=== PATIENT | female | born 1980 | race Caucasian/White ===

== ENCOUNTER 2021-10-16 18:21 | Outpatient (REF) | payer MEDICAID, SELFPAY ==
[2021-10-16 21:06] LABS: HCT 47.2 % (36.0-46.0); HGB 15.7 g/dL (11.2-15.7); MCH 29.7 pg (27.0-33.0); MCHC 33.3 % (32.0-36.0); MCV 89.2 fL (80-95); MPV 10.3 fL (8.0-11.0); Platelet Count 295 10^3/uL (130-400); RBC 5.29 10^6/uL (3.93-5.22); RDW 11.9 % (11.7-14.6); RDW-SD 38.9 fL; WBC 9.34 10^3/uL (4.4-10.8)
[2021-10-16 21:26] LABS: ALT 60 U/L (14-59); AST 29 U/L (15-37); Anion Gap 10.3 mmol/L (3-11); BUN 18 mg/dL (7-18); CO2 29.7 mmol/L (21.0-32.0); CREATININE 1.1 mg/dL (0.55-1.02); Calcium 9.8 mg/dL (8.5-10.1); Chloride 104 mmol/L (98-107); FREE T4 1.17 ng/dL (0.76-1.46); Glucose 89 mg/dL (74-106); Potassium 3.9 mmol/L (3.5-5.1); Sodium 144 mmol/L (136-145); TSH 3.34 uIU/mL (0.36-3.74)
[2021-10-17 17:52] LABS: T3,Free 3.5 pg/mL (2.8-5.3)
== END 2021-10-16 18:22 | disposition home or self-care (01) ==
LOC: NCHCN 18:21
PROVIDERS: Visit Provider Nurse Practitioner Family
DX: E05.00 Thyrotoxicosis with diffuse goiter without thyrotoxic crisis or storm (principal); K76.0 Fatty (change of) liver, not elsewhere classified; E66.01 Morbid (severe) obesity due to excess calories; Z79.899 Other long term (current) drug therapy
CPT/HCPCS: 80048; 85027; 84439; 84443; 84450; 84460; 84481

== ENCOUNTER 2022-01-28 18:11 | Outpatient (REF) | payer MEDICAID, SELFPAY ==
[2022-01-28 22:32] LABS: Hemoglobin A1C 5.2 % (<5.7)
[2022-01-30 09:35] LABS: DHEA Sulfate 119 ug/dL (75-410)
[2022-02-01 17:34] LABS: Testosterone, Total 24 ng/dL (8-60)
== END 2022-01-28 18:12 | disposition home or self-care (01) ==
LOC: NCHCN 18:11
PROVIDERS: Visit Provider Nurse Practitioner Family
DX: L65.9 Nonscarring hair loss, unspecified (principal); E66.01 Morbid (severe) obesity due to excess calories
CPT/HCPCS: 82627; 84403; 82565; 83036

== ENCOUNTER 2022-04-09 18:35 | Emergency (ER) | payer MEDICAID, SELFPAY ==
[2022-04-09 18:46] VITALS: BP 125/82; PULSE 78; RESP 18; TEMP 36.9; O2SAT 95
[2022-04-09 18:58] VITALS: RESP 18
[2022-04-09] MEDS: LORazepam 1 MG TAB PO (19:40)
[2022-04-09 19:50] LABS: Abs Immature Grans 0.02 10^3/uL (0.0-0.06); Absolute Basophil Count 0.03 10^3/uL (0.0-0.2); Absolute Eosinophil Count 0.12 10^3/uL (0.0-0.7); Absolute Lymphocyte Count 3.08 10^3/uL (1.2-3.4); Absolute Monocyte Count 0.63 10^3/uL (0.1-0.8); Absolute Neutrophil Count 5.29 10^3/uL (1.2-6.7); Basophils % 0.3; Eosinophils % 1.3; HCT 45.2 % (36.0-46.0); HGB 15.3 g/dL (11.2-15.7); Immature Grans % 0.2; Lymphocytes % 33.6; MCH 30.8 pg (27.0-33.0); MCHC 33.8 % (32.0-36.0); MCV 91 fL (80-95); MPV 9.4 fL (8.0-11.0); Monocytes % 6.9; Neutrophils % 57.7; Platelet Count 289 10^3/uL (130-400); RBC 4.97 10^6/uL (3.93-5.22); RDW-SD 40.2 fL; WBC 9.17 10^3/uL (4.4-10.8)
[2022-04-09 20:06] LABS: ALT 58 U/L (14-59); AST 52 U/L (15-37); Albumin 4.3 g/dL (3.4-5.0); Alkaline Phosphatase 74 U/L (46-116); Anion Gap 8.4 mmol/L (3-11); BUN 18 mg/dL (7-18); Bilirubin, Total 0.5 mg/dL (0.2-1.0); CO2 28.6 mmol/L (21.0-32.0); CREATININE 1.1 mg/dL (0.55-1.02); Calcium 9.7 mg/dL (8.5-10.1); Chloride 104 mmol/L (98-107); Glucose 103 mg/dL (74-106); Potassium 4.5 mmol/L (3.5-5.1); Sodium 141 mmol/L (136-145); Total Protein 8.6 g/dL (6.4-8.2)
[2022-04-09 20:26] LABS: FREE T4 0.98 ng/dL (0.76-1.46)
--- NOTE | 2022-04-09 21:38 | W.ED.GENAD ---
Discharge Plan Disposition Patient Disposition: HOME Condition: Stable Discharge Details Clinical Impression: Mood disorder Primary Care Provider: Ashley Vaelnte ED Provider: Rita Villalta Home Meds and New Rx's Prescriptions: New lorazepam [Ativan] 1 mg tablet 1 mg PO DAILY PRNQty: 8 0RF Continued lamotrigine [Lamictal] 150 mg Tablet 150 mg PO DAILY atenolol 25 mg Tablet 10 mg PO DAILY losartan 25 mg Tablet 25 mg PO DAILY methimazole 5 mg Tablet 7.5 mg PO DAILY aripiprazole [Abilify] 10 mg Tablet 10 mg PO DAILY Discharge Instructions Additional Instructions: I am supplying you with several tablets of Ativan, you may take this as needed for anxiety This medication is addictive and you should use it sparingly You may take 1 mg every 8 hours as needed for anxiety Please follow-up with the mental health provider that has been listed Please return earlier should you have new or worsening complaints Your thyroid level is slightly elevated, please have this rechecked by your primary care physician return earlier should you have new or worsening complaints Referrals: Ashley Valente [Primary Care Provider] - Discharge Data Discharge Date/Time-TO BE ENTERED AT DEPARTURE: 04/09/22 22:13 Medical Decision Making Patient is pleasant, alert, oriented, feels significantly improved after milligram of Ativan Mental [facility] has screened this patient and feels as though she is stable for discharge home She will be established with a psychologist which she feels comfortable with this disposition She is discharged home in stable condition with stable vitals, I gave her several tablets of Ativan to to needed at home Return precautions discussed and patient expressed understanding Patient is aware that it is addictive substance and she should not operate her vehicle for 8 hours after taking this medication Medical Records Medical records reviewed: Yes I reviewed the patient's medical records. HPI General Date/Time Provider Initiated Documentation: 04/09/22 18:36. HPI Narrative: This 41-year-old female with history of hypothyroidism presents with report of worsening anxiety. She states she relocated here approximately a year ago and has yet to require a psychologist locally. She does take several medications for her depression and anxiety but feels as though there is been worsening in the past several months. She does have a primary care physician he has been managing her other psychiatric medications. She denies any suicidal or homicidal ideation. She denies any auditory visual hallucinations. She smokes marijuana occasionally. She denies any alcohol or illicit drug use. She denies any chance of . She denies any new medications. Related Data Home Medications Medication Instructions Recorded Confirmed aripiprazole 10 mg tablet (Abilify) 10 mg PO DAILY 04/09/22 04/09/22 atenolol 25 mg tablet 10 mg PO DAILY 04/09/22 04/09/22 lamotrigine 150 mg tablet 150 mg PO DAILY 04/09/22 04/09/22 (Lamictal) lorazepam 1 mg tablet (Ativan) 1 mg PO DAILY PRN #8 tabs 04/09/22 losartan 25 mg tablet 25 mg PO DAILY 04/09/22 04/09/22 methimazole 5 mg tablet 7.5 mg PO DAILY 04/09/22 04/09/22 Previous Rx's Medication Instructions Recorded lorazepam 1 mg tablet (Ativan) 1 mg PO DAILY PRN #8 tabs 04/09/22 Allergies Allergy/AdvReac Type Severity Reaction Status Date / Time Penicillins Allergy Skin Rash Unverified 04/09/22 18:56 Sulfa (Sulfonamide Allergy Skin Rash Unverified 04/09/22 18:56 Antibiotics) General Stated Complaint: Anxiety DAVID: 3 Review of Systems All systems reviewed & are unremarkable except as noted in HPI and below PFSH All Active Problems (Updated 04/09/22 @ 21:41 by FRANCI Altman) Mood disorder (Acute) Social History Smoking/Tobacco Use Status: Former Tobacco Use Smoking risk assessment performed?: Yes Alcohol Intake: never Drug use: Occasionally Substance use type: marijuana Do you feel safe at home: Yes Do you feel safe in your relationship?: Yes Exam Const General: cooperative and anxious Orientation: alert and oriented x3 Eyes Pupils: PERRL Resp Effort & Inspection: normal respiratory effort Cardio Rate: regular rate Skin General skin exam: no rashes or lesions noted Neuro General: patient alert and patient oriented x3 Cranial Nerves: CN's II-XI intact bilaterally Cognition: normal cognition Speech: speech normal Psych Appearance: grossly normal Mental Status: mental status grossly normal Mood: anxious mood Attitude: cooperative Course Vital Signs Vital signs: Vital Signs Temperature 36.9 C 04/09/22 18:46 Pulse 78 04/09/22 18:46 Respiratory Rate 18 04/09/22 18:46 Blood Pressure 125/82 04/09/22 18:46 Pulse Oximetry 95 04/09/22 18:46 Temperature 36.9 C 04/09/22 18:46 Temperature Source Oral 04/09/22 18:46 Pulse 78 04/09/22 18:46 Respiratory Rate 18 04/09/22 18:58 Respiratory Effort Non-Labored 04/09/22 18:58 Respiratory Depth Normal 04/09/22 18:58 Respiratory Pattern Normal 04/09/22 18:58 Blood Pressure 125/82 04/09/22 18:46 Blood Pressure Position Sitting 04/09/22 18:46 Pulse Oximetry 95 04/09/22 18:46 Oxygen Delivery Method Room Air 04/09/22 18:46 Oxygen Flow Rate 0 04/09/22 18:46 Lab/Test Results Lab/Test Results: Laboratory Tests Range/Units 04/09/22 04/09/22 19:35 19:35 WBC (4.4-10.8) 10^3/uL 9.17 RBC (3.93-5.22) 10^6/uL 4.97 Hgb (11.2-15.7) g/dL 15.3 Hct (36.0-46.0) % 45.2 MCV (80-95) fL 91 MCH (27.0-33.0) pg 30.8 MCHC (32.0-36.0) % 33.8 RDW (11.7-14.6) % 12.0 Plt Count (130-400) 10^3/uL 289 MPV (8.0-11.0) fL 9.4 Immature Gran % 0.2 Neutrophils % 57.7 Lymphocytes % 33.6 Monocytes % 6.9 Eosinophils % 1.3 Basophils % 0.3 Nucleated RBC % (0.0-0.3) % 0.0 Absolute Neutrophils (1.2-6.7) 10^3/uL 5.29 Absolute Lymphocytes (1.2-3.4) 10^3/uL 3.08 Absolute Monocytes (0.1-0.8) 10^3/uL 0.63 Absolute Eosinophils (0.0-0.7) 10^3/uL 0.12 Absolute Basophils (0.0-0.2) 10^3/uL 0.03 Sodium (136-145) mmol/L 141 Potassium (3.5-5.1) mmol/L 4.5 Chloride (98-107) mmol/L 104 Carbon Dioxide (21.0-32.0) mmol/L 28.6 Anion Gap (3-11) mmol/L 8.4 BUN (7-18) mg/dL 18 Creatinine (0.55-1.02) mg/dL 1.1 H Estimated GFR/1.73 m2 (mL/min/1.73m2) 55.30 Glucose (74-106) mg/dL 103 Calcium (8.5-10.1) mg/dL 9.7 Total Bilirubin (0.2-1.0) mg/dL 0.5 AST (15-37) U/L 52 H ALT (14-59) U/L 58 Alkaline Phosphatase (46-116) U/L 74 Total Protein (6.4-8.2) g/dL 8.6 H Albumin (3.4-5.0) g/dL 4.3 TSH (0.36-3.74) uIU/mL 5.40 H Free T4 (0.76-1.46) ng/dL 0.98
[2022-04-09 22:05] VITALS: BP 160/86; PULSE 80; RESP 16; O2SAT 98
== END 2022-04-09 22:13 | disposition home or self-care (01) ==
PROVIDERS: Emergency Provider Physician Assistant; PCP Nurse Practitioner Family
DX: F39 Unspecified mood [affective] disorder (principal); F41.9 Anxiety disorder, unspecified
CPT/HCPCS: 80053; 99283; 84439; 84443; 85025

== ENCOUNTER 2022-05-20 16:42 | Outpatient (REF) | payer MEDICAID, SELFPAY ==
[2022-05-20 21:02] LABS: FREE T4 1.04 ng/dL (0.76-1.46); TSH 5.72 uIU/mL (0.36-3.74)
[2022-05-21 18:41] LABS: T3,Free 3.6 pg/mL (2.8-5.3)
== END 2022-05-20 16:43 | disposition home or self-care (01) ==
LOC: NCHCN 16:42
PROVIDERS: PCP Nurse Practitioner Family; Visit Provider Nurse Practitioner Family
DX: E05.00 Thyrotoxicosis with diffuse goiter without thyrotoxic crisis or storm (principal)
CPT/HCPCS: 84439; 84443; 84481

== ENCOUNTER → 2022-06-30 02:15 | Outpatient (CLI) | payer MEDICAID, SELFPAY ==
--- NOTE | 2022-06-30 10:45 | DI.RAD_ITS ---
Exam(s) XR LUMBAR SPINE COMPLETE EXAM: XR LUMBAR SPINE COMPLETE CLINICAL HISTORY: BACK PAIN, M54.9. TECHNIQUE: 2D digital imaging was performed of the lumbar spine. Five images were obtained. AP, la teral, right oblique, left oblique and L5-S1 spot views were obtained. COMPARISON: No exams were available for comparison FINDINGS: Examination limited by patient body habitus. BONES: No fracture or destructive lesion. Small endplate osteophytes are seen at L4-L5 and L5-S1. No facet hypertrophy identified. DISKS: There is disc space narrowing at L4-L5. ALIGNMENT: Lumbar spinal alignment is within normal limits. No spondylolysis or spondylolisthesis. SOFT TISSUE: Normal. IMPRESSION: Mild degenerative changes in the lumbar spine. DATA REPOSITORY: RADIATION DOSE DELIVERED:
== END ==
PROVIDERS: PCP Nurse Practitioner Family; Visit Provider Nurse Practitioner Family
DX: M51.36 Other intervertebral disc degeneration, lumbar region (principal)
CPT/HCPCS: 72110

== ENCOUNTER 2022-08-18 19:13 | Outpatient (REF) | payer MEDICAID, SELFPAY ==
[2022-08-18 18:45] LABS: Abs Immature Grans 0.02 10^3/uL (0.0-0.06); Absolute Basophil Count 0.04 10^3/uL (0.0-0.2); Absolute Eosinophil Count 0.17 10^3/uL (0.0-0.7); Absolute Lymphocyte Count 2.97 10^3/uL (1.2-3.4); Absolute Monocyte Count 0.53 10^3/uL (0.1-0.8); Absolute Neutrophil Count 4.15 10^3/uL (1.2-6.7); Basophils % 0.5; Eosinophils % 2.2; HCT 41.7 % (36.0-46.0); HGB 14.1 g/dL (11.2-15.7); Immature Grans % 0.3; Lymphocytes % 37.7; MCH 30.7 pg (27.0-33.0); MCHC 33.8 % (32.0-36.0); MCV 91 fL (80-95); Monocytes % 6.7; Neutrophils % 52.6; Platelet Count 288 10^3/uL (130-400); RBC 4.59 10^6/uL (3.93-5.22); RDW 11.9 % (11.7-14.6); RDW-SD 39.6 fL; WBC 7.88 10^3/uL (4.4-10.8)
[2022-08-18 19:22] LABS: ALT 47 U/L (14-59); AST 23 U/L (15-37); Albumin 3.8 g/dL (3.4-5.0); Alkaline Phosphatase 86 U/L (46-116); Anion Gap 9.5 mmol/L (3-11); BUN 15 mg/dL (7-18); Bilirubin, Total 0.2 mg/dL (0.2-1.0); CO2 28.5 mmol/L (21.0-32.0); Calcium 9.7 mg/dL (8.5-10.1); Chloride 105 mmol/L (98-107); Estimated GFR 73.49 (mL/min/1.73m2); Glucose 84 mg/dL (74-106); Potassium 4.3 mmol/L (3.5-5.1); Sodium 143 mmol/L (136-145); TSH (W/Ref FT4) 4.98 uIU/mL (0.36-3.74); Total Protein 7.4 g/dL (6.4-8.2)
[2022-08-19 17:55] LABS: T3, Total 117 ng/dL (97-169)
== END 2022-08-18 19:14 | disposition home or self-care (01) ==
LOC: NCHCN 19:13
PROVIDERS: PCP Nurse Practitioner Family; Visit Provider Internal Medicine
DX: I10 Essential (primary) hypertension (principal); R53.81 Other malaise; E05.00 Thyrotoxicosis with diffuse goiter without thyrotoxic crisis or storm; R53.83 Other fatigue; L65.9 Nonscarring hair loss, unspecified
CPT/HCPCS: 80053; 84439; 84443; 84480; 85025

== ENCOUNTER 2022-12-16 12:22 | Outpatient (REF) | payer MEDICAID, SELFPAY ==
[2022-12-16 21:29] LABS: FREE T4 1.23 ng/dL (0.76-1.46); TSH 3.37 uIU/mL (0.36-3.74)
[2022-12-17 18:29] LABS: T3, Total 133 ng/dL (97-169)
[2022-12-17 19:18] LABS: Thyroglobulin Antibody 120 U/mL (<=60); Thyroperoxidase Antibody >1300 U/mL (<=60)
[2022-12-19 10:21] LABS: Thyrotropin Receptor Ab <1.10 IU/L
[2022-12-22 16:49] LABS: Thyroid Stimulating Immunoglob <1.0 TSI index (<=1.3)
== END 2022-12-16 12:23 | disposition home or self-care (01) ==
LOC: NCHCN 12:22
PROVIDERS: PCP Nurse Practitioner Family; Visit Provider Internal Medicine Endocrinology, Diabetes & Metabolism
DX: E05.00 Thyrotoxicosis with diffuse goiter without thyrotoxic crisis or storm (principal)
CPT/HCPCS: 86376; 84235; 84439; 84443; 84445; 84480; 84481

== ENCOUNTER 2023-01-04 16:24 | Emergency (ER) | payer MEDICAID, SELFPAY ==
[2023-01-04 16:28] VITALS: BP 150/103; PULSE 65; RESP 24; TEMP 36.6; O2SAT 98
--- NOTE | 2023-01-04 16:30 | RT.EKG_ITS ---
APPROVED REPORT Exam: Resting ECG Reason for Exam: ?overdose Patient Location: E HR:67 bpm ECG Measurements Heart Rate 67 AXIS RI 191 P 26 QRSd 90 QRS 27 QT 391 T 35 QTc 414 Conclusion Sinus rhythm...normal P axis, V-rate 60- 99
--- NOTE | 2023-01-04 16:40 | W.ED.GENAD ---
Discharge Plan Disposition Patient Disposition: Home Condition: Stable Discharge Details Clinical Impression: Depression Primary Care Provider: Ashley Valente ED Provider: Heri Lora Home Meds and New Rx's Prescriptions: Continued lamotrigine [Lamictal] 150 mg Tablet 150 mg PO DAILY atenolol 25 mg Tablet 10 mg PO DAILY losartan 25 mg Tablet 25 mg PO DAILY methimazole 5 mg Tablet 7.5 mg PO DAILY lorazepam [Ativan] 1 mg tablet 1 mg PO DAILY PRNQty: 8 0RF Vraylar 3 mg Capsule 3 mg PO DAILY evwmktqun-xwtwqcotdo-RZ Capsule 1 cap PO 1XD Discharge Instructions Instructions: Depression (ED) Additional Instructions: follow up with [facility] human services and your primary care provider if you feel more ill, or have worsening thoughts of self harm return to the emergency department Medical Decision Making 42 yo female who states she has a history of bipolar has been feeling depressed the past few weeks and having thoughts of self harm including overdosing on her beta blockers. She denies actually attempting to harm herself, no alcohol or drug use. She arrives stable, does seem depressed and cries during the history intermittently but is cooperative. She is caox4, clear speech, normal gait, no focal motor or sensation deficits. No findings on exam or history to suggest underlying medical process such as infectious or endocrine abnormality to cause her symptoms. Given she's expressed thoughts of overdosing will screen for possible ingestants and obtain etoh, urine drug screen, acetaminophen and salicylate levels and an ekg pt medically cleared to speak with mental health mental health [facility] worker evaluated and patient does not want to be hospitalized at this time as she states the hospitals scare her. She has consented to safetly plan with the [facility] clinician and will be seeking outpatient care bed. She is stable for d/c, return precautions given Differential Diagnosis Differential Diagnosis: depression, si Lab Data Lab results reviewed: Yes I reviewed the patient's lab results. ECG Data Attestation: I personally reviewed and interpreted this ECG (s) as follows: Prior ECG tracings: not available for review Interpretation: sinus rhythm, rate of 67, pr 191, qtc 414, no acute ischemic findings HPI General Mode of arrival: ambulatory. Date/Time Provider Initiated Documentation: 01/04/23 16:27. Limitations to Documentation: no limitations. Information obtained by: patient. History of Present Illness 42 year old F presents to the emergency department with the chief complaint of suicidal, described as moderate, and it has been constant. No relieving factors improve symptom(s), No exacerbating factors reported . Patient notes denies chest pain and fever/chills. Patient did receive the following treatments prior to arrival, none Related Data Home Medications Medication Instructions Recorded Confirmed atenolol 25 mg tablet 10 mg PO DAILY 04/09/22 01/04/23 lamotrigine 150 mg tablet 150 mg PO DAILY 04/09/22 01/04/23 (Lamictal) lorazepam 1 mg tablet (Ativan) 1 mg PO DAILY PRN #8 tabs 04/09/22 01/04/23 losartan 25 mg tablet 25 mg PO DAILY 04/09/22 01/04/23 methimazole 5 mg tablet 7.5 mg PO DAILY 04/09/22 01/04/23 cariprazine 3 mg capsule (Vraylar) 3 mg PO DAILY 01/04/23 01/04/23 jibajarli-zniwmnoami-TB capsule 1 cap PO 1XD 01/04/23 01/04/23 Previous Rx's Medication Instructions Recorded lorazepam 1 mg tablet (Ativan) 1 mg PO DAILY PRN #8 tabs 04/09/22 Allergies Allergy/AdvReac Type Severity Reaction Status Date / Time Penicillins Allergy Skin Rash Unverified 01/04/23 16:35 Sulfa (Sulfonamide Allergy Skin Rash Unverified 01/04/23 16:35 Antibiotics) General Stated Complaint: PsychEval DAVID: 2 Review of Systems All systems reviewed & are unremarkable except as noted in HPI and below Constitutional Constitutional: Denies chills, Denies fever(s) and Denies weakness Cardiovascular Cardiovascular: Denies chest pain and Denies dyspnea Respiratory Respiratory: Denies cough and Denies dyspnea Gastrointestinal Gastrointestinal: Denies abdominal pain, Denies nausea and Denies vomiting Integumentary/Breasts Skin/Breast: Denies rash Neurologic Neurologic: Denies weakness PFSH All Active Problems (Updated 01/04/23 @ 18:39 by Heri Lora MD) Depression (Chronic) Social History Smoking/Tobacco Use Status: Former Tobacco Use Smoking risk assessment performed?: Yes Alcohol Intake: never Drug use: Daily Substance use type: marijuana Do you feel safe at home: Yes Do you feel safe in your relationship?: Yes Exam Const General: no acute distress Orientation: alert HENMT Head: normal to inspection Ears: external ears normal General nose exam: external nose normal Mouth: moist mucous membranes Eyes General: appearance normal, both eyes and all related structures Neck Neck: normal visual inspection Resp Effort & Inspection: normal respiratory effort and able to speak in complete sentences Cardio Rate: regular rate Skin General skin exam: no rashes or lesions noted Neuro General: patient alert and patient oriented x3 Extrem General: normal to inspection Psych Appearance: well kempt Speech and Movement: speech and movement normal Attitude: cooperative Course Vital Signs Vital signs: Vital Signs Temperature 36.6 C 01/04/23 16:28 Pulse 65 01/04/23 16:28 Respiratory Rate 24 01/04/23 16:28 Blood Pressure 150/103 H 01/04/23 16:28 Pulse Oximetry 98 01/04/23 16:28 Temperature 36.6 C 01/04/23 16:28 Temperature Source Oral 01/04/23 16:28 Pulse 65 01/04/23 16:28 Respiratory Rate 24 01/04/23 16:28 Blood Pressure 150/103 H 01/04/23 16:28 Blood Pressure Position Supine 01/04/23 16:28 Pulse Oximetry 98 01/04/23 16:28 Oxygen Delivery Method Room Air 01/04/23 16:28 Oxygen Flow Rate 0 01/04/23 16:28
[2023-01-04 17:08] LABS: Abs Immature Grans 0.02 10^3/uL (0.0-0.06); Absolute Basophil Count 0.03 10^3/uL (0.0-0.2); Absolute Lymphocyte Count 2.59 10^3/uL (1.2-3.4); Absolute Monocyte Count 0.54 10^3/uL (0.1-0.8); Basophils % 0.4; Eosinophils % 2.6; HCT 45.5 % (36.0-46.0); HGB 15.6 g/dL (11.2-15.7); Immature Grans % 0.3; Lymphocytes % 33.3; MCH 30.5 pg (27.0-33.0); MCHC 34.3 % (32.0-36.0); MCV 89 fL (80-95); MPV 9.1 fL (8.0-11.0); Monocytes % 6.9; Neutrophils % 56.5; Platelet Count 315 10^3/uL (130-400); RBC 5.11 10^6/uL (3.93-5.22); RDW 12.2 % (11.7-14.6); RDW-SD 40.1 fL; WBC 7.78 10^3/uL (4.4-10.8)
[2023-01-04 17:35] LABS: Salicylate < 2.8 mg/dL (<2.8)
[2023-01-04 17:37] LABS: ALT 54 U/L (14-59); AST 30 U/L (15-37); Acetaminophen < 2 ug/mL (10-30); Albumin 4.5 g/dL (3.4-5.0); Alkaline Phosphatase 78 U/L (46-116); Anion Gap 8.3 mmol/L (3-11); BUN 16 mg/dL (7-18); Bilirubin, Total 0.6 mg/dL (0.2-1.0); CO2 26.7 mmol/L (21.0-32.0); CREATININE 1.2 mg/dL (0.55-1.02); Calcium 10.1 mg/dL (8.5-10.1); Chloride 105 mmol/L (98-107); Estimated GFR 58.69 (mL/min/1.73m2); Glucose 93 mg/dL (74-106); Potassium 3.8 mmol/L (3.5-5.1); Sodium 140 mmol/L (136-145); TSH (W/Ref FT4) 4.98 uIU/mL (0.36-3.74); Total Protein 8.7 g/dL (6.4-8.2)
[2023-01-04 17:45] LABS: ETHANOL BLOOD < 3.0 mg/dL (<10)
[2023-01-04 18:03] LABS: Bilirubin Negative (Negative); Blood Moderate (Negative); Clarity Clear (Clear); Glucose Negative (Negative); Ketones Negative (Negative); Leukocyte Esterase Negative (Negative); Nitrite Negative (Negative); Specific Gravity 1.015 (1.005-1.025); Urobilinogen 0.2 EU/dL (Up TO 0.2)
[2023-01-04 18:03] LABS: FREE T4 1.14 ng/dL (0.76-1.46)
[2023-01-04 18:14] LABS: *AMPHETAMINES SCREEN URINE Negative (Negative); *BARBITURATES SCREEN URINE Negative (Negative); *BENZODIAZEPINES SCREEN URINE Negative (Negative); Bacteria Negative HPF (Negative); Cannabinoids THC Positive (Negative); Casts Negative LPF (Negative); Cocaine Screen,Urine Negative (Negative); Crystals Negative HPF (Negative); Epithelial Cells Few HPF (Negative); METHADONE URINE SCREEN Negative (Negative); Mucus Negative (Negative); OPIATES URINE SCREEN Negative (Negative); Other Cells Negative (Negative); WBC 0-2 HPF (0-5)
[2023-01-04 18:15] LABS: C & S Indicated? No
[2023-01-04 18:17] LABS: Tricyclic Antidepressants Negative (Negative)
--- NOTE | 2023-01-04 18:50 | PDOC.MHCN_ITS ---
Date of service: 01/04/23 Time of Service: 18:35 PHQ-9 Over the last 2 weeks, how often have you been bothered by any of the following problems? 1. Little interest or pleasure in doing things: nearly every day 2. Feeling down, depressed, or hopeless: nearly every day 3. Trouble falling or staying asleep, or sleeping too much: more than half the days 4. Feeling tired or having little energy: more than half the days 5. Poor appetite or overeating: nearly every day 6. Feeling bad about yourself - or that you are a failure or have let yourself and your family down: nearly every day 7. Trouble concentrating on things, such as reading the newspaper or watching television: nearly every day 8. Moving or speaking so slowly that other people could have noticed? - Or the opposite - being so fidgety or restless that you have been moving around a lot more than usual: nearly every day 9. Thoughts that you would be better off or of hurting yourself in some way: nearly every day Total score: 25 If you checked off any problems, how difficult have these problems made it for you to do your work, take care of things at home, or get along with other people?: very difficult PHQ-9 Results: Positive Source: Developed by Drs. Perfecto Denson, Venecia Murrieta, Osman Hanson and colleagues, with an educational carmelina from [employer]. Suicide Severity Rate CSSRS Have you wished you were or wished you could go to sleep and not wake up?: Yes Have you actually had any thoughts of killing yourself?: Yes CSSRS2 Have you been thinking about how you might do this?: Yes Have you had these thoughts and had some intention of acting on them?: No Have you started to work out or worked out the details of how to kill yourself? Do you intend to carry out this plan?: No CSSRS3 Have you ever done anything, started to do anything or prepared to do anything to end your life?: No CSSRS4 Was this within the past three months?: No Screening Score Total Score: 4 Screening: Positive Mental Health Emergency Note Release [facility] release signed:: Yes Reason for Visit Temi presented to the emergency room due to increased depression and feeling of hopelessness. Temi reports increased intrusive thoughts that began scaring her. In the last 2 weeks has the pt presented for ES prior to today?: Unknown Client Information Client is: Adult Outpatient Well Housed: Yes Non Suicidal Self Injury Current: No History: No Safety Risk/Harm to Self or Others Current Ideation to Harm Self or Others: Yes to self. (Temi reports thinking about taking too much of her medication and disclosed researching how much she needed to take to end her life.) Intent: no, has no intent. Plan: yes,has a plan. History of suicide attempt: No history of suicide attempt reported Risk: Does risk to harm exist?: No Risk: Low Risk Duty to warn indicated: No Asssessment/Mental Status Appearance: Disheveled Attitude: Cooperative Behavior: Unremarkable Speech: Normal Affect: Cogruent with mood Mood: Sad and Anxious Thought process: Unremarkable Hallucinations: No evidence Delusions: No evidence Attention: Unremarkable Perception: Not impaired Orientation: Fully orientated Memory: Intact Insight: Fair Judgement: Fair Neurovegetative Symptoms Sleep: Decrease (Temi reports sleeping about three hours a night.) Appetitie: Disordered (Temi reports either eating too much/ binge eating or not eating enough.) Interests: Decrease Energy: Decrease Libido: Not applicable Substance Use: Do you use nicotine?: No Have you used substances in the last 7 days?: yes, Marijuana, daily Additional Issues: Assaultive/Threatening Behavior: No Medical Concerns: No Client engaged in active self harm w/weapon: No Threatening to run away: No Child reported abuse/neglect: No Voluntarily presenting for services: Yes Domestic violence is a concern: No Extreme Psychosis or extreme behavior is present: No Impression Temi presents to the emergency room with increased depression and feeling of hopelessness. Temi reports her intrusive thoughts have began to scare her as she is thinking about ending her life. Temi disclosed she would end her life by overdosing on her medications and she researched two nights ago how many betablockers she needed to take to end her life, Temi reports she could not see herself actually taking these medications. Temi discloses fleeting s uicidal ideation since the age of [age] but never acting on her thoughts. Temi rates herself a 1/10 on a self reported scale of 0 being she could go home and be 100% safe and 10 being she would attempt to end her life by taking these medications. Temi reports she does not want to go to inpatient treatment and she would like to try outpatient services first. Temi and this specifications writer discussed the carebed/hospital diversion and Temi said that also sounds like a good idea. This specifications writer will make a carebed referral in addition to a therapy referral for Temi. While Temi waits for the carebed and to begin therapy she will complete daily check in calls with emergency between 10am-12pm. Resources Reosurces reviewed and given:: [id number] and [facility] Plan/Disposition Recommended Disposition: Crisis bed, facility contacted. Status of Crisis Bed acceptance: Pending review, [facility] Services [facility] Services: Therapy, Therapy and Community resources. Plan: Temi will be discharged home on a safety plan and completing daily check in calls until she can get into the carebed. This specifications writer will also be submitting a therpay referral for Temi. Person reported agreement to plan: Yes Reports/communication Outcome discussed with: ED/Personnel
[2023-01-04 18:54] VITALS: PULSE 92; RESP 18; O2SAT 99
== END 2023-01-04 18:55 | disposition home or self-care (01) ==
PROVIDERS: Emergency Provider Emergency Medicine; PCP Nurse Practitioner Family
DX: F32.A Depression, unspecified (principal); F31.9 Bipolar disorder, unspecified
CPT/HCPCS: 36415; 80053; 80307; 81025; 93005; 99285; 80320; 80329; 81003; 81015; 84439; 84443; 85025; 93010; 99284

== ENCOUNTER 2023-03-02 16:10 | Outpatient (REF) | payer MEDICAID, SELFPAY ==
[2023-03-02 17:35] LABS: FREE T4 1.26 ng/dL (0.76-1.46); TSH 1.21 uIU/mL (0.36-3.74)
[2023-03-03 20:20] LABS: T3,Free 4.8 pg/mL (2.8-5.3)
== END 2023-03-02 16:11 | disposition home or self-care (01) ==
LOC: NCHCN 16:10
PROVIDERS: PCP Nurse Practitioner Family; Visit Provider Nurse Practitioner Family
DX: E05.90 Thyrotoxicosis, unspecified without thyrotoxic crisis or storm (principal); L65.9 Nonscarring hair loss, unspecified; R53.81 Other malaise; G47.00 Insomnia, unspecified; R53.83 Other fatigue
CPT/HCPCS: 84439; 84443; 84481

== ENCOUNTER 2023-04-19 13:58 | Outpatient (REF) | payer MEDICAID, SELFPAY ==
[2023-04-19 17:02] LABS: Bacteria Few HPF (Negative); C & S Indicated? C&S Done As Ordered; Casts Negative LPF (Negative); Crystals Negative HPF (Negative); Epithelial Cells Few HPF (Negative); Mucus Negative (Negative); RBC 0-2 HPF (0-2); WBC 0-2 HPF (0-5)
== END 2023-04-19 13:59 | disposition home or self-care (01) ==
LOC: LBN 13:58
PROVIDERS: PCP Nurse Practitioner Family; Visit Provider Nurse Practitioner Family
DX: N39.0 Urinary tract infection, site not specified (principal)
CPT/HCPCS: 81015; 87086

== ENCOUNTER 2023-04-21 17:29 | Outpatient (REF) | payer MEDICAID, SELFPAY | END 2023-04-21 17:30 | disposition home or self-care (01) | LOC: LBN 17:29 | PROVIDERS: PCP Nurse Practitioner Family; Visit Provider Physician Assistant Medical | DX: R10.2 Pelvic and perineal pain (principal); N89.8 Other specified noninflammatory disorders of vagina | CPT/HCPCS: 87480; 87510; 87660 ==

== ENCOUNTER 2023-04-23 00:29 | Outpatient (CLI) | payer MEDICAID, SELFPAY ==
--- NOTE | 2023-04-23 | DI.US_ITS ---
Exam(s) US PELVIS TRANSVAGINAL EXAM: US PELVIS TRANSVAGINAL CLINICAL HISTORY: VAGINAL PAIN,R10.2,S/P COMP HYST,? ABNL TECHNIQUE: Ultrasound of the pelvis was performed both transabdominal and transvaginal. COMPARISON: No exams were available for comparison FINDINGS: UTERUS: Status post complete hysterectomy in 2019, apparently for endometriosis. No mass nor fluid collections in the visualized pelvis adnexal regions. No pelvic ascites evident IMPRESSION: 1. Surgically absent uterus and ovaries. 2. No abnormal adnexal findings 3. No free fluid. No abnormal fluid collection. DATA REPOSITORY:
== END 2023-04-23 00:49 ==
LOC: DI 00:29
PROVIDERS: PCP Nurse Practitioner Family; Visit Provider Physician Assistant Medical
DX: Z90.710 Acquired absence of both cervix and uterus (principal); R10.2 Pelvic and perineal pain
CPT/HCPCS: 76830; 76856

== ENCOUNTER 2023-06-18 00:57 | Outpatient (CLI) | payer MEDICAID, SELFPAY ==
--- NOTE | 2023-06-18 10:47 | DI.DEXA_ITS ---
Exam(s) XR DEXA BONE DENSITY W/WO FANNY EXAM: XR DEXA BONE DENSITY W/WO FANNY CLINICAL HISTORY: POSTSURGICAL MENOPAUSE,E89.41,SYMPTOMATIC OVARIAN FAILURE TECHNIQUE: N(i)² Horizon C densitometer analysis of left hip, lumbar spine and left forearm. Lat eral survey image of the thoracic and lumbar spine. COMPARISON: CR XR LUMBAR SPINE COMPLETE from 06/30/2022 FINDINGS: Lateral view of the thoracic and lumbar spine shows no evidence of compression fractures. Bone mineral density measurements of the lumbar spine correspond to a total T-score of -0.1, in the normal range. Bone mineral density measurements of the left hip correspond to a total T-score of 0.9. The femoral neck T-score is 1.4, in the normal range.. Theleft forearm bone mineral density measurements correspond to a T-score of the distal 3rd of 1.7, in the normal range.. IMPRESSION: Normal bone mineral density.
== END 2023-06-18 01:17 ==
LOC: DI 00:57
PROVIDERS: PCP Nurse Practitioner Family; Visit Provider Internal Medicine Endocrinology, Diabetes & Metabolism
DX: Z13.820 Encounter for screening for osteoporosis (principal); E89.41 Symptomatic postprocedural ovarian failure
CPT/HCPCS: 77080

== ENCOUNTER 2023-08-11 17:58 | Emergency (ER) | payer MEDICAID, SELFPAY ==
[2023-08-11 18:04] VITALS: BP 137/87; PULSE 65; RESP 20; TEMP 36.2; O2SAT 99
[2023-08-11 18:23] LABS: Bilirubin Negative (Negative); Blood Negative (Negative); Clarity Clear (Clear); Glucose Negative (Negative); Ketones Negative (Negative); Leukocyte Esterase Negative (Negative); Nitrite Negative (Negative); Specific Gravity >= 1.030 (1.005-1.025); Urobilinogen 0.2 mg/dL (Up to 0.2)
--- NOTE | 2023-08-11 18:45 | DI.CT_ITS ---
Exam(s) CT CHEST PE ABD PELVIS W EXAM: CT CHEST PE ABD PELVIS W CLINICAL HISTORY: right posterior chest / flank pain. TECHNIQUE: Imaging Protocol: Axial computed tomography images with coronal and sagittal reformatted images were created and reviewed CONTRAST MATERIAL: Intravenous: Omnipaque 350 Contrast volume:100 ml Oral: / no COMPARISON: No exams were available for comparison FINDINGS: CHEST: Tracheobronchial tree: Patent where visualized. Pulmonary parenchyma: Expiratory changes. No consolidation or dominant measurable mass. Pleura: No effusion or pneumothorax. Lymph nodes: Within normal limits. Aorta: Thoracic portion non-dilated. Heart: Normal size. No pericardial effusion. Bones: Unremarkable for age. No lytic or blastic lesions.No compression fractures. ABDOMEN: Liver: Enlarged. Moderate hepatic steatosis. No measurable mass. Gallbladder and biliary tract: No radiodense calculus or dilation. Pancreas: Normal density, no abnormal calcifications or inflammatory process. Spleen: Normal. Kidneys: Right kidney is somewhat inferiorly positioned and there is a question of a duplex collectin g system. This appears developmental. No radiodense stones or obstructive uropathy. No suspicious ma sses seen. Retroaortic left renal vein, normal variant. Adrenal glands: No masses seen. Aorta: Abdominal portion non-dilated. Lymph nodes: Within normal limits. Soft tissues: Unremarkable. PELVIS: Bladder: Symmetric distention, no gross wall thickening. Bowel: No obstruction or bowel wall thickening. Appendix normal. Normal quantity of stool. Peritoneal cavity: No ascites, collection or mesenteric inflammatory response. Bones: Degenerative changes lower lumbar spine. Reproductive organs: Status post hysterectomy. IMPRESSION: No acute abnormality in the chest, abdomen or pelvis.. RADIATION DOSE DELIVERED: 2,350.63mGy.cm Total DLP DATA REPOSITORY: All CT scans at this facility are submitted to the National Radiology Data Registry (NRDR) Dose Index Registry (DIR) with the [employer] (A[employer]). RADIATION OPTIMIZATION: All CT scans at this facility use at least one of these dose optimization te chniques: automated exposure control; mA and/or kV adjustment per patient size (includes targeted exa ms where dose is matched to clinical indication); or iterative reconstruction.
--- NOTE | 2023-08-11 18:45 | RT.EKG_ITS ---
APPROVED REPORT Exam: Resting ECG Reason for Exam: chest pain Patient Location: E HR:64 bpm ECG Measurements Heart Rate 64 AXIS OH 175 P 39 QRSd 84 QRS 51 QT 408 T 45 QTc 423 Conclusion Sinus rhythm...normal P axis, V-rate 60- 99 Low voltage, precordial leads...precordial leads <1.0mV sinus rhtyhm, normal axis, normal intervals, non ischemic
--- NOTE | 2023-08-11 19:02 | ED.GENADUL_ITS ---
Discharge Plan Disposition Patient Disposition: Home Condition: Improving Discharge Details Chief Complaint: Abd Prob Clinical Impression: Acute flank pain Primary Care Provider: Ashley Valente ED Provider: Adrian Aguilar Home Meds and New Rx's Prescriptions: No Action lamotrigine [Lamictal] 150 mg Tablet 150 mg PO DAILY atenolol 25 mg Tablet 10 mg PO DAILY losartan 25 mg Tablet 25 mg PO DAILY methimazole 5 mg Tablet 7.5 mg PO DAILY lorazepam [Ativan] 1 mg tablet 1 mg PO DAILY PRNQty: 8 0RF Vraylar 3 mg Capsule 3 mg PO DAILY [id number]-GA Capsule 1 cap PO 1XD magnesium 500 mg Tablet 500 mg PO DAILY lamotrigine 200 mg Tablet 200 mg PO DAILY atenolol 25 mg Tablet 25 mg PO DAILY omeprazole 20 mg Capsule,Delayed Release(Dr/Ec) 20 mg PO 1XD aripiprazole 10 mg Tablet 10 mg PO DAILY Discharge Instructions Instructions: Flank Pain (ED) Additional Instructions: Please follow-up with your primary care physician. Medical Decision Making 42-year-old female presents with right upper flank pain over the last day. Denies chest pain shortness of breath nausea vomiting fevers or chills. Patient is hemodynamically stable does appear slightly uncomfortable. Nonreproducible pain to right upper flank. Consider PE versus pneumothorax versus pneumonia versus pleurisy versus costochondritis versus kidney stone versus intra- abdominal pathology such as atypical cholecystitis versus biliary colic. Screening labs imaging analgesia anti-inflammatory close reassess 21: 37 patient resting notably no acute distress Labs and imaging unremarkable. Consider costochondritis versus pleurisy versus less likely early shingles as patient has not had chickenpox. Home care instructions and return precautions given HPI General Date/Time Provider Initiated Documentation: 08/11/23 18:51 . HPI Narrative: 42-year-old female presents with right upper flank discomfort over the last day. Denies nausea chest pain shortness of breath vomiting or fevers. Related Data Home Medications Medication Instructions Recorded Confirmed atenolol 25 mg tablet 10 mg PO DAILY 04/09/22 08/11/23 lamotrigine 150 mg tablet 150 mg PO DAILY 04/09/22 08/11/23 (Lamictal) lorazepam 1 mg tablet (Ativan) 1 mg PO DAILY PRN #8 tabs 04/09/22 08/11/23 losartan 25 mg tablet 25 mg PO DAILY 04/09/22 08/11/23 methimazole 5 mg tablet 7.5 mg PO DAILY 04/09/22 08/11/23 cariprazine 3 mg capsule (Vraylar) 3 mg PO DAILY 01/04/23 08/11/23 yrqnbhjhj-[id number]-PO capsule 1 cap PO 1XD 01/04/23 08/11/23 aripiprazole 10 mg tablet 10 mg PO DAILY 08/11/23 08/11/23 atenolol 25 mg tablet 25 mg PO DAILY 08/11/23 08/11/23 lamotrigine 200 mg tablet 200 mg PO DAILY 08/11/23 08/11/23 magnesium 500 mg tablet 500 mg PO DAILY 08/11/23 08/11/23 omeprazole 20 mg capsule,delayed 20 mg PO 1XD 08/11/23 08/11/23 release Previous Rx's Medication Instructions Recorded lorazepam 1 mg tablet (Ativan) 1 mg PO DAILY PRN #8 tabs 04/09/22 Allergies Allergy/AdvReac Type Severity Reaction Status Date / Time Penicillins Allergy Skin Rash Unverified 01/04/23 16:35 Sulfa (Sulfonamide Allergy Skin Rash Unverified 01/04/23 16:35 Antibiotics) General Stated Complaint: Abd Prob DAVID: 3 Review of Systems Narrative: Review of Systems Constitutional: negative Eyes: negative ENT: negative Cardiovascular: Flank pain Respiratory: negative Gastrointestinal: negative : negative Musculoskeletal: negative Skin: negative Neurologic: negative Psych: negative PFSH All Active Problems (Updated 08/11/23 @ 21:38 by Adrian Aguilar MD) Acute flank pain (Acute) Social History Smoking/Tobacco Use Status: Former Tobacco Use Smoking risk assessment performed?: Yes Alcohol Intake: never Drug use: Daily Substance use type: marijuana Do you feel safe at home: Yes Do you feel safe in your relationship?: Yes Exam Narrative Exam Narrative: Physical Examination General: alert, awake, cooperative, resting comfortably, no acute distress HEENT: normocephalic, atraumatic; PERRL, EOM intact, conjunctiva normal; no nasal discharge; moist mucous membranes, oral and pharyngeal mucosa normal, tolerating secretions Neck: supple, trachea midline; full ROM Chest: normal to inspection Respiratory: normal respiratory effort, speaking in full sentences, clear to auscultation, no wheezing, rales or rhonchi Cardiac: regular rate, regular rhythm, S1S2 intact, no murmurs rubs or gallops GI: abdomen soft, non-tender, non-distended; no palpable mass or hepatosplenomegaly Skin: no lesions, rashes or trauma appreciated Neuro: AAOx3, normal speech, moving all extremities Psych: Appropriate mood and affect Course Vital Signs Vital signs: Vital Signs Temperature 36.2 C L 08/11/23 18:04 Pulse 65 08/11/23 18:04 Respiratory Rate 20 08/11/23 18:04 Blood Pressure 137/87 08/11/23 18:04 Pulse Oximetry 99 08/11/23 18:04 Temperature 36.2 C L 08/11/23 18:04 Temperature Source Oral 08/11/23 18:04 Pulse 65 08/11/23 18:04 Respiratory Rate 20 08/11/23 18:04 Respiratory Effort Normal 08/11/23 18:12 Blood Pressure 137/87 08/11/23 18:04 Blood Pressure Position Sitting 08/11/23 18:04 Pulse Oximetry 99 08/11/23 18:04 Oxygen Delivery Method Room Air 08/11/23 18:04 Oxygen Flow Rate 0 08/11/23 18:04 Pain Level 7 08/11/23 18:04 Lab/Test Results Lab/Test Results: Laboratory Tests Range/Units 08/11/23 18:12 Urine Color (Yellow) Yellow Urine Clarity (Clear) Clear Urine pH (5-8) 6.0 Ur Specific [place] (1.005-1.025) >= 1.030 H Urine Protein (Negative) mg/dL Negative Urine Ketones (Negative) mg/dL Negative Urine Blood (Negative) Negative Urine Nitrite (Negative) Negative Urine Bilirubin (Negative) Negative Urine Urobilinogen (Up to 0.2) mg/dL 0.2 Ur Leukocyte Esterase (Negative) Negative Urine Glucose (Negative) mg/dL Negative POC- Test(urine) Negative
[2023-08-11 19:28] LABS: Abs Immature Grans 0.02 10^3/uL (0.0-0.06); Absolute Basophil Count 0.03 10^3/uL (0.0-0.2); Absolute Lymphocyte Count 3.05 10^3/uL (1.2-3.4); Absolute Monocyte Count 0.61 10^3/uL (0.1-0.8); Absolute Neutrophil Count 3.99 10^3/uL (1.2-6.7); Basophils % 0.4; Eosinophils % 2.5; HCT 42.2 % (36.0-46.0); HGB 14.2 g/dL (11.2-15.7); Immature Grans % 0.3; Lymphocytes % 38.6; MCH 29.6 pg (27.0-33.0); MCHC 33.6 % (32.0-36.0); MCV 88 fL (80-95); MPV 8.8 fL (8.0-11.0); Monocytes % 7.7; Neutrophils % 50.5; Platelet Count 260 10^3/uL (130-400); RDW 11.9 % (11.7-14.6); RDW-SD 38.5 fL
[2023-08-11] MEDS: Ketorolac 15 MG/ML VIAL IVP (19:28)
[2023-08-11] MEDS: Normal Saline 1,000 ML 1000 ML IV (19:29)
[2023-08-11 19:43] LABS: PTT Activated 26.8 sec (21.5-31.9); Prothrombin Time 9.7 sec (9.3-11.0)
[2023-08-11 19:51] VITALS: PULSE 63; RESP 17
[2023-08-11 19:58] VITALS: BP 119/64; PULSE 58; RESP 11
[2023-08-11 20:00] VITALS: PULSE 61; RESP 16
[2023-08-11 20:01] VITALS: BP 114/61; PULSE 60; PULSE 63; RESP 14
[2023-08-11 20:01] LABS: ALT 49 U/L (14-59); AST 27 U/L (15-37); Alkaline Phosphatase 77 U/L (46-116); Anion Gap 7.5 mmol/L (3-11); BUN 15 mg/dL (7-18); Bilirubin, Total 0.4 mg/dL (0.2-1.0); CO2 29.5 mmol/L (21.0-32.0); CREATININE 1.2 mg/dL (0.55-1.02); Calcium 9.4 mg/dL (8.5-10.1); Chloride 103 mmol/L (98-107); Estimated GFR 58.69 (mL/min/1.73m2); Glucose 91 mg/dL (74-106); NT-proBNP 104 pg/mL (<300); Potassium 3.7 mmol/L (3.5-5.1); Sodium 140 mmol/L (136-145); Troponin I < 50 ng/L (<or=60)
[2023-08-11] MEDS: Omnipaque 350 MG/ML 100 ML BTL IJ (20:04)
[2023-08-11] MEDS: Normal Saline - Diluent 50 ML VIAL IJ (20:05)
[2023-08-11] MEDS: Normal Saline Flush 10 ML SYR IVP (20:06)
--- NOTE | 2023-08-11 21:03 | DI.VRAD_ITS ---
PROCEDURE INFORMATION: Exam: CTA Chest With Contrast Exam date and time: 08/11/2023 8:10 PM Age: 42 years old Clinical indication: Right-sided; Other: R flank pain; Prior surgery; Surgery date: 6+ months; Surgery type: Hysterectomy; Patient HX: Right posterior chest pain/flank pain TECHNIQUE: Imaging protocol: Computed tomographic angiography of the chest with contrast. Exam focused on the arteries. 3D rendering (Not supervised by radiologist): MIP and/or 3D reconstructed images were created by the technologist. Radiation optimization: All CT scans at this facility use at least one of these dose optimization techniques: automated exposure control; mA and/or kV adjustment per patient size (includes targeted exams where dose is matched to clinical indication); or iterative reconstruction. Contrast material: OMNIPAQUE 350; Contrast volume: 100 ml; Contrast route: INTRAVENOUS (IV); COMPARISON: No relevant prior studies available. FINDINGS: Pulmonary arteries: Normal. No pulmonary emboli. Aorta: Unremarkable. No aortic aneurysm. No aortic dissection. Lungs: Unremarkable. No consolidation. No masses. Pleural spaces: Unremarkable. No pneumothorax. No pleural effusion. Heart: Unremarkable. No cardiomegaly. No pericardial effusion. Lymph nodes: Unremarkable. No enlarged lymph nodes. Bones/joints: Unremarkable. No acute fracture. Soft tissues: Unremarkable. IMPRESSION: No acute findings. PROCEDURE INFORMATION: Exam: CT Abdomen And Pelvis With Contrast Exam date and time: 08/11/2023 8:10 PM Age: 42 years old Clinical indication: Right-sided; Other: R flank pain; Prior surgery; Surgery date: 6+ months; Surgery type: Hysterectomy; Patient HX: Right posterior chest pain/flank pain TECHNIQUE: Imaging protocol: Computed tomography of the abdomen and pelvis with contrast. 3D rendering (Not supervised by radiologist): MIP and/or 3D reconstructed images were created by the technologist. Radiation optimization: All CT scans at this facility use at least one of these dose optimization techniques: automated exposure control; mA and/or kV adjustment per patient size (includes targeted exams where dose is matched to clinical indication); or iterative reconstruction. Contrast material: OMNIPAQUE 350; Contrast volume: 100 ml; Contrast route: INTRAVENOUS (IV); COMPARISON: US PELVIS TRANSVAGINAL 04/23/2023 8:14 AM FINDINGS: Liver: Hepatomegaly and diffuse fatty infiltrationNo mass. Gallbladder and bile ducts: Normal. No calcified stones. No ductal dilation. Pancreas: Normal. No ductal dilation. Spleen: Normal. No splenomegaly. Adrenal glands: Normal. No mass. Kidneys and ureters: Mild inferior positioning of the right kidney and right renal enlargement No hydronephrosis. A retroaortic left renal vein is noted, a normal variant. Stomach and bowel: Unremarkable. No obstruction. No mucosal thickening. Appendix: No evidence of appendicitis. Intraperitoneal space: Unremarkable. No free air. No significant fluid collection. Vasculature: Unremarkable. No abdominal aortic aneurysm. Lymph nodes: Prominent periaortic lymph nodes. Urinary bladder: Unremarkable as visualized. Reproductive: Post hysterectomy. Bones/joints: Degenerative changes at the lumbosacral junction No acute fracture. Soft tissues: Unremarkable. IMPRESSION: No acute findings. Mildly enlarged right kidney with mild inferior positioning. No definite stones or hydroureteronephrosis. Dictated and Authenticated by: Jaskaran Alanis MD. Ordering:SHEBA Campbell MD
== END 2023-08-11 21:46 | disposition home or self-care (01) ==
PROVIDERS: Emergency Medicine Emergency Medical Services; Emergency Provider Emergency Medicine; PCP Nurse Practitioner Family
DX: R10.9 Unspecified abdominal pain (principal); R07.89 Other chest pain
CPT/HCPCS: 71275; 74177; 80053; 81025; 93005; 96361; 96374; 99285; 81003; 83880; 84484; 85025; 85610; 85730; 93010; 99284; J1885; J3490

== ENCOUNTER 2023-09-20 03:49 | Outpatient (CLI) | payer MEDICAID, SELFPAY ==
[2023-09-20 09:25] LABS: FREE T4 1.48 ng/dL (0.76-1.46); TSH 0.03 uIU/mL (0.36-3.74)
[2023-09-20 17:28] LABS: T3, Total 160 ng/dL (97-169)
== END 2023-09-20 03:50 | disposition home or self-care (01) ==
PROVIDERS: PCP Nurse Practitioner Family; Visit Provider Internal Medicine Endocrinology, Diabetes & Metabolism
DX: Z68.43 Body mass index [BMI] 50.0-59.9, adult (principal); E05.90 Thyrotoxicosis, unspecified without thyrotoxic crisis or storm
CPT/HCPCS: 36415; 82533; 84439; 84443; 84480

== ENCOUNTER 2023-10-14 21:33 | Outpatient (REF) | payer MEDICAID, SELFPAY ==
[2023-10-14 21:46] LABS: FREE T4 1.71 ng/dL (0.76-1.46); TSH 0.03 uIU/mL (0.36-3.74)
[2023-10-15 19:11] LABS: T3, Total 193 ng/dL (97-169)
== END 2023-10-14 21:34 | disposition home or self-care (01) ==
LOC: NCHCN 21:33
PROVIDERS: PCP Nurse Practitioner Family; Visit Provider Family Medicine
DX: E05.00 Thyrotoxicosis with diffuse goiter without thyrotoxic crisis or storm (principal)
CPT/HCPCS: 84439; 84443; 84480

== ENCOUNTER 2023-11-11 21:53 | Outpatient (REF) | payer MEDICAID, SELFPAY ==
[2023-11-11 22:38] LABS: TSH 0.23 uIU/mL (0.36-3.74)
[2023-11-12 18:08] LABS: T3,Free 4.4 pg/mL (2.8-5.3)
[2023-11-15 08:51] LABS: FREE T4 1.24 ng/dL (0.76-1.46)
== END 2023-11-11 21:54 | disposition home or self-care (01) ==
LOC: NCHCN 21:53
PROVIDERS: PCP Nurse Practitioner Family; Visit Provider Nurse Practitioner Family
DX: E03.9 Hypothyroidism, unspecified (principal); E05.00 Thyrotoxicosis with diffuse goiter without thyrotoxic crisis or storm
CPT/HCPCS: 84439; 84443; 84481

== ENCOUNTER 2023-12-24 01:58 | Outpatient (CLI) | payer MEDICAID, SELFPAY ==
[2023-12-24 17:21] LABS: TSH 2.52 uIU/mL (0.36-3.74)
[2023-12-25 22:35] LABS: T3, Total 147 ng/dL (97-169)
[2023-12-28 11:23] LABS: Thyrotropin Receptor Ab <1.10 IU/L
== END 2023-12-24 01:59 | disposition home or self-care (01) ==
LOC: LBO 01:58
PROVIDERS: PCP Nurse Practitioner Family; Visit Provider Internal Medicine Endocrinology, Diabetes & Metabolism
DX: E05.00 Thyrotoxicosis with diffuse goiter without thyrotoxic crisis or storm (principal)
CPT/HCPCS: 36415; 84235; 84439; 84443; 84480

== ENCOUNTER 2024-03-29 15:47 | Outpatient (REF) | payer MEDICAID, SELFPAY ==
[2024-03-29 16:04] LABS: FREE T4 1.01 ng/dL (0.76-1.46); TSH 3.54 uIU/Ml (0.36-3.74)
[2024-03-30 18:36] LABS: T3, Total 144 ng/dL (97-169)
== END 2024-03-29 15:48 | disposition home or self-care (01) ==
LOC: NCHCN 15:47
PROVIDERS: PCP Nurse Practitioner Family; Visit Provider Nurse Practitioner Family
DX: E05.90 Thyrotoxicosis, unspecified without thyrotoxic crisis or storm (principal)
CPT/HCPCS: 84439; 84443; 84480

== ENCOUNTER 2024-09-22 12:27 | Emergency (ER) | payer MEDICAID, SELFPAY ==
[2024-09-22] VITALS (44 sets, daily range): BP systolic 123–154; BP diastolic 56–99; PULSE 51–124; RESP 11–23; TEMP 36.9; O2SAT 93–100
--- NOTE | 2024-09-22 12:30 | DI.RAD_ITS ---
Exam(s) XR ANKLE LT COMPLETE EXAM: XR ANKLE LT COMPLETE CLINICAL HISTORY: L ankle injury with deformity s/p fall. TECHNIQUE: 2D digital imaging was performed. COMPARISON: No exams were available for comparison FINDINGS: There is fracture dislocation. There fractures of medial and posterior malleoli. There is anterior dislocation the tibial articular surface relative to the talar dome. There is no fracture in the dis emerald fibula-lateral malleolus. No fracture or osteochondral defect in the talar dome. Base of the 5t h metatarsal appears intact. IMPRESSION: Displaced ankle fracture as described above. DATA REPOSITORY: RADIATION DOSE DELIVERED:
--- NOTE | 2024-09-22 12:33 | W.ED.GENAD ---
Discharge Plan Discharge Details Chief Complaint: Orthopedic Primary Care Provider: Ashley Valente ED Provider: Clara Hutchinson Home Meds and New Rx's Prescriptions: No Action estradiol 1 mg tablet 1 mg PO DAILY clonazepam [Klonopin] 1 mg tablet 1 mg PO TID lamotrigine [Lamictal] 150 mg Tablet 150 mg PO DAILY losartan 25 mg Tablet 25 mg PO DAILY methimazole 5 mg Tablet 5 mg PO DAILY magnesium 500 mg Tablet 500 mg PO DAILY lamotrigine 200 mg Tablet 200 mg PO DAILY omeprazole 20 mg Capsule,Delayed Release(Dr/Ec) 20 mg PO 1XD aripiprazole 10 mg Tablet 20 mg PO DAILY HPI General Date/Time Provider Initiated Documentation: 09/22/24 12:33. HPI Narrative: Temi is a 44-year-old female presents to the emergency department via EMS for evaluation of left ankle pain after fall. She reports that she slipped on some wooden stairs with carpet treads on the because someone had left the paper in the phone on the stairs that she did not see. She slid on her bottom down approximately 7 stairs, felt her ankle twist in the process. She denies new back pain, neck pain, headache, head injury, loss of consciousness. She is able to wiggle her toes. She is currently reporting left ankle pain. No previous injury to this ankle. She is on any anticoagulants. Physical exam remarkable for obvious deformity to lateral aspect of the left ankle. No overlying abrasions or skin tears. Distal pulses intact. Positive CMS to toes. No knee pain, thigh pain, hip pain or C-spine/T-spine/L-spine step-off/tenderness/deformity. Easy work of breathing. Normal heart sounds. No pelvic instability noted. DDx includes but is not limited to: Fracture, sprain, other soft tissue injury I independently interpreted the following tests: Left ankle and tib-fib x-rays, significant for dislocation of the left ankle with acute fractures of the midshaft fibula, medial malleolus, posterior malleolus. While in the emergency department Temi received Tylenol for pain control with fentanyl as needed. Discussed case with orthopedist Dr. Hernández. James Hutton, [place] PA to emergency department to assist with reduction. Reduction in sedation performed by FRANCI Arana and Dr. Sunita garnica, attending physician. Patient tolerated procedure well, with successful reduction. As patient will require place rather than pending, recommend transfer to a tertiary care facility if patient is unable to ambulate using crutches. If she is able to ambulate, recommend warm handoff to schedule surgery at a tertiary care center where this can be performed. CT performed to further evaluate for ankle fracture. [place] [facility] [place]. Handoff report given to Kaylie Adamson NP, evening [facility]. Related Data Home Medications ?Medication ?Instructions ?Recorded ?Confirmed lamotrigine 150 mg tablet 150 mg PO DAILY 04/09/22 09/22/24 (Lamictal) losartan 25 mg tablet 25 mg PO DAILY 04/09/22 09/22/24 methimazole 5 mg tablet 5 mg PO DAILY 04/09/22 09/22/24 aripiprazole 10 mg tablet 20 mg PO DAILY 08/11/23 09/22/24 lamotrigine 200 mg tablet 200 mg PO DAILY 08/11/23 09/22/24 magnesium 500 mg tablet 500 mg PO DAILY 08/11/23 09/22/24 omeprazole 20 mg capsule,delayed 20 mg PO 1XD 08/11/23 09/22/24 release clonazepam 1 mg tablet (Klonopin) 1 mg PO TID 09/22/24 09/22/24 estradiol 1 mg tablet 1 mg PO DAILY Hrt 09/22/24 09/22/24 Allergies Allergy/AdvReac Type Severity Reaction Status Date / Time Penicillins Allergy Skin Rash Unverified 09/22/24 12:33 Sulfa (Sulfonamide Allergy Skin Rash Unverified 09/22/24 12:33 Antibiotics) General Stated Complaint: Orthopedic DAVID: 4 Review of Systems Narrative: see HPI Exam Const General: cooperative, healthy appearing, comfortable, no acute distress, well developed and well groomed Orientation: alert and oriented x3 Resp Effort & Inspection: normal respiratory effort and able to speak in complete sentences Auscultation: clear to auscultation bilaterally Cardio Rate: regular rate Rhythm: regular rhythm Pulses: posterior tibial pulses present and dorsalis pedis present Back/Spine/Pelvis Cervical Spine: normal cervical lordosis and cervical ROM normal Thoracic/Lumbar Spine: thoracic and lumbar spine normal to inspection Pelvis: no pain with anterior-posterior compression Skin General skin exam: no rashes or lesions noted Trauma: no lacerations or abrasions Neuro General: patient alert, patient oriented x3, moves all extremities and no focal motor deficits Extrem Right upper extremity: normal to inspection Left upper extremity: normal to inspection Right lower extremity: normal to inspection Left lower extremity: normal capillary refill, ankle Details: abnormal to inspection (deformity to lateral ankle) and pitting edema; no abrasions and no lacerations and foot Details: normal capillary refill and toes with normal ROM Course Vital Signs Vital signs: Vital Signs Temperature 36.9 C 09/22/24 12:26 Pulse 67 09/22/24 12:26 Respiratory Rate 16 09/22/24 12:26 Blood Pressure 139/84 09/22/24 12:26 Pulse Oximetry 98 09/22/24 12:26 Temperature 36.9 C 09/22/24 12:26 Temperature Source Oral 09/22/24 12:26 Pulse 67 09/22/24 12:26 Respiratory Rate 16 09/22/24 12:26 Blood Pressure 139/84 09/22/24 12:26 Blood Pressure Position Supine 09/22/24 12:26 Pulse Oximetry 98 09/22/24 12:26 Oxygen Delivery Method Room Air 09/22/24 12:26 Oxygen Flow Rate 0 09/22/24 12:26 Pain Level 4 09/22/24 12:26 Medical Decision Making Quality:SDOH Health Related Social Needs: No Data to Display PFSH All Active Problems (Updated 09/22/24 @ 14:52 by FRANCI Bowman) Bimalleolar fracture of left ankle (Acute ~09/22/24) Social History Smoking/Tobacco Use Status: Former Tobacco Use Smoking risk assessment performed?: Yes Alcohol Intake: never Drug use: Daily Substance use type: marijuana Do you feel safe at home: Yes Do you feel safe in your relationship?: Yes Sign Out Sign Out Data: Sign Out Comment: 84-year-old female fell down 7 stairs on her bottom, sustained right ankle injury. No other injuries reported. Bimalleolar fracture with dislocation reduced in ED. Pt able to ambulate using crutches. [place] [facility] [place] pt will require plates for repair and ability to provide anesthesia to pt prone with BMI >40. Last updated by Clara Hutchinson at 09/22/24 16:43
[2024-09-22] MEDS: fentaNYL 100 MCG/2 ML VIAL 50 MCG IVP ×3 (12:52→15:44)
[2024-09-22] MEDS: Acetaminophen 325 MG TAB 650 MG PO (12:52)
--- NOTE | 2024-09-22 13:23 | DI.RAD_ITS ---
Exam(s) XR TIB/FIB LT EXAM: XR TIB/FIB LT CLINICAL HISTORY: L ankle pain s/p fall. TECHNIQUE: 2D digital imaging was performed. COMPARISON: No exams were available for comparison FINDINGS: Two views There is an angulated displaced midshaft fracture of the fibula. Lower down there is displaced by malleolar fracture of the distal tibia involving the medial and post erior malleoli and with dislocation of the tibiotalar joint. Tibial plateau appears intact on this l imited two view study. Fibular head and neck appear intact. IMPRESSION: Fractures as above. DATA REPOSITORY: RADIATION DOSE DELIVERED:
--- NOTE | 2024-09-22 13:56 | ED.PROG_ITS ---
Date of service: 09/22/24 Time of Service: 13:56 Medical Decision Making Case discussed with nurse practitioner. A [id number] evaluation was performed by me secondary to medical complexity. Patient is a 44-year-old female that has a trimalleolar ankle fracture. I have evaluated the patient and consented her for conscious sedation to be performed in conjunction with orthopedic surgery who will perform the ankle reduction and splinting. the sedation was performed without complication and she tolerated it well. Quality:[facility] Health Related Social Needs: No Data to Display Procedures Procedural Sedation Indication: fracture/dislocation reduction ASA Class: II Time of Last PO Intake: 10:00 Preparation: cardiac cath lab radiology technologist applied, pulse oximeter, capnometry used, supplemental O2 applied, reversal agents at bedside, suction/airway equipment at bedside and IV secured IV Propofol dose (mg): 100 Patient Tolerated Procedure: well and no complications Complications: none Discharge Plan Discharge Details Chief Complaint: Orthopedic Primary Care Provider: Ashley Valente ED Provider: Clara Hutchinson Home Meds and New Rx's Prescriptions: No Action estradiol 1 mg tablet 1 mg PO DAILY clonazepam [Klonopin] 1 mg tablet 1 mg PO TID lamotrigine [Lamictal] 150 mg Tablet 150 mg PO DAILY losartan 25 mg Tablet 25 mg PO DAILY methimazole 5 mg Tablet 5 mg PO DAILY magnesium 500 mg Tablet 500 mg PO DAILY lamotrigine 200 mg Tablet 200 mg PO DAILY omeprazole 20 mg Capsule,Delayed Release(Dr/Ec) 20 mg PO 1XD aripiprazole 10 mg Tablet 20 mg PO DAILY
[2024-09-22] MEDS: fentaNYL 100 MCG/2 ML VIAL IVP (14:08)
[2024-09-22] MEDS: Propofol 200 MG/20 ML VIAL 100 MG IVP (14:11)
--- NOTE | 2024-09-22 14:15 | DI.CT_ITS ---
Exam(s) CT LOWER EXTREMITY LT WO EXAM: CT LOWER EXTREMITY LT WO CLINICAL HISTORY: ankle fx. TECHNIQUE: Imaging Protocol: Axial computed tomography images with coronal and sagittal reformatted images were created and reviewed. COMPARISON: CR XR ANKLE LT 2V from 09/22/2024 CR XR TIB/FIB LT from 09/22/2024 CR XR ANKLE LT COMPLETE from 09/22/2024 FINDINGS: Bones: There is an acute comminuted fracture of the midshaft of the fibula. The distal fibula is in tact. There is an acute minimally displaced comminuted fracture involving the medial malleolus. The re is an acute comminuted nondisplaced fracture involving the posterior malleolus. There are few tin y osseous densities interposed between the talus and the distal fibula. The appear to have arisen fr om the distal tibia. There has been successful reduction of the patient's previous ankle dislocation . There in the 0 fights seen at the posterior calcaneus. There is a small plantar calcaneal spur. Tricompartment degenerative changes are seen in the knee characterized by joint space narrowing and o steophytes. Soft Tissues: There is edema seen in the soft tissues around the distal leg, ankle and foot. Air is identified in the soft tissues anterior and medial to the ankle joint. No radiopaque foreign bodies are identified. IMPRESSION: Acute fractures involving the midshaft of the fibula, the medial malleolus and posterior malleolus as described above. RADIATION DOSE DELIVERED: 446.95mGy.cm Total DLP 446.95mGy.cm Total DLP DATA REPOSITORY: All CT scans at this facility are submitted to the National Radiology Data Registry (NRDR) Dose Index Registry (DIR) with the [employer] [place] ([employer]). RADIATION OPTIMIZATION: All CT scans at this facility use at least one of these dose optimization te chniques: automated exposure control; mA and/or kV adjustment per patient size (includes targeted exa ms where dose is matched to clinical indication); or iterative reconstruction.
--- NOTE | 2024-09-22 14:40 | DI.RAD_ITS ---
Exam(s) XR ANKLE LT 2V EXAM: XR ANKLE LT 2V CLINICAL HISTORY: post-reduction TECHNIQUE: 2D digital imaging was performed of the left ankle. Two images were obtained. AP and la teral views were obtained. COMPARISON: CR XR ANKLE LT COMPLETE from 09/22/2024 FINDINGS: The ankle joint has been successfully reduced. The fractures involving the medial malleolus in the p osterior malleolus show no significant displacement. The patient's ankle is in a cast. There is a m ildly displaced fracture involving the midshaft of the left fibula. IMPRESSION: 1. Successful reduction of the left ankle dislocation. 2. Fractures are seen involving the midshaft of the left fibula, the medial malleolus and the posteri or malleolus. DATA REPOSITORY: RADIATION DOSE DELIVERED:
--- NOTE | 2024-09-22 14:51 | W.ORTHOCONSU ---
Date of service: 09/22/24 Time of Service: 14:51 Assessment and Plan Assessment and plan (1) Bimalleolar fracture of left ankle: Status: Acute Assessment and plan: 44-year-old female with left ankle dislocated bimalleolar fracture as well as a displaced midshaft fibula fracture. Patient reports mechanical fall down approximately 6 stairs just prior to arrival injuring her left lower extremity. Presented to the ER via EMS, received fentanyl en route, and additional analgesia once in the ER. X-rays obtained and orthopedic consult requested. Patient reports pain is moderate at rest, severe with movement although tolerable at the moment. Reports altered sensation but no true numbness or tingling. Reports exacerbation of her left sciatica secondary to sitting on the stairs after the fall but denies any other injury. Past medical history includes anxiety, depression, PTSD, bipolar disorder, Graves' disease. Morbid obesity allergies: Penicillins, sulfa. Patient reports drinking coffee with a small amount of cream roughly 2 hours ago, otherwise no p.o. intake today. Patient resting comfortably, pain currently actively controlled. No obvious distracting injury. Slightly anxious. Left lower leg and ankle exam: Skin is intact without erythema or ecchymosis. Diffuse mild swelling. Obvious deformity. Diffuse discomfort to direct palpation. Sensation intact throughout although patient reports slightly altered when compared to the contralateral side. Strong pedal pulse. Patient is able to demonstrate wiggling of all digits. Discussed options with patient and chris?. Fianc? was going home to make arrangements so that her house would be more conducive for ambulation with a walker or crutches. Discussed reduction with IV analgesia, ankle block, or conscious sedation. Patient reports given her known anxiety, she would prefer conscious sedation. Please see procedural note. X-rays and CT scan reviewed. Posterior dislocation successfully reduced in the emergency room under sedation. Plaster AO short leg splint applied. Excellent post?reduction overall ankle and fracture alignment including medial malleolus and tip?fib space/syndesmosis. Challenging fracture pattern, complicated by extreme morbid obesity BMI 51. Reviewed with all?call nurse environmental field office manager this team who recommend any prone surgery be done at a tertiary care facility. In addition, the orthopedic problem is somewhat more challenging and complex given the comminuted multi?fragmented medial malleolus, which would be treated with plating instead of the typical screws, and the need for posterior lateral approach through a large extremity for fixation of the posterior malleolus. The high Fortune C mid?fibular fracture could be left alone or fixated for additional construct strength given the significant weight and stress on the extremity. Syndesmosis fixation based on stability after fixing the posterior and possibly fibula. Recommend urgent referral from the emergency room to tertiary care like [facility] orthopedics versus transfer if needed due to ambulatory dysfunction. Rest, elevation, wiggle toes, and aspirin 325 mg twice daily for DVT prophylaxis while sedentary pending definitive surgical intervention. PFSH All Active Problems (Updated 09/22/24 @ 14:52 by FRANCI Bowman) Bimalleolar fracture of left ankle (Acute ~09/22/24) Social History Smoking/Tobacco Use Status: Former Tobacco Use Smoking risk assessment performed?: Yes Alcohol Intake: never Drug use: Daily Substance use type: marijuana Do you feel safe at home: Yes Do you feel safe in your relationship?: Yes Results Last Vital Signs Temp 36.9 C 09/22/24 12:26 Pulse 75 09/22/24 14:41 Resp 22 09/22/24 14:41 BP 148/84 H 09/22/24 14:41 Pulse Ox 98 09/22/24 14:41 Procedures Orthopedic Joint Reduction Joint #1: Time out performed: Yes Side: left Joint reduction location: ankle Analgesia: procedural sedation Technique used: traction/counter-traction and direct manipulation Post-reduction neuro exam: intact Post-reduction vascular exam: intact Post-reduction x-ray obtained: Yes Post-reduction x-ray results: reduced Splint applied: Yes (A well-padded sugar-tong and posterior short leg plaster splint) Patient tolerated procedure: well and no complications Additional comments: Closed treatment ankle dislocation under anesthesia, CPT #02534
[2024-09-22] MEDS: Normal Saline Flush 10 ML SYR IVP (15:44)
--- OUTSIDE RECORDS SUMMARY | 2024-09-22 16:12 | XMS_ITS | Encounter Summary ---
Author Organization [facility] Address [address] [place] [address] Care Team Providers Care Window Cutter Name Role Phone Ashley Valente Primary Care Provider [phone] Encounter Details Date Type Department Care Team (Late st Contact Info) Description 01/29/2022 Lab Requisition [facility] Pathology & Laboratory Medicine - [facility] [address], [place] [address] Outr Resulting Lab, Provider Social History Tobacco Use Types Packs/Day Years Used Date Smoking Tobacco: Never Assessed Sex and Gender Information Value Date Recorded Sex Assigned at Not on file Gender Identity Not on file Sexual Orientation Not on file documented as of this encounter Plan of Treatment Not on file documented as of this encounter Procedures Procedure Name Priority Date/Time Associated Diagnosis Comments DHEA SULFATE Routine 01/28/2022 14:40 EST documented in this encounter Results * DHEA SULFATE (01/28/2022 14:40 EST) DHEA Sulfate 119 75 - 410 ug/dL 01/30/2022 9:30 EST [facility] Blood VENOUS BLOOD / Unknown 01/28/2022 14:40 EST 01/29/2022 17:18 EST Provider Outr Resulting Lab CHEMISTRY & BLOOD GAS ORDERABLES [facility] [address] [place] [address] documented in this encounter Visit Diagnoses Not on filedocumented in this encounter Care Teams Window Cutter Relationship Specialty Start Date End Date Ashley Valente FNP [address] [address] PCP - General 11/03/21 documented as of this encounter
--- OUTSIDE RECORDS SUMMARY | 2024-09-22 16:12 | XMS_ITS | Encounter Summary ---
Author Organization [facility] [place] [address] Care Team Providers Care Willow Specialists Name Role Phone Claudia Morley MD Primary Care Provider [phone] Encounter Details Date Type Department Care Team (Late Contact Info) Description 12/30/2023 External Results [facility] Information Services [address] [place] [phone] Provider, His MD Amos None Graves disease Social History Tobacco Use Types Packs/Day Years Used Date Smoking Tobacco: Never Assessed Sex and Gender Information Value Date Recorded Sex Assigned at Female 12/07/2023 9:13 AM EST Gender Identity Female 12/07/2023 9:13 AM EST Sexual Orientation Straight 12/07/2023 9: 13 AM EST documented as of this encounter Progress Notes * Ana Galo MD - 12/30/2023 8:00 AM EST Biochemically euthyroid while on MMI 5 mg daily will continue current dose documented in this encounter Plan of Treatment Upcoming Encounters Date Type Department Care Team (Late st Contact Info) Description 11/07/2024 10:00 AM EST TH Visit (TeleHealth) Endocrinology at [address] [phone] Ana Galo MD [address] [place] [phone] documented as of this encounter Procedures Procedure Name Priority Date/Time Associated Diagnosis Comments [facility] [place] Routine 12/24/2023 4:20 PM EST T3 TOTAL Routine 12/24/2023 4:20 PM EST Graves disease TSH Routine 12/24/2023 4:20 PM EST Graves disease T4, FREE Routine 12/24/2023 4:20 PM EST Graves disease documented in this encounter Results * [facility] [place] (12/24/2023 4:20 PM EST) Thyro Recept Ab (MARCH) <1.10 EXTERNAL FACILITY 12/24/2023 4:20 PM EST Ana Figueroa MD POINT OF CARE KAR T ORDERABLES EXTERNAL FACILITY * T3 Total (12/24/2023 4:20 PM EST) T3 Total 147 EXTERNAL FACILITY Blood 12/24/2023 4:20 PM EST Ana Figueroa MD CHEMISTRY ORDERAB LES EXTERNAL FACILITY * T4, free (12/24/2023 4:20 PM EST) Free T4 0.90 EXTERNAL FACILITY Blood 12/24/2023 4:20 PM EST Ana Figueroa MD CHEMISTRY ORDERAB LES EXTERNAL FACILITY * TSH (12/24/2023 4:20 PM EST) Thyroid Stimulating Hormone 2.52 EXTERNAL FACILITY Blood 12/24/2023 4:20 PM EST Ana Figueroa MD CHEMISTRY ORDERAB LES EXTERNAL FACILITY documented in this encounter Visit Diagnoses Diagnosis Graves disease Toxic diffuse goiter without mention of thyrotoxic crisis or storm documented in this encounter Care Teams Willow Specialists Relationship Specialty Start Date End Date Claudia Morley MD [address] [place] [address] PCP - General Family Medicine 10/25/23 documented as of this encounter
--- OUTSIDE RECORDS SUMMARY | 2024-09-22 16:12 | XMS_ITS | Encounter Summary ---
Author Organization [facility] Address [facility] [place] [address] Care Team Providers Care Applied Biology Professor Name Role Phone Claudia Morley MD Primary Care Provider [phone] Encounter Details Date Type Department Care Team ([facility] st Contact Info) Description 12/03/2023 Telephone Endocrinology at [address] [phone] Justina Womack Social History Tobacco Use Types Packs/Day Years Used Date Smoking Tobacco: Never Assessed Sex and Gender Information Value Date Recorded Sex Assigned at Female 12/07/2023 9:13 AM EST Gender Identity Female 12/07/2023 9:13 AM EST Sexual Orientation Straight 12/07/2023 9: 13 AM EST documented as of this encounter Miscellaneous Notes * Telephone Encounter - Justina Womack - 12/03/2023 3:50 PM EST Called and LVMOM for pt regarding appointment change: Dr. Hull will be out on 12/09/2023. Dr. Hull will be able to do Telehealth that day at the same time or any other time available for that day if the pt wants. If pt does not want to do telehealth, she has opened the her schedule on certain days December. Pt will need to call back and confirm if this works for him or if it needs to be moved. CALL CENTER: If pt calls back, please confirm if the above change works for him, if it does not, please reschedule. documented in this encounter Plan of Treatment Upcoming Encounters Date Type Department Care Team (Late st Contact Info) Description 11/07/2024 10:00 AM EST TH Visit (TeleHealth) Endocrinology at [address] [phone] Ana Galo MD [address] [facility] [address] documented as of this encounter Visit Diagnoses Not on filedocumented in this encounter Care Teams Applied Biology Professor Relationship Specialty Start Date End Date Claudia Morley MD [address] [place] [phone] PCP - General Family Medicine 10/25/23 documented as of this encounter
--- OUTSIDE RECORDS SUMMARY | 2024-09-22 16:12 | XMS_ITS | Encounter Summary ---
Author Organization [facility] Address [address] [place] [address] Care Team Providers Care Metal Miner Blasting Name Role Phone Ashley Valente Primary Care Provider [phone] Encounter Details Date Type Department Care Team (Late st Contact Info) Description 08/19/2022 Lab Requisition [facility] Pathology & Laboratory Medicine - [facility] [address] [place], [place] [address] Outr Resulting Lab, Provider Social History Tobacco [...] Procedure Name Priority Date/Time Associated Diagnosis Comments T3, TOTAL Routine 08/18/2022 14:45 EDT documented in this encounter Results * T3, TOTAL (08/18/2022 14:45 EDT) T3, Total 117 97 - 169 ng/dL 08/19/2022 17:50 EDT [facility] Blood VENOUS BLOOD / Unknown 08/18/2022 14:45 EDT 08/19/2022 16:56 EDT Provider Outr Resulting Lab CHEMISTRY & BLOOD GAS ORDERABLES [facility] [address] [place] [address] documented in this encounter Visit Diagnoses Not on filedocumented in this encounter Care Teams Metal Miner Blasting Relationship Specialty Start Date End Date Ashley Valente FNP [address] [phone] PCP - General 11/03/21 documented as of this encounter
--- OUTSIDE RECORDS SUMMARY | 2024-09-22 16:12 | XMS_ITS | Encounter Summary ---
Author Organization [facility] Address [facility] [place] [address] Care Team Providers Care Turkey Farmer Name Role Phone Claudia Morley MD Primary Care Provider [phone] Encounter Details Date Type Department Care Team (Late st Contact Info) Description 09/22/2024 4:10 PM EDT Ancillary Procedure Radiology Library at [facility] [place] [phone] Rell Merino MD [facility] [place] [address] Arrived Social History Tobacco Use Types Packs/Day Years Used Date Smoking Tobacco: Never Assessed Sex and Gender Information Value Date Recorded Sex Assigned at Female 12/07/2023 9:13 AM EST Gender Identity Female 12/07/2023 9:13 AM EST Sexual Orientation Straight 12/07/2023 9: 13 AM EST documented as of this encounter Plan of Treatment Upcoming Encounters Date Type Department Care Team (Late st Contact Info) Description 11/07/2024 10:00 AM EST TH Visit (TeleHealth) Endocrinology at [address] [phone] Ana Galo MD [address] [place] [phone] documented as of this encounter Procedures Procedure Name Priority Date/Time Associated Diagnosis Comments FILM LIBRARY STORAGE ONLY CT LOWER EXTREMITY Routine 09/22/2024 3:52 PM EDT documented in this encounter Results * Film Library- Storage Only CT Lower Extremity (09/22/2024 3:52 PM EDT) Narrative JEROD SOLORZANO - 09/22/2024 3:52 PM EDT This exam is auto-finalizing. It's purpose is for storage only. Rell Merino MD IMG FILM LIBRARY OR DERABLES Performing Organization Address City/State/[facility] Co de Phone Number [place], [place] documented in this encounter Visit Diagnoses Not on filedocumented in this encounter Care Teams Turkey Farmer Relationship Specialty Start Date End Date Claudia Morley MD [address] [place] [address] PCP - General Family Medicine 10/25/23 documented as of this encounter
--- OUTSIDE RECORDS SUMMARY | 2024-09-22 16:12 | XMS_ITS | Encounter Summary ---
Author Organization [facility] Address [address] [place] [address] Care Team Providers Care Synoptic Meteorologist Name Role Phone Ashley Valente Primary Care Provider [phone] Encounter Details Date Type Department Care Team (Late st Contact Info) Description 03/03/2023 Lab Requisition [facility] Pathology & Laboratory Medicine - [facility] [address] [place], [place] [address] Outr Resulting Lab, Provider Social History Tobacco [...] Procedure Name Priority Date/Time Associated Diagnosis Comments T3 FREE Routine 03/02/2023 11:10 EDT documented in this encounter Results * T3 FREE (03/02/2023 11:10 EDT) T3, Free 4.8 2.8 - 5.3 pg/mL 03/03/2023 20:15 EDT [facility] Blood VENOUS BLOOD / Unknown 03/02/2023 11:10 EDT 03/03/2023 19:38 EDT Provider Outr Resulting Lab CHEMISTRY & BLOOD GAS ORDERABLES [facility] [address] [place] [address] documented in this encounter Visit Diagnoses Not on filedocumented in this encounter Care Teams Synoptic Meteorologist Relationship Specialty Start Date End Date Ashley Valente FNP [address] [facility] [address] [place] [phone] PCP - General 11/03/21 documented as of this encounter
--- OUTSIDE RECORDS SUMMARY | 2024-09-22 16:12 | XMS_ITS | Encounter Summary ---
Author Organization [facility] Address [facility] [place] [address] Care Team Providers Care Government Affairs Specialist Name Role Phone Claudia Morley MD Primary Care Provider [phone] Encounter Details Date Type Department Care Team (Late st Contact Info) Description 09/22/2024 4:05 PM EDT Ancillary Procedure Radiology Library at [facility] [place] [address] Rell Merino MD [facility] [place] [address] Arrived Social History Tobacco Use Types Packs/Day [...] AM EST TH Visit (TeleHealth) Endocrinology at [address] [phone] Ana Galo MD [address] [place] [address] documented as of this encounter Procedures Procedure Name Priority Date/Time Associated Diagnosis Comments FILM LIBRARY STORAGE ONLY DX ANKLE Routine 09/22/2024 3:51 PM EDT documented in this encounter Results * Film Library- Storage Only DX Ankle (09/22/2024 3:51 PM EDT) Narrative JEANINE - 09/22/2024 3:51 PM EDT This exam is auto-finalizing. It's purpose is for storage only. Rell Merino MD IMG FILM LIBRARY OR DERABLES Performing Organization Address City/State/[facility] Co de Phone Number [place], [place] documented in this encounter Visit Diagnoses Not on filedocumented in this encounter Care Teams Government Affairs Specialist Relationship Specialty Start Date End Date Claudia Morley MD [address] [place] [address] PCP - General Family Medicine 10/25/23 documented as of this encounter
--- OUTSIDE RECORDS SUMMARY | 2024-09-22 16:12 | XMS_ITS | Encounter Summary ---
Author Organization [facility] Address [facility] [place] [address] Care Team Providers Care Digital Controls Technical Officer Name Role Phone Claudia Morley MD Primary Care Provider [phone] Reason for Visit * Reason Onset Date Comments Medication Refill 09/19/2024 Encounter Details Date Type Department Care Team ([facility] st Contact Info) Description 09/19/2024 Refill Endocrinology at [address] [phone] Ana Galo MD [address] [place] [address] Premature surgical menopause Social History Tobacco Use Types Packs/Day Years Used Date Smoking Tobacco: Never Assessed Sex and Gender Information Value Date Recorded Sex Assigned at Female 12/07/2023 9:13 AM EST Gender Identity Female 12/07/2023 9:13 AM EST Sexual Orientation Straight 12/07/2023 9: 13 AM EST documented as of this encounter Miscellaneous Notes * Telephone Encounter - Lila Bellamy RN - 09/20/2024 8:55 AM EDT Medication requested: Estradiol tablet Last seen by/date: F/U scheduled: Most recent plan (per last office visit/encounter): Premature surgical menopause She does have significant hot flashes that are interfering with her daily life. She has tried lifestyle measures such as layered clothing and temperature controlling but that has not helped. She has also been initiated on an antidepressant in the interim which helped symptoms minimally. She is interested in hormone replacement therapy. She has no obvious contraindications to hormone replacement therapy which would include breast cancer, heart disease, thromboembolic disease, active liver disease, vaginal bleeding or strokes. Also, she has no active gallbladder disease, high triglycerides or migraines with aura. Her ten-year risk for cardiovascular disease according to the ACC calculator is about unknown. No mammogram as she is not on screening age. Her 5-year risk of developing breast cancer is about 0.7%. Both of these risks do make hormone replacement therapy acceptable. We did discuss that the goals ofhormone replacement are to relieve her hot flashes and will be using the lowest possible dose for the shortest duration. We generally do not treat for more than 5 years. We discussed the side effects of hormone replacement therapy in detail. We discussed that the risksare higher generally for older women above the age of 60. We discussed increased risk of coronary heart disease, breast cancer, strokes, thromboembolism. We discussed she will need to keep up with annual mammograms. She will need to report any sort of vaginal bleeding. We did discuss that in addition to treating her hot flashes, hormone replacement would likely also be protective for her bones and may prevent fractures. I will be testing her labs to make sure her LFTs are normal and if so, we will send over prescription for an estradiol 1 mg daily, no nee to start progesterone given history of hysterectomy.. Last labs: Component Latest Ref Rng 07/12/2024 Free T4 0.93 - 1.70 ng/dL 1.40 (E) Thyroid Stimulating Hormone 0.27 - 4.20 mcIU/mL 3.59 (E) Legend: (E) External lab result Component Ref Range & Units 5 mo ago T3, Total 97 - 169 ng/dL 144 documented in this encounter Plan of Treatment Upcoming Encounters Date Type Department Care Team (Late st Contact Info) Description 11/07/2024 10:00 AM EST TH Visit (TeleHealth) Endocrinology at [address] [phone] Ana Galo MD [address] [place] [address] [place] [address] documented as of this encounter Visit Diagnoses Diagnosis Premature surgical menopause Postablative ovarian failure documented in this encounter Care Teams Digital Controls Technical Officer Relationship Specialty Start Date End Date Claudia Morley MD [address] [place] [address] PCP - General Family Medicine 10/25/23 documented as of this encounter
--- OUTSIDE RECORDS SUMMARY | 2024-09-22 16:12 | XMS_ITS | Encounter Summary ---
Author Organization [facility] [address] Care Team Providers Care Acds Block 1 Operator Name Role Phone Claudia Morley MD Primary Care Provider [phone] Reason for Visit * Reason Comments Follow-up Graves Disease Encounter Details Date Type Department Care Team (Late st Contact Info) Description 07/12/2024 3:30 PM EDT Office Visit Endocrinology at [address] [address] Ana Galo MD [address] [place] [address] Graves disease; Premature surgical menopause Social History Tobacco Use Types Packs/Day Years Used Date Smoking Tobacco: Never Assessed Sex and Gender Information Value Date Recorded Sex Assigned at Female 12/07/2023 9:13 AM EST Gender Identity Female 12/07/2023 9:13 AM EST Sexual Orientation Straight 12/07/2023 9: 13 AM EST documented as of this encounter Last Filed Vital Signs Vital Sign Reading Time Taken Comments Blood Pressure 108/80 07/12/2024 3:28 PM EDT Pulse 63 07/12/2024 3:28 PM EDT Temperature - - Respiratory Rate - - Oxygen Saturation 97% 07/12/2024 3:2 8 PM EDT Inhaled Oxygen Concentration - - Weight 139.3 kg (307 lb) 07/12/2024 3:2 8 PM EDT fully clothed with shoes Height 167.6 cm (5' 6) 07/12/2024 3:28 PM EDT Body Mass Index 49.55 07/12/2024 3:28 PM EDT documented in this encounter Progress Notes * Ana Galo MD - 07/12/2024 3:30 PM EDT Images from the original note were not included. Endocrinology Clinic Note HPI: Temi Kraft is a 43 y.o. female here for follow-up of hyperthyroidism She was initially diagnosed with Graves disease in February 2019 when she live in [place] and startedon MMI. In early December she established care with a new Second Grade Teacher in [place] which discontinue Methimazole due to suspicion of Grave's remission vs questionable need for antithyroid medication. She was on MMI 7.5 mg daily at that time which was discontinue in December. Afterwards, she started presenting with symptoms concerning of hyperthyroidism around July- August 2023 and diagnosed with hyperthyroidism on laboratory work-up done again on 10/14/2023. Labs at this time showed low TSH 0.03 with elevated free T4 1.71 and T3 of 193. As her TSI Abs were negative with positive TPO Ab and Tg Ab she underwent thyroid uptake scan in which diagnosis of Grave's was confirmed. Her Primary care physician decided on restarting Methimazole5 mg and referred to a new Second Grade Teacher. She denies history of head/neck radiation, family history of thyroid disease, personal or family history of thyroid cancer. She denies changes in neck size, pain in the neck, difficulty swallowing or voice changes. She denies changes in weight, vision, skin, hair, or bowel habits, diplopia, heat/cold intolerance,fatigue, palpitations, tremor, menstrual irregularities. Interval History: Last time seen in clinic for initial visit. At this time she was taking MMI 5 mg daily and repeatedlabs showed biochemical euthyroidism hence no changes were made to thyroid medications. She reports feeling better since resumed MMI. At thi time she was having stomach pain, hands and eye twitching as well as hot flashes that have now resolved. She is still having hot flashes intermittently. Reproductive Hormone replacement therapy is acceptable if the patient is within 10 years of menopause and less than 60 years of age. The patient should not have any contraindications such as : such as a history of breast cancer, coronary heart disease [CHD], a previous venous thromboembolic event or stroke, or active liver disease. HPI: She has had hot flashes since 2019 She attained menarche at age 12. She had regular MPs throughout. She had 0 pregnancies. She is never had a breast biopsy. She had her LMP 2019 due to hysterectomy with bilateral oophorectomy, she initially had one ovary removed due to large cyst. Then the other once removed after evidence of another cyst and hysterectomy was decided due to endometriosis. She has never taken any hormone therapy. No personal/FH of breast cancer, blood clots or strokes, liver disease or endometrial bleeding/cancer, heart disease. No sort of gallbladder disease. She doesnot smoke. No migraines. She denies any weight loss or appetite loss with this. No h.o diabetes. Nodiarrhea. No cp, palpitations. No headaches. No rashes. No parts counterman use of steroids. No changes insize of shoes or gloves. A/P: -Try lifestyle changes -Try non hormonal therapy - If interested in HRT - calculate CVD risk and breast cancer risk - If acceptable- check LFTs. Review of Systems: Constitutional: No fever, chills or changes in weight. Eyes: No changes in vision, double vision, blurry vision. ENT: No sore throat, dysphagia. Neck: No neck pain or swelling. Respiratory: No cough or shortness of breath. Cardiovascular: No chest pain, palpitations, PND or orthopnea. Gastrointestinal: No abdominal pain, diarrhea, constipation. Genitourinary: No dysuria, frequency or urgency. Musculoskeletal: No joint pain or swelling. Skin: No rashes. Neurologic: No numbness or tingling. Psychiatric: No depression, anxiety, insomnia. Hematological: No bleeding or bruising, pallor or recurrent infections. All other systems reviewed and were negative or noncontributory. Past Medical History: No past medical history on file. Medications: Current Outpatient Medications: methIMAzole (Tapazole) 5 mg tablet, Take 1 tablet by mouth daily., Disp: 30 tablet, Rfl: 3 lamoTRIgine (LaMICtal) 200 mg tablet, Take 100 mg by mouth 2 times daily., Disp: , Rfl: ARIPiprazole (Abilify) 15 mg tablet, Take 15 mg by mouth daily., Disp: , Rfl: losartan (Cozaar) 25 mg tablet, Take 25 mg by mouth daily., Disp: , Rfl: omeprazole (PriLOSEC) [address] capsule, Take 20 mg by mouth daily., Disp: , Rfl: propranoloL (Inderal) 20 mg tablet, Take 20 mg by mouth 2 times daily., Disp: , Rfl: clonazePAM (KlonoPIN) 1 mg tablet, Take 1 mg by mouth 3 times daily as needed for Anxiety., Disp: ,Rfl: Magnesium Oxide 500 mg tablet, Take 500 mg by mouth daily., Disp: , Rfl: Allergies: Allergies Allergen Reactions Amoxicillin Rash Sulfa (Sulfonamide Antibiotics) Hives Family History: No family history on file. Social History: Social History Socioeconomic History Marital status: Single Spouse name: Not on file Number of children: Not on file Years of education: Not on file Highest education level: Not on file Occupational History Not on file Tobacco Use Smoking status: Not on file Smokeless tobacco: Not on file Substance and Sexual Activity Alcohol use: Not on file Drug use: Not on file Sexual activity: Not on file Other Topics Concern Not on file Social History Narrative Not on file Social Determinants of Health Financial Resource Strain: Not on file Food Insecurity: Not on file Transportation Needs: Not on file Physical Activity: Not on file Intimate Partner Violence: Not on file Housing Stability: Not on file Physical Examination: BP 108/80 (BP Location (NBP): Right arm, Patient Position: Sitting) Pulse 63 Ht 167.6 cm (5' 6) Wt (!) 139.3 kg (307 lb) Comment: fully clothed with shoes SpO2 97% BMI 49.55 kg/m?? General: NAD, awake, alert and oriented x 3 HEENT: MMM. EOMI, no lid lag, stare, chemosis, proptosis. No LAD. Thyroid: ~15-20g. Soft. Nontender. No nodules or bruits appreciated. CV: normal rate, regular rhythm, normal S1, S2. No murmurs. Lungs: CTAB, no wheezes, rhonchi, or crackles Abdomen: Central adiposity, soft. NT/ND. BS normoactive Extremities: No edema. 2+ pulses. Skin: no rashes, no acanthosis nigricans, no skin tags, no lipohypertrophy, no supraclavicular/dorsal cervical fat pad, no striae MSK: no sternal or anterior tibial tenderness, bilateral feet with no open wounds Neurologic: normal relaxation of DTRs, no tremor on outstretched hands Psych: normal mood, appropriate affect, good eye contact, answers questions appropriately Review of Data: 12/24/2023 TRAb: <1.10 T3:147 Free T4: 0.90 TSH: 2.52 Impressions & Recommendations: Problem List Items Addressed This Visit Graves disease Temi is a 43 yo lady with history of Grave's disease presenting for initial evaluation. She presented with symptomatic hyperthyroidism with suppressed TSH and elevated T3 and free T4. There are several possible causes for hyperthyroidism, including toxic nodular goiter, Graves' disease,and thyroiditis. She has negative TSI however RAIU scan confirmed diagnosis of Grave's disease with diffuse increased uptake We have discussed natural history of Graves' disease, including potential for remission after 12-18months on antithyroid medication. We reviewed treatment options, including MMI, or definitive therapy with radioactive iodine or thyroidectomy. We reviewed the effect of MMI therapy, as well as potential side effects, including rash, liver failure, and agranulocytosis. She was also counseled on adverse effects associated with MMI and is aware that it is not advised during the 1st trimester of given risk of congenital anomalies. Cheryle asked her to call clinic if she develops rash, jaundice, fever or if she becomes . Plan: - Continue MMI 5 mg daily - Side effects of MMI discussed with the patient - rash, hepatotoxicity, and agranulocytosis. He/She should stop the methimazole and call the clinic if she develops fever, sore throat, rash, or jaundice - Recheck TSH, T3 and free T4 index today Relevant Orders T4, free TSH Premature surgical menopause She does have significant [...] to start progesterone given history of hysterectomy.. Relevant Medications estradioL (Estrace) 1 mg tablet Other Relevant Orders Lipid Panel (Reflex Direct LDL) Comprehensive metabolic panel RTC 4 months. More than 50% of this 40 minute visit was coordinating the patient's care, reviewing complex records, obtaining history, documenting the patients medical record, reviewing labs and radiology studies,education of the significance of current condition and therapy, scheduling and interpreting diagnostic tests. Ana Figueroa MD * Ana Galo MD - 07/12/2024 3:30 PM EDT Biochemically euthyroid while taking methimazole 5 mg daily. Will recommend to continue without changes. documented in this encounter Miscellaneous Notes * Assessment & Plan Note - Ana Galo MD - 07/12/2024 4:12 PM EDT Associated Problem(s): Premature surgical menopause Images from the original note were not included. She does have significant hot flashes that [...] to start progesterone given history of hysterectomy.. * Assessment & Plan Note - Ana Galo MD - 07/12/2024 4:07 PM EDT Associated Problem(s): Graves disease Temi is a 43 yo lady with history of Grave's disease presenting for initial evaluation. She presented with symptomatic hyperthyroidism with suppressed TSH and elevated T3 and free T4. There are several possible causes for hyperthyroidism, including toxic nodular goiter, Graves' disease,and thyroiditis. She has negative TSI however RAIU scan confirmed diagnosis of Grave's disease with diffuse increased uptake We have discussed natural history of Graves' disease, including potential for remission after 12-18months on antithyroid medication. We reviewed treatment options, including MMI, or definitive therapy with radioactive iodine or thyroidectomy. We reviewed the effect of MMI therapy, as well as potential side effects, including rash, liver failure, and agranulocytosis. She was also counseled on adverse effects associated with MMI and is aware that it is not advised during the 1st trimester of given risk of congenital anomalies. Cheryle asked her to call clinic if she develops rash, jaundice, fever or if she becomes . Plan: - Continue MMI 5 mg daily - Side effects of MMI discussed with the patient - rash, hepatotoxicity, and agranulocytosis. He/She should stop the methimazole and call the clinic if she develops fever, sore throat, rash, or jaundice - Recheck TSH, T3 and free T4 index today documented in this encounter Plan of Treatment Upcoming Encounters Date Type Department Care Team ([facility] st Contact Info) Description 11/07/2024 10:00 AM EST TH Visit (TeleHealth) Endocrinology at [address] [address] Ana Galo MD [address] [place] [id number] Scheduled Orders Name Type Priority Associated Diagnoses Orde r Schedule Lipid Panel (Reflex Direct LDL) Lab Routine Premature surgical menopause Expected: 07/12/2024, Expires: 07/12/2025 Comprehensive metabolic panel Lab Routine Premature surgical menopause Expected: 07/12/2024, Expires: 07/12/2025 documented as of this encounter Procedures Procedure Name Priority Date/Time Associated Diagnosis Comments TSH Routine 07/12/2024 4:14 PM EDT Graves disease T4, FREE Routine 07/12/2024 4:14 PM EDT Graves disease documented in this encounter Results * TSH (07/12/2024 4:14 PM EDT) Thyroid Stimulating Hormone 3.59 0.27 - 4.20 mcIU/mL 07/12/2024 8:41 PM EDT [facility] Comment: Reference Interval (mcIU/mL): ?? Females: ? First Trimester: 0.23-3.88 ? Second Trimester: 0.22-3.90 ? Third Trimester: 0.44-4.66 Blood VENOUS BLOOD SPECIMEN / Unknown Venipuncture / Unknown 07/12/2024 4:14 PM EDT 07/12/2024 7:45 PM EDT Ana Figueroa MD CHEMISTRY ORDERAB LES Performing Organization Address [facility] de Phone Number [facility] [place] [address] * T4, free (07/12/2024 4:14 PM EDT) [facility] Free T4 1.40 0.93 - 1.70 ng/dL 07/12/2024 8:41 PM EDT [facility] Comment: Reference Interval (ng/dL): ?? Females: ? First Trimester: 0.97-1.68 ? Second Trimester: 0.77-1.51 ? Third Trimester: 0.77-1.49 Blood VENOUS BLOOD SPECIMEN / Unknown Venipuncture / Unknown 07/12/2024 4:14 PM EDT 07/12/2024 7:45 PM EDT Ana Figueroa MD CHEMISTRY ORDERAB LES Performing Organization Address [facility] Co de Phone Number [facility] [place] [address] documented in this encounter Visit Diagnoses Diagnosis Graves disease Toxic diffuse goiter without mention of thyrotoxic crisis or storm Premature surgical menopause Postablative ovarian failure documented in this encounter Care Teams Acds Block 1 Operator Relationship Specialty Start Date End Date Claudia Morley MD [address] [place] [address] PCP - General Family Medicine 10/25/23 documented as of this encounter
--- OUTSIDE RECORDS SUMMARY | 2024-09-22 16:12 | XMS_ITS | Encounter Summary ---
Author Organization [facility] Address [address] [place] [address] Care Team Providers Care Label Remover Name Role Phone Ashley Valente Primary Care Provider [phone] Encounter Details Date Type Department Care Team (Late st Contact Info) Description 10/17/2021 Lab Requisition [facility] Pathology & Laboratory Medicine - [address] [id number] Outr Resulting Lab, Provider Social History Tobacco [...] Date/Time Associated Diagnosis Comments T3 FREE Routine 10/16/2021 16:45 EST documented in this encounter Results * T3 FREE (10/16/2021 16:45 EST) T3, Free 3.5 2.8 - 5.3 pg/mL 10/17/2021 17:46 EST [facility] Blood VENOUS BLOOD / Unknown 10/16/2021 16:45 EST 10/17/2021 17:03 EST Provider Outr Resulting Lab CHEMISTRY & BLOOD GAS ORDERABLES [facility] [address] [place] [address] documented in this encounter Visit Diagnoses Not on filedocumented in this encounter Care Teams Label Remover Relationship Specialty Start Date End Date Ashley Valente FNP [address] [phone] PCP - General 11/03/21 documented as of this encounter
--- OUTSIDE RECORDS SUMMARY | 2024-09-22 16:12 | XMS_ITS | Encounter Summary ---
Author Organization [facility] [place] [address] Care Team Providers Care Tape Sewer Name Role Phone Claudia Morley MD Primary Care Provider [phone] Reason for Referral * Consultation (Routine) - Authorized Specialty Diagnoses / Procedures Referred By Trevor lang Referred To Contact Endocrinology Diagnoses Graves' disease Claudia Morley MD [address] [place] [address] [facility] Endocrinology [address] [place] [phone] Referral ID Status Reason Start Date Expiration Date Visits Requested Visits Authorized [id number] Authorized Consult, Test & Treat PCP Updated and/or Approved 3 10/14/2024 6 6 Encounter Details Date Type Department Care Team (Late Contact Info) Description 10/25/2023 Transcribe Orders eDH Incoming Referrals [phone] Claudia Morley MD [address] [place], [place] [id number] Graves' disease Social History Tobacco Use Types Packs/Day [...] AM EST TH Visit (TeleHealth) Endocrinology at [address] [phone] Ana Galo MD [address] [place] [address] Scheduled Referrals Name Type Priority Associated Diagnoses Order Schedule Referral to Endocrinology Outpatient Referral Routine Graves' disease Ordered: 10/25/2023 documented as of this encounter Visit Diagnoses Diagnosis Graves' disease Toxic diffuse goiter without mention of thyrotoxic crisis or storm documented in this encounter Care Teams Tape Sewer Relationship Specialty Start Date End Date Claudia Morley MD [address] [place] [address] PCP - General Family Medicine 10/25/23 documented as of this encounter
--- OUTSIDE RECORDS SUMMARY | 2024-09-22 16:12 | XMS_ITS | Encounter Summary ---
Author Organization [facility] Address [address] [place] [address] Care Team Providers Care Graffiti Cleaner Name Role Phone Ashley Valente Primary Care Provider [phone] Encounter Details Date Type Department Care Team (Late st Contact Info) Description 05/21/2022 Lab Requisition [facility] Pathology & Laboratory Medicine - [facility] [address] [place], [place] [address] Outr Resulting Lab, Provider Social History Tobacco [...] Date/Time Associated Diagnosis Comments T3 FREE Routine 05/20/2022 16:30 EDT documented in this encounter Results * T3 FREE (05/20/2022 16:30 EDT) T3, Free 3.6 2.8 - 5.3 pg/mL 05/21/2022 18:36 EDT [facility] Blood VENOUS BLOOD / Unknown 05/20/2022 16:30 EDT 05/21/2022 18:00 EDT Provider Outr Resulting Lab CHEMISTRY & BLOOD GAS ORDERABLES [facility] [address] [place] [address] documented in this encounter Visit Diagnoses Not on filedocumented in this encounter Care Teams Graffiti Cleaner Relationship Specialty Start Date End Date Ashley Valente FNP [address] [facility] [address] [place] [address] PCP - General 11/03/21 documented as of this encounter
--- OUTSIDE RECORDS SUMMARY | 2024-09-22 16:12 | XMS_ITS | Encounter Summary ---
Author Organization [facility] Address [address] [place] [address] Care Team Providers Care Circular Saw Operator Name Role Phone Ashley Valente Primary Care Provider [phone] Encounter Details Date Type Department Care Team (Late st Contact Info) Description 11/12/2023 Lab Requisition [facility] Pathology & Laboratory Medicine - [facility] [address] [place], [place] [address] Outr Resulting Lab, Provider Social History Tobacco [...] Date/Time Associated Diagnosis Comments T3 FREE Routine 11/11/2023 16:15 EST documented in this encounter Results * T3 FREE (11/11/2023 16:15 EST) T3, Free 4.4 2.8 - 5.3 pg/mL 11/12/2023 18:02 EST [facility] Blood VENOUS BLOOD / Unknown 11/11/2023 16:15 EST 11/12/2023 17:30 EST Provider Outr Resulting Lab CHEMISTRY & BLOOD GAS ORDERABLES [facility] [address] [place] [address] documented in this encounter Visit Diagnoses Not on filedocumented in this encounter Care Teams Circular Saw Operator Relationship Specialty Start Date End Date Ashley Valente FNP [address] [phone] PCP - General 11/03/21 documented as of this encounter
--- OUTSIDE RECORDS SUMMARY | 2024-09-22 16:12 | XMS_ITS | Encounter Summary ---
Author Organization [facility] Address [facility] [place] [address] Care Team Providers Care Repairer Recreational Vehicle Name Role Phone Claudia Morley MD Primary Care Provider [phone] Encounter Details Date Type Department Care Team (Late st Contact Info) Description 09/22/2024 3:55 PM EDT Ancillary Procedure Radiology Library at [facility] [place] [address] Rell Merino MD [facility] [address] Arrived Social History Tobacco Use Types Packs/Day [...] AM EST TH Visit (TeleHealth) Endocrinology at [address] [phone] Ana Galo MD [address] [place] [address] documented as of this encounter Procedures Procedure Name Priority Date/Time Associated Diagnosis Comments FILM LIBRARY STORAGE ONLY DX ANKLE Routine 09/22/2024 3:50 PM EDT documented in this encounter Results * Film Library- Storage Only DX Ankle (09/22/2024 3:50 PM EDT) Narrative JEANINE - 09/22/2024 3:50 PM EDT This exam is auto-finalizing. It's purpose is for storage only. Rell Merino MD IMG FILM LIBRARY OR DERABLES Performing Organization Address City/State/[facility] Co de Phone Number [place], [place] documented in this encounter Visit Diagnoses Not on filedocumented in this encounter Care Teams Repairer Recreational Vehicle Relationship Specialty Start Date End Date Claudia Morley MD [address] [place] [address] PCP - General Family Medicine 10/25/23 documented as of this encounter
--- OUTSIDE RECORDS SUMMARY | 2024-09-22 16:12 | XMS_ITS | Encounter Summary ---
Author Organization [facility] Address [address] [place] [address] Care Team Providers Care Human Service Coordinator Name Role Phone Ashley Valente DERIK Primary Care Provider [phone] Encounter Details Date Type Department Care Team (Late st Contact Info) Description 03/30/2024 Lab Requisition [facility] Pathology & Laboratory Medicine - [facility] [address] [place], [place] [phone] Outr Resulting Lab, Provider Social History Tobacco [...] Date/Time Associated Diagnosis Comments T3, TOTAL Routine 03/29/2024 8:50 EDT documented in this encounter Results * T3, TOTAL (03/29/2024 8:50 EDT) T3, Total 144 97 - 169 ng/dL 03/30/2024 18:32 EDT [facility] Blood VENOUS BLOOD / Unknown 03/29/2024 8:50 EDT 03/30/2024 17:31 EDT Provider Outr Resulting Lab CHEMISTRY & BLOOD GAS ORDERABLES [facility] [address] [place], [place] [address] documented in this encounter Visit Diagnoses Not on filedocumented in this encounter Care Teams Human Service Coordinator Relationship Specialty Start Date End Date Ashley Valente FNP [address] [facility] [address] [place] [address] PCP - General 11/03/21 documented as of this encounter
--- OUTSIDE RECORDS SUMMARY | 2024-09-22 16:12 | XMS_ITS | Referral Summary ---
Author Organization [facility] Address [address] [place] [address] Care Team Providers Care Plate Glass Grinder Name Role Phone Ashley Valente [employer] SALES REPRESENTATIVE Primary Care Provider Social History Tobacco Use Types Packs/Day Years Used Date Smoking Tobacco: Never Assessed Sex and Gender Information Value Date Recorded Sex Assigned at Not on file Gender Identity Not on file Sexual Orientation Not on file Plan of Treatment Not on file Care Teams Plate Glass Grinder Relationship Specialty Start Date End Date Ashley Valente FNP [address] [facility] [address] [place] [phone] PCP - General 11/03/21
--- OUTSIDE RECORDS SUMMARY | 2024-09-22 16:12 | XMS_ITS | Encounter Summary ---
Author Organization [facility] Address [facility] [place] [address] Care Team Providers Care Area Cleaner Name Role Phone Claudia Morley MD Primary Care Provider [phone] Reason for Visit * Consultation (Routine) - Authorized Specialty Diagnoses / Procedures Referred By Trevor lang Referred To Contact Endocrinology Diagnoses Graves' disease Claudia Morley MD [address] [place] [address] Formerly [facility] Endocrinology [address] [place] [phone] Referral ID Status Reason Start Date Expiration Date Visits Requested Visits Authorized [id number] Authorized Consult, Test & Treat PCP Updated and/or Approved 3 10/14/2024 6 6 Encounter Details Date Type Department Care Team (Late st Contact Info) Description 12/09/2023 3:00 PM EST TH Visit (TeleHealth) Endocrinology at [address] [phone] Ana Galo MD [address] [place] [address] Graves disease Social History Tobacco Use Types Packs/Day Years Used Date Smoking Tobacco: Never Assessed Sex and Gender Information Value Date Recorded Sex Assigned at Female 12/07/2023 9:13 AM EST Gender Identity Female 12/07/2023 9:13 AM EST Sexual Orientation Straight 12/07/2023 9: 13 AM EST documented as of this encounter Progress Notes * Ana Galo MD - 12/09/2023 3:00 PM EST Endocrinology Clinic Note Reason for Referral: Hyperthyroidism Referring Physician: Claudia Morley MD HPI: Temi Kraft is a 43 y.o. female here for initial consultation for hyperthyroidism She was initially diagnosed with Graves disease in February 2019 when she live in [place] and startedon MMI. In early December she established care with a new [facility] Farmer in [place] which discontinue Methimazole due to suspicion of [...] Methimazole5 mg and referred to a new [facility]. She denies history of head/neck radiation, family history of thyroid disease, personal or family history of thyroid cancer. She denies changes in neck size, pain in the neck, difficulty swallowing or voice changes. She denies changes in weight, vision, skin, hair, or bowel habits, diplopia, heat/cold intolerance,fatigue, palpitations, tremor, menstrual irregularities. Review of Systems: Constitutional: No fever, chills [...] No past medical history on file. Medications: No current outpatient medications on file. Allergies: Not on File Family History: No family history on file. [...] Housing Stability: Not on file Physical Examination: There were no vitals taken for this visit. General: NAD, awake, alert and oriented x 3 Neurologic: normal relaxation of DTRs, no tremor on outstretched hands, no deficits on monofilamenttesting Psych: normal mood, appropriate affect, good eye contact, answers questions appropriately Review of Data: 03/02/2023 TSH: 1.21 Free T4: 1.26 10/14/2023 TSH: 0.03 Free T4: 1.71 T3: 193 Impressions & Recommendations: Problem List Items Addressed [...] and free T4 index today Relevant Orders TSH T3 Total T4, free Miscellaneous Lab request RTC 3 months. More than 50% of this 45 minute visit was coordinating the patient's care, reviewing complex records, obtaining history, documenting the patients medical record, reviewing labs and radiology studies,education of the significance of current condition and therapy, scheduling and interpreting diagnostic tests. Ana Figueroa MD documented in this encounter Miscellaneous Notes * Assessment & Plan Note - Ana Galo MD - 12/09/2023 5:19 PM EST Associated Problem(s): Graves disease Temi is a [...] trimester of given risk of congenital anomalies. Ihave asked her to call clinic if she [...] AM EST TH Visit (TeleHealth) Endocrinology at [address] [phone] Ana Galo MD [address] [place] [address] documented as of this encounter Results * T4, free (12/24/2023 4:20 PM EST) Free T4 0.90 EXTERNAL FACILITY Blood 12/24/2023 4:20 PM EST Ana Figueroa MD CHEMISTRY ORDERAB LES Performing Organization Address City/[facility]/ZIP Co de Phone Number EXTERNAL FACILITY * T3 Total (12/24/2023 4:20 PM EST) T3 Total 147 EXTERNAL FACILITY Blood 12/24/2023 4:20 PM EST Ana Figueroa MD CHEMISTRY ORDERAB LES EXTERNAL FACILITY * TSH (12/24/2023 4:20 PM EST) Thyroid Stimulating Hormone 2.52 EXTERNAL FACILITY Blood 12/24/2023 4:20 PM EST Ana Figueroa MD CHEMISTRY ORDERAB LES Performing Organization Address City/[facility]/ZIP Co de Phone Number EXTERNAL FACILITY documented in this encounter Visit Diagnoses Diagnosis Graves disease Toxic diffuse goiter without mention of thyrotoxic crisis or storm documented in this encounter Care Teams Area Cleaner Relationship Specialty Start Date End Date Claudia Morley MD [address] [place] [address] PCP - General Family Medicine 10/25/23 documented as of this encounter
--- OUTSIDE RECORDS SUMMARY | 2024-09-22 16:12 | XMS_ITS | Encounter Summary ---
Author Organization [facility] [place] [address] Care Team Providers Care It Help Desk Analyst Name Role Phone Claudia Morley MD Primary Care Provider [phone] Reason for Visit * Reason Onset Date Comments Medication Refill 07/25/2024 Encounter Details Date Type Department Care Team (Late st Contact Info) Description 07/25/2024 Refill Endocrinology at [address] [phone] Ana Galo MD [address] [place] [address] Graves disease Social History Tobacco Use Types Packs/Day Years Used Date Smoking Tobacco: Never Assessed Sex and Gender Information Value Date Recorded Sex Assigned at Female 12/07/2023 9:13 AM EST Gender Identity Female 12/07/2023 9:13 AM EST Sexual Orientation Straight 12/07/2023 9: 13 AM EST documented as of this encounter Miscellaneous Notes * Telephone Encounter - Virginie Engel, [facility] - 07/25/2024 3:33 PM EDT Medication requested: methimazole Last seen by/date: 07/12/24 TERRENCE F/U scheduled: 11/07/24 TERRENCE Most recent plan (per last office visit/encounter): Plan: - Continue MMI 5 mg daily - Side effects of MMI discussed with the patient - rash, hepatotoxicity, and agranulocytosis. He/She should stop the methimazole and call the clinic if she develops fever, sore throat, rash, or jaundice - Recheck TSH, T3 and free T4 index today Last labs: Latest Reference Range & Units 07/12/24 16:14 Free T4 0.93 - 1.70 ng/dL 1.40 (E) Thyroid Stimulating Hormone 0.27 - 4.20 mcIU/mL 3.59 (E) (E): External lab result documented in this encounter Plan of Treatment Upcoming Encounters Date Type Department Care Team (Late st Contact Info) Description 11/07/2024 10:00 AM EST TH Visit (TeleHealth) Endocrinology at [address] [phone] Ana Galo MD [address] [place] [address] documented as of this encounter Visit Diagnoses Diagnosis Graves disease Toxic diffuse goiter without mention of thyrotoxic crisis or storm documented in this encounter Care Teams It Help Desk Analyst Relationship Specialty Start Date End Date Claudia Morley MD [address] [place] [address] PCP - General Family Medicine 10/25/23 documented as of this encounter
--- OUTSIDE RECORDS SUMMARY | 2024-09-22 16:12 | XMS_ITS | Encounter Summary ---
Author Organization [facility] Address [address] [place] [address] Care Team Providers Care Propulsion Generator Repairer Name Role Phone Ashley Valente DERIK Primary Care Provider [phone] Encounter Details Date Type Department Care Team (Late st Contact Info) Description 09/20/2023 Lab Requisition [facility] Pathology & Laboratory Medicine - [address] [phone] Outr Resulting Lab, Provider Social History Tobacco [...] Date/Time Associated Diagnosis Comments T3, TOTAL Routine 09/20/2023 7:26 EDT CORTISOL Routine 09/20/2023 7:26 EDT documented in this encounter Results * T3, TOTAL (09/20/2023 7:26 EDT) T3, Total 160 97 - 169 ng/dL 09/20/2023 17:24 EDT [facility] Blood VENOUS BLOOD / Unknown 09/20/2023 7:26 EDT 09/20/2023 16:40 EDT Provider Outr Resulting Lab CHEMISTRY & BLOOD GAS ORDERABLES [facility] [address] [place] [address] * CORTISOL (09/20/2023 7:26 EDT) Cortisol 17 See Note ug/dL 09/20/2023 17:24 EDT [facility] Comment: NOTE: Reference Ranges (from OCD IFU): Collected Before 10:00 AM: ??4 - 23 ug/dL Collected After 5:00 PM: ?2 - 14 ug/dL The results of this assay can be falsely elevated due to the consumption of Biotin. Blood VENOUS BLOOD / Unknown 09/20/2023 7:26 EDT 09/20/2023 16:40 EDT Provider Outr Resulting Lab CHEMISTRY & BLOOD GAS ORDERABLES [facility] [address] [place] [address] documented in this encounter Visit Diagnoses Not on filedocumented in this encounter Care Teams Propulsion Generator Repairer Relationship Specialty Start Date End Date Ashley Valente FNP [address] [place] [address] [address] [place] [address] PCP - General 11/03/21 documented as of this encounter
--- OUTSIDE RECORDS SUMMARY | 2024-09-22 16:12 | XMS_ITS | Encounter Summary ---
[place] [address] Care Team Providers Care Media Planner / Buyer Name Role Phone Claudia Morley MD Primary Care Provider [phone] Encounter Details Date Type Department Care Team (Late st Contact Info) Description 12/16/2023 Telephone Endocrinology at [address] [phone] Ana Galo MD [address] [place] [address] Social History Tobacco Use Types Packs/Day Years Used Date Smoking Tobacco: Never Assessed Sex and Gender Information Value Date Recorded Sex Assigned at Female 12/07/2023 9:13 AM EST Gender Identity Female 12/07/2023 9:13 AM EST Sexual Orientation Straight 12/07/2023 9: 13 AM EST documented as of this encounter Miscellaneous Notes * Telephone Encounter - Justina Womack - 12/16/2023 11:01 AM EST Lab orders have been mailed out to [facility]. * Telephone Encounter - Irena Esteves - 12/16/2023 10:55 AM EST Patient calling states she would like to have labs mailed to her home address, which I verified. documented in this encounter Plan of Treatment Upcoming Encounters Date Type Department Care Team (Late st Contact Info) Description 11/07/2024 10:00 AM EST TH Visit (TeleHealth) Endocrinology at [address] [phone] Ana Galo MD [address] [place] [address] [place] [address] documented as of this encounter Visit Diagnoses Not on filedocumented in this encounter Care Teams Media Planner / Buyer Relationship Specialty Start Date End Date Claudia Morley MD [address] [place] [address] PCP - General Family Medicine 10/25/23 documented as of this encounter
--- OUTSIDE RECORDS SUMMARY | 2024-09-22 16:12 | XMS_ITS | Clinical Summary ---
Author Organization [facility] Address [facility] [place] [address] Care Team Providers Care Lead Applications Developer Name Role Phone Claudia Morley MD Primary Care Provider [phone] Allergies Active Allergy Reactions Criticality Noted Date Comments Amoxicillin Rash 12/09/2023 Sulfa (Sulfonamide Antibiotics) Hives 11/29 Medications Medication Sig Dispensed Refills Start Date End Date Status lamoTRIgine (LaMICtal) 200 mg tablet Take 100 mg by mouth 2 times daily. 07/26/2023 Active ARIPiprazole (Abilify) 15 mg tablet Take 15 mg by mouth daily. 12/06/2023 Active losartan (Cozaar) 25 mg tablet Take 25 mg by mouth daily. 12/06/2023 Active omeprazole (PriLOSEC) [address] capsule Take 20 mg by mouth daily. 12/06/2023 Active propranoloL (Inderal) 20 mg tablet Take 20 mg by mouth 2 times daily. 12/06/2023 Active clonazePAM (KlonoPIN) 1 mg tablet Take 1 mg by mouth 3 times daily as needed for Anxiety. 11/16/2023 Active Magnesium Oxide 500 mg tablet Take 500 mg by mouth daily. 12/06/2023 Active methIMAzole (Tapazole) 5 mg tabletIndications:Gra ves disease Take 1 tablet by mouth daily. 90 tablet 1 07/25/2024 Active estradioL (Estrace) 1 mg tabletIndications:Pre mature surgical menopause Take 1 tablet by mouth daily. 90 tablet 1 09/20/2024 Active Active Problems Problem Noted Date Diagnosed Date Premature surgical menopause 07/12/2024 Assessment & Plan (07/12/2024 4:12 PM EDT): Images from the original note were not [...] acceptable. We did discuss that the goals of hormone replacement are to relieve her hot flashes and will be using the lowest possible dose for the shortest duration. We generally do not treat for more than 5 years. We discussed the side effects of hormone replacement therapy in detail. We discussed that the risks are higher generally for older women above the [...] to start progesterone given history of hysterectomy.. Graves disease 12/09/2023 Assessment & Plan (07/12/2024 4:07 PM EDT): Temi is a 43 yo lady with history of Grave's disease presenting for initial evaluation. She presented with symptomatic hyperthyroidism with suppressed TSH and elevated T3 and free T4. There are several possible causes for hyperthyroidism, including toxic nodular goiter, Graves' disease, and thyroiditis. She has negative TSI however RAIU scan confirmed diagnosis of Grave's disease with diffuse increased uptake We have discussed natural history of Graves' disease, including potential for remission after 12-18 months on antithyroid medication. We reviewed treatment options, [...] trimester of given risk of congenital anomalies. I have asked her to call clinic if she [...] TSH, T3 and free T4 index today Assessment & Plan (12/09/2023 5:19 PM EST): Temi is a 43 yo lady with history of Grave's disease presenting for initial evaluation. She presented with symptomatic hyperthyroidism with suppressed TSH and elevated T3 and free T4. There are several possible causes for hyperthyroidism, including toxic nodular goiter, Graves' disease, and thyroiditis. She has negative TSI however RAIU scan confirmed diagnosis of Grave's disease with diffuse increased uptake We have discussed natural history of Graves' disease, including potential for remission after 12-18 months on antithyroid medication. We reviewed treatment options, [...] trimester of given risk of congenital anomalies. I have asked her to call clinic if she [...] TSH, T3 and free T4 index today Encounters Date Type Department Care Team Description 09/22/2024 4:10 PM EDT Ancillary Procedure Radiology Library at [facility] [place] [phone] Rell Merino MD Arrived 09/22/2024 4:05 PM EDT Ancillary Procedure Radiology Library at [facility] [place] [address] eRll Merino MD Arrived 09/22/2024 4:00 PM EDT Ancillary Procedure Radiology Library at [facility] [place] [address] Rell Merino MD Arrived 09/22/2024 3:55 PM EDT Ancillary Procedure Radiology Library at [facility] [place] [address] Rell Merino MD Arrived 09/19/2024 Refill Endocrinology at [address] [address] Ana Galo MD Premature surgical menopause 07/25/2024 Refill Endocrinology at [address] [phone] Ana Galo MD Graves disease 07/12/2024 3:30 PM EDT Office Visit Endocrinology at [address] [address] Ana Galo MD Graves disease; Premature surgical menopause 07/11/2024 Travel from Last 3 Months Social History Tobacco Use Types Packs/Day Years Used Date Smoking Tobacco: Never Assessed Sex and Gender Information Value Date Recorded Sex Assigned at Female 12/07/2023 9:13 AM EST Gender Identity Female 12/07/2023 9:13 AM EST Sexual Orientation Straight 12/07/2023 9: 13 AM EST Last Filed Vital Signs Vital Sign Reading [...] Mass Index 49.55 07/12/2024 3:28 PM EDT Plan of Treatment Upcoming Encounters Date Type Department Care Team (Late st Contact Info) Description 11/07/2024 10:00 AM EST TH Visit (TeleHealth) Endocrinology at [facility] [address] [place] [phone] Ana Galo MD [address] [place] [address] Health Maintenance Due Date Last Done Comments HIV screen 2000 Hepatitis C Screening 2000 Lipid Screening 2000 Hepatitis B vaccine (0-59 yrs) (1) 2001 Tetanus/Diphtheria/Pertussis Vaccines (1 - Tdap) 09/01 HPV test 2012 PAP Smear 2012 Breast Cancer Share Decision Needed 2022 Breast Cancer screening 2022 Diabetes Screening (HgbA1C or Glucose) 2022 Covid-19 Vaccine ( - season) 2024 Influenza (Flu) vaccine (1 o f 1 - Influenza standard series) 07/30/2024 Procedures Procedure Name Priority Date/Time Associated Diagnosis Comments FILM LIBRARY STORAGE ONLY CT LOWER EXTREMITY Routine 09/22/2024 3:52 PM EDT FILM LIBRARY STORAGE ONLY DX ANKLE Routine 09/22/2024 3:51 PM EDT FILM LIBRARY STORAGE ONLY DX LOWER EXTREMITY Routine 09/22/2024 3:50 PM EDT FILM LIBRARY STORAGE ONLY DX ANKLE Routine 09/22/2024 3:50 PM EDT TSH Routine 07/12/2024 4:14 PM EDT Graves disease T4, FREE Routine 07/12/2024 4:14 PM EDT Graves disease from Last 3 Months Results * Film Library- Storage Only CT Lower Extremity (09/22/2024 3:52 PM EDT) Narrative [facility] - 09/22/2024 3:52 PM EDT This exam is auto-finalizing. It's purpose is for storage only. Rell MORALESG FILM LIBRARY OR DERABLES Performing Organization Address [facility] de Phone Number [place], [place] * Film Library- Storage Only DX Ankle (09/22/2024 3:51 PM EDT) Only the most recent of2 resultswithin the time period is included. Narrative [facility] - 09/22/2024 3:51 PM EDT This exam is auto-finalizing. It's purpose is for storage only. Rell Merino MD [facility] FILM LIBRARY OR DERABLES Performing Organization Address [facility] de Phone Number [place], [place] * Film Library- Storage Only DX Lower Extremity (09/22/2024 3:50 PM EDT) Narrative [facility] 09/22/2024 3:50 PM EDT This exam is auto-finalizing. It's purpose is for storage only. Rell Merino MD IM FILM LIBRARY OR DERABLES Performing Organization Address [facility] de Phone Number [place], [place] * TSH (07/12/2024 4:14 PM EDT) Thyroid Stimulating Hormone 3.59 0.27 - 4.20 mcIU/mL 07/12/2024 8:41 PM EDT [facility] Comment: Reference Interval (mcIU/mL): ?? Females: ? First Trimester: 0.23-3.88 ? Second Trimester: 0.22-3.90 ? Third Trimester: 0.44-4.66 Blood VENOUS BLOOD SPECIMEN / Unknown Venipuncture / Unknown 07/12/2024 4:14 PM EDT 07/12/2024 7:45 PM EDT Ana Figueroa MD CHEMISTRY ORDERAB LES [facility] [place] [address] * T4, free (07/12/2024 4:14 PM EDT) Free T4 1.40 0.93 - 1.70 ng/dL 07/12/2024 8:41 PM EDT [facility] Comment: Reference Interval (ng/dL): ?? Females: ? First Trimester: 0.97-1.68 ? Second Trimester: 0.77-1.51 ? Third Trimester: 0.77-1.49 Blood VENOUS BLOOD SPECIMEN / Unknown Venipuncture / Unknown 07/12/2024 4:14 PM EDT 07/12/2024 7:45 PM EDT Ana Figueroa MD CHEMISTRY ORDERAB LES [facility] [place] [address] from Last 3 Months Care Teams Lead Applications Developer Relationship Specialty Start Date End Date Claudia Morley MD [address] [place] [address] PCP - General Family Medicine 10/25/23
--- OUTSIDE RECORDS SUMMARY | 2024-09-22 16:12 | XMS_ITS | Encounter Summary ---
Author Organization [facility] Address [address] [place] [address] Care Team Providers Care Tail Puller Name Role Phone Ashley Valente Primary Care Provider [phone] Encounter Details Date Type Department Care Team (Late st Contact Info) Description 10/15/2023 Lab Requisition [facility] Pathology & Laboratory Medicine - [address] [phone] Outr Resulting Lab, Provider Social History Tobacco [...] Date/Time Associated Diagnosis Comments T3, TOTAL Routine 10/14/2023 16:25 EST documented in this encounter Results * (ABNORMAL) T3, TOTAL (10/14/2023 16:25 EST) T3, Total 193(H) 97 - 169 ng/dL 10/15/2023 19:06 EST [facility] Blood VENOUS BLOOD / Unknown 10/14/2023 16:25 EST 10/15/2023 17:23 EST Provider Outr Resulting Lab CHEMISTRY & BLOOD GAS ORDERABLES [facility] [address] [place] [address] documented in this encounter Visit Diagnoses Not on filedocumented in this encounter Care Teams Tail Puller Relationship Specialty Start Date End Date Ashley Valente FNP [address] [phone] PCP - General 11/03/21 documented as of this encounter
--- OUTSIDE RECORDS SUMMARY | 2024-09-22 16:12 | XMS_ITS | Encounter Summary ---
Author Organization [facility] [place] [address] Care Team Providers Care Chart Computer Name Role Phone Claudia Morley MD Primary Care Provider [phone] Reason for Visit * Reason Onset Date Comments Medication Refill 12/28/2023 Encounter Details Date Type Department Care Team (Late st Contact Info) Description 12/28/2023 Refill Endocrinology at [address] [phone] Ana Galo MD [address] [place] [address] Graves disease Social History Tobacco Use Types Packs/Day Years Used Date Smoking Tobacco: Never Assessed Sex and Gender Information Value Date Recorded Sex Assigned at Female 12/07/2023 9:13 AM EST Gender Identity Female 12/07/2023 9:13 AM EST Sexual Orientation Straight 12/07/2023 9: 13 AM EST documented as of this encounter Miscellaneous Notes * Telephone Encounter - Kayla Radford CMA - 12/28/2023 3:23 PM EST Medication requested: methimazole Last seen by/date: 12.09.2023 TERRENCE F/U scheduled: 03.15.2024 TERRENCE Most recent plan (per last office visit/encounter): Plan: - Continue MMI 5 mg daily - Side effects of MMI discussed with the patient - rash, hepatotoxicity, and agranulocytosis. He/She should stop the methimazole and call the clinic if she develops fever, sore throat, rash, or jaundice - Recheck TSH, T3 and free T4 index today Last labs: Scan 11.11.2023 * Telephone Encounter - Laura Lucas - 12/28/2023 1:39 PM EST NAME OF MEDICATION AND DOSE: methIMAzole (Tapazole) 5 mg tablet [ Dose and frequency as stated in medication list. *Patient tests / treats self n times per day. *For Endo Diabetic Supplies including Insulin test strips, lancets and syringes. Confirm how many times per day patient tests or treats themselves PHARMACY NAME: [facility] PH[facility] PHONE: [phone] Would patient like script sent directly to pharmacy? (Yes or no) y Would patient like to milk pickup truck driver paper script here at our office (Please put yes or no)n Would patient like paper script mailed to home address (Please put yes or no)n Caller/Patient aware of 1-2 business day process. documented in this encounter Plan of Treatment Upcoming Encounters Date Type Department Care Team (Late st Contact Info) Description 11/07/2024 10:00 AM EST TH Visit (TeleHealth) Endocrinology at [address] [phone] Ana Galo MD [address] [place] [phone] documented as of this encounter Visit Diagnoses Diagnosis Graves disease Toxic diffuse goiter without mention of thyrotoxic crisis or storm documented in this encounter Care Teams Chart Computer Relationship Specialty Start Date End Date Claudia Morley MD [address] [place] [address] PCP - General Family Medicine 10/25/23 documented as of this encounter
--- OUTSIDE RECORDS SUMMARY | 2024-09-22 16:12 | XMS_ITS | Encounter Summary ---
[place] [address] Care Team Providers Care Air Grinder Name Role Phone Claudia Morley MD Primary Care Provider [phone] Reason for Visit * Reason Onset Date Comments Other 12/21/2023 Encounter Details Date Type Department Care Team (Late st Contact Info) Description 12/21/2023 Telephone Endocrinology at [address] [phone] Ana Galo MD [address] [place] [address] Other Social History Tobacco Use Types Packs/Day Years Used Date Smoking Tobacco: Never Assessed Sex and Gender Information Value Date Recorded Sex Assigned at Female 12/07/2023 9:13 AM EST Gender Identity Female 12/07/2023 9:13 AM EST Sexual Orientation Straight 12/07/2023 9: 13 AM EST documented as of this encounter Miscellaneous Notes * Telephone Encounter - Shannon Corrales RN - 12/21/2023 2:56 PM EST Labs faxed to [facility] at the fax number provided by the patient. * Telephone Encounter - Chirag Paulino - 12/21/2023 1:48 PM EST Patient states that the fax number provided earlier was for the main hospital. The patient providesthe fax number for the lab. [phone] * Telephone Encounter - Beatriz Hickey - 12/21/2023 1:38 PM EST Patient is requesting her lab orders be sent to [facility] in [facility]. documented in this encounter Plan of Treatment Upcoming Encounters Date Type Department Care Team (Late st Contact Info) Description 11/07/2024 10:00 AM EST TH Visit (TeleHealth) Endocrinology at [address] [phone] Ana Galo MD [address] [place] [id number] documented as of this encounter Visit Diagnoses Not on filedocumented in this encounter Care Teams Air Grinder Relationship Specialty Start Date End Date Claudia Morley MD [address] [place] [address] PCP - General Family Medicine 10/25/23 documented as of this encounter
--- OUTSIDE RECORDS SUMMARY | 2024-09-22 16:12 | XMS_ITS | Encounter Summary ---
Author Organization [facility] Address [address] [place] [address] Care Team Providers Care Veneer Drier Feeder Name Role Phone Ashley Valente DERIK Primary Care Provider [phone] Encounter Details Date Type Department Care Team (Late st Contact Info) Description 12/17/2022 Lab Requisition [facility] Pathology & Laboratory Medicine - [facility] [address], [place] [id number] Outr Resulting Lab, Provider Social History Tobacco [...] Date/Time Associated Diagnosis Comments T3 FREE Routine 12/16/2022 12:35 EST T3, TOTAL Routine 12/16/2022 12:35 EST THYROID ANTIBODIES Routine 12/16/2022 12 :35 EST documented in this encounter Results * T3 FREE (12/16/2022 12:35 EST) T3, Free 4.0 2.8 - 5.3 pg/mL 12/17/2022 18:12 EST [facility] Blood VENOUS BLOOD / Unknown 12/16/2022 12:35 EST 12/17/2022 17:30 EST Provider Outr Resulting Lab CHEMISTRY & BLOOD GAS ORDERABLES [facility] [address] [place] [address] * T3, TOTAL (12/16/2022 12:35 EST) T3, Total 133 97 - 169 ng/dL 12/17/2022 18:26 EST [facility] Blood VENOUS BLOOD / Unknown 12/16/2022 12:35 EST 12/17/2022 17:30 EST Provider Outr Resulting Lab CHEMISTRY & BLOOD GAS ORDERABLES Performing Organization Address City/[facility] Co de Phone Number [facility] [address] [place] [address] * (ABNORMAL) THYROID ANTIBODIES (12/16/2022 12:35 EST) Anti-Thyroglobulin 120(H) <=60 U/mL 2022 19:13 EST [facility] Thyroperoxidase Ab >1,300(H) <=60 U/mL 2022 19:13 EST [facility] Blood VENOUS BLOOD / Unknown 12/16/2022 12:35 EST 12/17/2022 17:30 EST Provider Outr Resulting Lab CHEMISTRY & BLOOD GAS ORDERABLES Performing Organization Address City/[facility] Co de Phone Number [facility] [address] [place] [address] documented in this encounter Visit Diagnoses Not on filedocumented in this encounter Care Teams Veneer Drier Feeder Relationship Specialty Start Date End Date Ashley Valente FNP [address] [place] [address] [address] [place] [phone] PCP - General 11/03/21 documented as of this encounter
--- OUTSIDE RECORDS SUMMARY | 2024-09-22 16:12 | XMS_ITS | Clinical Summary ---
Author Organization [facility] Address [address] [place] [address] Care Team Providers Care Patient Care Assistant Name Role Phone Ashley Valente REFINERY OPERATOR [employer] Primary Care Provider [phone] Social History Tobacco Use Types Packs/Day Years Used Date Smoking Tobacco: Never Assessed Sex and Gender Information Value Date Recorded Sex Assigned at Not on file Gender Identity Not on file Sexual Orientation Not on file Plan of Treatment Health Maintenance Due Date Last Done Comments Hepatitis C Screen 1982 Hepatitis B Vaccine (1 of 3 - 19+ 3-dose series) 09/01 COVID-19 Vaccine ( season) 2023 Care Teams Patient Care Assistant Relationship Specialty Start Date End Date Ashley Valente FNP [address] [facility] [address] [place] [phone] PCP - General 11/03/21
--- OUTSIDE RECORDS SUMMARY | 2024-09-22 16:12 | XMS_ITS | Encounter Summary ---
Author Organization [facility] Address [facility] [place] [address] Care Team Providers Care Heel Coverer Machine Operator Name Role Phone Claudia Morley MD Primary Care Provider [phone] Encounter Details Date Type Department Care Team (Late st Contact Info) Description 09/22/2024 4:00 PM EDT Ancillary Procedure Radiology Library at [facility] [place] [address] Rell Merino MD [facility] [place] [address] Arrived Social History Tobacco Use Types Packs/Day [...] AM EST TH Visit (TeleHealth) Endocrinology at [address] [phone] Ana Galo MD [address] [address] documented as of this encounter Procedures Procedure Name Priority Date/Time Associated Diagnosis Comments FILM LIBRARY STORAGE ONLY DX LOWER EXTREMITY Routine 09/22/2024 3:50 PM EDT documented in this encounter Results * Film Library- Storage Only DX Lower Extremity (09/22/2024 3:50 PM EDT) Narrative JEROD SOLORZANO - 09/22/2024 3:50 PM EDT This exam is auto-finalizing. It's purpose is for storage only. Rell Merino MD IMG FILM LIBRARY OR DERABLES Performing Organization Address City/State/[facility] Co de Phone Number [place], [place] documented in this encounter Visit Diagnoses Not on filedocumented in this encounter Care Teams Heel Coverer Machine Operator Relationship Specialty Start Date End Date Claudia Morley MD [address] [place] [address] PCP - General Family Medicine 10/25/23 documented as of this encounter
--- OUTSIDE RECORDS SUMMARY | 2024-09-22 16:12 | XMS_ITS | Encounter Summary ---
Author Organization [facility] Address [address] [place] [address] Care Team Providers Care Flat Finisher Name Role Phone Ashley Valente Primary Care Provider [phone] Encounter Details Date Type Department Care Team (Late st Contact Info) Description 12/25/2023 Lab Requisition [facility] Pathology & Laboratory Medicine - [address] [address] Outr Resulting Lab, Provider Social History Tobacco [...] Date/Time Associated Diagnosis Comments T3, TOTAL Routine 12/24/2023 16:20 EST documented in this encounter Results * T3, TOTAL (12/24/2023 16:20 EST) T3, Total 147 97 - 169 ng/dL 12/25/2023 22:30 EST [facility] Blood VENOUS BLOOD / Unknown 12/24/2023 16:20 EST 12/25/2023 21:48 EST Provider Outr Resulting Lab CHEMISTRY & BLOOD GAS ORDERABLES [facility] [address] [place] [address] documented in this encounter Visit Diagnoses Not on filedocumented in this encounter Care Teams Flat Finisher Relationship Specialty Start Date End Date Ashley Valente FNP [address] [phone] PCP - General 11/03/21 documented as of this encounter
--- OUTSIDE RECORDS SUMMARY | 2024-09-22 16:12 | XMS_ITS | Encounter Summary ---
Author Organization [facility] [place] [address] Care Team Providers Care Porcelain Enameling Supervisor Name Role Phone Claudia Morley MD Primary Care Provider [phone] Encounter Details Date Type Department Care Team (Latest Contact Info) Description 07/11/2024 Travel Social History Tobacco Use Types Packs/Day Years [...] AM EST TH Visit (TeleHealth) Endocrinology at [address] [phone] Ana Galo MD [address] [place] [address] documented as of this encounter Visit Diagnoses Not on filedocumented in this encounter Care Teams Porcelain Enameling Supervisor Relationship Specialty Start Date End Date Claudia Morley MD [address] [place] [address] PCP - General Family Medicine 10/25/23 documented as of this encounter
--- NOTE | 2024-09-22 16:56 | ED.PROG_ITS ---
Date of service: 09/22/24 Time of Service: 16:56 Medical Decision Making Assumed care, patient requesting to be discharged anbd called after speaking with Ortho, she is refusing to stay until consult. 1701: Spoke with Dr. Toney Warren regarding patient case in details his clinic will follow up with the patient within the next week or 2 to set up consultation and surgery. Patient discharged from department, prescription for Percocet sent to the pharmacy on file. Instructed on home care and follow-up care they verbalized understanding. This text was generated using [employer] system, please disregard any oddities of phrase or misspellings. Medical Records Medical records reviewed: Yes I reviewed the patient's medical records. Quality:[facility] Health Related Social Needs: No Data to Display Sign Out Sign Out Data: Sign Out Comment: 84-year-old female fell down 7 stairs on her bottom, sustained right ankle injury. No other injuries reported. Bimalleolar fracture with dislocation reduced in ED. Pt able to ambulate using crutches. Awaiting ortho callback from [facility]; pt will require plates for repair and ability to provide anesthesia to pt prone with BMI >40. Last updated by Clara Hutchinson at 09/22/24 16:43 Discharge Plan Disposition Patient Disposition: Home Condition: Stable Discharge Details Clinical Impression: Bimalleolar fracture of left ankle Primary Care Provider: Ashley Valente ED Provider: Rossy Robins Home Meds and New Rx's Prescriptions: New oxycodone-acetaminophen [Percocet] 5-325 mg tablet 1 tab PO TID PRN (Reason: pain) Qty: 10 0RF Rx Instructions: Take 1 tablet by mouth up to 3 times daily as needed with food do not drive or operate heavy machinery while taking this medication. No Action estradiol 1 mg tablet 1 mg PO DAILY clonazepam [Klonopin] 1 mg tablet 1 mg PO TID lamotrigine [Lamictal] 150 mg Tablet 150 mg PO DAILY losartan 25 mg Tablet 25 mg PO DAILY methimazole 5 mg Tablet 5 mg PO DAILY magnesium 500 mg Tablet 500 mg PO DAILY lamotrigine 200 mg Tablet 200 mg PO DAILY omeprazole 20 mg Capsule,Delayed Release(Dr/Ec) 20 mg PO 1XD aripiprazole 10 mg Tablet 20 mg PO DAILY Discharge Instructions Instructions: Ankle Fracture ED Additional Instructions: PLease stay off ankle until follow up with Orthopedics. Rest, ice, Compression and elevate above the level of your heart while sitting or lying down. Follow up with [facility] Orthopedics as directed. Take Tylenol and Ibuprofen every 4-6 hours as needed for pain and swelling. Referrals: [facility] [Outside] - 1 week (Orthopedics)
== END 2024-09-22 17:45 | disposition home or self-care (01) ==
PROVIDERS: Emergency Provider Registered Nurse Emergency; PCP Nurse Practitioner Family
DX: S82.455A Nondisplaced comminuted fracture of shaft of left fibula, initial encounter for closed fracture (principal); S82.842A Displaced bimalleolar fracture of left lower leg, initial encounter for closed fracture; W10.8XXA Fall (on) (from) other stairs and steps, initial encounter; Y93.01 Activity, walking, marching and hiking; Y92.018 Other place in single-family (private) house as the place of occurrence of the external cause
CPT/HCPCS: 00123; 27810; 27818; 96374; 96376; 99156; 99285; 73590; 73600; 73610; 73700; J2704; J3010

== ENCOUNTER 2024-12-29 01:02 | Outpatient (CLI) | payer MEDICAID, SELFPAY ==
--- OUTSIDE RECORDS SUMMARY | 2024-12-29 01:24 | XMS_ITS | Clinical Summary ---
Author Organization [facility] Address [facility] [place] [address] Care Team Providers Care Mine Safety Engineer Name Role Phone Claudia Morley MD Primary Care Provider [phone] Allergies Active Allergy Reactions Criticality Noted Date Comments Amoxicillin Rash 12/09/2023 Sulfa (Sulfonamide Antibiotics) Hives 11/29 Medications Medication Sig Dispensed Refills Start Date End Date Status losartan (Cozaar) 25 mg tablet Take 25 mg by mouth daily. 12/06/2023 Active omeprazole (PriLOSEC) [address] capsule Take 20 mg by mouth daily. 12/06/2023 Active propranoloL (Inderal) 20 mg tablet Take 20 mg by mouth 2 times daily. 12/06/2023 Active Magnesium Oxide 500 mg tablet Take 500 mg by mouth daily. 12/06/2023 Active methIMAzole (Tapazole) 5 mg tabletIndications:G raves disease Take 1 tablet by mouth daily. 90 tablet 1 07/25/2024 Active ARIPiprazole (Abilify) 20 mg tablet Take 1 tablet by mouth Daily at Noon. 09/16/2024 Active lamoTRIgine (LaMICtal) 100 mg tablet Take 1 tablet by mouth 2 times daily. 09/05/2024 Active aspirin EC 81 mg EC (DR) tablet Take 1 tablet by mouth 2 times daily. 84 tablet 10/06/2024 Active Additional Information Patient not taking.Reported on 12/27/2024 diazePAM (Valium) 10 mg tablet TAKE ONE AND ONE-HALF TABLETS BY MOUTH TWICE A DAY TO REPLACE CLONAZEPAM DO NOT TAKE CLONAZEPAM 10/13/2024 Active estradioL 0.1 mg/24 hr Patch SemiweeklyIndicatio ns:Premature surgical menopause Change 1 patch on the skin twice a week. 8 patch 12 11/27/2024 Active Additional Information Patient not taking.Reported on 12/27/2024 Active Problems Problem Noted Date Diagnosed Date Obesity 11/16/2024 S/p ORIF Left trimalleolar ankle fracture 4 Brooks 09/29/2024 Premature surgical menopause 07/12/2024 Assessment & Plan (11/14/2024 2:56 PM EST): Images from the original note were not [...] to start progesterone given history of hysterectomy.. Assessment & Plan (07/12/2024 4:12 PM EDT): [...] hysterectomy.. Graves disease 12/09/2023 Assessment & Plan (11/14/2024 2:56 PM EST): Temi is a 44 yo lady with history of Grave's disease presenting for follow-up. She presented with symptomatic hyperthyroidism with suppressed [...] free T4 index today Assessment & Plan (07/12/2024 4:07 PM EDT): [...] Encounters Date Type Department Care Team Description 12/27/2024 3:30 PM EST [place] [address] Mally Knight APRN Closed displaced trimalleolar fracture of left ankle with routine healing, subsequent encounter (Primary Dx) 12/27/2024 2:17 PM EST - 12/27/2024 11:59 PM EST Hospital Encounter XRay at [address] [place] [address] Mally Knight APRN Closed displaced trimalleolar fracture of left ankle, initial encounter Discharge Disposition: Home 12/27/2024 Travel 12/24/2024 Travel 12/23/2024 [place]cribe [place] [address] Chata Gama APRN Encounter for therapeutic drug monitoring 12/07/2024 [place] [address] Mally Knight APRN 11/27/2024 [place] [address] Carroll Guy MD Post-op Problem 11/16/2024 3:30 PM EST Laboratory Appointment Lab [address] [address] Graves disease; Premature surgical menopause 11/16/2024 3:30 PM EST [place] [address] Mally Knight APRN Closed displaced trimalleolar fracture of left ankle, initial encounter (Primary Dx) 11/16/2024 2:45 PM EST [place] [phone] Closed displaced trimalleolar fracture of left ankle, initial encounter 11/16/2024 2:37 PM EST - 11/16/2024 11:59 PM EST Hospital Encounter XRay at [address] [place] [phone] Mally Knight APRN Closed displaced trimalleolar fracture of left ankle, initial encounter Discharge Disposition: Home 11/16/2024 2:00 PM EST Office [place] [address] Nelly Sarah, PT Closed displaced trimalleolar fracture of left ankle, initial encounter; Pain of left lower extremity 11/16/2024 Plan of Care [place] [address] 11/16/2024 Travel 11/14/2024 2:30 PM EST TH Visit (TeleHealth) Endocrinology at [address] [phone] Ana Galo MD Graves disease; Premature surgical menopause 11/13/2024 Travel 10/27/2024 [place] [address] Carroll Guy MD Ankle Pain 10/20/2024 2:15 PM EST [place] [phone] Closed fracture of left ankle, initial encounter 10/20/2024 1:30 PM EST [place] [phone] Mally Knight APRN Closed displaced trimalleolar fracture of left ankle, initial encounter 10/20/2024 12:15 PM EST - 10/20/2024 11:59 PM EST Hospital Encounter XRay at [address] [place] [address] Pain of left lower extremity Discharge Disposition: Home 10/20/2024 Travel 10/18/2024 Travel 10/17/2024 [place] [address] Carroll Guy MD Closed displaced trimalleolar fracture of left ankle, initial encounter 10/10/2024 [place] [phone] Jeni Menendez MD 10/06/2024 9:07 AM EST Anesthesia Event [facility] [place] [phone] Jeni Menendez MD Peck, Meredith T, DO 10/06/2024 8:30 AM EST - 10/06/2024 10:20 AM EST Surgery [facility] [place] [phone] Carroll Guy MD ORIF TRIMALLEOLAR ANKLE FX. W/POST. LIP FIXATION (WRVU 13.16) 10/06/2024 7:32 AM EST - 10/06/2024 1:22 PM EST Hospital Encounter [facility] [place] [address] Carroll Guy MD Discharge Disposition: Home 10/05/2024 4:01 PM EST - 10/05/2024 11:59 PM EST Hospital [place] [address] Carroll Guy MD Pain of left lower extremity Discharge Disposition: Home 10/05/2024 [place] [address] Carroll Guy MD Pain of left lower extremity 10/02/2024 [place] [address] Carroll Guy MD Closed displaced trimalleolar fracture of left ankle, initial encounter 09/28/2024 2:49 PM EDT - 09/28/2024 11:59 PM EDT Hospital Encounter XRay at [address] [place] [address] Carroll Guy MD Pain of left lower extremity Discharge Disposition: Home 09/28/2024 1:30 PM EDT [place] [address] Closed fracture of left ankle, initial encounter 09/28/2024 1:20 PM EDT [place] [address] Carroll Guy MD Pain of left lower extremity; Closed displaced trimalleolar fracture of left ankle, initial encounter from Last 3 Months Family History Medical History Relation Comments Diabetes Neg Hx Social History Tobacco Use Types Packs/Day Years Used Date Smoking Tobacco: Former Cigarettes 1 20.3 S tarted: 09/28/2004 Smokeless Tobacco: Never Tobacco Cessation:Counseling Given: Not Answered Alcohol Use Standard Drinks/Week Comments Not Currently 0 (1 standard drink = 0.6 oz pur e alcohol) [facility] Inpatient Questions Answer Date Recorded Does Anyone Try to Keep You From Having Contact with Others or Doing Things Outside Your Home? no 10/06/2024 Feels Threatened by Someone no 06/2024 Feels Unsafe at Home or Work/School no 10/06/2024 Physical Signs of Abuse Present no 10/06/2024 Sex and Gender Information Value Date Recorded Sex Assigned at Female 12/07/2023 9:13 AM EST Gender Identity Female 12/07/2023 9:13 AM EST Sexual Orientation Straight 12/07/2023 9: 13 AM EST Last Filed Vital Signs Vital Sign Reading Time Taken Comments Blood Pressure 113/72 10/06/2024 1:00 PM EST Pulse 65 10/06/2024 1:00 PM EST Temperature 36.1 ??C (97 ??F) 10/06/2024 11:58 AM EST Respiratory Rate 22 10/06/2024 1:00 PM EST Oxygen Saturation 92% 10/06/2024 1:00 PM EST Inhaled Oxygen Concentration - - Weight 138.8 kg (306 lb) 12/27/2024 3:35 PM EST Height 168.9 cm (5' 6.5) 12/27/2024 3:35 PM EST Body Mass Index 48.65 12/27/2024 3:35 PM EST Plan of Treatment Upcoming Encounters Date Type Department Care Team (Late st Contact Info) Description 02/06/2025 7:30 AM EDT Appointment XRay at [address] [place] [address] Mally Knight, [facility] [place] [address] 02/06/2025 8:00 AM EDT Office Visit Orthopaedics at [facility] [place] [address] Mally Knight, [facility] [place] [address] 05/01/2025 9:30 AM EDT TH Visit (TeleHealth) Endocrinology at [address] [phone] Ana Galo MD [address] [place] [address] Health Maintenance Due Date Last Done Comments HIV screen 2000 Hepatitis C Screening 2000 Hepatitis B vaccine (0-59 yrs) (1) 2001 Tetanus/Diphtheria/Pertussis Vaccines (1 - Tdap) 09/01 HPV test 2012 PAP Smear 2012 Breast Cancer Share Decision Needed 2022 Breast Cancer screening 2022 Covid-19 Vaccine ( - 2023- season) 2024 Influenza (Flu) vaccine (1 o f 1 - Influenza standard series) 07/30/2024 Diabetes Screening (HgbA1C or Glucose) 11/16/2027 Lipid Screening 11/16/2029 11/16/2024 Medical Devices Implanted Type Area Endband Sizer Device Identifier Shelf Expiration Date Model / Serial / Lot Screw 2.7x34mm Lck Ft Ti Variax ([id number]) (Autoreq) - [id number] Implanted:Qty: 1 on 10/06/2024 by Carroll Guy MD at [facility] IMPLANTS Left: Ankle [employer] CHRIS [id number] / / Plate 2.4x56mm 8 Hole Narrow Lck Variax ([id number]) ([employer]oreq) - [id number] Implanted:Qty: 1 on 10/06/2024 by Carroll Guy MD at [facility] IMPLANTS Left: Ankle [employer] CHRIS [id number] / / Screw 2.4x3.02mm Darren Nlck Ft Ti Variax ([id number]) ([employer]oreq) - [id number] Implanted:Qty: 1 on 10/06/2024 by Carroll Guy MD at [facility] IMPLANTS Left: Ankle [employer] CHRIS [id number] / / Screw 2.4x40mm Nlck Ft Ti T8 Variax ([id number]) ([employer]oreq) - [id number] Implanted:Qty: 1 on 10/06/2024 by Carroll Guy MD at [facility] IMPLANTS Left: Ankle [employer] CRHIS [id number] / / Screw 2.4x9mm Lck Ft Ti T8 Variax ([id number]) ([employer]oreq) - [id number] Implanted:Qty: 1 on 10/06/2024 by Carroll Guy MD at [facility] IMPLANTS Left: Ankle [employer] CHRIS [id number] / / Suture [place] 2.8mm 5-0 Suture Sdrill Syndesmosis ([id number]) ([employer]oreq) - [id number] Implanted:Qty: 1 on 10/06/2024 by Carroll Guy MD at [facility] IMPLANTS Left: Ankle [facility] 10/29/2028 [id number] / / [id number] Screw 2.4x14mm Darren Lck Ft Ti Variax ([id number]) ([employer]oreq) - [id number] Implanted:Qty: 1 on 10/06/2024 by Carroll Guy MD at [facility] IMPLANTS Left: Ankle [employer] - CHRIS [id number] / / Plate 23mm 2 Hole Variax 2 ([id number]) (Autoreq) - [id number] Implanted:Qty: 1 on 10/06/2024 by Carroll Guy MD at [facility] IMPLANTS Left: Ankle [employer] CHRIS [id number] / / Screw 2.7x40mm Nlck Ft Ti Variax ([id number]) (Autoreq) - [id number] Implanted:Qty: 1 on 10/06/2024 by Carroll Guy MD at [facility] IMPLANTS Left: Ankle [employer] CHRIS [id number] / / Plate 2.7x92mm [place] 10 Hole Narrow Lck Variax ([id number]) (Autoreq) - [id number] Implanted:Qty: 1 on 10/06/2024 by Carroll Guy MD at [facility] IMPLANTS Left: Ankle [employer] CHRIS [id number] / / Screw 2.7x30mm Nlck Ft Ti Variax ([id number]) (Autoreq) - [id number] Implanted:Qty: 1 on 10/06/2024 by Carroll Guy MD at [facility] IMPLANTS Left: Ankle [employer]RIS [id number] / / Screw 2.7x28mm Nlck Ft Ti Variax ([id number]) (Autoreq) - [id number] Implanted:Qty: 1 on 10/06/2024 by Carroll Guy MD at [facility] IMPLANTS Left: Ankle [employer]RIS [id number] / / Screw 2.7x38mm Nlck Ft Ti Variax ([id number]) ([employer]oreq) - [id number] Implanted:Qty: 1 on 10/06/2024 by Carroll Guy MD at [facility] IMPLANTS Left: Ankle [employer]RIS [id number] / / Screw 2.7x42mm Nlck Ft Ti T8 Variax ([id number]) ([employer]oreq) - [id number] Implanted:Qty: 1 on 10/06/2024 by Carroll Guy MD at [facility] IMPLANTS Left: Ankle [employer]RIS [id number] / / Explanted Type Area Endband Sizer Device Identifier Shelf Expiration Date Model / Serial / Lot K Wire Fix [id number] [place] Sgl End Ss Variax ([id number]) - [id number] Explanted:Qty : 2 on 10/06/2024 by Carroll Guy MD at [facility] IMPLANTS Left: Ankle [employer]RIS [id number] / / Screw 2.7x44mm Nlck Ft Ti T8 Variax ([id number]) ([employer]oreq) - [id number] Explanted:Qty : 1 on 10/06/2024 at [facility] IMPLANTS Left: Ankle [employer] CHRIS [id number] / / Screw 2.7x40mm Nlck Ft Ti Variax ([id number]) ([employer]oreq) - [id number] Explanted:Qty : 1 on 10/06/2024 by Carroll Guy MD at [facility] IMPLANTS Left: Ankle [employer] CHRIS [id number] / / Procedures Procedure Name Priority Date/Time Associated Diagnosis Comments XR ANKLE MIN 3 VIEWS LEFT Routine 12/27/2024 2:54 PM EST Closed displaced trimalleolar fracture of left ankle, initial encounter TSH Routine 11/16/2024 4:48 PM EST Graves disease T3 TOTAL Routine 11/16/2024 4:48 PM EST Graves disease T4, FREE Routine 11/16/2024 4:48 PM EST Graves disease LIPID PANEL (REFLEX DIRECT LDL) Routine 11/16/2024 4:48 PM EST Graves disease COMPREHENSIVE METABOLIC PANEL Routine 11/16/2024 4:48 PM EST Graves disease XR ANKLE MIN 3 VIEWS LEFT Routine 11/16/2024 3:08 PM EST Closed displaced trimalleolar fracture of left ankle, initial encounter XR ANKLE MIN 3 VIEWS LEFT Routine 10/20/2024 12:39 PM EST Pain of left lower extremity XR ANKLE MIN 3 VIEWS LEFT Routine 10/06/2024 12:32 PM EST XR FLUORO NO RAD <1HR - OR USE Routine 10/06/2024 12:02 PM EST ORIF SYNDESMOSIS, ANKLE Routine 10/06/2024 11:18 AM EST Open Tx Distal Tibiofibular Joint Disruption (41608) Yes 10/06/2024 9:08 AM EST Left trimalleolar ankle fracture dislocation Open Tx Trimalleolar Ankle Fx W Fix Pst Lip (75607) Yes 10/06/2024 9:08 AM EST Left trimalleolar ankle fracture dislocation ANESTHESIA BLOCK Routine 10/06/2024 8:50 AM EST ORIF TRIMALLEOLAR ANKLE FX. W/POST. LIP FIXATION Routine 10/06/2024 7:[address] 3D RECONSTRUCTED IMAGES FOR SURGICAL PLANNING Routine 10/05/2024 4:02 PM EST Pain of left lower extremity XR ANKLE MIN 3 VIEWS LEFT Routine 09/28/2024 3:32 PM EDT Pain of left lower extremity XR KNEE AP & LAT RIGHT Routine 09/28/2024 3:32 PM EDT Pain of left lower extremity from Last 3 Months Results * XR Ankle Min 3 views Left (Generic) (12/27/2024 2:54 PM EST) Only the most recent of5 resultswithin the time period is included. WORKSTATION ID [id number] RAD Anatomical Region Laterality Modality Ankle Left Digital Radiogra phy Impressions 12/28/2024 10:53 AM EST 1. The mid fibular shaft fracture is partially included. 2. ORIF of trimalleolar fracture and syndesmosis with continue healing 3. Congruent ankle mortise. 4. Maintained post alignment and no hardware ??complications. Thank you for letting us participate in the care of this patient. ??If you are a health care provider and have any questions regarding this report, please contact the number below. ??For patients who have questions please contact the health rn urgent care that requested your imaging first. ? Electronically signed by: Pat Grace MD, [facility] ([phone]), at 12/28/2024 10:53 AM Narrative 12/28/2024 10:53 AM EST EXAMINATION: XR ANKLE MIN 3 VIEWS LEFT (GENERIC) CLINICAL HISTORY: Entered by ordering service: left ankle trimalleolar fx ORIF, out of boot weight bearing ok S82.852A, Displaced trimalleolar fracture of left lower leg, initial encounter for closed fracture TECHNIQUE: LEFT ankle, 3 view[s] COMPARISON: Radiographs, October 2024., FINDINGS: Bones ORIF of ankle fracture or dislocation and trimalleolar fracture and ORIF of syndesmosis. Fibula-comminuted midshaft factors partially included. Posterior malleolus-fixation plate and screw unchanged and uncomplicated. The fracture lucency is obliterated. Medial malleolus-unchanged and uncomplicated fixation plate and screws. The fracture lucency is no longer visible. Joint Ankle-congruent ankle mortise with normal tibiofibular overlap and symmetric clear spaces. The tight rope syndesmotic system is unchanged. No large ankle effusion. Soft Tissue Decreased soft tissue swelling. Procedure Note Pat Grace MD - 12/28/2024 EXAMINATION: XR ANKLE MIN 3 VIEWS LEFT (GENERIC) CLINICAL HISTORY: Entered by ordering service: left ankle trimalleolar fx ORIF, out of boot weight bearing ok S82.852A, Displaced trimalleolar fracture of left lower leg, initialencounter for closed fracture TECHNIQUE: LEFT ankle, 3 view[s] COMPARISON: Radiographs, October 2024., FINDINGS: Bones ORIF of ankle fracture or dislocation and trimalleolar fracture and ORIFof syndesmosis. Fibula-comminuted midshaft factors partially included. Posterior malleolus-fixation plate and screw unchanged and uncomplicated.The fracture lucency is obliterated. Medial malleolus-unchanged and uncomplicated fixation plate and screws.The fracture lucency is no longer visible. Joint Ankle-congruent ankle mortise with normal tibiofibular overlap andsymmetric clear spaces. The tight rope syndesmotic system is unchanged. No largeankle effusion. Soft Tissue Decreased soft tissue swelling. IMPRESSION 1. The mid fibular shaft fracture is partially included. 2. ORIF of trimalleolar fracture and syndesmosis with continue healing 3. Congruent ankle mortise. 4. Maintained post alignment and no hardware complications. Thank you for letting us participate in the care of this patient. If youare a health care provider and have any questions regarding this report,please contact the number below. For patients who have questions please contactthe health rn urgent care that requested your imaging first. Electronically signed by: Pat Grace MD, [facility]([phone]), at 12/28/2024 10:53 AM Mally Knight APRN IMG DX ORDERABLES * T3 Total (11/16/2024 4:48 PM EST) T3 Total 120 80 - 200 ng/dL 11/16/2024 5:33 PM EST [facility] Blood VENOUS BLOOD SPECIMEN / Unknown Venipuncture / Unknown 11/16/2024 4:48 PM EST 11/16/2024 4:51 PM EST Ana Figueroa MD CHEMISTRY ORDERAB LES Performing Organization Address City/[facility]/ZIP Co de Phone Number [facility] [place] [address] * (ABNORMAL) TSH (11/16/2024 4:48 PM EST) Thyroid Stimulating Hormone 6.61(H) 0.27 - 4.20 mcIU/mL 11/16/2024 5:33 PM EST [facility] Comment: Reference Interval (mcIU/mL): ?? Females: ? First Trimester: 0.23-3.88 ? Second Trimester: 0.22-3.90 ? Third Trimester: 0.44-4.66 Blood VENOUS BLOOD SPECIMEN / Unknown Venipuncture / Unknown 11/16/2024 4:48 PM EST 11/16/2024 4:51 PM EST Ana Figueroa MD CHEMISTRY ORDERAB LES Performing Organization Address [facility]/ZIP Co de Phone Number [facility] [place] [address] * T4, free (11/16/2024 4:48 PM EST) [facility] Free T4 1.34 0.93 - 1.70 ng/dL 11/16/2024 5:33 PM EST [facility] Comment: Reference Interval (ng/dL): ?? Females: ? First Trimester: 0.97-1.68 ? Second Trimester: 0.77-1.51 ? Third Trimester: 0.77-1.49 Blood VENOUS BLOOD SPECIMEN / Unknown Venipuncture / Unknown 11/16/2024 4:48 PM EST 11/16/2024 4:51 PM EST Ana Figueroa MD CHEMISTRY ORDERAB LES Performing Organization Address City/[facility]/ZIP Co de Phone Number [facility] [place] [address] * Lipid Panel (Reflex Direct LDL) (11/16/2024 4:48 PM EST) [facility] Cholesterol, Total 207 mg/dL 11/16/2024 5:33 PM [facility] Comment: Desirable: < 200 mg/dL Borderline High: 200 - 239 mg/dL High: > or = 240 mg/dL Triglyceride 139 mg/dL 11/16/2024 5:33 PM [facility] Comment: Normal: <150 mg/dL Borderline High: 150-199 mg/dL High: 200-499 mg/dL Very High: > or =500 mg/dL HDL Cholesterol 59 mg/dL 5:33 PM [facility] Comment:Female: High Risk: < 50 mg/dL LDL Cholesterol 124 mg/dL 4 5:33 PM [facility] Comment: Desirable: <100 mg/dL Above Desirable: 100-129 mg/dL Borderline High: 130-159 mg/dL High: 160-189 mg/dL Very High: > or =190 mg/dL Note: LDL calculation updated to the NIH LDL formula as of 07/02/2024 Non-HDL Cholesterol 148 mg/dL 11/16/2024 5:33 PM [facility] Comment: Desirable: <130 mg/dL Above Desirable: 130-159 mg/dL Borderline High: 160-189 mg/dL High: 190-219 mg/dL Very High: > or = 220 mg/dL Blood VENOUS BLOOD SPECIMEN / Unknown Venipuncture / Unknown 11/16/2024 4:48 PM EST 11/16/2024 4:[address] [facility] - 11/16/2024 5:33 PM EST It is important to review the results of your lipid panel with your health care provider. You can compare your lipid results to the ranges below and whether they are in the desirable range. These ranges are only meant to be used for people without known cardiac disease, history of stroke, or peripheral vascular disease (blockages in the leg arteries or diabetes). If you have one of these conditions, your desirable LDL-C (bad cholesterol) will likely be even lower. ?? ACC/AHA Guidelines (most recently Ana et al. JACC 09/01/22): * For individuals with atherosclerotic cardiovascular disease (ASCVD) or LDL >=190 mg/dL, use a high-intensity statin(40-80 mg atorvastatin or 20-40 mg rosuvastatin with goal >=50% LDL reduction) * For individuals with diabetes, age 40-75 without ASCVD, moderate-intensity statin (goal 30-49% LDL reduction); consider high intensity statin for those with increased risk. * For adults without diabetes or ASCVD, aged 40-75 with LDL 70-189 mg/dL, estimate 10 year ASCVD risk with smartphrase ??.ASCVDRISK ??or Dynamed Decisions. If 10 year risk is 7.5%-19.9% (intermediate risk), consider moderate intensity statin based on risk enhancers and patient preference. Consider coronary artery calcium test (CT)if there is concern regarding the benefit of a statin. If ten year risk is >=20%, initiate high-intensity statin. * Evaluate for secondary causes of Triglycerides >500 mg/dL or LDL >190 mg/dL. * Lifestyle modification is a critical component of ASCVD risk reduction. * If not reaching LDL goals on maximally tolerated statin, consider ezetimibe and/or a PCSK9 inhibitor: ?* Target for primary prevention: LDL<100 ?* Target for those with ASCVD or diabetes and 10-year risk >=20%: LDL<70 ?* Target for those with very high risk ASCVD: LDL<55 (Very high risk being the presence of 2 or more of: recent acute coronary syndrome, past ? myocardial infarction, ischemic stroke, symptomatic peripheral artery disease) Ana Figueroa MD CHEMISTRY ORDERAB LES [facility] [place] [address] * (ABNORMAL) Comprehensive metabolic panel Fasting required (11/16/2024 4:48 PM EST) [facility] Glucose 88 65 - 99 mg/dL 11/16/2024 5:33 PM EST [facility] Comment: Fasting Glucose Interpretive Criteria: Normal: 65-99 mg/dL ?? Prediabetes: 100-125 mg/dL ?? Consistent with Diabetes Mellitus: > or = 126 mg/dL ?? Classification and Diagnosis of Diabetes: Standards of Care in Diabetes - 2022. Diabetes Care 2022; 46:S19. Fasting is defined as no caloric intake for at least 8 hours. Blood Urea Nitrogen 12 8 - 18 mg/dL 11/16/2024 5:33 PM [facility] Creatinine 0.90 0.70 - 1.20 mg/dL 11/16/2024 5:33 PM [facility] Sodium 138 135 - 145 mMol/L 11/16/2024 5:33 PM [facility] Potassium 4.0 3.5 - 5.0 mMol/L 11/16/2024 5:33 PM [facility] Chloride 101 98 - 107 mMol/L 11/16/2024 5:33 PM [facility] Carbon Dioxide 24 22 - 31 mMol/L 11/16/2024 5:33 PM [facility] Anion Gap 13 5 - 15 mMol/L 11/16/2024 5:33 PM [facility] Calcium 10.2 8.5 - 10.5 mg/dL 11/16/2024 5:33 PM [facility] Protein, Total 8.3(H) 6.1 - 8.0 g/dL 11/16/2024 5:33 PM [facility] Albumin 4.5 3.2 - 5.2 g/dL 11/16/2024 5:33 PM [facility] Aspartate Aminotransferase 25 <=30 unit/L 11/16/2024 5:33 PM [facility] Alanine Aminotransferase 33(H) 0 - 30 unit/L 11/16/2024 5:33 PM [facility] Alkaline Phosphatase 90 35 - 105 unit/L 11/16/2024 5:33 PM [facility] Bilirubin, Total 0.4 <=1.3 mg/dL 11/16/2024 5:33 PM EST [facility] Est Glomerular Filtration Rate - Female 82 mL/min/1. 73 m?? 11/16/2024 5:33 PM EST [facility] Comment: This patient's estimated GFR was calculated using the 2020 CKD-EPI equation. The estimated GFR can vary from the measured GFR by up to 30% in the absence of rapidly changing kidney function. Assessment of the estimated GFR is not appropriate when creatinine concentrations are rapidly changing. For clinical situations in which a more precise estimate of GFR is necessary, consider alternative methods of GFR estimation such as a 24-hour urine creatinine clearance. Assignment of CKD stage 1 - 5 for patients with an eGFR near the transition point between stages may be based on clinical assessment of muscle mass and symptoms in addition to eGFR. Link: eGFR Calculator [employer] Fasting Status Yes 11/16/2024 5:33 PM EST [facility] Blood VENOUS BLOOD SPECIMEN / Unknown Venipuncture / Unknown 11/16/2024 4:48 PM EST 11/16/2024 4:51 PM EST Ana Figueroa MD CHEMISTRY ORDERAB LES [facility] [place] [id number] * XR Fluoro No Rad <1Hr - OR Use (10/06/2024 12:02 PM EST) Narrative Dicom, Auditing User - 10/06/2024 12:03 PM EST This exam is auto-finalizing. No interpretation was done. Carroll Guy MD IMG FLUORO ORDERABLE S * Anesthesia Block (10/06/2024 8:50 AM EST) Narrative Jeni Menendez MD - 10/06/2024 8:50 AM EST Jeni Menendez MD ? 10/06/2024 ??9:43 AM Anesthesia Block Date/Time: 10/06/2024 8:50 AM Start Time: ??10/06/2024 8:50 AM End Time: ??10/06/2024 9:05 AM Patient Location: ??[facility] The patient was greeted; the risks and benefits of the procedure were reviewed. ?? Indication: ??Post-op Pain Control Post-op pain management at the request of surgeon. ?? Block Type: ??Saphenous nerve block/mid thigh and sciatic Laterality: ??Left Position: ??Supine Prep: ??Chlorhexidine, patient draped and mask, cap, sterile gloves, hand hygeine Skin Anesthetic: ??Skin Anesthetic: ??Lidocaine 1% ??dose: ??5 Block Technique: ?? SonoPlex ?? 21 ?? 10 cm ??Ultrasound Guided: ??YES and in-plane ??Ultrasound Image Saved ?Single-Shot: ??Single-shot Local Anesthetic Volume(s) Injected for Nerve Block: ?? BUpivacaine 0.5% - Perineural 35 mL - 10/06/2024 8:50:00 AM Nerve Sensory/MotorTest: ??Events: no complications ?? Notes: ?? Target structures, needle, and local anesthetic spread were visualized under US guidance for the duration of the procedure. No blood aspirated, no pain on injection, no paresthesias. No needle to nerve contact was observed on ultrasound 25 ml given near sciatic bifurcation on posterior knee (popliteal nerve block). 10 ml given in adductor canal on mid medial thigh (saphenous nerve block) Performed by: ?? Resident/SPRINKLER TENDER: ? Brooklyn Johnston MD ?? Attending Physician: ? Jeni Menendez MD Authorized by: Jeni Menendez MD ?? Jeni Menendez MD COMMUNITY AFFAIRS MANAGER GS * CT 3D Reconstructed Images for Surgical Planning (10/05/2024 4:02 PM EST) Narrative [facility] - 10/05/2024 4:02 PM EST This exam is auto-finalizing. No interpretation was done. Carroll Guy MD IMG CT ORDERABLES [place], [place] * XR Knee 1-2 Views Right (Generic) (09/28/2024 3:32 PM EDT) Pathologist [employer] WORKSTATION ID [id number] RAD Anatomical Region Laterality Modality Knee Right Digital Radiogra phy Impressions 09/29/2024 10:21 AM EDT No acute fracture. 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 Thank you for letting us participate in the care of this patient. ??If you are a health care provider and have any questions regarding this report, please contact the number below. ??For patients who have questions please contact the health rn urgent care that requested your imaging first. ? Electronically signed by: Richa Koch MD, [facility] ([phone]), at 09/29/2024 10:21 AM Narrative 09/29/2024 10:21 AM EDT EXAMINATION: XR KNEE 1-2 VIEWS RIGHT (GENERIC) CLINICAL HISTORY: Fall on R knee M79.605, Pain in left leg TECHNIQUE: 2 views RIGHT knee COMPARISON: None FINDINGS: No acute fracture or dislocation. 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 No joint effusion. Procedure Note Richa Koch MD - 09/29/2024 EXAMINATION: XR KNEE 1-2 VIEWS RIGHT (GENERIC) CLINICAL HISTORY: Fall on R knee M79.605, Pain in left leg TECHNIQUE: 2 views RIGHT knee COMPARISON: None FINDINGS: No acute fracture or dislocation. 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 No joint effusion. IMPRESSION No acute fracture. 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 Thank you for letting us participate in the care of this patient. If youare a health care provider and have any questions regarding this report,please contact the number below. For patients who have questions please contactthe health rn urgent care that requested your imaging first. Carroll Guy MD IMG DX ORDERABLES from Last 3 Months Care Teams Mine Safety Engineer Relationship Specialty Start Date End Date Claudia Morley MD [address] [place] [address] PCP - General Family Medicine 10/25/23
--- OUTSIDE RECORDS SUMMARY | 2024-12-29 01:24 | XMS_ITS | Encounter Summary ---
Author Organization [facility]ly [facility] [place] [address] Care Team Providers Care Celery Wrapper Name Role Phone Claudia Morley MD Primary Care Provider [phone] Encounter Details Date Type Department Care Team (Latest Contact Info) Description 11/16/2024 3:30 PM EST Laboratory Appointment Lab 3L [facility] [place] [phone] Graves disease; Premature surgical menopause Social History Tobacco Use Types Packs/Day Years Used Date Smoking Tobacco: Former Cigarettes 1 20.3 S tarted: 09/28/2004 Smokeless Tobacco: Never DH IPV Inpatient Questions Answer Date Recorded Does Anyone [...] Progress Notes * Ana Galo MD - 11/16/2024 3:30 PM EST [facility] TSH while taking methimazole 5 mg daily. AT this time will recommend decreasing dose of methimazole to 5 mg 3 days a week (Mon/Wed/Fri) and repeat labs in 4-6 weeks. documented in this encounter Plan of Treatment Upcoming Encounters Date Type Department Care Team (Late st Contact Info) Description 02/06/2025 7:30 AM EDT Appointment XRay at [address] [place] [address] Mally Knight, [facility] [place] [address] 02/06/2025 8:00 AM EDT Office Visit Orthopaedics at [facility] [place] [address] Mally Knight, [facility] [place] [address] 05/01/2025 9:30 AM EDT TH Visit (TeleHealth) Endocrinology at [address] [phone] Ana Galo MD [address] [place] [address] documented as of this encounter Procedures Procedure Name Priority Date/Time Associated Diagnosis Comments T3 TOTAL Routine 11/16/2024 4:48 PM EST Graves disease TSH Routine 11/16/2024 4:48 PM EST Graves disease T4, FREE Routine 11/16/2024 4:48 PM EST Graves disease LIPID PANEL (REFLEX DIRECT LDL) Routine 11/16/2024 4:48 PM EST Graves disease COMPREHENSIVE METABOLIC PANEL Routine 11/16/2024 4:48 PM EST Graves disease documented in this encounter Results * (ABNORMAL) TSH (11/16/2024 4:48 PM EST) Thyroid Stimulating Hormone 6.61(H) 0.27 - 4.20 mcIU/mL 11/16/2024 5:33 PM EST [facility] Comment: Reference Interval (mcIU/mL): ?? Females: ? First Trimester: 0.23-3.88 ? Second Trimester: 0.22-3.90 ? Third Trimester: 0.44-4.66 Blood VENOUS BLOOD SPECIMEN / Unknown Venipuncture / Unknown 11/16/2024 4:48 PM EST 11/16/2024 4:51 PM EST Ana Figueroa MD CHEMISTRY ORDERAB LES [facility] [place] [id number] * T3 Total (11/16/2024 4:48 PM EST) T3 Total 120 80 - 200 ng/dL 11/16/2024 5:33 PM EST [facility] Blood VENOUS BLOOD SPECIMEN / Unknown Venipuncture / Unknown 11/16/2024 4:48 PM EST 11/16/2024 4:51 PM EST Ana Figueroa MD CHEMISTRY ORDERAB LES Performing Organization Address City/[facility]/ZIP Co de Phone Number [facility] [place] [address] * T4, free (11/16/2024 4:48 PM EST) Free T4 1.34 0.93 - 1.70 ng/dL 11/16/2024 5:33 PM EST [facility] Comment: Reference Interval (ng/dL): ?? Females: ? First Trimester: 0.97-1.68 ? Second Trimester: 0.77-1.51 ? Third Trimester: 0.77-1.49 Blood VENOUS BLOOD SPECIMEN / Unknown Venipuncture / Unknown 11/16/2024 4:48 PM EST 11/16/2024 4:51 PM EST Ana Figueroa MD CHEMISTRY ORDERAB LES [facility] [place] [address] * Lipid Panel (Reflex Direct LDL) (11/16/2024 4:48 PM EST) Cholesterol, Total 207 mg/dL 11/16/2024 5:33 PM EST [facility] Comment: Desirable: < 200 mg/dL Borderline High: 200 - 239 mg/dL High: > or = 240 mg/dL Triglyceride 139 mg/dL 11/16/2024 5:33 PM EST [facility] Comment: Normal: <150 mg/dL Borderline High: 150-199 mg/dL High: 200-499 mg/dL Very High: > or =500 mg/dL HDL Cholesterol 59 mg/dL 5:33 PM EST [facility] Comment:Female: High Risk: < 50 mg/dL LDL Cholesterol 124 mg/dL 4 5:33 PM EST [facility] Comment: Desirable: <100 mg/dL Above Desirable: 100-129 mg/dL Borderline High: 130-159 mg/dL High: 160-189 mg/dL Very High: > or =190 mg/dL Note: LDL calculation updated to the NIH LDL formula as of 07/02/2024 Non-HDL Cholesterol 148 mg/dL 11/16/2024 5:33 PM EST [facility] Comment: Desirable: <130 mg/dL Above Desirable: 130-159 mg/dL Borderline High: 160-189 mg/dL High: 190-219 mg/dL Very High: > or = 220 mg/dL Blood VENOUS BLOOD SPECIMEN / Unknown Venipuncture / Unknown 11/16/2024 4:48 PM EST 11/16/2024 4:51 PM EST [facility] - 11/16/2024 5:33 PM EST It [...] lower. ?? ACC/AHA Guidelines (most recently Ana harper al. [facility] 09/01/22): * For individuals with atherosclerotic cardiovascular [...] disease) Ana Figueroa MD CHEMISTRY ORDERAB LES [facility] Organization Address City/State/ZIP Co de Phone Number [facility] [place] [address] * (ABNORMAL) Comprehensive metabolic panel Fasting required (11/16/2024 4:48 PM EST) [facility] Glucose 88 65 - 99 mg/dL 11/16/2024 5:33 PM [facility] Comment: Fasting Glucose Interpretive Criteria: Normal: 65-99 mg/dL ?? Prediabetes: 100-125 mg/dL ?? Consistent with Diabetes Mellitus: > or = 126 mg/dL ?? Classification and Diagnosis of Diabetes: Standards of Care in Diabetes - 2022. Diabetes Care 2022; 46:S19. Fasting is defined as no caloric intake for at least 8 hours. Blood Urea Nitrogen 12 8 - 18 mg/dL 11/16/2024 5:33 PM [facility] Creatinine 0.90 0.70 - 1.20 mg/dL 11/16/2024 5:33 PM [facility] Sodium 138 135 - 145 mMol/L 11/16/2024 5:33 PM [facility] Potassium 4.0 3.5 - 5.0 mMol/L 11/16/2024 5:33 PM [facility] Chloride 101 98 - 107 mMol/L 11/16/2024 5:33 PM [facility] Carbon Dioxide 24 22 - 31 mMol/L 11/16/2024 5:33 PM [facility] Anion Gap 13 5 - 15 mMol/L 11/16/2024 5:33 PM [facility] Calcium 10.2 8.5 - 10.5 mg/dL 11/16/2024 5:33 PM [facility] Protein, Total 8.3(H) 6.1 - 8.0 g/dL 11/16/2024 5:33 PM [facility] Albumin 4.5 3.2 - 5.2 g/dL 11/16/2024 5:33 PM [facility] Aspartate Aminotransferase 25 <=30 unit/L 11/16/2024 5:33 PM EST [facility] Alanine Aminotransferase 33(H) 0 - 30 unit/L 11/16/2024 5:33 PM EST [facility] Alkaline Phosphatase 90 35 - 105 unit/L 11/16/2024 5:33 PM [facility] Bilirubin, Total 0.4 <=1.3 mg/dL 11/16/2024 5:33 PM EST [facility] Est Glomerular Filtration Rate - Female 82 mL/min/1. 73 m?? 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
--- OUTSIDE RECORDS SUMMARY | 2024-12-29 01:24 | XMS_ITS | Encounter Summary ---
Author Organization [facility] Address [facility] [place] [address] Care Team Providers Care Nuclear Physician Name Role Phone Claudia Morley MD Primary Care Provider [phone] Encounter Details Date Type Department Care Team (Latest Contact Info) Description 12/27/2024 Travel Social History Tobacco Use Types Packs/Day Years Used Date Smoking Tobacco: Former Cigarettes 1 20.3 S tarted: 09/28/2004 Smokeless Tobacco: Never Alcohol Use Standard Drinks/Week Comments Not Currently 0 (1 standard drink = 0.6 oz pur e alcohol) IPV Inpatient Questions Answer Date Recorded Does [...] 02/06/2025 7:30 AM EDT Appointment XRay at [address] [place] [phone] Mally Knight, MANUFACTURING ASSOCIATE [facility] ORTHOPAED[facility] [place] [address] 02/06/2025 8:00 AM EDT Office Visit Orthopaedics at [facility] [place] [address] Mally Knight APRN [facility] DR ORTHOPAEDIC [place] [address] 05/01/2025 9:30 AM EDT TH Visit (TeleHealth) Endocrinology at [address] [phone] Ana Galo MD [address] [place] [phone] documented as of this encounter Visit Diagnoses Not on filedocumented in this encounter Care Teams Nuclear Physician Relationship Specialty Start Date End Date Claudia Morley MD [address] [place] [address] PCP - General Family Medicine 10/25/23 documented as of this encounter
--- OUTSIDE RECORDS SUMMARY | 2024-12-29 01:24 | XMS_ITS | Encounter Summary ---
Author Organization [facility] [place] [address] Care Team Providers Care Heavy Duty Custodian Name Role Phone Claudia Morley MD Primary Care Provider [phone] Reason for Referral * Physical Therapy (Routine) - Authorized Specialty Diagnoses / Procedures Referred By Trevor lang Referred To Contact Physical Therapy Diagnoses Closed displaced trimalleolar fracture of left ankle with routine healing, subsequent encounter Mally Knight APRN [facility] [place] [address] Physical Therapy, Jesus Hendrickson [address] [place] [address] Referral ID Status Reason Start Date Expiration Date Visits Requested Visits Authorized [id number] Authorized Evaluate and Treat 12/27/2024 06/25/2025 24 Reason for Visit * Reason Comments Follow-up XR L ORIF TRIMALL EOLAR ANKLE FX. W/POST. LIP FIXATION DOS 10/06/24 Encounter Details Date Type Department Care Team (Late st Contact Info) Description 12/27/2024 3:30 PM EST [place] [phone] Mally Knight APRN [facility] [place] [address] Closed displaced trimalleolar fracture of left ankle with routine healing, subsequent encounter (Primary Dx) Social History Tobacco Use Types Packs/Day Years Used Date Smoking Tobacco: Former Cigarettes 1 20.3 S tarted: 09/28/2004 Smokeless Tobacco: Never Alcohol Use Standard Drinks/Week Comments Not Currently 0 (1 standard drink = 0.6 oz pur e alcohol) DH IPV Inpatient Questions Answer Date Recorded [...] Sign Reading Time Taken Comments Blood Pressure - - Pulse - - Temperature - - Respiratory Rate - - Oxygen Saturation - - Inhaled Oxygen Concentration - - Weight 138.8 kg (306 lb) 12/27/2024 3:35 PM EST Height 168.9 cm (5' 6.5) 12/27/2024 3:35 PM EST Body Mass Index 48.65 12/27/2024 3:35 PM EST documented in this encounter Progress Notes * Mally Knight, FITNESS CLUB MANAGER - 12/27/2024 3:30 PM EST Chief complaint: almost 3 months post op for LEFT ankle trimalleolar Fx ORIF Problem List Items Addressed This Visit S/p ORIF Left trimalleolar ankle fracture 10/06/24 [place] History of present illness: Temi Kraft is a 44 y.o. year-old female who is now almost 3 months post op for above. Temi is doing ok. She is making slow and steady gains with PT. WBAT in the boot.Using a riser with the contralateral foot. No new falls or injuries. No incisional complaints. Past medical history: Patient Active Problem List Diagnosis Date Noted Obesity 11/16/2024 S/p ORIF Left trimalleolar ankle fracture 10/06/24 [place] 09/29/2024 Premature surgical menopause 07/12/2024 Graves disease 12/09/2023 Medications: estradioL 0.1 mg/24 hr Patch Semiweekly diazePAM (Valium) 10 mg tablet aspirin EC 81 mg EC (DR) tablet ARIPiprazole (Abilify) 20 mg tablet lamoTRIgine (LaMICtal) 100 mg tablet methIMAzole (Tapazole) 5 mg tablet losartan (Cozaar) 25 mg tablet omeprazole (PriLOSEC) [address] capsule propranoloL (Inderal) 20 mg tablet Magnesium Oxide 500 mg tablet Allergies: Allergies Allergen Reactions Amoxicillin Rash Sulfa (Sulfonamide Antibiotics) Hives Social history: Social History Tobacco Use Smoking status: Former Current packs/day: 1.00 Average packs/day: 1 pack/day for 20.2 years (20.2 ttl pk-yrs) Types: Cigarettes Start date: 09/28/2004 Smokeless tobacco: Never Substance Use Topics Alcohol use: Not on file Review of systems: No chest pain or shortness of breath No fevers, night sweats or chills Vital signs: Temp: -- Vitals: 12/27/24 1535 Weight: (!) 138.8 kg (306 lb) Height: 168.9 cm (5' 6.5) Body mass index is 48.65 kg/m??. Physical Exam: 44 year old Female in NAD LEFT ankle exam: WBAT in tall rebound boot. Boot removed for exam Surgical incisions are healed with no edelmira-incisional erythema or evidence of infection No TTP at the hardware mild TTP at the medial and lateral malleolus. DF to neutral PF: ~ 20 degrees Inversion and eversion fires 5/5. EHL/FHL 5/5. Foot is sensate and well perfused, DP and PT 2+ to palpation. Sensation intact to 1st webspace, medial and lateral sole and dorsum. Imaging: Personal review and interpretation of the patient's imaging reveals: Updated non-weight bearing xray's of the LEFT ankle reviewed image by image in the office today reveals healing trimalleolar fracture ORIF with no hardware complications. Assessment: 44 y.o. year-old female who is about 3 months post op overall making slow and steady gains. Plain radiographs with no obvious hardware complications. Plan: I reviewed my findings in the office today with both x-rays and clinical exam. At this time, advised to continue to work on ROM with PT, PRE, peroneal strengthening, proprioceptive work. Ok to slowly wean to a high top hiking shoe WBAT. If she has pain while advancing her weight bearing ok topull back and go back in the boot WBAT. Ok to use OTC analgesics. Cool packs PRN. Follow up: 12 weeks with weight bearing LEFT ankle x-ray I have already ordered this as a future order in the computer. This plan was discussed with the patient and they are in agreement. All of the patient's questions were answered. documented in this encounter Plan of Treatment Upcoming Encounters Date Type Department Care Team (Late st Contact Info) Description 02/06/2025 7:30 AM EDT Appointment XRay at [address] [place] [phone] Mally Knight APRN [facility] [place] [address] 02/06/2025 8:00 AM EDT Office Visit Orthopaedics at [facility] [place] [address] Mally Knight APRN [facility] [place] [address] 05/01/2025 9:30 AM EDT TH Visit (TeleHealth) Endocrinology at [address] [phone] Ana Galo MD [address] [facility] [place] [address] Scheduled Orders Name Type Priority Associated Diagnoses Orde r Schedule XR Ankle Min 3 views Left (Generic) Imaging Routine Closed displaced trimalleolar fracture of left ankle with routine healing, subsequent encounter Expected: 12/27/2024, Expires: 06/28/2025 Scheduled Referrals Name Type Priority Associated Diagnoses Orde r Schedule Referral to Physical Therapy Outpatient Referral Routine Closed displaced trimalleolar fracture of left ankle with routine healing, subsequent encounter Ordered: 12/27/2024 documented as of this encounter Visit Diagnoses Diagnosis Closed displaced trimalleolar fracture of left ankle with routine healing, subsequent encounter- Primary documented in this encounter Care Teams Heavy Duty Custodian Relationship Specialty Start Date End Date Claudia Morley MD [address] [place] [address] PCP - General Family Medicine 10/25/23 documented as of this encounter
--- OUTSIDE RECORDS SUMMARY | 2024-12-29 01:24 | XMS_ITS | Encounter Summary ---
Author Organization [facility] Address [facility] [place] [address] Care Team Providers Care Timber Sprinkler Name Role Phone Claudia Morley MD Primary Care Provider [phone] Encounter Details Date Type Department Care Team (Latest Contact Info) Description 12/27/2024 2:17 PM EST - 12/27/2024 11:59 PM EST Hospital Encounter XRay at [address] [place] [address] Mally Knight, MONOLOGIST [facility] [place] [address] Closed displaced trimalleolar fracture of left ankle, initial encounter Discharge Disposition: Home Social History Tobacco Use Types Packs/Day Years Used Date Smoking Tobacco: Former Cigarettes 1 20.3 S tarted: 09/28/2004 Smokeless Tobacco: Never Alcohol Use Standard Drinks/Week Comments Not Currently 0 (1 standard drink = 0.6 oz pur e alcohol) [facility] Inpatient Questions Answer Date Recorded Does Anyone [...] AM EST documented as of this encounter Medications at Time of Discharge Medication Sig Dispensed Refills Start Date End Date estradioL 0.1 mg/24 hr Patch SemiweeklyIndications:P remature surgical menopause Change 1 patch on the skin twice a week. 8 patch 12 11/27/2024 diazePAM (Valium) 10 mg tablet TAKE ONE AND ONE-HALF TABLETS BY MOUTH TWICE A DAY TO REPLACE CLONAZEPAM DO NOT TAKE CLONAZEPAM 10/13/2024 aspirin EC 81 mg EC (DR) tablet Take 1 tablet by mouth 2 times daily. 84 tablet 10/06/2024 ARIPiprazole (Abilify) 20 mg tablet Take 1 tablet by mouth Daily at Noon. 09/16/2024 lamoTRIgine (LaMICtal) 100 mg tablet Take 1 tablet by mouth 2 times daily. 09/05/2024 methIMAzole (Tapazole) 5 mg tabletIndications:Grave s disease Take 1 tablet by mouth daily. 90 tablet 1 07/25/2024 losartan (Cozaar) 25 mg tablet Take 25 mg by mouth daily. 12/06/2023 omeprazole (PriLOSEC) [address] capsule Take 20 mg by mouth daily. 12/06/2023 propranoloL (Inderal) 20 mg tablet Take 20 mg by mouth 2 times daily. 12/06/2023 Magnesium Oxide 500 mg tablet Take 500 mg by mouth daily. 12/06/2023 documented as of this encounter Plan of Treatment Upcoming Encounters Date Type Department Care Team (Late st Contact Info) Description 02/06/2025 7:30 AM EDT Appointment XRay at [address] [place] [address] Mally Knight APRN [facility] [place] [address] 02/06/2025 8:00 AM EDT Office Visit Orthopaedics at [facility] [place] [address] Mally Knight APRN [facility] [place] [address] 05/01/2025 9:30 AM EDT TH Visit (TeleHealth) Endocrinology at [address] [phone] Ana Galo MD [address] [place] [address] documented as of this encounter Procedures Procedure Name Priority Date/Time Associated Diagnosis Comments XR ANKLE MIN 3 VIEWS LEFT Routine 12/27/2024 2:54 PM EST Closed displaced trimalleolar fracture of left ankle, initial encounter documented in this encounter Results * XR Ankle Min 3 views Left (Generic) (12/27/2024 2:54 PM EST) WORKSTATION ID [id number] RAD Anatomical Region Laterality Modality Ankle Left [...] who have questions please contact the health career resource specialist that requested your imaging first. ? Narrative 12/28/2024 10:53 AM EST EXAMINATION: XR [...] patients who have questions please contactthe health career resource specialist that requested your imaging first. Mally Knight MONOLOGIST IMG DX ORDERABLES documented in this encounter Visit Diagnoses Diagnosis Closed displaced trimalleolar fracture of left ankle, initial encounter documented in this encounter Care Teams Timber Sprinkler Relationship Specialty Start Date End Date Claudia Morley MD [address] [place] [address] PCP - General Family Medicine 10/25/23 documented as of this encounter
--- OUTSIDE RECORDS SUMMARY | 2024-12-29 01:24 | XMS_ITS | Encounter Summary ---
Author Organization [facility] [place] [place] [address] Care Team Providers Care Public Relations Consultant Name Role Phone Claudia Morley MD Primary Care Provider [phone] Encounter Details Date Type Department Care Team (Late st Contact Info) Description 11/16/2024 Plan of Care Documentation [place] [phone] Social History Tobacco Use Types Packs/Day Years [...] 02/06/2025 7:30 AM EDT Appointment XRay at [address] [place] [phone] Mally Knight APRN [facility] [place] [address] 02/06/2025 8:00 AM EDT Office [place] [address] Mally Knight APRN [facility] DR [place] [address] 05/01/2025 9:30 AM EDT TH Visit (TeleHealth) Endocrinology at [address] [address] Ana Galo MD [address] [place] [address] documented as of this encounter Visit Diagnoses Not on filedocumented in this encounter Care Teams Public Relations Consultant Relationship Specialty Start Date End Date Claudia Morley MD [address] [place] [address] PCP - General Family Medicine 10/25/23 documented as of this encounter
--- OUTSIDE RECORDS SUMMARY | 2024-12-29 01:24 | XMS_ITS | Encounter Summary ---
Author Organization [facility] Address [facility] [address] Care Team Providers Care Dining Server Name Role Phone Claudia Morley MD Primary Care Provider [phone] Reason for Referral * Home Health Care (Routine) - Authorized Specialty Diagnoses / Procedures Referred By Contamie t Referred To Contact Diagnoses Closed displaced trimalleolar fracture of left ankle, initial encounter Carroll Guy MD [facility] [place] [address] [facility] [address] [place] [address] Referral ID Status Reason Start Date Expiration Date Visits Requested Visits Authorized [id number] Authorized Consult, Test & Treat 11/27/2024 05/26/2025 999 999 Reason for Visit * Reason Onset Date Comments Post-op Problem 11/27/2024 Encounter Details Date Type Department Care Team (Late st Contact Info) Description 11/27/2024 Telephone [place] [address] Carroll Guy MD [facility] [place] [address] Post-op Problem Social History Tobacco Use Types Packs/Day Years Used Date Smoking Tobacco: Former Cigarettes 1 20.3 S tarted: 09/28/2004 Smokeless Tobacco: Never [facility] Inpatient Questions Answer Date Recorded Does Anyone [...] encounter Miscellaneous Notes * Telephone Encounter - Kenny Eagle - 11/27/2024 1:45 PM EST Order for home health PT placed and [facility] to [facility] * Telephone Encounter - Jazmin Galeana - 11/27/2024 1:29 PM EST Who is calling? Temi Best call back number: [phone] Best time to call back between 8:00 am & 5:00 pm: ANYTIME Can we leave a message? yes When was your procedure? 10/06/2024 Who was your surgeon? AMANDA What procedure did you have done? ORIF SYNDESMOSIS, ANKLE What is the question you would like to ask the clinical care team? Temi calling because she is interested in utilizing Home Care as she is only able to take one solid step with walker. Please advise. documented in this encounter Plan of Treatment Upcoming Encounters Date Type Department Care Team (Late st Contact Info) Description 02/06/2025 7:30 AM EDT Appointment XRay at [address] [place], [place] [address] Mally Knight [address]N [facility] [place] [address] 02/06/2025 8:00 AM EDT Office [place] [address] Mally Knight [address]N [facility] [place] [address] 05/01/2025 9:30 AM EDT TH Visit (TeleHealth) Endocrinology at [address] [address] Ana Galo MD [address] [place] [address] Scheduled Referrals Name Type Priority Associated Diagnoses Orde r Schedule Referral to Home Health Outpatient Referral Routine Closed displaced trimalleolar fracture of left ankle, initial encounter Ordered: 11/27/2024 documented as of this encounter Visit Diagnoses Diagnosis Closed displaced trimalleolar fracture of left ankle, initial encounter documented in this encounter Care Teams Dining Server Relationship Specialty Start Date End Date Claudia Morley MD [address] [place] [address] PCP - General Family Medicine 10/25/23 documented as of this encounter
--- OUTSIDE RECORDS SUMMARY | 2024-12-29 01:24 | XMS_ITS | Encounter Summary ---
Author Organization [facility] Address [facility] [place] [address] Care Team Providers Care Director Airport Operations Name Role Phone Claudia Morley MD Primary Care Provider [phone] Encounter Details Date Type Department Care Team (Late st Contact Info) Description 11/16/2024 2:00 PM EST Office [place] [address] Nelly Sarah, PT Closed displaced trimalleolar fracture of left ankle, initial encounter; Pain of left lower extremity Social History Tobacco Use Types Packs/Day Years Used Date Smoking Tobacco: Former Cigarettes 1 20.3 S tarted: 09/28/2004 Smokeless Tobacco: Never [facility] Inpatient Questions Answer Date Recorded Does Anyone [...] as of this encounter Miscellaneous Notes * Initial Evaluation - Nelly Sarah, PT - 11/16/2024 2:00 PM EST Physical Therapy Initial Examination Date of Exam/First Treatment: 11/16/2024 Referring Provider: Mally Knight APRN [facility] [place] [address] Diagnosis and Pertinent Co-Morbidities affecting Plan of Care: No diagnosis found. Date of surgery: 10/06/24 Procedure: ORIF TRIMALLEOLAR ANKLE FX. W/POST. LIP FIXATION (WRVU 13.16) (Left) ORIF SYNDESMOSIS, ANKLE (WRVU 8.8) (Left) Precautions: work toward WBAT in boot over the next two weeks CURRENT HISTORY: History of current problem: Temi Karft is a 44 y.o. female seen in ortho clinic s/p left ankle ORIF. Pt states her ankle hasbeen feeling okay. She has been in a cast but was placed in a walking boot today. She has sharp pain around the hardware but notes a dull soreness everywhere else. A lot of the pain is located in theheel at this time. She is not able to put her heel all the way down in the boot. a walker at home that she can walk with. She has been scooching on her buttocks up and down the stairs to shower but is sleeping on the main level of her house where there is a 1/2 bath. Social History/Personal factors affecting plan of care: bipolar disorder, chronic low back pain andsciatica Pain: Intensity: at best: 2/10; at worst: 7/10 (within the last week) Location and described as: aching, dull, sharp, stiff, and throbbing Radiating symptoms: none; complains of numbness and tingling in the foot Function: Current functional limitations: walking, stairs, standing, ADLs, IADLS Social history: Occupation: does not work at this time Current Exercise/hobbies: none Imaging: XR Ankle Min 3 views Left (Generic) 10/20/2024 Narrative EXAMINATION: XR ANKLE MIN 3 VIEWS LEFT (GENERIC) CLINICAL HISTORY: s/p ORIF M79.605, Pain in left leg TECHNIQUE: AP, oblique, and lateral views of the left ankle. COMPARISON: Ankle radiographs 10/06/2024 Intraoperative fluoroscopy 10/05/2024 Left leg radiographs 09/22/2024 FINDINGS: Medial malleolar fracture status post ORIF with plate and screws, augmented syndesmotic tight rope . The hardware are intact and stable in alignment. No evidence of periprosthetic fracture or loosening. Post-reduction fracture alignment is maintained. Preserved ankle mortise. The fibular diaphysis fracture nodule image, with no gross change in alignment Impression 1. Medial malleolus fracture status post ORIF without hardware complication or change in alignment 2. Partially imaged fibular diaphyseal fracture with no apparent change in alignment I have personally reviewed the image(s) and the resident's interpretation and agree with the findings, Dg Koch MD at 10/20/2024 4:03 PM Thank you for letting us participate in the care of this patient. If you are a health care provider and have any questions regarding this report, please contact the number below. For patients who have questions please contact the health child care associate that requested your imaging first. Electronically signed by: Dg Koch MD, [facility] ([phone]), at 10/20/2024 4:03 PM (Summary of most recent radiology report only, please see eD-H imaging for full report and imaging history.) Treatment to date has included: rest, ice, elevate Patient Goals: to get back to functional activities. CLINICAL FINDINGS: Gait: Unable to walk due to pain and apprehension ut able to stand 2x90 sec Ankle and Foot Range of Motion and strength:deferred today Palpation: Deferred Functional Tests:: Toe walking: unable Heel walking: unable Initial Treatment/Home Exercises: Examination Patient education regarding diagnosis and physical therapy plan of care Education and instruction on standing, walking and stairs Instruction in a home exercise program HEP Updated. [x] Below image(s) imported into Chart Review - Media tab. Home Exercises were given to patient via [employer]: [x] Printed [] Emailed to patient's email: [] Emailed to other email: [] Texted to patient's mobile . FIGMD [phone] Access Code: [email or web address] URL: [email or web address] Date: 11/16/2024 Prepared by: Nelly Sarah Exercises - Seated Ankle Alphabet - 2-3 x daily - 7 x weekly - 1 reps - Seated Ankle Inversion Eversion AROM - 2-3 x daily - 7 x weekly - 1 sets - 5 reps - Supine Ankle Pumps - 2-3 x daily - 7 x weekly - 1 sets - 5 reps CLINICAL EVALUATION: Pt is a 44 y.o. female presenting with signs and symptoms consistent with healing left ankle ORIF. Pt will benefit from skilled therapy to address ROM, strength, gait, balance, and endurance deficitsto allow for full return to ADLs, IADLs, and prior level of function. Pt able to stand with the walker today but was not yet ready to walk. Pt will be attending PT at another facility. Pt and spouse had no questions at the end of the session. Clinical decision making of Low complexity using standardized patient assessment instrument and measurable assessment of functional outcome. The patient's clinical presentation is evolving due to secondary to fluctuating symptoms, multiple co-morbidities and personal factors, multi regional pain and multisystem involvement. Clinical decision making of low complexity evaluation using standardized patient assessment instrument and measurable assessment of functional outcome. GOALS: Met Short Term Therapy Goals (2 weeks). Patient will ??? Pt will demonstrate indep with home exercise program to improve outcome Pt will be able to walk household distances without pain. Met Dispatcher Chief Coal Slurry Therapy Goals (8 weeks). Patient will ??? Pt will be able to walk community distances without foot or ankle pain. Pt will be able to participate in recreational activities without foot or ankle pain. PLAN: PT at another facility Total Treatment time: 30 minutes: Total Timed Code Treatment: 0 minutes The plan has been discussed with the patient and Temi Kraft has agreed with the planned treatment. documented in this encounter Plan of Treatment Upcoming Encounters Date Type Department Care Team (Late st Contact Info) Description 02/06/2025 7:30 AM EDT Appointment XRay at [address] [place] [address] Mally Knight, NATASHA [facility] [place] [address] 02/06/2025 8:00 AM EDT Office [place] [address] Mally Knight APRN [facility] DR [place] [address] 05/01/2025 9:30 AM EDT TH Visit (TeleHealth) Endocrinology at [address] [phone] Ana Galo MD [address] [place] [address] documented as of this encounter Visit Diagnoses Diagnosis Closed displaced trimalleolar fracture of left ankle, initial encounter Pain of left lower extremity documented in this encounter Care Teams Director Airport Operations Relationship Specialty Start Date End Date Claudia Morley MD [address] [place] [address] PCP - General Family Medicine 10/25/23 documented as of this encounter
--- OUTSIDE RECORDS SUMMARY | 2024-12-29 01:24 | XMS_ITS | Encounter Summary ---
Author Organization [facility] [place] [address] Care Team Providers Care Train Inspector Name Role Phone Claudia Morley MD Primary Care Provider [phone] Encounter Details Date Type Department Care Team (Late st Contact Info) Description 12/07/2024 Orders [place] [phone] Mally Knight LOADING UNIT OPERATOR SEATING [facility] [place] [address] Social History Tobacco Use Types Packs/Day Years Used Date Smoking Tobacco: Former Cigarettes 1 20.3 S tarted: 09/28/2004 Smokeless Tobacco: Never [facility] Inpatient Questions Answer Date Recorded Does [...] 02/06/2025 7:30 AM EDT Appointment XRay at [address] [place] [place] [address] Mally Knight LOADING UNIT OPERATOR SEATING [facility] [place] [address] 02/06/2025 8:00 AM EDT Office [place] [address] Mally Knight APRN [facility] [place] [address] 05/01/2025 9:30 AM EDT TH Visit (TeleHealth) Endocrinology at [address] [address] Ana Galo MD [address] [place] [place] [address] documented as of this encounter Visit Diagnoses Not on filedocumented in this encounter Care Teams Train Inspector Relationship Specialty Start Date End Date Claudia Morley MD [address] [place] [address] PCP - General Family Medicine 10/25/23 documented as of this encounter
--- OUTSIDE RECORDS SUMMARY | 2024-12-29 01:24 | XMS_ITS | Encounter Summary ---
Author Organization [facility] [place] [address] Care Team Providers Care Head Stock Operator Name Role Phone Claudia Morley MD Primary Care Provider [phone] Encounter Details Date Type Department Care Team (Late st Contact Info) Description 11/16/2024 2:45 PM EST [place] [address] Closed displaced trimalleolar fracture of left ankle, initial encounter Social History Tobacco Use Types Packs/Day Years Used Date Smoking Tobacco: Former Cigarettes 1 20.3 S tarted: 09/28/2004 Smokeless Tobacco: Never [facility] Inpatient Questions Answer Date Recorded Does [...] as of this encounter Progress Notes * Kenny Eagle - 11/16/2024 2:45 PM EST Temi Kraft presents to the clinic for a cast off per Brianna Rodriguez. The cast was intact upon arrival. The patient was explained how the cast saw works and the cast was removed. The patient tolerated this procedure well. The patient's skin was intact.The patient was then sent to x-ray. documented in this encounter Plan of Treatment Upcoming Encounters Date Type Department Care Team (Late st Contact Info) Description 02/06/2025 7:30 AM EDT Appointment XRay at [address] [place] [address] Mally Knight, [facility] [place] [address] 02/06/2025 8:00 AM EDT Office Visit Orthopaedics at [facility] [place] [address] Mally Knight, [facility] [place] [address] 05/01/2025 9:30 AM EDT TH Visit (TeleHealth) Endocrinology at [facility] [address] [place] [address] Ana Galo MD [address] [place] [address] documented as of this encounter Visit Diagnoses Diagnosis Closed displaced trimalleolar fracture of left ankle, initial encounter documented in this encounter Care Teams Head Stock Operator Relationship Specialty Start Date End Date Claudia Morley MD [address] [place] [address] PCP - General Family Medicine 10/25/23 documented as of this encounter
--- OUTSIDE RECORDS SUMMARY | 2024-12-29 01:24 | XMS_ITS | Encounter Summary ---
Author Organization [facility] Address [facility] [place] [address] Care Team Providers Care Daily Release And Dupe Printer Name Role Phone Claudia Morley MD Primary Care Provider [phone] Encounter Details Date Type Department Care Team (Latest Contact Info) Description 12/23/2024 Transcribe [place] [address] Chata Gama, FARM EQUIPMENT OPERATOR [address] [place] [address] Encounter for therapeutic drug monitoring Social History Tobacco Use Types Packs/Day Years Used Date Smoking Tobacco: Former Cigarettes 1 20.3 S tarted: 09/28/2004 Smokeless Tobacco: Never [facility] Inpatient Questions Answer Date Recorded Does Anyone [...] 02/06/2025 7:30 AM EDT Appointment XRay at [address] [place] [phone] Mally Knight, FARM EQUIPMENT OPERATOR [facility] [place] [address] 02/06/2025 8:00 AM EDT Office [place] [address] Mally Knight APRN [facility] [place] [address] 05/01/2025 9:30 AM EDT TH Visit (TeleHealth) Endocrinology at [address] [address] Ana Galo MD [address] [place] [address] Scheduled Orders Name Type Priority Associated Diagnoses Orde r Schedule CBC (with Diff) Lab Routine Encounter for therapeutic drug monitoring Expected: 12/23/2024, Expires: 12/23/2025 Comprehensive metabolic panel Non-fasting Lab Routine Encounter for therapeutic drug monitoring Expected: 12/23/2024, Expires: 12/23/2025 Hemoglobin A1c Lab Routine Encounter for therapeutic drug monitoring Expected: 12/23/2024, Expires: 12/23/2025 Lamotrigine Lvl Lab Routine Encounter for therapeutic drug monitoring Expected: 12/23/2024, Expires: 12/23/2025 Vitamin D, 25-Hydroxy Lab Routine Encounter for therapeutic drug monitoring Expected: 12/23/2024, Expires: 12/23/2025 documented as of this encounter Visit Diagnoses Diagnosis Encounter for therapeutic drug monitoring documented in this encounter Care Teams Daily Release And Dupe Printer Relationship Specialty Start Date End Date Claudia Morley MD [address] [place] [address] PCP - General Family Medicine 10/25/23 documented as of this encounter
--- OUTSIDE RECORDS SUMMARY | 2024-12-29 01:24 | XMS_ITS | Encounter Summary ---
Author Organization [facility] [place] [address] Care Team Providers Care Corporate Giving Manager Name Role Phone Claudia Morley MD Primary Care Provider [phone] Encounter Details Date Type Department Care Team (Latest Contact Info) Description 12/24/2024 Travel Social History Tobacco Use Types Packs/Day [...] 02/06/2025 7:30 AM EDT Appointment XRay at [address] [place] [address] Mally Knight APRN [facility] [place] [address] 02/06/2025 8:00 AM EDT Office Visit Orthopaedics at [facility] [place] [address] Mally Knight APRN [facility] [place] [address] 05/01/2025 9:30 AM EDT TH Visit (TeleHealth) Endocrinology at [address] [phone] Ana Galo MD [address] [place] [address] documented as of this encounter Visit Diagnoses Not on filedocumented in this encounter Care Teams Corporate Giving Manager Relationship Specialty Start Date End Date Claudia Morley MD [address] [place] [address] PCP - General Family Medicine 10/25/23 documented as of this encounter
--- OUTSIDE RECORDS SUMMARY | 2024-12-29 01:24 | XMS_ITS | Encounter Summary ---
Author Organization Formerly [facility] [place] [address] Care Team Providers Care Supervisor Soakers Name Role Phone Claudia Morley MD Primary Care Provider [phone] Encounter Details Date Type Department Care Team (Latest Contact Info) Description 11/16/2024 Travel Social History Tobacco Use Types Packs/Day [...] 02/06/2025 7:30 AM EDT Appointment XRay at [address] [place] [phone] Mally Knight APRN [facility] [place]THOPAED[place] [address] 02/06/2025 8:00 AM EDT Office Visit Orthopaedics at [facility] [place] [address] Mally Knight APRN [facility] [place] [address] 05/01/2025 9:30 AM EDT TH Visit (TeleHealth) Endocrinology at [address] [phone] Ana Galo MD [address] [place] [address] documented as of this encounter Visit Diagnoses Not on filedocumented in this encounter Care Teams Supervisor Soakers Relationship Specialty Start Date End Date Claudia Morley MD [address] [place] [address] PCP - General Family Medicine 10/25/23 documented as of this encounter
--- OUTSIDE RECORDS SUMMARY | 2024-12-29 01:25 | XMS_ITS | Encounter Summary ---
Author Organization [facility] [place] [address] Care Team Providers Care Dealership General Manager Name Role Phone Claudia Morley MD Primary Care Provider [phone] Reason for Visit * Reason Onset Date Comments Medication Refill 07/25/2024 Encounter Details Date Type Department Care Team (Late st Contact Info) Description 07/25/2024 Refill Endocrinology at [address] [address] Ana Galo MD [address] [place] [address] Graves disease Social History Tobacco Use Types Packs/Day Years Used Date Smoking Tobacco: Never Assessed Sex and Gender Information Value Date Recorded Sex Assigned at Female 12/07/2023 9:13 AM EST Gender Identity Female 12/07/2023 9:13 AM EST Sexual Orientation Straight 12/07/2023 9: 13 AM EST documented as of this encounter Miscellaneous Notes * Telephone Encounter - Virginie Engel, [facility] - 07/25/2024 3:33 PM EDT Medication requested: [...] 02/06/2025 7:30 AM EDT Appointment XRay at [address] [place] [address] Mally Knight, [facility] [place] [address] 02/06/2025 8:00 AM EDT Office Visit Orthopaedics at [facility] [place] [address] Mally Knight, [facility] [place] [address] 05/01/2025 9:30 AM EDT TH Visit (TeleHealth) Endocrinology at [address] [phone] Ana Galo MD [address] [place] [address] documented as of this encounter Visit Diagnoses Diagnosis Graves disease Toxic diffuse goiter without mention of thyrotoxic crisis or storm documented in this encounter Care Teams Dealership General Manager Relationship Specialty Start Date End Date Claudia Morley MD [address] [place] [address] PCP - General Family Medicine 10/25/23 documented as of this encounter
--- OUTSIDE RECORDS SUMMARY | 2024-12-29 01:25 | XMS_ITS | Encounter Summary ---
Author Organization [facility] [place] [address] Care Team Providers Care Healthcare Science Specialist Name Role Phone Claudia Morley MD Primary Care Provider [phone] Encounter Details Date Type Department Care Team (Late st Contact Info) Description 10/20/2024 2:15 PM EST Office Visit Orthopaedics at [facility] [place] [address] Closed fracture of left ankle, initial encounter Social History Tobacco Use Types Packs/Day Years Used Date Smoking Tobacco: Former Cigarettes 1 20.3 S tarted: 09/28/2004 Smokeless Tobacco: Never [facility] Inpatient Questions Answer Date Recorded [...] encounter Progress Notes * Kenny Eagle - 10/20/2024 2:15 PM EST Temi Kraft presents to the cast room for a cast on per Brianna Rodriguez. The patient's skin is intact. The patient is going into a well padded fiberglass short-leg cast on the left side. The patienttolerated the procedure well. A detailed conversation regarding range of motion exercises were reviewed with patient as well as RICE, and remedies for itching. We have given the patient a Taking care of your cast pamphlet that has a written detail of all of this information along with the names of the cast techs to reach if needed. The patient is informed to call with any questions or concerns. documented in this encounter Plan of Treatment Upcoming Encounters Date Type Department Care Team (Late st Contact Info) Description 02/06/2025 7:30 AM EDT Appointment XRay at [address] [place] [address] Mally Knight, [facility] [place] [address] 02/06/2025 8:00 AM EDT Office Visit Orthopaedics at [facility] [place] [address] Mally Knight, [facility] [place] [address] 05/01/2025 9:30 AM EDT TH Visit (TeleHealth) Endocrinology at [address] [phone] Ana Galo MD [address] [place] [address] documented as of this encounter Visit Diagnoses Diagnosis Closed fracture of left ankle, initial encounter documented in this encounter Care Teams Healthcare Science Specialist Relationship Specialty Start Date End Date Claudia Morley MD [address] [place] [address] PCP - General Family Medicine 10/25/23 documented as of this encounter
--- OUTSIDE RECORDS SUMMARY | 2024-12-29 01:25 | XMS_ITS | Encounter Summary ---
Author Organization [facility] [place] [address] Care Team Providers Care Cma Or Lpn Name Role Phone Claudia Morley MD Primary Care Provider [phone] Reason for Visit * Reason Onset Date Comments Medication Refill 12/28/2023 Encounter Details Date Type Department Care Team (Late st Contact Info) Description 12/28/2023 Refill Endocrinology at [address] [address] Ana Galo MD [address] [place] [address] Graves disease Social History Tobacco Use Types [...] patient tests or treats themselves PHARMACY NAME: [facility] PHARMACY PHONE: [phone] Would patient like script sent directly to pharmacy? (Yes or no) y Would patient like to forklift picker paper script here at our office (Please put yes or no)n Would patient like paper script mailed to home address (Please put yes or no)n Caller/Patient aware of 1-2 business day process. documented in this encounter Plan of Treatment Upcoming Encounters Date Type Department Care Team (Late st Contact Info) Description 02/06/2025 7:30 AM EDT Appointment XRay at [address] [place] [address] Mally Knight, [facility] [place]THOPAED[place] [address] 02/06/2025 8:00 AM EDT Office Visit Orthopaedics at [facility] [place] [address] Mally Knight [facility] ORTHOPAED[place] [address] 05/01/2025 9:30 AM EDT TH Visit (TeleHealth) Endocrinology at [address] [address] Ana Galo MD [address] [place] [address] documented as of this encounter Visit Diagnoses Diagnosis Graves disease Toxic diffuse goiter without mention of thyrotoxic crisis or storm documented in this encounter Care Teams Cma Or Lpn Relationship Specialty Start Date End Date Claudia Morley MD [address] [place] [address] PCP - General Family Medicine 10/25/23 documented as of this encounter
--- OUTSIDE RECORDS SUMMARY | 2024-12-29 01:25 | XMS_ITS | Encounter Summary ---
Author Organization [facility]ly [facility] Address [facility] [place] [address] Care Team Providers Care Presser All Around Name Role Phone Claudia Morley MD Primary Care Provider [phone] Encounter Details Date Type Department Care Team (Late Contact Info) Description 10/10/2024 [place] [address] Jeni Menendez MD [facility] [place] [address] Social History Tobacco Use Types Packs/Day Years [...] as of this encounter Progress Notes * Jeni Menendez MD - 10/10/2024 10:28 AM EST Had a lot more pain when block worn off late Wednesday and Wednesday. Now under better control. No residual or tingling, motor intact. RACHEAL Menendez regional anesthesia team Will sign off documented in this encounter Plan of Treatment Upcoming Encounters Date Type Department Care Team (Late st Contact Info) Description 02/06/2025 7:30 AM EDT Appointment XRay at [address] [place] [address] Mally Knight, [facility] [place] [address] 02/06/2025 8:00 AM EDT Office Visit Orthopaedics at [facility] [place] [address] Mally Knight, [facility] [place] [address] 05/01/2025 9:30 AM EDT TH Visit (TeleHealth) Endocrinology at [address] [address] Ana Galo MD [address] [place] [address] documented as of this encounter Visit Diagnoses Not on filedocumented in this encounter Care Teams Presser All Around Relationship Specialty Start Date End Date Claudia Morley MD [address] [place] [address] PCP - General Family Medicine 10/25/23 documented as of this encounter
--- OUTSIDE RECORDS SUMMARY | 2024-12-29 01:25 | XMS_ITS | Encounter Summary ---
Author Organization [facility] [place] [address] Care Team Providers Care Gas Pumping Station Helper Name Role Phone Claudia Morley MD Primary Care Provider [phone] Encounter Details Date Type Department Care Team (Late st Contact Info) Description 09/22/2024 4:05 PM EDT Ancillary Procedure Radiology Library at [facility] [place] [address] Rell Merino MD [facility] [address] Social History Tobacco Use Types Packs/Day Years [...] 02/06/2025 7:30 AM EDT Appointment XRay at [address] [place] [phone] Mally Knight APRN [facility] [place] [address] 02/06/2025 8:00 AM EDT Office Visit Orthopaedics at [facility] [place] [address] Mally Knight APRN [facility] [place] [address] 05/01/2025 9:30 AM EDT TH Visit (TeleHealth) Endocrinology at [address] [phone] Ana Galo MD [address] [place] [address] documented as of this encounter Procedures Procedure Name Priority Date/Time Associated Diagnosis Comments FILM LIBRARY STORAGE ONLY DX ANKLE Routine 09/22/2024 3:51 PM EDT documented in this encounter Results * Film Library- Storage Only DX Ankle (09/22/2024 3:51 PM EDT) Narrative [facility] - 09/22/2024 3:51 PM EDT This exam is auto-finalizing. It's purpose is for storage only. Rell Merino MD IMG FILM LIBRARY OR DERABLES Performing Organization Address City/State/[facility] Co de Phone Number [place], [place] documented in this encounter Visit Diagnoses Not on filedocumented in this encounter Care Teams Gas Pumping Station Helper Relationship Specialty Start Date End Date Claudia Morley MD [address] [place] [address] PCP - General Family Medicine 10/25/23 documented as of this encounter
--- OUTSIDE RECORDS SUMMARY | 2024-12-29 01:25 | XMS_ITS | Encounter Summary ---
Author Organization [facility] Address One [facility] [place] [address] Care Team Providers Care Ribbon Lap Machine Tender Name Role Phone Claudia Morley MD Primary Care Provider [phone] Encounter Details Date Type Department Care Team (Latest Contact Info) Description 10/20/2024 12:15 PM EST - 10/20/2024 11:59 PM EST Hospital Encounter XRay at [facility] 1 [facility] [place] [phone] Pain of left lower extremity Discharge Disposition: Home Social History Tobacco Use Types Packs/Day Years Used Date Smoking Tobacco: Former Cigarettes 1 20.3 S tarted: 09/28/2004 Smokeless Tobacco: Never [facility] Inpatient Questions Answer Date Recorded Does [...] Sig Dispensed Refills Start Date End Date diazePAM (Valium) 10 mg tablet TAKE ONE [...] Take 500 mg by mouth daily. 12/06/2023 oxyCODONE (Roxicodone) 5 mg tabletIndications:Close d displaced trimalleolar fracture of left ankle, initial encounter Take 1 tablet by mouth every 6 hours as needed for Pain. 30 tablet 10/18/2024 11/14/2024 estradioL (Estrace) 1 mg tabletIndications:Corine ture surgical menopause Take 1 tablet by mouth daily. 90 tablet 1 09/20/2024 11/24/2024 lamoTRIgine (LaMICtal) 200 mg tablet Take 100 mg by mouth 2 times daily. 07/26/2023 11/16/2024 ARIPiprazole (Abilify) 15 mg tablet Take 15 mg by mouth daily. 12/06/2023 11/16/2024 documented as of this encounter Plan of Treatment Upcoming Encounters Date Type Department Care Team (Late st Contact Info) Description 02/06/2025 7:30 AM EDT Appointment XRay at [address] [place] [address] [facility] [place]OPAEDIC [place] [address] 02/06/2025 8:00 AM EDT Office Visit Orthopaedics at [facility] [place] [address] Mally Knight APRN [facility] [place]ED[place] [address] 05/01/2025 9:30 AM EDT TH Visit (TeleHealth) Endocrinology at [facility] [address] [place] [address] Ana Galo MD 87 [facility] [address] documented as of this encounter Procedures Procedure Name Priority Date/Time Associated Diagnosis Comments XR ANKLE MIN 3 VIEWS LEFT Routine 10/20/2024 12:39 PM EST Pain of left lower extremity documented in this encounter Results * XR Ankle Min 3 views Left (Generic) (10/20/2024 12:39 PM EST) WORKSTATION ID [id number] RAD Anatomical Region Laterality Modality Ankle Left Digital Radiogra phy Impressions 10/20/2024 4:03 PM EST 1. ??Medial malleolus fracture status post ORIF without hardware complication or change in alignment 2. ??Partially imaged fibular diaphyseal fracture with no apparent [...] who have questions please contact the health early breastfeeding care specialist that requested your imaging first. ? Narrative 10/20/2024 4:03 PM EST EXAMINATION: XR ANKLE MIN 3 VIEWS LEFT (GENERIC) CLINICAL HISTORY: s/p ORIF M79.605, Pain in left leg TECHNIQUE: AP, oblique, and lateral views of the left ankle. COMPARISON: Ankle radiographs 10/06/2024 Intraoperative fluoroscopy 10/05/2024 Left leg radiographs 09/22/2024 FINDINGS: Medial malleolar fracture status post ORIF with plate and screws, augmented syndesmotic tight rope . ??The hardware are intact and stable in alignment. No evidence of periprosthetic fracture or loosening. Post-reduction fracture alignment is maintained. ??Preserved ankle mortise. The fibular diaphysis fracture nodule image, with no gross change in alignment Procedure Note Dg Koch MD - 10/20/2024 EXAMINATION: XR ANKLE MIN 3 VIEWS LEFT (GENERIC) CLINICAL HISTORY: s/p ORIF M79.605, Pain in left leg TECHNIQUE: AP, oblique, and lateral views of the left ankle. COMPARISON: Ankle radiographs 10/06/2024 Intraoperative fluoroscopy 10/05/2024 Left leg radiographs 09/22/2024 FINDINGS: Medial malleolar fracture status post ORIF with plate and screws,augmented syndesmotic tight rope . The hardware are intact and stable in alignment.No evidence of periprosthetic fracture or loosening. Post-reductionfracture alignment is maintained. Preserved ankle mortise. The fibular diaphysis fracture nodule image, with no gross change inalignment IMPRESSION 1. Medial malleolus fracture status post ORIF without hardwarecomplication or change in alignment 2. Partially imaged fibular diaphyseal fracture with no apparent changein alignment I have personally reviewed the image(s) and the resident's interpretationand agree with the findings, Dg Koch MD at 10/20/2024 4:03 PM Thank you for letting us participate in the care of this patient. If youare a health care provider and have any questions regarding this report,please contact the number below. For patients who have questions please contactthe health early breastfeeding care specialist that requested your imaging first. Carroll Guy MD IMG DX ORDERABLES documented in this encounter Visit Diagnoses Diagnosis Pain of left lower extremity documented in this encounter Care Teams Ribbon Lap Machine Tender Relationship Specialty Start Date End Date Claudia Morley MD [address] [place] [address] PCP - General Family Medicine 10/25/23 documented as of this encounter
--- OUTSIDE RECORDS SUMMARY | 2024-12-29 01:25 | XMS_ITS | Encounter Summary ---
Author Organization [facility] [place] [address] Care Team Providers Care Anesthetist Name Role Phone Claudia Morley MD Primary Care Provider [phone] Reason for Referral * Diagnostic Test (Routine) - Closed Specialty Diagnoses / Procedures Referred By Trevor lang Referred To Contact Radiology Diagnoses Pain of left lower extremity Procedures CT 3D Reconstructed Images for Surgical Planning Carroll Guy MD [facility] [place] [address] [facility] [place] [address] Referral ID Status Reason Start Date Expiration Date V isits Requested Visits Authorized [id number] Closed Specialty Service Requested 10/05/2024 04/04/2026 1 1 Reason for Visit * Diagnostic Test (Routine) - Closed Specialty Diagnoses / Procedures Referred By Contac t Referred To Contact Radiology Diagnoses Pain of left lower extremity Procedures CT 3D Reconstructed Images for Surgical Planning Carroll Guy MD [facility] [place] [address] [facility] [place] [address] Referral ID Status Reason Start Date Expiration Date V isits Requested Visits Authorized [id number] Closed Specialty Service Requested 10/05/2024 04/04/2026 1 1 Encounter Details Date Type Department Care Team (Latest Contact Info) Description 10/05/2024 4:01 PM EST - 10/05/2024 11:59 PM EST Hospital Encounter CT Scan at [facility] [place] [address] Carroll Guy MD [facility] [place] [address] Pain of left lower extremity Discharge Disposition: Home Social History Tobacco Use Types Packs/Day Years Used Date Smoking Tobacco: Former Cigarettes 1 20.3 S tarted: 09/28/2004 Smokeless Tobacco: Never [facility] Inpatient Questions Answer Date Recorded [...] Sig Dispensed Refills Start Date End Date aspirin EC 81 mg EC (DR) tablet Take 1 tablet by mouth 2 times daily. 84 tablet 10/06/2024 ARIPiprazole (Abilify) 20 mg tablet Take 1 tablet by mouth Daily at Noon. 09/16/2024 lamoTRIgine (LaMICtal) 100 mg tablet Take 1 tablet by mouth 2 times daily. 09/05/2024 methIMAzole (Tapazole) 5 mg tabletIndications:Graves disease Take 1 tablet by mouth daily. 90 tablet 1 07/25/2024 losartan (Cozaar) 25 mg tablet Take 25 mg by mouth daily. 12/06/2023 omeprazole (PriLOSEC) [address] capsule Take 20 mg by mouth daily. 12/06/2023 propranoloL (Inderal) 20 mg tablet Take 20 mg by mouth 2 times daily. 12/06/2023 Magnesium Oxide 500 mg tablet Take 500 mg by mouth daily. 12/06/2023 senna-docusate (Pericolace) 8.6-50 mg Tablet Take 1 tablet by mouth daily. 10/06/2024 10/20/2024 oxyCODONE (Roxicodone) 5 mg tabletIndications:Closed displaced trimalleolar fracture of left ankle, initial encounter Take 1 tablet by mouth every 4 hours as needed for Pain. 30 tablet 10/03/2024 10/17/2024 estradioL (Estrace) 1 mg tabletIndications:Prematu re surgical menopause Take 1 tablet by mouth daily. 90 tablet 1 09/20/2024 11/24/2024 lamoTRIgine (LaMICtal) 200 mg tablet Take 100 mg by mouth 2 times daily. 07/26/2023 11/16/2024 ARIPiprazole (Abilify) 15 mg tablet Take 15 mg by mouth daily. 12/06/2023 11/16/2024 clonazePAM (KlonoPIN) 1 mg tablet Take 1 mg by mouth 3 times daily as needed for Anxiety. 11/16/2023 10/20/2024 documented as of this encounter Plan of Treatment Upcoming Encounters Date Type Department Care Team (Late st Contact Info) Description 02/06/2025 7:30 AM EDT Appointment XRay at [address] [place] [address] Mally Knight, [facility] [place] [address] 02/06/2025 8:00 AM EDT Office Visit Orthopaedics at [facility] [place] [address] Mally Knight, [facility] [place] [address] 05/01/2025 9:30 AM EDT TH Visit (TeleHealth) Endocrinology at [address] [phone] Ana Galo MD 87 [facility] [place] [address] documented as of this encounter Procedures Procedure Name Priority Date/Time Associated Diagnosis Comments CT 3D RECONSTRUCTED IMAGES FOR SURGICAL PLANNING Routine 10/05/2024 4:02 PM EST Pain of left lower extremity documented in this encounter Results * CT 3D Reconstructed Images for Surgical Planning (10/05/2024 4:02 PM EST) Narrative [facility] - 10/05/2024 4:02 PM EST This exam is auto-finalizing. No interpretation was done. Carroll Guy MD IMG CT ORDERABLES Performing Organization Address City/State/[facility] Co de Phone Number [place], [place] documented in this encounter Visit Diagnoses Diagnosis Pain of left lower extremity documented in this encounter Care Teams Anesthetist Relationship Specialty Start Date End Date Claudia Morley MD [address] [place] [address] PCP - General Family Medicine 10/25/23 documented as of this encounter
--- OUTSIDE RECORDS SUMMARY | 2024-12-29 01:25 | XMS_ITS | Encounter Summary ---
Author Organization [facility] [place] [address] Care Team Providers Care Glass Cut Off Supervisor Name Role Phone Claudia Morley MD Primary Care Provider [phone] Encounter Details Date Type Department Care Team (Latest Contact Info) Description 10/18/2024 Travel Social History Tobacco Use Types Packs/Day [...] 02/06/2025 7:30 AM EDT Appointment XRay at [address] [place] [phone] Mally Knight APRN [facility] [place] [address] 02/06/2025 8:00 AM EDT Office Visit Orthopaedics at [facility] [place] [address] Mally Knight APRN [facility] [place] [address] 05/01/2025 9:30 AM EDT TH Visit (TeleHealth) Endocrinology at [address] [phone] Ana Galo MD [address] [place] [address] documented as of this encounter Visit Diagnoses Not on filedocumented in this encounter Care Teams Glass Cut Off Supervisor Relationship Specialty Start Date End Date Claudia Morley MD [address] [place] [address] PCP - General Family Medicine 10/25/23 documented as of this encounter
--- OUTSIDE RECORDS SUMMARY | 2024-12-29 01:25 | XMS_ITS | Encounter Summary ---
Author Organization [facility] [place] [address] Care Team Providers Care Digital Strategist Name Role Phone Claudia Morley MD Primary Care Provider Encounter Details Date Type Department Care Team (Latest Contact Info) Description 11/13/2024 Travel Social History Tobacco Use Types Packs/Day [...] 02/06/2025 7:30 AM EDT Appointment XRay at [address] [place] [phone] Mally Knight APRN [facility] [place] [address] 02/06/2025 8:00 AM EDT Office Visit Orthopaedics at [facility] [phone] Mally Knight APRN [facility] DR [place] [address] 05/01/2025 9:30 AM EDT TH Visit (TeleHealth) Endocrinology at [address] [phone] Ana Galo MD [address] [place] [phone] documented as of this encounter Visit Diagnoses Not on filedocumented in this encounter Care Teams Digital Strategist Relationship Specialty Start Date End Date Claudia Morley MD [address] [place] [address] PCP - General Family Medicine 10/25/23 documented as of this encounter
--- OUTSIDE RECORDS SUMMARY | 2024-12-29 01:25 | XMS_ITS | Encounter Summary ---
Author Organization [facility] [place] [address] Care Team Providers Care Assembly Line Supervisor Name Role Phone Claudia Morley MD Primary Care Provider [phone] Encounter Details Date Type Department Care Team (Late st Contact Info) Description 09/22/2024 4:10 PM EDT Ancillary Procedure Radiology Library at [facility] [place] [phone] Rell Merino MD [facility] [place] [address] Social History Tobacco Use Types Packs/Day Years [...] 02/06/2025 7:30 AM EDT Appointment XRay at [address] [place] [phone] Mally Knight APRN [facility] [place] [address] 02/06/2025 8:00 AM EDT Office Visit Orthopaedics at [facility] [place] [address] Mally Knight APRN [facility] [place] [address] 05/01/2025 9:30 AM EDT TH Visit (TeleHealth) Endocrinology at [address] [phone] Ana Galo MD [address] [place] [phone] documented as of this encounter Procedures Procedure Name Priority Date/Time Associated Diagnosis Comments FILM LIBRARY STORAGE ONLY CT LOWER EXTREMITY Routine 09/22/2024 3:52 PM EDT documented in this encounter Results * Film Library- Storage Only CT Lower Extremity (09/22/2024 3:52 PM EDT) Narrative RAD - 09/22/2024 3:52 PM EDT This exam is auto-finalizing. It's purpose is for storage only. Rell Merino MD IMG FILM LIBRARY OR DERABLES Performing Organization Address City/State/[facility] Co de Phone Number [place], [place] documented in this encounter Visit Diagnoses Not on filedocumented in this encounter Care Teams Assembly Line Supervisor Relationship Specialty Start Date End Date Claudia Morley MD [address] [place] [address] PCP - General Family Medicine 10/25/23 documented as of this encounter
--- OUTSIDE RECORDS SUMMARY | 2024-12-29 01:25 | XMS_ITS | Encounter Summary ---
Author Organization [facility] Address [place] [id number] Care Team Providers Care Landscape Gardener Name Role Phone Claudia Morley MD Primary Care Provider [phone] Reason for Visit * Auth/Cert (Routine) Specialty Diagnoses / Procedures Referred By Trevor t Referred To Contact Diagnoses Closed displaced trimalleolar fracture of left ankle Left trimalleolar ankle fracture dislocation Procedures PRO OPEN TX TRIMALLEOLAR ANKLE FX W FIX PST LIP ORIF TRIMALLEOLAR ANKLE FX. W/POST. LIP FIXATION (WRVU 13.16) Carroll Patel MD [facility] [place] [address] [facility] Referral ID Status Reason Start Date Expiration Date Visits Re quested Visits Authorized [id number] 1 1 Encounter Details Date Type Department Care Team (Latest Contact Info) Description 10/06/2024 7:32 AM EST - 10/06/2024 1:22 PM EST Hospital Encounter [place] [address] [facility] [place] [address] Discharge Disposition: Home Social History Tobacco Use [...] - - Weight 138.8 kg (306 lb) 10/06/2024 8:02 AM EST Height 167.6 cm (5' 6) 10/06/2024 8:02 AM EST Body Mass Index 49.39 10/06/2024 8:02 AM EST documented in this encounter Discharge Instructions * Patient Instructions* Marsha Pacheco MD - 10/06/2024 6:52 AM EST Orthopaedic Discharge Instructions: Activity level: 1. You are Non-weight bearing on your Left leg. 2. Remember to use the walker or crutches at all times for protection and balance. 3. Remember to keep your Left leg elevated as much as possible to decrease swelling and control pain. Anticoagulation: Aspirin - You are being discharged on enteric-coated Aspirin 81mg by mouth twice aday. Continue this for 30 days. After your dose on 11/05/24 stop the Aspirin, unless you are told otherwise by your Orthopedic surgeon. Take this medication with food or large amounts (240 mL) of water or milk to minimize GI irritation. Diet: You may return to your usual diet, but increase your fluids and fiber intake to keep you hydrated and your bowels soft. To help with wound healing increase your intake of high protein foods andfluids. Driving: None until you are cleared to do so by your Orthopedic surgeon. You should not drive whileyou are on narcotic pain meds as they can affect your judgment and reaction time. Call your surgeonwith any questions/concerns. Medications: 1. The pain medication you are on can cause constipation so increase your intake of fluids and fiber while you are on them. The stool softener, Pericolace, that has been prescribed can also be taken to facilitate a bowel movement. You can also take an vsui-aop-tzquyeb medication, Miralax if needed to combat constipation. 2. If you need a renewal on your narcotic pain medication, you need to give the Orthopedic clinic enough time to process your request. This can take up to three days, so plan accordingly. 3. Continue acetaminophen (Tylenol) 1,000mg every 8 hours around the clock until 10/16/24. This canbe effective in controlling pain along with your other medications. After that you can take Tylenolas needed per package insert. Do not take more than 3,000mg of acetaminophen in a 24 hour period. 4. You have been discharged on a short acting narcotic, Oxycodone. You will be on this medication for a limited period of time only. Taper off this medication as your pain improves. 5. For added pain control, NSAIDs (Ibuprofen, Motrin, or Aleve) may also be taken with dosages as directed on package inserts. Shower/Bath: You may shower BUT use a waterproof dressing (plastic bag taped at the top) to cover the incision/dressing. DO NOT submerge the wound. Remember you MUST to observe your weight bearing status and activity limitations when you shower so use a chair or bench for balance if you are unable to safely stand. A sponge bath may be easier. Wound Care: 1. Suture/staple removal 2-3 weeks post-op (10/20/24). 2. Leave the operative dressing on until follow-up. Cast/Splint Care: Keep the cast or splint in place until your follow-up with Orthopedics. Keep the cast/splint clean and dry. It is easiest to sponge bathe, but if you must bathe, protect the cast/splint with a plastic bag high above the cast or splint and secure with adhesive tape. Do not submergethe cast in water at anytime. If the cast accidently gets wet, call the office immediately to have it replaced. A wet cast can cause severe skin and wound problems. Call your doctor ([phone]) if you develop: Fever greater than 100.5 Severe nausea or vomiting Increasing pain that is not controlled by pain medications Increasing redness, swelling, or drainage from incisions Change in sensation Misc: 1. If you are a smoker, quitting is very important to help your fracture heal. You should contact your PCP to assist you with setting up a cessation program. 2. Remember that ICE and elevation are very important to help decrease swelling and control pain. You should use the ICE for 20-30 minutes at a time. 3. To help with bone healing and your overall bone health, your intake of calcium should be at least 1200mg a day and your vitamin D intake should be at least 800 IU per day. FOLLOW-UP APPOINTMENTS: 1. You will have follow-up appointments at [facility] as indicated in Future Appointment and Orders. You will have an xray prior to those appointments so please come to Radiology, desk , 1 hour BEFORE your appointment for those x- rays on 10/20/24. 2. If you are being discharged over the weekend or at night and do not have a scheduled appointmentwith Orthopedics, you should be notified about your appointment within the next 1-2 days. Please call if you do not hear about an appointment within that timeframe, as your follow-up is important to us. Future Appointments Date Time Provider Department Center 10/20/2024 12:30 PM [facility] DX ROOM 2 Xray [facility] Rad 10/20/2024 1:30 PM Mally Knight APRN [facility] ORTH 3A [facility] 11/07/2024 10:00 AM Ana Galo MD [facility] If you have Orthopaedic questions or concerns: Wednesday through Wednesday, 8 AM - 5 PM, please call Carroll Patel MD, 's office at . If it is after 5 PM or on the weekend, please call and ask to speak with the Orthopedic resident on-call. documented in this encounter Medications at Time of Discharge [...] 11/16/2023 10/20/2024 documented as of this encounter Progress Notes * Francis Condon RN - 10/06/2024 1:19 PM EST Patient in significant amount of pain in PACU 09/07, anesthesia bedside. Given 5mg PO oxycodone, 50mcg fentanyl. Patient unable to take deep breaths secondary to anxiety. Given 1mg IV ativan with relief. Pain at discharge 02/05. Discharge instructions and medications reviewed with patient and at bedside. All questions answered and written copy sent home with patient. Patient ambulated to car for discharge accompanied by [facility] staff member. * Toyin Dickey RN - 10/06/2024 9:05 AM EST Date/Procedure: Meds Given Comments LLE Peripheral Nerve Block 10/06/24 Midazolam: 4 mg Fentanyl: 50 mcg Patient extremely anxious prior to procedure. She stated she has had a lot of anxiety related to having this procedure. Additional medication required for this nerve block. Slow deepbreaths encouraged. VS remained stable during procedure. documented in this encounter H&P Notes * Carroll Patel MD - 10/06/2024 8:07 AM EST Preop H+P The patient's history and physical exam have been reviewed and completed. There has been no interval change from that of the pre-operative history and physical exam done within the last 30 days. Exam: RRR Nonlabored respirations LLE marked Consent reviewed, plan to proceed with Left ankle fracture fixation as scheduled. I saw and evaluated the patient on the date of the primary author's note. I have reviewed and agree with the findings and the plan of care as outlined in their note, with the following additions or alterations: OR today for ORIF left ankle. Risks and benefits reviewed. Carroll Patel MD, MS Orthopaedic Surgery Attending documented in this encounter Miscellaneous Notes * Op Note - Carroll Patel MD - 10/06/2024 9:29 AM EST [facility] Operative Note Patient Name: Temi Kraft : [id number] MR#: [id number] Case Date: 10/06/2024 Surgeon: Surgeons and Role: * Carroll Patel MD - Primary * Marsha Pacheco MD - Resident - Assisting Preoperative diagnosis: Left trimalleolar ankle fracture dislocation Postoperative diagnosis: Left trimalleolar ankle fracture dislocation Procedure(s) (LRB): ORIF TRIMALLEOLAR ANKLE FX. W/POST. LIP FIXATION (WRVU 13.16) (Left) ORIF SYNDESMOSIS, ANKLE (WRVU 8.8) (Left) Anesthesia: General Estimated Blood Loss: 20 cc Specimens removed during surgery: None Drains: * No LDAs found * Surgical Closure: Primary Closure - skin incision is completely closed without any wires, compa, drains or other devices Disposition: awakened from anesthesia, extubated and taken to the recovery room in a stable condition, having suffered no apparent untoward event. Condition: doing well without problems (Please see the Surgical Encounter Summary for any Implant and Specimen details pertinent to this patient.) HPI/Surgical Indications: Patient is a 44-year-old female who suffered a left ankle fracture dislocation. This involved a large posterior malleolus fracture which extended into the medial malleolus as well as a high fibula fracture. She was reduced and after thorough discussion of the risks and benefits elected to proceed with open reduction internal fixation. Procedure Description: After being identified, marked, and having preoperative consent confirmed inthe preoperative holding area, the pain proceeded to the operative theater. A preoperative timeout was held and the patient received preoperative antibiotics. General anesthesia was induced. She is placed supine on the operating room table with all bony prominences well-padded. A high left thigh tourniquet was placed. Her left leg was prepped and draped in a sterile fashion. Her leg was elevated,exsanguinated, and tourniquet plated to 250 mmHg which stayed for under 2 hours for the entirety ofthe case. We began with a posterior medial approach to the distal tibia. We made a curvilinear incision off the posterior aspect of the distal tibia, dissecting down and identifying the posterior tibial tendonand its sheath. We opened the posterior tibial tendon and worked posteriorly, between the interval between the posterior tibialis tendon and the flexor digitorum longus tendon. We identified the primary fracture plane of the posterior malleolus fracture extending laterally. We open the fracture plane and irrigated it free of hematoma. We reduced it with a combination of a ball spike pusher and K wires. We contoured a triangular-shaped locking plate along the posterior aspect of the tibia and held in place with K wires. We then placed 2 axillary screws, compressing the distal plate down onto the posterior malleoli are fracture and reducing it anatomically. We placed a series of locking and nonlocking screws in the plate in order to stabilize the fracture fragments and anchor of the proximal plate. The extension of the fracture into the medial malleolus was nondisplaced, and so we electedto leave the periosteal sleeve on the medial malleolus and contour a mini frag locking plate to thedistal medial aspect of the tibia, down along the medial malleolus. We placed nonlocking screws proximally and unicortical locking screws in the distal aspect of the plate into the medial malleolus. X-rays show good reduction and hardware placement. The mortise was congruent. External rotation stress testing revealed instability of the syndesmosis. We turned our attention to the lateral side of the ankle and made a small 3 mm incision over the distal fibula. We dissected down to the fibula and placed a guidewire for a suture bridge from the fibula across the tibia and the intermalleolar access, parallel to the mortise. We then passed the suture bridge, with the medial aspect exiting just posterior to our medial plate. We placed the medial button and then tightened the suture wire down on a washer, gaining good stability of the syndesmosis to external rotation stress testing. We knotted the lateral aspect of the suture bridge. Final x-rays showed good reduction and hardware placement. We copiously irrigated our wounds. We closed the wounds in layers with deep Vicryl's and nylons for the skin after placing vancomycin powder on the plates in the posterior medial wound. A dry sterile dressing and a well- padded splint replaced. The patient's anesthesia was reversed and she was discharged the PACU in stable condition. The plan moving forward will be for 6 weeks of nonweightbearing starting in a splint and transitioning to a tall walker boot or cast. Implant Name Type Inv. Item Serial No. Gravel Roofer Lot No. LRB No. Used Action K WIRE FIX [id number] TROCAR POINT SGL END SS VARIAX ([id number]) - [id number] IMPLANTS K WIRE FIX [id number] TROCAR POINT SGL END SS VARIAX ([id number]) flaveit - TRUSTe Left 2 Implanted and Explanted SCREW 2.7X44MM NLCK FT TI T8 VARIAX ([id number]) (AutoReq) - [id number] IMPLANTS SCREW 2.7X44MM NLCK FT TI T8 VARIAX ([id number]) (AutoReq) TRUSTe [facility] CHRIS Left 1 Implanted and Explanted SCREW 2.7X40MM NLCK FT TI VARIAX ([id number]) (AutoReq) - [id number] IMPLANTS SCREW 2.7X40MM NLCK FT TI VARIAX ([id number]) (AutoReq) flaveit CHRIS Left 1 Implanted PLATE 2.7X92MM TRIANGLE 10 HOLE NARROW LCK VARIAX ([id number]) (AutoReq) - [id number] IMPLANTS PLATE 2.7X92MM TRIANGLE 10 HOLE NARROW LCK VARIAX ([id number]) (AutoReq) flaveit TRUSTe Left 1 Implanted SCREW 2.7X30MM NLCK FT TI VARIAX ([id number]) (AutoReq) - [id number] IMPLANTS SCREW 2.7X30MM NLCK FT TI VARIAX ([id number]) (AutoReq) flaveit CHRIS Left 1 Implanted SCREW 2.7X28MM NLCK FT TI VARIAX ([id number]) (AutoReq) - [id number] IMPLANTS SCREW 2.7X28MM NLCK FT TI VARIAX ([id number]) (AutoReq) flaveit CHRIS Left 1 Implanted SCREW 2.7X38MM NLCK FT TI VARIAX ([id number]) (AutoReq) - [id number] IMPLANTS SCREW 2.7X38MM NLCK FT TI VARIAX ([id number]) (AutoReq) flaveit CHRIS Left 1 Implanted SCREW 2.7X42MM NLCK FT TI T8 VARIAX ([id number]) (AutoReq) - [id number] IMPLANTS SCREW 2.7X42MM NLCK FT TI T8 VARIAX ([id number]) (AutoReq) flaveit CHRIS Left 1 Implanted SCREW 2.7X40MM NLCK FT TI VARIAX ([id number]) (AutoReq) - [id number] IMPLANTS SCREW 2.7X40MM NLCK FT TI VARIAX ([id number]) (AutoReq) flaveit TRUSTe Left 1 Implanted and Explanted SCREW 2.7X34MM LCK FT TI VARIAX ([id number]) (AutoReq) - [id number] IMPLANTS SCREW 2.7X34MM LCK FT TI VARIAX ([id number]) (AutoReq) flaveit CHRIS Left 1 Implanted PLATE 2.4X56MM 8 HOLE NARROW LCK VARIAX ([id number]) (AutoReq) - [id number] IMPLANTS PLATE 2.4X56MM 8 HOLE NARROW LCK VARIAX ([id number]) (AutoReq) flaveit TRUSTe Left 1 Implanted SCREW 2.4X3.02MM CHAYA NLCK FT TI VARIAX ([id number]) (AutoReq) - [id number] IMPLANTS SCREW 2.4X3.02MM CHAYA NLCK FT TI VARIAX ([id number]) (AutoReq) flaveit TRUSTe Left 1 Implanted SCREW 2.4X40MM NLCK FT TI T8 VARIAX ([id number]) (AutoReq) - [id number] IMPLANTS SCREW 2.4X40MM NLCK FT TI T8 VARIAX ([id number]) (AutoReq) flaveit TRUSTe Left 1 Implanted SCREW 2.4X9MM LCK FT TI T8 VARIAX ([id number]) (AutoReq) - [id number] IMPLANTS SCREW 2.4X9MM LCK FT TIT8 VARIAX ([id number]) (AutoReq) flaveit CHRIS Left 1 Implanted SUTURE ANCHOR 2.8MM 5-0 SUTURE SDRILL SYNDESMOSIS ([id number]) (AutoReq) - [id number] IMPLANTS SUTURE ANCHOR 2.8MM 5-0 SUTURE SDRILL SYNDESMOSIS ([id number]) (AutoReq) [facility] [id number] Left 1 Implanted SCREW 2.4X14MM CHAYA LCK FT TI VARIAX ([id number]) (AutoReq) - [id number] IMPLANTS SCREW 2.4X14MM CHAYA LCK FT TI VARIAX ([id number]) (AutoReq) flaveit CHRIS Left 1 Implanted PLATE 23MM 2 HOLE VARIAX 2 ([id number]) (AutoReq) - [id number] IMPLANTS PLATE 23MM 2 HOLE VARIAX 2 ([id number]) (AutoReq) flaveit - CHRIS Left 1 Implanted Surgical Infection Prevention Bundle Used? N/A Attestation: Case Date: 10/06/2024 I was present and I participated during the entire procedure (does not need to include opening and closing). CARROLL PATEL MD 10/06/2024 documented in this encounter Plan of Treatment Upcoming Encounters Date Type Department Care Team (Late st Contact Info) Description 02/06/2025 7:30 AM EDT Appointment XRay at [address] [place] [address] Mally Knight [facility] [place] [address] 02/06/2025 8:00 AM EDT Office Visit Orthopaedics at [facility] [place] [address] Mally Knight, [facility] [place]OP[place] [address] 05/01/2025 9:30 AM EDT TH Visit (TeleHealth) Endocrinology at [address] [phone] Ana Galo MD [address] [place] [id number] documented as of this encounter Procedures Procedure Name Priority Date/Time Associated Diagnosis Comments XR ANKLE MIN 3 VIEWS LEFT Routine 10/06/2024 12:32 PM EST XR FLUORO NO RAD <1HR - OR USE Routine 10/06/2024 12:02 PM EST ORIF SYNDESMOSIS, ANKLE Routine 10/06/2024 11:18 AM EST Open Tx Distal Tibiofibular Joint Disruption (12526) Yes 10/06/2024 9:08 AM EST Left trimalleolar ankle fracture dislocation Open Tx Trimalleolar Ankle Fx W Fix Pst Lip (98641) Yes 10/06/2024 9:08 AM EST Left trimalleolar ankle fracture dislocation ORIF TRIMALLEOLAR ANKLE FX. W/POST. LIP FIXATION Routine 10/06/2024 7:34 AM EST documented in this encounter Results * XR Ankle Min 3 views Left (Generic) (10/06/2024 12:32 PM EST) WORKSTATION ID [id number] RAD Anatomical Region Laterality Modality Ankle Left Digital Radiogra phy Impressions 10/06/2024 1:36 PM EST 1. ??Medial malleolar fracture status post ORIF with no hardware complication 2. ??Congruent ankle mortise. 3. ??The mid fibular diaphyseal fracture is outside [id number]. Thank you for letting us participate in the care of this patient. ??If you are a health care provider and have any questions regarding this report, please contact the number below. ??For patients who have questions please contact the health foster care case manager that requested your imaging first. ? Narrative 10/06/2024 1:36 PM EST EXAMINATION: XR ANKLE MIN 3 VIEWS LEFT (GENERIC) CLINICAL HISTORY: S/p ORIF ankle fracture TECHNIQUE: 3 views LEFT ankle COMPARISON: Intraoperative fluoroscopy 10/05/2024. Radiograph 09/28/2024. FINDINGS: Overlying cast material limits fine osseous and soft tissue detail. Medial malleolar fracture status post ORIF with plate and screws and augmented by syndesmotic tight rope. ??The hardware are intact without change in alignment compared intraoperative fluoroscopy. ??The reduced fracture alignment is anatomical. ??The ankle mortise is grossly congruent. The mid fibular diaphyseal fracture is outside [id number]. No new osseous injury. Procedure Note Dg Koch MD - 10/06/2024 EXAMINATION: XR ANKLE MIN 3 VIEWS LEFT (GENERIC) CLINICAL HISTORY: S/p ORIF ankle fracture TECHNIQUE: 3 views LEFT ankle COMPARISON: Intraoperative fluoroscopy 10/05/2024. Radiograph 09/28/2024. FINDINGS: Overlying cast material limits fine osseous and soft tissue detail. Medial malleolar fracture status post ORIF with plate and screws andaugmented by syndesmotic tight rope. The hardware are intact without change inalignment compared intraoperative fluoroscopy. The reduced fracture alignment is anatomical. The ankle mortise is grossly congruent. The mid fibular diaphyseal fracture is outside [id number]. No new osseous injury. IMPRESSION 1. Medial malleolar fracture status post ORIF with no hardwarecomplication 2. Congruent ankle mortise. 3. The mid fibular diaphyseal fracture is outside [id number]. Thank you for letting us participate in the care of this patient. If youare a health care provider and have any questions regarding this report,please contact the number below. For patients who have questions please contactthe health foster care case manager that requested your imaging first. Carroll WEISS DX ORDERABLES * XR Fluoro No Rad <1Hr - OR Use (10/06/2024 12:02 PM EST) Narrative Dicom, Auditing User - 10/06/2024 12:03 PM EST This exam is auto-finalizing. No interpretation was done. Carroll WEISS FLUORO ORDERABLE S documented in this encounter Visit Diagnoses Not on filedocumented in this encounter Administered Medications Inactive Administered Medications - up to 3 most recent administrations Medication Order MAR Action Action Date Dose Rate Site acetaminophen (Tylenol) tablet 975 mg 975 mg, Oral, ONCE, 1 dose, On Wed10/06/24 at 0800, Administer with a SIP of water only. Maximum dose of acetaminophen is 4,000 mg from all sources in 24 hours., Day of Surgery (Day of Procedure), Routine Given 10/06/2024 7:57 AM EST 975 mg aprepitant (Emend) capsule 40 mg 40 mg, Oral, ONCE, 1 dose, On Wed10/06/24 at 0800, Day of Surgery (Day of Procedure), Routine, Aprepitant is reserved for patients at high risk for PONV. Risk Factors: female, non-smoker, age less than 50 y, h/o motion sickness, prior PONV hx, emetogenic surgery, use of volatile anesthetics, periop use of opioids. Select appropriate indication: 3 or more risk factors for PONV - WITH contraindications for other antiemetic therapies Given 10/06/2024 7:57 AM EST 40 mg fentaNYL (PF) (50 mcg/mL) injection 25-50 mcg 25-50 mcg, Intravenous, EVERY 5 MIN PRN, Starting on Wed10/06/24 at 0736, Until Wed10/06/24 at 1322, Pain, or prior to injection of local anesthetic., Hold for respiratory rate less than 8 breaths per minute. (maximum dose 200 mcg), Day of Surgery (Day of Procedure), Routine Given 10/06/2024 12:45 PM EST 50 mcg Given 10/06/2024 8:39 AM EST 25 mcg Given 10/06/2024 8:28 AM EST 25 mcg LORazepam (Ativan) (2 mg/mL) injection 1 mg 1 mg, Intravenous, ONCE, 1 dose, On Wed10/06/24 at 1245, Routine Given 10/06/2024 12:31 PM EST 1 mg oxyCODONE (Roxicodone) tablet 5 mg 5 mg, Oral, EVERY 4 HOURS PRN, Starting on Wed10/06/24 at 1214, Until Wed10/06/24 at 1522, Pain, Routine Given 10/06/2024 12:25 PM EST 5 mg documented in this encounter Active and Recently Administered Medications Times are shown in EST. Scheduled Medication Order 10/04/2024 10/05/2024 10/06/2024 acetaminophen (Tylenol) tablet 975 mg (COMPLETED) 975 mg, Oral, ONCE, 1 dose, On Wed10/06/24 at 0800, Administer with a SIP of water only. Maximum dose of acetaminophen is 4,000 mg from all sources in 24 hours., Day of Surgery (Day of Procedure), Routine 0757 (Given - Provid er: Toyin Pena RN) aprepitant (Emend) capsule 40 mg (COMPLETED) 40 mg, Oral, ONCE, 1 dose, On Wed10/06/24 at 0800, Day of Surgery (Day of Procedure), Routine, Aprepitant is reserved for patients at high risk for PONV. Risk Factors: female, non-smoker, age less than 50 y, h/o motion sickness, prior PONV hx, emetogenic surgery, use of volatile anesthetics, periop use of opioids. Select appropriate indication: 3 or more risk factors for PONV - WITH contraindications for other antiemetic therapies 0757 (Given - Provid er: Toyin Pena RN) ceFAZolin (Ancef) (100 mg/mL) injection solution 3 g (COMPLETED) 3 g, Intravenous, EVERY 4 HOURS, 1 dose, First dose on Wed10/06/24 at 0800, Administer within 60 minutes of incision. Redose after 4 hours. To be prepared by and administered by Anesthesia. Reconstitute each ceFAZolin 1 gram vial with 10 mL of NS or SWFI = 100 mg/mL May inject IV without further dilution over 3 to 5 minutes., Day of Surgery (Day of Procedure), Indication for (Active or Suspected): Prophylaxis 0919 (New Bag - Prov ider: Leodan Bernard CRNA) LORazepam (Ativan) (2 mg/mL) injection 1 mg (COMPLETED) 1 mg, Intravenous, ONCE, 1 dose, On Wed10/06/24 at 1245, Routine 1231 (Given - Provid er: Francis Condon RN) Continuous Medication Order 10/04/2024 10/05/2024 10/06/2024 lactated ringers infusion (CANCELED) 1,000 mL, at 100 mL/hr, Intravenous, CONTINUOUS, Starting on Wed10/06/24 at 0800, Until Wed10/06/24 at 1322, Day of Surgery (Day of Procedure) 0907 (New Bag - Prov ider: Leodan Bernard CRNA)1023 (Anesthesia Volume Adjustment - Provider: Leodan Bernard CRNA)1152 (Anesthesia Volume Adjustment - Provider: Leodan Bernard CRNA) PRN Medication Order 10/04/2024 10/05/2024 10/06/2024 fentaNYL (PF) (50 mcg/mL) injection 25-50 mcg (CANCELED) 25-50 mcg, Intravenous, EVERY 5 MIN PRN, Starting on Wed10/06/24 at 0736, Until Wed10/06/24 at 1322, Pain, or prior to injection of local anesthetic., Hold for respiratory rate less than 8 breaths per minute. (maximum dose 200 mcg), Day of Surgery (Day of Procedure), Routine 0828 (Given - Provid er: Toyin Pena RN - Comment: patient very anxious anticipating needle)0839 (Given - Provider: Toyin Pena RN - Comment: patient remains anxious- cooperative at this time)1245 (Given - Provider: Francis Condon RN) midazolam (pf) (Versed) (1 mg/mL) injection 1 mg (CANCELED) 1 mg, Intravenous, EVERY 5 MIN PRN, Starting on Wed10/06/24 at 0736, Until Wed10/06/24 at 1322, Sleep, or prior to injection of local anesthetic, Hold for delirium/agitation. (Maximum dose 5 mg)., Intra-Operative (Intra-Procedure), Routine 0820 (Given - Provid er: Toyin Pena RN)0822 (Given - Provider: Toyin Pena RN) midazolam (pf) (Versed) (1 mg/mL) injection 1-4 mg (CANCELED) 1-4 mg, Intravenous, EVERY 5 MIN PRN, Starting on Wed10/06/24 at 0736, Until Wed10/06/24 at 1322, Other, sedation or prior to injection of local anesthetic, Hold for delirium/agitation. (Maximum dose 5 mg)., Day of Surgery (Day of Procedure), Routine 0845 (Given - Provid er: Toyin Pena RN)0850 (Given - Provider: Toyin Pena RN)0854 (Given - Provider: Toyin Pena RN - Comment: patient extremely anxious- additional medication required for entire procedure) oxyCODONE (Roxicodone) tablet 5 mg 5 mg, Oral, EVERY 4 HOURS PRN, Starting on Wed10/06/24 at 1214, Until Wed10/06/24 at 1522, Pain, Routine 1225 (Given - Provid er: Francis Condon RN) vancomycin (Vancocin) injection (CANCELED) PRN, Starting on Wed10/06/24 at 1117, Until Wed10/06/24 at 1522, Intra-Operative (Intra-Procedure), Routine 1117 (Given - Provid er: Carroll Patel MD) documented in this encounter Care Teams Landscape Gardener Relationship Specialty Start Date End Date Claudia Morley MD [address] [place] [address] PCP - General Family Medicine 10/25/23 documented as of this encounter
--- OUTSIDE RECORDS SUMMARY | 2024-12-29 01:25 | XMS_ITS | Encounter Summary ---
Author Organization [facility] Address [facility] [place] [address] Care Team Providers Care System Auditor Name Role Phone Claudia Morley MD Primary Care Provider Reason for Visit * Reason Onset Date Comments Medication Refill 10/02/2024 Encounter Details Date Type Department Care Team (Late st Contact Info) Description 10/02/2024 [place] [address] Carroll Guy MD [facility] [place] [address] Closed displaced trimalleolar fracture of left ankle, initial encounter Social History Tobacco Use Types Packs/Day Years Used Date Smoking Tobacco: Former Cigarettes 1 20.3 S tarted: 09/28/2004 Smokeless Tobacco: Never Sex and Gender Information Value Date Recorded Sex Assigned at Female 12/07/2023 9:13 AM EST Gender Identity Female 12/07/2023 9:13 AM EST Sexual Orientation Straight 12/07/2023 9: 13 AM EST documented as of this encounter Miscellaneous Notes * Telephone Encounter - Alonso Sandra, A - 10/02/2024 4:20 PM EST Images from the original note were not included. Medication Refill Request Surgery/Injury/Provider: pending 10/06/24 Erasmo Guy left trimalleolar ankle fx ORIF Medication being requested: Oxycodone 5mg Query: Last refill or Original Rx: Seen within 30 days (if no, than when): 09/28/24 Follow Up: 10/06/24 for surgery How was this prescribed? 1 tab every 4hrs prn How is this medication being used currently: 1 tab every 4hrs Is there a discrepancy? (Why?) surgery was pushed from Wednesday to Wednesday Pain level: 4-5/10 Other pain medications used and how: Ibuprofen 2 tabs every 6hrs Medication Taper Plan: Taper to the lowest effective maintenance dose. Continue additional scheduled pain medication along with RICE. Teaching done regarding: taking nonnarcotic pain medications, taking the least amount of opioid needed for the least amount of time for adequate pain management and tapering of opioids with verbalized understanding by the patient. Requested Prescription to be sent electronically to [facility] [place], [place] (location). Prescription prepped and pended for Dr. Guy (provider) review. The patient knows how to contact orthopaedics if any further questions or concerns occur. documented in this encounter Plan of Treatment Upcoming Encounters Date Type Department Care Team (Late st Contact Info) Description 02/06/2025 7:30 AM EDT Appointment XRay at [address] [place] [address] Mally Knight EXTRUSION MACHINE OPERATOR [facility] [place] [address] 02/06/2025 8:00 AM EDT Office Visit Orthopaedics at [facility] [place] [address] Mally Knight EXTRUSION MACHINE OPERATOR [facility] [place] [address] 05/01/2025 9:30 AM EDT TH Visit (TeleHealth) Endocrinology at [address] [phone] Ana Galo MD [address] [place] [address] [place] [address] documented as of this encounter Visit Diagnoses Diagnosis Closed displaced trimalleolar fracture of left ankle, initial encounter documented in this encounter Care Teams System Auditor Relationship Specialty Start Date End Date Claudia Morley MD [address] [place] [address] PCP - General Family Medicine 10/25/23 documented as of this encounter
--- OUTSIDE RECORDS SUMMARY | 2024-12-29 01:25 | XMS_ITS | Encounter Summary ---
Author Organization [facility] Address [facility] [place] [address] Care Team Providers Care Corporate Real Estate Manager Name Role Phone Claudia Morley MD Primary Care Provider [phone] Reason for Visit * Reason Onset Date Comments Ankle Pain 10/27/2024 Encounter Details Date Type Department Care Team (Late st Contact Info) Description 10/27/2024 Telephone [place] [phone] Carroll Guy MD [facility] [place] [address] Ankle Pain Social History Tobacco Use Types Packs/Day Years Used Date Smoking Tobacco: Former Cigarettes 1 20.3 S tarted: 09/28/2004 Smokeless Tobacco: Never [facility] Inpatient Questions Answer Date Recorded [...] encounter Miscellaneous Notes * Telephone Encounter - Donna Castle CMA - 10/27/2024 2:11 PM EST Returned call to Temi, after speaking with Kandis Montes PA-C, patient should continue to rest, ice and elevate. Continue mediations as she has been taking. Relayed this to Temi who verbalized understanding and felt better with the reassurance from the team. * Telephone Encounter - Donna Castle CMA - 10/27/2024 1:51 PM EST Returned call to Temi, states she in 9/10 burning sensation at incision site.Temi is currently still in a cast, she sates she having trouble sleeping due to pain. Taking ibuprofen and tylenol, states her stomach feels sick from taking the medications. Denies fever, or flu like symptoms.She just feels tired. States her incision doesn't hurt all the time but when it does its sharp and burning. Temi is icing and elevating, ice only helps for a few minutes I told Temi I will send this message to 's team, she can call the main line and ask to speak to resident oral communication instructor if she does not hear back by the end of the day. If her pain unbearable she can seek care at the Emergency room as well. Temi verbalized understanding. * Telephone Encounter - Claudia Dias - 10/27/2024 1:36 PM ESTSummary: Left ankle pain Name of person calling : Patient Facility person calling from: Who is the provider: Dr. Guy Have you had surgery: Yes If yes : DOS: 10/06/2024 Surgeon: dr. Guy Is there a new injury: No If yes, how did the new injury occur?: Best contact number: [phone] What is the question: Patient states she is 3 weeks out of surgery and she is in a lot of pain. States there is a burning sensation where the incision is. She states she is in so much pain it is hardto think or sleep. She is wondering if this is normal and would like to know what she can due. documented in this encounter Plan of Treatment Upcoming Encounters Date Type Department Care Team (Late st Contact Info) Description 02/06/2025 7:30 AM EDT Appointment XRay at [address] [place] [address] Mally Knight, [facility] [place] [address] 02/06/2025 8:00 AM EDT Office Visit Orthopaedics at [facility] [place] [address] Mally Knight, [facility] [place] [address] 05/01/2025 9:30 AM EDT TH Visit (TeleHealth) Endocrinology at [address] [phone] Ana Galo MD [address] [place] [phone] documented as of this encounter Visit Diagnoses Not on filedocumented in this encounter Care Teams Corporate Real Estate Manager Relationship Specialty Start Date End Date Claudia Morley MD [address] [place] [address] PCP - General Family Medicine 10/25/23 documented as of this encounter
--- OUTSIDE RECORDS SUMMARY | 2024-12-29 01:25 | XMS_ITS | Encounter Summary ---
Author Organization [facility] Address [facility] [place] [address] Care Team Providers Care Antique Collector Name Role Phone Claudia Morley MD Primary Care Provider [phone] Reason for Visit * Reason Comments Post Op 10/06/24 -??ORIF TRIM ALLEOLAR ANKLE FX. W/POST. LIP FIXATION Encounter Details Date Type Department Care Team (Late st Contact Info) Description 10/20/2024 1:30 PM EST Office [place] [phone] Mally Knight, [facility] DR [place] [address] Closed displaced trimalleolar fracture of left ankle, initial encounter Social History Tobacco Use Types Packs/Day Years Used Date Smoking Tobacco: Former Cigarettes 1 20.3 S tarted: 09/28/2004 Smokeless Tobacco: Never [facility] Inpatient Questions Answer Date Recorded [...] - - Weight 138.8 kg (306 lb) 10/20/2024 1:39 PM EST Height 167.6 cm (5' 5.98) 10/20/2024 1:39 PM ES T Body Mass Index 49.41 10/20/2024 1:39 PM EST documented in this encounter Patient Instructions * Patient Instructions* Mally Knight APRN - 10/20/2024 1:30 PM EST Non-weight bearing Elevation Cool packs and acetomenophen prn for pain no greater than 3 grams per day. Try to wean from oxycodone as directed High protein diet with adequate calcium and vitamin d in your diet. Consider using a kneeling scooter and walker with no weight on the foot/ankle 7. Dr. Guy and team in 4 weeks with cast off and right ankle x-ray. Syrinixg application attached. documented in this encounter Progress Notes * Mally Knight APRN - 10/20/2024 1:30 PM EST PATIENT NAME: Temi Kraft AGE: 44 y.o. MR#: [id number] DATE OF VISIT: 10/20/2024 PERTINENT SURGICAL HISTORY: Surgical Date: 10/06/2024 Surgeon: Carroll Bundy MD - Procedure(s) : ORIF TRIMALLEOLAR ANKLE FX. W/POST. LIP FIXATION (Left) ORIF SYNDESMOSIS, ANKLE (Left) CHIEF COMPLAINT: 14 days S/P above procedure HISTORY OF PRESENT ILLNESS: Ms. Kraft a 44 y.o. year old female comes into clinic today for appointment 14 days s/p the above procedures. Overall, things are going ok. No drenching night sweats. denies any fever/chills or other constitutional signs of infection. She denies any numbness or tingling distal to the surgical procedure. The patient has not noticed any abnormal drainage fromher incision or increased redness or discomfort. No reported GI or complaints. No recent falls or injuries-walker is somewhat challenging. Wonders about a kneeling scooter. No calf pain, cp or sob. No other pertinent medical issues to report. Patient's medications, allergies, past medical, surgical, social and family histories were reviewedand updated as appropriate. ROS: Denies fever, chills, nausea, vomiting, vision change, shortness of breath, chest pain, visionchanges, headaches, bowel or bladder problem, ear, nose, sinus problem, neuro or psychiatric, or endocrine disorder not addressed above. PHYSICAL EXAMINATION: Vitals: 10/20/24 1339 Weight: (!) 138.8 kg (306 lb) Height: 167.6 cm (5' 5.98) Body mass index is 49.41 kg/m??. Ms. Kraft a 44 y.o. female is alert and oriented.She appears in no acute discomfort and is restingcomfortably in a chair in the exam room. Arrives: plaster removed for exam: tolerated well Wound Inspection: Medial, lateral and heel surgical incisions are well approximated with no edelmira-incisional erythema or evidence of infection. Unable to part the wound with my fingers. Surgical sutures removed by our team. Tolerated well. Foot is grossly SILT and well perfused, DP and PT 2+ to palpation. Sensation intact to 1st webspace, medial and lateral sole and dorsum. ROM: Able to wiggle her toes. EHL/FHL fire 5/5. The calf is soft and non-tender. Imaging: updated LEFT ankle x-ray reviewed image by image in the office today reveals no hardware complications or new fractures noted. ASSESSMENT: 44 year old Female who is 14 days post op she is doing reasonably well with no apparentcomplications. PLAN: I spent approximately 15 minutes of this 20 minute visit discussing Ms. Kraft surgical procedure and future plan. At this time, advised non-weight bearing. Temi would prefer to go back into a cast-fiberglass cast. New well fitting and well padded short leg fiberglass cast in neutral [facility] cast [facility]. See separate notation. Tolerated well. She will remain non-weight bearing. Elevation advised. VTE prophylaxis with oral aspirin 81 mg twice a day while in a cast. OTC Cool packs and acetaminophen prn for pain no greater than 3 grams per day. Try to wean from oxycodone as tolerated. Handicap placard application completed today. All of the patients questions and concerns were answeredat this visit. The patient understands to contact me if they have any other questions or concerns. The patient is scheduled for a post-op appointment with Dr. Carroll Guy 's team in approximately 4 weeks with cast off and xray I have already ordered this as a future order in the computer. documented in this encounter Plan of Treatment Upcoming Encounters Date Type Department Care Team (Late st Contact Info) Description 02/06/2025 7:30 AM EDT Appointment XRay at [address] [place] [address] Mally Knight APRN [facility] [place]ED[place] [address] 02/06/2025 8:00 AM EDT Office Visit Orthopaedics at [facility] [place] [address] Mally Knight APRN [facility] [place]ED[place] [address] 05/01/2025 9:30 AM EDT TH Visit (TeleHealth) Endocrinology at [address] [phone] Ana Galo MD [address] [place] [address] documented as of this encounter Results * XR Ankle Min 3 views Left (Generic) (11/16/2024 3:08 PM EST) [employer] WORKSTATION ID [id number] [facility] Anatomical Region Laterality Modality Ankle Left Digital Radiogra phy Impressions 11/17/2024 3:16 AM EST 1. ??Status post ORIF medial and posterior malleolus and syndesmotic fixation without interval hardware complication. 2. ??No change in alignment. Portion of the medial malleolar fracture line remains visible. Thank you for letting us participate in the care of this patient. ??If you are a health care provider and have any questions regarding this report, please contact the number below. ??For patients who have questions please contact the health acute care clinical nurse specialist that requested your imaging first. ? Electronically signed by: Andreas Khanna MD, [facility] ??([phone]), at 11/17/2024 3:16 AM Narrative 11/17/2024 3:16 AM EST EXAMINATION: XR ANKLE MIN 3 VIEWS LEFT (GENERIC) CLINICAL HISTORY: left ankle fracture ORIF with syndesmosis fixation, ? Change from previous xray, xray out of cast non-weight bearing S82.852A, Displaced trimalleolar fracture of left lower leg, initial encounter for closed fracture TECHNIQUE: 3 views LEFT ankle COMPARISON: Left ankle radiographs 09/22/2024 FINDINGS: Plate and screw fixation of the medial and posterior malleolus with syndesmotic fixation. Hardware is intact. No change in essentially anatomic fracture alignment. Portion of the vertical fracture line through the medial malleolus remains visible. No new fracture. Congruent ankle mortise. No joint effusion. Joint spaces are maintained. Calcaneal spurs. Procedure Note Andreas Khanna MD - 11/17/2024 EXAMINATION: XR ANKLE MIN 3 VIEWS LEFT (GENERIC) CLINICAL HISTORY: left ankle fracture ORIF with syndesmosis fixation, ?Change from previous xray, xray out of cast non-weight bearing S82.852A, Displaced trimalleolar fracture of left lower leg, initialencounter for closed fracture TECHNIQUE: 3 views LEFT ankle COMPARISON: Left ankle radiographs 09/22/2024 FINDINGS: Plate and screw fixation of the medial and posterior malleolus withsyndesmotic fixation. Hardware is intact. No change in essentially anatomic fracture alignment. Portion of the vertical fracture line through the medialmalleolus remains visible. No new fracture. Congruent ankle mortise. No jointeffusion. Joint spaces are maintained. Calcaneal spurs. IMPRESSION 1. Status post ORIF medial and posterior malleolus and syndesmoticfixation without interval hardware complication. 2. No change in alignment. Portion of the medial malleolar fractureline remains visible. Thank you for letting us participate in the care of this patient. If youare a health care provider and have any questions regarding this report,please contact the number below. For patients who have questions please contactthe health acute care clinical nurse specialist that requested your imaging first. Electronically signed by: Andreas Khanna MD, [facility]([phone]), at 11/17/2024 3:16 AM Mally Knight APRN IMG DX ORDERABLES documented in this encounter Visit Diagnoses Diagnosis Closed displaced trimalleolar fracture of left ankle, initial encounter Closed displaced trimalleolar fracture of left ankle, initial encounter documented in this encounter Care Teams Antique Collector Relationship Specialty Start Date End Date Claudia Morley MD [address] [place] [address] PCP - General Family Medicine 10/25/23 documented as of this encounter
--- OUTSIDE RECORDS SUMMARY | 2024-12-29 01:25 | XMS_ITS | Encounter Summary ---
[place] [address] Care Team Providers Care Chestnut Tanner Name Role Phone Claudia Morley MD Primary Care Provider [phone] Reason for Visit * Auth/Cert (Routine) Specialty Diagnoses / Procedures Referred By Trevor lang Referred To Contact Diagnoses Closed displaced trimalleolar fracture of left ankle Left trimalleolar ankle fracture dislocation Procedures PRO OPEN TX TRIMALLEOLAR ANKLE FX W FIX PST LIP ORIF TRIMALLEOLAR ANKLE FX. W/POST. LIP FIXATION (WRVU 13.16) Carroll Guy MD [facility] [place] [address] [facility] Referral ID Status Reason Start Date Expiration Date Visits Re quested Visits Authorized [id number] 1 1 Encounter Details Date Type Department Care Team (Late st Contact Info) Description 10/06/2024 9:07 AM EST Anesthesia Event [place] [phone] Jeni Menendez MD [facility] [place] [address] Ruthie Suresh DO [facility] [place] [address] Anesthesia Record Procedure Summary Procedure Name Responsible Anesthesiologist Anesthesia Start Time Anesthesia Stop Time ORIF TRIMALLEOLAR ANKLE FX. W/POST. LIP FIXATION (WRVU 13.16) (Left: Ankle) Jeni Menendez MD 10/06/24 0907 10/06/24 1202 Events Date Time Event Comment 10/06/2024 0907 Start 0910 AN Verify 0912 An Start Data 0913 An Induction 0915 An Intubation 0916 Anesthesia Ready 0929 An Tourn Inflated 250 torr 0941 Break/Relief In I assumed ca re for Break Relief before which we: 1. Identified the patient 2. Identified the responsible provider(s) 3. Reviewed the pertinent medical history 4. Discussed the surgical plan and course 5. Reviewed intra-op anesthesia management and issues during anesthesia 6. Set expectations for the relief (and/or post-procedure) period 7. Allowed opportunity for questions and acknowledgement of understanding JENI MENENDEZ MD 0959 Break/Relief Out 1129 An Tourn Deflated 1156 an stop data 1202 Recovery or ICU Handoff Rere ent care was transferred to the destination unit staff after review of the patient's medical history, current anesthetic/surgical status and plan, according to the Provider Handoff Checklist. 1202 Stop 1216 Meds Name Total lidocaine IV 50 mg propofoL 200 mg propofol INF 1,238.96 mg PHENYLephrine 160 mcg dexAMETHasone 8 mg ondansetron 8 mg BUpivacaine 0.5% 35 mL ceFAZolin (Ancef) (100 mg/mL) injection solution 3 g 3 g dexmedeTOMIDine 4 mcg/mL 20 mcg ketorolac 30 mg lactated ringers infusion 950 mL * Agents Name O2 * Blood No blood administrations on file. Lines, Drains, and Airways Type Details Placement Removal PIV 10/06/24; 814; over -the-needle catheter system; 22 gauge; metacarpal vein (top of hand), right; Anatomical Landmarks; CHRISTIE LOREDO; intradermal injection, age-appropriate response; 0 10/06/24814 by Toyin Dickey V RN Supraglottic Mask Ventilation: No t Attempted (0); LMA Type: iGel; LMA Size: 4; Inserted by: Leodan Bernard CRNA 10/06/24914 by Leodan Bernard CRNA Incision 10/06/24; 928; Left , medial, lateral; ankle; 2 incisions 10/06/24928 by Nova Summers RN documented in this encounter Social History Tobacco Use Types Packs/Day [...] AM EST documented as of this encounter OR Notes * Anesthesia Postprocedure Evaluation - Jeni Menendez MD - 10/06/2024 12:16 PM EST Department of Anesthesiology Post-procedure Note Patient: Temi Kraft Procedure Summary Date: 10/06/24 Room / Location: [address] Anesthesia Start: 906 Anesthesia Stop: 1201 Procedures: ORIF TRIMALLEOLAR ANKLE FX. W/POST. LIP FIXATION (WRVU 13.16) (Left: Ankle) ORIF SYNDESMOSIS, ANKLE (WRVU 8.8) (Left: Ankle) Diagnosis: (Left trimalleolar ankle fracture dislocation) Surgeons: Carroll Guy MD Responsible Provider: Jeni Menendez MD Anesthesia Type: general ASA Status: 3 All Anesthesia Providers: Anesthesiologist: Jeni Menendez MD COUNSELOR EDUCATION PROFESSOR: Leodan Bernard CRNA Vitals Value Taken Time BP 120/77 10/06/24 1200 Temp 36.1 ??C (97 ??F) 10/06/24 1158 Pulse 69 10/06/24 1215 Resp 25 10/06/24 1215 SpO2 93 % 10/06/24 1214 Pain Level Vitals shown include unfiled device data. Patient Location: PACU/[facility] Level of Consciousness: Awake and Alert Pain Management: Satisfactory Analgesia PONV: None Cardiovascular Status: At Baseline Respiratory Status: At Baseline Postoperative Fluid Status: Intravascular EUvolemia Possible Anesthetic Complications: NONE apparent at time of evaluation Final Primary Anesthesia Type: General (The anesthetic type performed was the same as planned.) Comments: Pt with some pain through the block - and given oxycodone 5 mg Also taking 1 mg of ativan ( takes TID) * Anesthesia Procedure Notes - Jeni Menendez MD - 10/06/2024 9:11 AM EST Associated Order(s): Anesthesia Block Anesthesia Block Date/Time: 10/06/2024 8:50 AM Start Time: 10/06/2024 8:50 AM End Time: 10/06/2024 9:05 AM Patient Location: [facility] The patient was greeted; the risks and benefits of the procedure were reviewed. Indication: Post-op Pain Control Post-op pain management at the request of surgeon. Block Type: Saphenous nerve block/mid thigh and sciatic Laterality: Left Position: Supine Prep: Chlorhexidine, patient draped and mask, cap, sterile gloves, hand hygeine Skin Anesthetic: Skin Anesthetic: Lidocaine 1% dose: 5 Block Technique: SonoPlex 21 10 cm Ultrasound Guided: YES and in-plane Ultrasound Image Saved Single-Shot: Single-shot Local Anesthetic Volume(s) Injected for Nerve Block: BUpivacaine 0.5% - Perineural 35 mL - 10/06/2024 8:50:00 AM Nerve Sensory/MotorTest: Events: no complications Notes: Target structures, needle, and local anesthetic spread were visualized under US guidance for the duration of the procedure. No blood aspirated, no pain on injection, no paresthesias. No needle to nerve contact was observed on ultrasound 25 ml given near sciatic bifurcation on posterior knee (popliteal nerve block). 10 ml given in adductor canal on mid medial thigh (saphenous nerve block) Performed by: Resident/COUNSELOR EDUCATION PROFESSOR: Brooklyn Johnston MD Attending Physician: Jeni Menendez MD Authorized by: Jeni Menendez MD * Anesthesia Preprocedure Evaluation - Jeni Menendez MD - 10/05/2024 7:29 AM EST Pre-Anesthesia Evaluation for: Temi Kraft a 44 y.o. female. Procedure(s): ORIF TRIMALLEOLAR ANKLE FX. W/POST. LIP FIXATION (WRVU 13.16) Patient Active Problem List Diagnosis Date Noted ??? Closed displaced trimalleolar fracture of left lower leg 09/29/2024 ??? Premature surgical menopause 07/12/2024 ??? Graves disease 12/09/2023 No past medical history on file. No past surgical history on file. Social History Tobacco Use ??? Smoking status: Former Current packs/day: 1.00 Average packs/day: 1 pack/day for 20.0 years (20.0 ttl pk-yrs) Types: Cigarettes Start date: 09/28/2004 ??? Smokeless tobacco: Never Substance Use Topics ??? Alcohol use: Not on file Social History Substance and Sexual Activity Drug Use Not on file Allergies Allergen Reactions ??? Amoxicillin Rash ??? Sulfa (Sulfonamide Antibiotics) Hives Medications: MAR and/or home medications have been reviewed. Physical Exam: Preprocedure Vitals Current as of 10/05/24 0729 No BP, pulse, respiration, SpO2, or temperature recorded. Height: 167.6 cm (5' 6) (09/28/24) Weight: 138.8 kg (306 lb) (09/28/24) BMI: 49.38 IBW: 59.3 kg (130 lb 10.4 oz) Airway Assessment: Mallampati: II TM distance: >3 FB Neck ROM: full Cardiovascular Assessment: Rhythm: regular Pulmonary Assessment: breath sounds clear to auscultation Dental Assessment: Misc Assessment: IV access: Peripheral line Last Filed Perioperative Cognitive Screening None Anesthesia Plan: ASA 3 general, with a(n) intravenous induction 44 yo F with left trimalleolar ankle fracture here for ankle ORIF Allergies: amoxicillin, sulfa PMHx: - Morbid obesity (BMI 49) - Graves disease: methimazole - Former smoker - GERD: omeprazole none this aam - HTN: Losartan well controllerd -PTSD, bipolar, and anxiety MJ smoking, every day, 1/2 gram, including this morning for anxiety Takes 1 mg ativan TID Home med list includes aripiprazole, clonazepam, lamotrigine, and propanolol No prior anesthetic records in chart PLAN - GA - peripheral nerve block - PIV - standard ASA monitors - standard PONV ppx Denies Discussed MJ and anesthesia. From my assessment, can do consent. Partner Heri also present. Not wild about needles and block but discussed with patient benefits. Extreme anxiety still present, crying and having self described panic attacks. Given 4 mg of versed for block The patient was informed about the risks of anesthesia, and consent was obtained. These risks include, but are not limited to, pain, PONV, sore throat, and other rare but serious complications including major organ damage, intraoperative awareness, allergies, blood transfusions, and dental / lip tra jaimie. Regarding the nerve block, particular risks include block failure, and other rare but serious complications including nerve injury, damage to surrounding structure, bleeding / injection at the site, and LAST. Region - Other Informed Consent: Anesthetic plan and risks discussed with patient. Plan discussed with COUNSELOR EDUCATION PROFESSOR. Anesthesia Screening documented in this encounter Plan of Treatment Upcoming Encounters Date Type Department Care Team (Late st Contact Info) Description 02/06/2025 7:30 AM EDT Appointment XRay at [address] [place] [address] Mally Knight, [facility] [place] [address] 02/06/2025 8:00 AM EDT Office Visit Orthopaedics at [facility] [place] [address] Mally Knight, [facility] [place] [address] 05/01/2025 9:30 AM EDT TH Visit (TeleHealth) Endocrinology at [address] [phone] Ana Galo MD [address] [facility] [place] [address] documented as of this encounter Procedures Procedure Name Priority Date/Time Associated Diagnosis Comments ANESTHESIA BLOCK Routine 10/06/2024 8:50 AM EST documented in this encounter Results * Anesthesia Block (10/06/2024 8:50 AM EST) [...] thigh (saphenous nerve block) Performed by: ?? Resident/COUNSELOR EDUCATION PROFESSOR: ? Brooklyn Johnston MD ?? Attending Physician: ? Jeni Menendez MD Authorized by: Jeni Menendez MD ?? Jeni Menendez MD SOUND SYSTEM INSTALLER [facility] documented in this encounter Visit Diagnoses Not on filedocumented in this encounter Administered Medications Inactive Administered Medications - up to 3 most recent administrations Medication Order MAR Action Action Date Dose Rate Site BUPivacaine (pf) (Marcaine) (5 mg/mL) 0.5% injection Perineural, Starting on Wed10/06/24 at 0850, Until Wed10/06/24 at 0850, Anesthesia Intra-op, Routine Given 10/06/2024 8:50 AM EST 35 mLs ceFAZolin (Ancef) (100 mg/mL) injection solution 3 g 3 g, Intravenous, EVERY 4 HOURS, 1 [...] Procedure), Indication for (Active or Suspected): Prophylaxis New Bag 10/06/2024 9:19 AM EST 3 g dexAMETHasone (Decadron) injection Intravenous, PRN, Starting on Wed10/06/24 at 0919, Until Wed10/06/24 at 1202, Anesthesia Intra-op, Routine Given 10/06/2024 9:19 AM EST 8 mg dexmedeTOMIDine (Precedex) (4 mcg/mL) bolus injection (Anesthsia) Intravenous, PRN, Starting on Wed10/06/24 at 1036, Until Wed10/06/24 at 1202, Anesthesia Intra-op, Routine Given 10/06/2024 10:48 AM EST 8 mcg Given 10/06/2024 10:42 AM EST 4 mcg Given 10/06/2024 10:39 AM EST 4 mcg ketorolac (Toradol) (30 mg/mL) injection Intravenous, PRN, Starting on Wed10/06/24 at 1136, Until Wed10/06/24 at 1202, Anesthesia Intra-op, Routine Given 10/06/2024 11:36 AM EST 30 mg lactated ringers infusion 1,000 mL, at 100 mL/hr, Intravenous, CONTINUOUS, Starting on Wed10/06/24 at 0800, Until Wed10/06/24 at 1322, Day of Surgery (Day of Procedure) New Bag 10/06/2024 9:07 AM EST lidocaine (pf) (Xylocaine) (20 mg/mL) 2% injection syringe Intravenous, PRN, Starting on Wed10/06/24 at 0913, Until Wed10/06/24 at 1202, Anesthesia Intra-op, Routine Given 10/06/2024 9:13 AM EST 50 mg ondansetron (pf) (Zofran) (2 mg/mL) injection Intravenous, PRN, Starting on Wed10/06/24 at 0919, Until Wed10/06/24 at 1202, Anesthesia Intra-op, Routine Given 10/06/2024 11:48 AM EST 4 mg Given 10/06/2024 9:19 AM EST 4 mg PHENYLephrine in NS (PF) (HOLLIE-SYNEPHRINE) 0.8 mg/10 mL (80 mcg/mL) multi-dose injection Syringe Intravenous, PRN, Starting on Wed10/06/24 at 0946, Until Wed10/06/24 at 1202, Anesthesia Intra-op, Routine Given 10/06/2024 9:59 AM EST 80 mcg Given 10/06/2024 9:46 AM EST 80 mcg propofoL (Diprivan) (10 mg/mL) infusion Intravenous, CONTINUOUS PRN, Starting on Wed10/06/24 at 0913, Until Wed10/06/24 at 1202, Anesthesia Intra-op, Routine New Bag 10/06/2024 9:13 AM EST 100 mcg/kg/min 54.66 mL/hr propofoL (Diprivan) 10 mg/mL bolus injection (Anesthesia) Intravenous, PRN, Starting on Wed10/06/24 at 0913, Until Wed10/06/24 at 1202, Anesthesia Intra-op Given 10/06/2024 9:13 AM EST 200 mg documented in this encounter Care Teams Chestnut Tanner Relationship Specialty Start Date End Date Claudia Morley MD [address] [place] [address] PCP - General Family Medicine 10/25/23 documented as of this encounter
--- OUTSIDE RECORDS SUMMARY | 2024-12-29 01:25 | XMS_ITS | Encounter Summary ---
Author Organization [facility] Address [facility] [place] [address] Care Team Providers Care Career Development Coordinator Name Role Phone Claudia Morley MD Primary Care Provider Encounter Details Date Type Department Care Team (Late st Contact Info) Description 09/28/2024 1:30 PM EDT Office Visit Orthopaedics at [facility] [place] [address] Closed fracture of left ankle, initial encounter [...] this encounter Progress Notes * Kenny Eagle D - 09/28/2024 1:30 PM EDT Temi Kraft presents to the clinic for a splint off per . The splint was intact upon arrival and taken off. The patient tolerated this procedure well. The patient's skin was intact. Temi Kraft presents to the cast room for a Splint on per . The patient's skin is intact. The patient is going into a well padded Plaster Short Leg- Slab and U splint on the left side in [facility]. The patient tolerated the procedure well. A detailed conversation regarding range of motion exercises were reviewed with patient as well as RICE, and remedies for itching. We have given the patient a Taking care of your cast pamphlet that has a written detail of all of this information alongwith the names of the cast techs to reach if needed. The patient is informed to call with any questions or concerns. Patient then sent to x-ray to ensure reduction was not lost. documented in this encounter Plan of Treatment Upcoming Encounters Date Type Department Care Team (Late st Contact Info) Description 02/06/2025 7:30 AM EDT Appointment XRay at [address] [place] [address] Mally Knight, [facility] [place] [address] 02/06/2025 8:00 AM EDT Office [place] [address] Mally Knight, [facility] [place] [address] 05/01/2025 9:30 AM EDT TH Visit (TeleHealth) Endocrinology at [address] [phone] Ana Galo MD [address] [facility] [place] [address] documented as of this encounter Visit Diagnoses Diagnosis Closed fracture of left ankle, initial encounter documented in this encounter Care Teams Career Development Coordinator Relationship Specialty Start Date End Date Claudia Morley MD [address] [place] [address] PCP - General Family Medicine 10/25/23 documented as of this encounter
--- OUTSIDE RECORDS SUMMARY | 2024-12-29 01:25 | XMS_ITS | Encounter Summary ---
Author Organization [facility] Address [facility] [place] [address] Care Team Providers Care Lag Screwer Name Role Phone Claudia Morley MD Primary Care Provider [phone] Reason for Visit * Reason Onset Date Comments Medication Refill 10/17/2024 Encounter Details Date Type Department Care Team (Late st Contact Info) Description 10/17/2024 Ref[place] [address] Carroll Guy MD [facility] [place] [address] Closed displaced trimalleolar fracture of left ankle, initial encounter Social History Tobacco Use Types Packs/Day Years Used Date Smoking Tobacco: Former Cigarettes 1 20.3 S tarted: 09/28/2004 Smokeless Tobacco: Never [facility] Inpatient Questions Answer Date Recorded Does Anyone [...] encounter Miscellaneous Notes * Telephone Encounter - Malgorzata Myers RMA - 10/18/2024 12:50 PM ESTSummary: Med refill request Images from the original note were not included. Medication Refill Request Surgery/Injury/Provider/DOS/DOI: KAIN Seay Dos 10/06/2024 Patient comment: I am in so much pain that I am only sleeping about 3 hours a night, I can barely eat and I'm crying half the day. The ibuprofen or Tylenol do nothing. I'm very depressed. Medication being requested: Oxycodone 5mg Query: Last refill or Original Rx: Seen within 30 days (if no, than when): Dos 10/06/2024 Follow Up: 10/20/2024 Brianna KAUR How was this prescribed? Take 1 tablet every 4 hours as needed for pain How is this medication being used currently: is out of pain meds -tried to go without but states she can go the way she has been Is there a discrepancy? (Why?) none Pain level: 9/10 Bowel concerns: no concerns Other pain medications used and how: Tylenol Yes 1000 mg -three times daily Gabapentin No Naproxen No OTHER Ibuprofen 400 mg taking every 4-6 hrs Medication Taper Plan: Taper to the lowest effective maintenance dose. Continue additional scheduled pain medication along with RICE. Teaching done regarding: taking nonnarcotic pain medications, taking the least amount of opioid needed for the least amount of time for adequate pain management and tapering of opioids with verbalized understanding by the patient. Requested Prescription to be sent electronically to [facility] (location). Prescription prepped and pended for Dr Guy (provider) review. The patient knows how to contact orthopaedics if any further questions or concerns occur. documented in this encounter Plan of Treatment Upcoming Encounters Date Type Department Care Team (Late st Contact Info) Description 02/06/2025 7:30 AM EDT Appointment XRay at [address] [place] [phone] Mally Knight APRN [facility] [place] [address] 02/06/2025 8:00 AM EDT Office Visit Orthopaedics at [facility] [place] [address] Mally Knight APRN [facility] [place] [address] 05/01/2025 9:30 AM EDT TH Visit (TeleHealth) Endocrinology at [address] [phone] Ana Galo MD [address] [place] [address] documented as of this encounter Visit Diagnoses Diagnosis Closed displaced trimalleolar fracture of left ankle, initial encounter documented in this encounter Care Teams Lag Screwer Relationship Specialty Start Date End Date Claudia Morley MD [address] [place] [address] PCP - General Family Medicine 10/25/23 documented as of this encounter
--- OUTSIDE RECORDS SUMMARY | 2024-12-29 01:25 | XMS_ITS | Encounter Summary ---
Author Organization [place] [address] Care Team Providers Care Lead Refiner Name Role Phone Claudia Morley MD Primary Care Provider [phone] Reason for Visit * Reason Comments Follow-up Graves Disease Encounter Details Date Type Department Care Team ([facility] st Contact Info) Description 07/12/2024 3:30 PM EDT Office Visit Endocrinology at [address] [phone] Ana Galo MD [address] [place] [address] Graves disease; Premature surgical menopause Social History [...] in February 2019 when she live [place] and startedon MMI. In early December she established care with a new [facility] Farmer in [place] which discontinue Methimazole due to suspicion of [...] Methimazole5 mg and referred to a new [facility] Farmer. She denies history of head/neck radiation, [...] cp, palpitations. No headaches. No rashes. No intermodal dispatcher use of steroids. No changes insize of [...] Notes * Assessment & Plan Note - nAa Galo MD - 07/12/2024 4:12 PM EDT [...] 7:30 AM EDT Appointment XRay at [address] [place] [address] Mally Knight, [facility] [place] [address] 02/06/2025 8:00 AM EDT Office [place] [address] Mally Knight, [facility] [place] [address] 05/01/2025 9:30 AM EDT TH Visit (TeleHealth) Endocrinology at [address] [phone] Ana Galo MD [address] [place] [address] documented as of this encounter Procedures Procedure Name Priority Date/Time Associated Diagnosis Comments TSH Routine 07/12/2024 4:14 PM EDT Graves disease T4, FREE Routine 07/12/2024 4:14 PM EDT Graves disease documented in this encounter Results * TSH (07/12/2024 4:14 PM EDT) Thyroid Stimulating Hormone 3.59 0.27 - 4.20 mcIU/mL 07/12/2024 8:41 PM EDT [facility] Comment: Reference Interval (mcIU/mL): ?? Females: ? First Trimester: 0.23-3.88 ? Second Trimester: 0.22-3.90 ? Third Trimester: 0.44-4.66 Blood VENOUS BLOOD SPECIMEN / Unknown Venipuncture / Unknown 07/12/2024 4:14 PM EDT 07/12/2024 7:45 PM EDT Ana Figueroa MD CHEMISTRY ORDERAB LES Performing Organization Address [facility] Co de Phone Number [facility] [place] [address] * T4, free (07/12/2024 4:14 PM EDT) Free T4 1.40 0.93 - 1.70 ng/dL 07/12/2024 8:41 PM EDT [facility] Comment: Reference Interval (ng/dL): ?? Females: ? First Trimester: 0.97-1.68 ? Second Trimester: 0.77-1.51 ? Third Trimester: 0.77-1.49 Blood VENOUS BLOOD SPECIMEN / Unknown Venipuncture / Unknown 07/12/2024 4:14 PM EDT 07/12/2024 7:45 PM EDT Ana Figueroa MD CHEMISTRY ORDERAB LES Performing Organization Address City/[facility] Co de Phone Number [facility] [place] [address] documented in this encounter Visit Diagnoses Diagnosis Graves disease Toxic diffuse goiter without mention of thyrotoxic crisis or storm Premature surgical menopause Postablative ovarian failure documented in this encounter Care Teams Lead Refiner Relationship Specialty Start Date End Date Claudia Morley MD [address] [place] [address] PCP - General Family Medicine 10/25/23 documented as of this encounter
--- OUTSIDE RECORDS SUMMARY | 2024-12-29 01:25 | XMS_ITS | Encounter Summary ---
Author Organization [facility] Address [facility] [place] [address] Care Team Providers Care Dispute Resolution Analyst Name Role Phone Claudia Morley MD Primary Care Provider Encounter Details Date Type Department Care Team (Latest Contact Info) Description 09/27/2024 Travel Social History Tobacco Use Types Packs/Day [...] 7:30 AM EDT Appointment XRay at [address] [place] [address] Mally Knight CHEMICAL PLANT MANAGER [facility] [place] [address] 02/06/2025 8:00 AM EDT Office Visit Orthopaedics at [facility] [place] [address] Mally Knight [facility] [place] [address] 05/01/2025 9:30 AM EDT TH Visit (TeleHealth) Endocrinology at [address] [phone] Ana Galo MD [address] [place] [address] documented as of this encounter Visit Diagnoses Not on filedocumented in this encounter Care Teams Dispute Resolution Analyst Relationship Specialty Start Date End Date Claudia Morley MD [address] [place] [address] PCP - General Family Medicine 10/25/23 documented as of this encounter
--- OUTSIDE RECORDS SUMMARY | 2024-12-29 01:25 | XMS_ITS | Encounter Summary ---
Author Organization [facility] [place] [address] Care Team Providers Care Manager Shipping Name Role Phone Claudia Morley MD Primary Care Provider [phone] Encounter Details Date Type Department Care Team (Late st Contact Info) Description 09/22/2024 3:55 PM EDT Ancillary Procedure Radiology Library at [facility] [place] [address] Rell Merino MD [facility] [place] [address] Social History Tobacco Use Types Packs/Day Years [...] 02/06/2025 7:30 AM EDT Appointment XRay at [address] [place] [phone] Mally Knight APRN [facility] [place] [address] 02/06/2025 8:00 AM EDT Office Visit Orthopaedics at [facility] [place] [address] Mally Knight APRN [facility] [place] [address] 05/01/2025 9:30 AM EDT TH Visit (TeleHealth) Endocrinology at [address] [phone] Ana Galo MD [address] [place] [address] documented as of this encounter Procedures Procedure Name Priority Date/Time Associated Diagnosis Comments FILM LIBRARY STORAGE ONLY DX ANKLE Routine 09/22/2024 3:50 PM EDT documented in this encounter Results * Film Library- Storage Only DX Ankle (09/22/2024 3:50 PM EDT) Narrative [facility] - 09/22/2024 3:50 PM EDT This exam is auto-finalizing. It's purpose is for storage only. Rell Merino MD IMG FILM LIBRARY OR DERABLES Performing Organization Address City/State/[facility] Co de Phone Number [place], [place] documented in this encounter Visit Diagnoses Not on filedocumented in this encounter Care Teams Manager Shipping Relationship Specialty Start Date End Date Claudia Morley MD [address] [place] [address] PCP - General Family Medicine 10/25/23 documented as of this encounter
--- OUTSIDE RECORDS SUMMARY | 2024-12-29 01:25 | XMS_ITS | Encounter Summary ---
[place] [address] Care Team Providers Care Director Internal Audit Name Role Phone Claudia Morley MD Primary Care Provider [phone] Reason for Visit * Reason Onset Date Comments Other 12/21/2023 Encounter Details Date Type Department Care Team ([facility] st Contact Info) Description 12/21/2023 Telephone Endocrinology at [address] [address] Ana Galo MD [address] [place] [address] Other Social History Tobacco Use Types Packs/Day [...] 12/21/2023 2:56 PM EST Labs faxed to [facility] at the fax number provided by the patient. * Telephone Encounter - Chirag Paulino - 12/21/2023 1:48 PM EST Patient states that the fax number provided earlier was for the main hospital. The patient providesthe fax number for the lab. [phone] * Telephone Encounter - Beatriz Hickey - 12/21/2023 1:38 PM EST Patient is requesting her lab orders be sent to [facility] in [facility]. documented in this encounter Plan of Treatment Upcoming Encounters Date Type Department Care Team (Late st Contact Info) Description 02/06/2025 7:30 AM EDT Appointment XRay at [address] [place] [address] Mally Knight, [facility] [place] [address] 02/06/2025 8:00 AM EDT Office Visit Orthopaedics at [facility] [place] [address] Mally Knight, [facility] [place] [address] 05/01/2025 9:30 AM EDT TH Visit (TeleHealth) Endocrinology at [address] [phone] Ana Galo MD [address] [place] [address] documented as of this encounter Visit Diagnoses Not on filedocumented in this encounter Care Teams Director Internal Audit Relationship Specialty Start Date End Date Claudia Morley MD [address] [place] [address] PCP - General Family Medicine 10/25/23 documented as of this encounter
--- OUTSIDE RECORDS SUMMARY | 2024-12-29 01:25 | XMS_ITS | Encounter Summary ---
Author Organization [facility] Address [facility] [place] [address] Care Team Providers Care Water Operator Name Role Phone Claudia Morley MD Primary Care Provider Encounter Details Date Type Department Care Team (Late st Contact Info) Description 09/22/2024 [place] [phone] Toney Dacosta MD [facility] DR ORTHOPAEDIC [place] [address] Social History Tobacco Use Types Packs/Day Years Used Date Smoking Tobacco: Never Assessed Sex and Gender Information Value Date Recorded Sex Assigned at Female 12/07/2023 9:13 AM EST Gender Identity Female 12/07/2023 9:13 AM EST Sexual Orientation Straight 12/07/2023 9: 13 AM EST documented as of this encounter Miscellaneous Notes * Telephone Encounter - Toney Dacosta MD - 09/22/2024 5:03 PM EDT Orthopaedic Transfer Center Call [facility] 44F. Fell down stairs with trimal fracture of right ankle with good distal pulses. Reduced at [facility]. No head strike, no back pain. Isolated ankle injury. Closed injury. Significant PMH/SXH: Obesity, Hyperthyroid, high blood pressure, GERD, Significant/pertinent Labs: N/A Imaging: CT lower extremity, pre and post reduction films. Medial malleolar fracture, posterior malleolar fracture, high fibular shaft fracture. Assessment/Recommendation: BMI 50, unable to do surgery at [facility] secondary to BMI. Successfully reduced L ankle by [facility] Orthopaedic surgery. Unstable ankle fracture that would benefit from surgical fixation. Recommend NWB LLE in splint. ASA 81mg until surgery. Follow-up next 1-2 weeks for operative discussion. Toney Dacosta MD documented in this encounter Plan of Treatment Upcoming Encounters Date Type Department Care Team (Late st Contact Info) Description 02/06/2025 7:30 AM EDT Appointment XRay at [address] [place] [address] Mally Knight, [facility] ORTHOPAEDIC [place] [address] 02/06/2025 8:00 AM EDT Office Visit Orthopaedics at [facility] [place] [address] Mally Knight, [facility] ORTHOPAEDIC [place] [address] 05/01/2025 9:30 AM EDT TH Visit (TeleHealth) Endocrinology at [address] [phone] Ana Galo MD [address] [facility] [place] [address] documented as of this encounter Visit Diagnoses Not on filedocumented in this encounter Care Teams Water Operator Relationship Specialty Start Date End Date Claudia Morley MD [address] [place] [address] PCP - General Family Medicine 10/25/23 documented as of this encounter
--- OUTSIDE RECORDS SUMMARY | 2024-12-29 01:25 | XMS_ITS | Encounter Summary ---
Author Organization [facility] [place] [address] Care Team Providers Care Lap Machine Tender Name Role Phone Claudia Morley MD Primary Care Provider [phone] Encounter Details Date Type Department Care Team (Late st Contact Info) Description 12/30/2023 External Results [facility] [employer] [address] [place] [phone] Provider, His MD Amos None Graves disease [...] 02/06/2025 7:30 AM EDT Appointment XRay at [address] [place] [address] Mally Knight APRN [facility] [place] [address] 02/06/2025 8:00 AM EDT Office Visit [place] [address] Mally Knight APRN [facility] [place] [address] 05/01/2025 9:30 AM EDT TH Visit (TeleHealth) Endocrinology at [address] [phone] Ana Galo MD [address] [place] [address] documented as of this encounter Procedures Procedure Name Priority Date/Time Associated Diagnosis Comments [facility] EXTERNAL LAB PANEL Routine 12/24/2023 4:20 PM EST T3 TOTAL Routine 12/24/2023 4:20 PM EST Graves disease TSH Routine 12/24/2023 4:20 PM EST Graves disease T4, FREE Routine 12/24/2023 4:20 PM EST Graves disease documented in this encounter Results * [facility] External Lab Panel (12/24/2023 4:20 PM EST) [...] MD CHEMISTRY ORDERAB LES Performing Organization Address [facility] Co de Phone Number EXTERNAL FACILITY * TSH (12/24/2023 4:20 PM EST) Thyroid Stimulating Hormone 2.52 EXTERNAL FACILITY Blood 12/24/2023 4:20 PM EST Ana Figueroa MD CHEMISTRY ORDERAB LES Performing Organization Address [facility] Co de Phone Number EXTERNAL FACILITY documented in this encounter Visit Diagnoses Diagnosis Graves disease Toxic diffuse goiter without mention of thyrotoxic crisis or storm documented in this encounter Care Teams Lap Machine Tender Relationship Specialty Start Date End Date Claudia Morley MD [address] [place] [address] PCP - General Family Medicine 10/25/23 documented as of this encounter
--- OUTSIDE RECORDS SUMMARY | 2024-12-29 01:25 | XMS_ITS | Encounter Summary ---
Author Organization [facility] Address [facility] [place] [address] Care Team Providers Care Bleach Range Operator Name Role Phone Claudia Morley MD Primary Care Provider [phone] Reason for Visit * Reason Comments Establish Care NXR Left trimalle olar ankle fracture dislocation DOI 09/22/24 * Consultation (Urgent) - Closed Specialty Diagnoses / Procedures Referred By Contac t Referred To Contact Orthopaedics Diagnoses Closed left ankle fracture Toney Dacosta MD [facility] [place] [address] Carroll Guy MD [facility] [place] [address] Referral ID Status Reason Start Date Expiration Date V isits Requested Visits Authorized [id number] Closed Consult, Test & Treat 09/25/2024 09/25/2025 1 1 Encounter Details Date Type Department Care Team (Late st Contact Info) Description 09/28/2024 1:20 PM EDT Office [place] [address] Carroll Guy MD [facility] [place] [address] Pain of left lower extremity; Closed displaced trimalleolar fracture of left ankle, initial encounter Social History Tobacco Use Types Packs/Day Years Used Date Smoking Tobacco: Former Cigarettes 1 20.3 S tarted: 09/28/2004 Smokeless Tobacco: Never Tobacco Cessation:Counseling Given: Not Answered Sex and Gender Information Value Date Recorded [...] - - Weight 138.8 kg (306 lb) 09/28/2024 1:02 PM EDT Height 167.6 cm (5' 6) 09/28/2024 1:02 PM EDT Body Mass Index 49.39 09/28/2024 1:02 PM EDT documented in this encounter Progress Notes * Rubi Adames RN - 09/28/2024 1:20 PM EDT Images from the original note were not included. PDMP run on 09/28/24: * Carroll Guy MD - 09/28/2024 1:20 PM EDT Chief complaint: Left trimalleolar ankle fracture History of present illness: Temi Kraft is a 44 y.o. year-old female who suffered a fall on 09/22suffering a left trimalleolar fracture dislocation, reduced at [facility]. There was communication with our resident team and plans made for her to follow-up. She has been doing poorly since. She has bipolar disorder and has been depressed and in pain. She has not taken opioids in a few days. She is tearful on my exam. She does have a mental health provider that she plans to be in touch with in the next couple of days. She had a fall on her right knee at home. Past medical history: Patient Active Problem List Diagnosis Date Noted Closed displaced trimalleolar fracture of left lower leg 09/29/2024 Premature surgical menopause 07/12/2024 Graves disease 12/09/2023 Medications: ARIPiprazole (Abilify) 20 mg tablet lamoTRIgine (LaMICtal) 100 mg tablet estradioL (Estrace) 1 mg tablet methIMAzole (Tapazole) 5 mg tablet losartan (Cozaar) 25 mg tablet omeprazole (PriLOSEC) [address] capsule propranoloL (Inderal) 20 mg tablet clonazePAM (KlonoPIN) 1 mg tablet Magnesium Oxide 500 mg tablet oxyCODONE (Roxicodone) 5 mg tablet lamoTRIgine (LaMICtal) 200 mg tablet ARIPiprazole (Abilify) 15 mg tablet Allergies: Allergies Allergen Reactions Amoxicillin Rash Sulfa (Sulfonamide Antibiotics) Hives Social history: Social History Tobacco Use Smoking status: Former Current packs/day: 1.00 Average packs/day: 1 pack/day for 20.0 years (20.0 ttl pk-yrs) Types: Cigarettes Start date: 09/28/2004 Smokeless tobacco: Never Substance Use Topics Alcohol use: Not on file Review of systems: No chest pain or shortness of breath at baseline No fevers, night sweats or chills Vital signs: Temp: -- Physical Exam: No Apparent distress Her splint was taken down. She has diffuse mild ecchymosis. Moderate swelling. Able to flex and extend toes. She has an abrasion on her anterior right knee and diffuse mild pain with palpation. Imaging: Personal review of the patient's imaging reveals: X-rays of the right knee show no fracture or malalignment. X-rays of the left ankle at the time of injury show a trimalleolar fracture dislocation. Subsequent x-rays show reduction. A CT scan shows arelatively medial posterior malleolus fracture with extension into the medial malleolus, and the high fibula fracture. Ankle reduced. Assessment: 44 y.o. year-old female with a left trimalleolar fracture dislocation, now reduced Plan: We discussed treatment options moving forward. She was complaining of areas of irritation from her splint. After taking down her splint and replacing her in a well-padded short leg splint whilemaintaining her reduction, follow-up x-rays showed adequate alignment and reduction. Throughout ourvisit she became less tearful. We discussed treatment options, including open reduction internal fixation which I think would be beneficial given her fracture pattern. The patient and I discussed in detail the risks and benefits of surgery. We discussed the risks of bleeding, infection, damage to nerves, vessels, tendons, and ligaments. We discussed the risks of fracture, hardware failure, wound b reakdown, need for reoperation, pain, stiffness, and non-relief or exacerbation of symptoms. We discussed the risks of blood clots, pulmonary embolism, stroke, heart attack, and other cardiopulmonarycomplications up to and including the risk of . We discussed the acute recovery from surgery, the 12 month timeframe for full recovery, and the period of non weight bearing for an anticipated 6 weeks that would be required postoperatively. Specific to this procedure, we discussed the risk of stiffness, pain, arthritis. Specific to the patient's comorbidities, we discussed the elevated risk of blood clots, wound healing complications given BMI. We reviewed the nonoperative options for treatm ent. The patient voiced understanding of all we discussed and expressed a desire to move forward with surgery despite the risks of the procedure and the alternatives. Follow up: For OR This plan was discussed with the patient and they are in agreement. All of the patient's questions were answered. The above dictation was made with voice recognition software documented in this encounter Plan of Treatment Upcoming Encounters Date Type Department Care Team (Late st Contact Info) Description 02/06/2025 7:30 AM EDT Appointment XRay at [address] [place] [address] Mally Knight, [facility] [place] [address] 02/06/2025 8:00 AM EDT Office Visit Orthopaedics at [facility] [place] [address] Mally Knight, [facility] [place] [address] 05/01/2025 9:30 AM EDT TH Visit (TeleHealth) Endocrinology at [address] [phone] Ana Galo MD [address] [place] [address] [place] [address] documented as of this encounter Results * XR Ankle Min 3 views Left (Generic) (10/20/2024 12:39 PM EST) WORKSTATION ID [id number] RAD Anatomical Region Laterality Modality Ankle Left [...] who have questions please contact the health animal care specialist that requested your imaging first. ? Electronically signed by: Dg Koch MD, [facility] ([phone]), at 10/20/2024 4:03 PM Narrative 10/20/2024 4:03 PM EST EXAMINATION: XR [...] patients who have questions please contactthe health animal care specialist that requested your imaging first. Electronically signed by: Dg Koch MD, [facility]([phone]), at 10/20/2024 4:03 PM Carroll Guy MD IMG DX ORDERABLES * XR Ankle Min 3 views Left (Generic) (09/28/2024 3:32 PM EDT) WORKSTATION ID [id number] RAD Anatomical Region Laterality Modality Ankle Left Digital Radiogra phy Impressions 09/29/2024 10:29 AM EDT 1. ??Comminuted intra-articular medial malleolus fracture in unchanged postreduction alignment. 2. ??Slightly increased posterior displacement of posterior malleolus fracture. 3. ??Mild asymmetric widening of the medial clear space, unchanged compared to prior CT. 4. ??Partially visualized mildly displaced fibular diaphysis fracture. Thank you for letting us participate in the care of this patient. ??If you are a health care provider and have any questions regarding this report, please contact the number below. ??For patients who have questions please contact the health animal care specialist that requested your imaging first. ? Electronically signed by: Richa Koch MD, [facility] ([phone]), at 09/29/2024 10:29 AM Narrative 09/29/2024 10:29 AM EDT EXAMINATION: XR ANKLE MIN 3 VIEWS LEFT (GENERIC) CLINICAL HISTORY: Left ankle fracture M79.605, Pain in left leg TECHNIQUE: 3 views LEFT ankle COMPARISON: Left ankle radiographs 09/22/2024, CT left lower extremity 09/22/2024 FINDINGS: Overlying splint limits evaluation of osseous and soft tissue detail. Redemonstrated comminuted intra-articular fracture of the medial malleolus in unchanged near-anatomic postreduction alignment. Redemonstrated posterior malleolus fracture with slightly increased up to 4 mm of posterior displacement. Mild asymmetric widening of the medial clear space, unchanged compared to prior CT. Intact talar dome. Partially visualized mildly displaced fibular diaphysis fracture. Procedure Note Richa Koch MD - 09/29/2024 EXAMINATION: XR ANKLE MIN 3 VIEWS LEFT (GENERIC) CLINICAL HISTORY: Left ankle fracture M79.605, Pain in left leg TECHNIQUE: 3 views LEFT ankle COMPARISON: Left ankle radiographs 09/22/2024, CT left lower extremity 09/22/2024 FINDINGS: Overlying splint limits evaluation of osseous and soft tissue detail. Redemonstrated comminuted intra-articular fracture of the medial malleolusin unchanged near-anatomic postreduction alignment. Redemonstrated posterior malleolus fracture with slightly increased up to4 mm of posterior displacement. Mild asymmetric widening of the medial clear space, unchanged compared toprior CT. Intact talar dome. Partially visualized mildly displaced fibular diaphysis fracture. IMPRESSION 1. Comminuted intra-articular medial malleolus fracture in unchanged postreduction alignment. 2. Slightly increased posterior displacement of posterior malleolusfracture. 3. Mild asymmetric widening of the medial clear space, unchanged comparedto prior CT. 4. Partially visualized mildly displaced fibular diaphysis fracture. Thank you for letting us participate in the care of this patient. If youare a health care provider and have any questions regarding this report,please contact the number below. For patients who have questions please contactthe health animal care specialist that requested your imaging first. Electronically signed by: Richa Koch MD, [facility]([phone]), at 09/29/2024 10:29 AM Carroll Guy MD IMG DX ORDERABLES * XR Knee 1-2 Views Right (Generic) (09/28/2024 3:32 PM EDT) WORKSTATION ID [id number] RAD Anatomical Region Laterality Modality Knee Right Digital Radiogra phy Impressions 09/29/2024 10:21 AM EDT No acute fracture. 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 Thank you for letting us participate in the care of this patient. ??If you are a health care provider and have any questions regarding this report, please contact the number below. ??For patients who have questions please contact the health animal care specialist that requested your imaging first. ? Electronically signed by: Richa Koch MD, [facility] ([phone]), at 09/29/2024 10:21 AM Narrative 09/29/2024 10:21 [...] patients who have questions please contactthe health animal care specialist that requested your imaging first. Electronically signed by: Richa Koch MD, [facility]([phone]), at 09/29/2024 10:21 AM Carroll Guy MD IMG DX ORDERABLES documented in this encounter Visit Diagnoses Diagnosis Pain of left lower extremity Closed displaced trimalleolar fracture of left ankle, initial encounter Pain of left lower extremity Pain of left lower extremity documented in this encounter Care Teams Bleach Range Operator Relationship Specialty Start Date End Date Claudia Morley MD [address] [place] [address] PCP - General Family Medicine 10/25/23 documented as of this encounter
--- OUTSIDE RECORDS SUMMARY | 2024-12-29 01:25 | XMS_ITS | Encounter Summary ---
Author Organization [facility] [place] [address] Care Team Providers Care Machine Puller And Laster Name Role Phone Claudia Morley MD Primary Care Provider [phone] Encounter Details Date Type Department Care Team (Late st Contact Info) Description 09/22/2024 4:00 PM EDT Ancillary Procedure Radiology Library at [facility] [place] [address] Rell Merino MD [facility] [place] [address] Social History Tobacco Use Types Packs/Day Years [...] 02/06/2025 7:30 AM EDT Appointment XRay at [address] [place] [phone] Mally Knight APRN [facility] [place] [address] 02/06/2025 8:00 AM EDT Office Visit Orthopaedics at [facility] [place] [address] Mally Knight APRN [facility] [place] [address] 05/01/2025 9:30 AM EDT TH Visit (TeleHealth) Endocrinology at [address] [phone] Ana Galo MD [address] [place] [address] documented as of this encounter Procedures Procedure Name Priority Date/Time Associated Diagnosis Comments FILM LIBRARY STORAGE ONLY DX LOWER EXTREMITY Routine 09/22/2024 3:50 PM EDT documented in this encounter Results * Film Library- Storage Only DX Lower Extremity (09/22/2024 3:50 PM EDT) Narrative RAD - 09/22/2024 3:50 PM EDT This exam is auto-finalizing. It's purpose is for storage only. Rell Merino MD IMG FILM LIBRARY OR DERABLES Performing Organization Address City/State/[facility] Co de Phone Number [place], [place] documented in this encounter Visit Diagnoses Not on filedocumented in this encounter Care Teams Machine Puller And Laster Relationship Specialty Start Date End Date Claudia Morley MD [address] [place] [address] PCP - General Family Medicine 10/25/23 documented as of this encounter
--- OUTSIDE RECORDS SUMMARY | 2024-12-29 01:25 | XMS_ITS | Encounter Summary ---
Author Organization [place] [address] Care Team Providers Care Trimmer Operator Name Role Phone Claudia Morley MD Primary Care Provider [phone] Reason for Visit * Reason Onset Date Comments Medication Refill 09/19/2024 Encounter Details Date Type Department Care Team ([facility] st Contact Info) Description 09/19/2024 Refill Endocrinology at [address] [phone] Ana Galo MD [address] [place] [address] Premature surgical menopause Social History Tobacco Use Types Packs/Day Years Used Date Smoking Tobacco: Never Assessed Sex and Gender Information Value Date Recorded Sex Assigned at Female 12/07/2023 9:13 AM EST Gender Identity Female 12/07/2023 9:13 AM EST Sexual Orientation Straight 12/07/2023 9: 13 AM EST documented as of this encounter Miscellaneous Notes * Telephone Encounter - Josesito, Lila Chappell RN - 09/20/2024 8:55 AM EDT Medication [...] 02/06/2025 7:30 AM EDT Appointment XRay at [address] [place] [phone] Mally Knight APRN [facility] [place] [address] 02/06/2025 8:00 AM EDT Office [place] [address] Mally Knight APRN [facility] [place] [address] 05/01/2025 9:30 AM EDT TH Visit (TeleHealth) Endocrinology at [address] [phone] Ana Galo MD [address] [place] [phone] documented as of this encounter Visit Diagnoses Diagnosis Premature surgical menopause Postablative ovarian failure documented in this encounter Care Teams Trimmer Operator Relationship Specialty Start Date End Date Claudia Morley MD [address] [place] [address] PCP - General Family Medicine 10/25/23 documented as of this encounter
--- OUTSIDE RECORDS SUMMARY | 2024-12-29 01:25 | XMS_ITS | Encounter Summary ---
Author Organization [facility] [place] [address] Care Team Providers Care Pipe Out Worker Name Role Phone Claudia Morley MD Primary Care Provider [phone] Encounter Details Date Type Department Care Team ([facility] st Contact Info) Description 11/14/2024 2:30 PM EST TH Visit (TeleHealth) Endocrinology at [address] [phone] Ana Galo MD [address] [place] [id number] Graves disease; Premature surgical menopause Social History [...] Progress Notes * Ana Galo MD - 11/14/2024 2:30 PM EST Images from the original note were not included. Endocrinology Clinic Note HPI: Temi Kraft is a 44 y.o. female here for follow-up of hyperthyroidism She was initially diagnosed with Graves disease in February 2019 when she [place] in [place] and startedon MMI. In early December she established care with a new Email Developer in [place] which discontinue Methimazole due to suspicion of [...] Methimazole5 mg and referred to a new Email Developer. She denies history of head/neck radiation, family history of thyroid disease, personal or family history of thyroid cancer. She denies changes in neck size, pain in the neck, difficulty swallowing or voice changes. She denies changes in weight, vision, skin, hair, or bowel habits, diplopia, heat/cold intolerance,fatigue, palpitations, tremor, menstrual irregularities. Interval History: Last time seen in clinic on 07/12/2024. At this time she was taking MMI 5 mg daily and repeated labsshowed biochemical euthyroidism hence no changes were made to thyroid medications. She reports feeling not that well as she had a recent fall and fracture of her ankle for what she has been unable to do repeated labs. She also is reporting hot flashes that have resolved after starting estrogen replacement but most recently have come back. She denies medication changes other than switching ativan for valium. Reproductive Hormone replacement therapy is acceptable if the patient is within 10 years of menopause and less than 60 years of age. The patient should not have any contraindications such as : such as a history of breast cancer, coronary heart disease [CHD], a previous venous thromboembolic event or stroke, or active liver disease. She still has pending liver panel and lipid panel. As she is currently bed bound with low mobility, she was advise on close monitoring for symptoms ofDVT in the setting of estrogen replacement. Review of Systems: Constitutional: No fever, chills [...] history on file. Medications: Current Outpatient Medications: diazePAM (Valium) 10 mg tablet, TAKE ONE AND ONE-HALF TABLETS BY MOUTH TWICE A DAY TO REPLACE CLONAZEPAM DO NOT TAKE CLONAZEPAM, Disp: , Rfl: oxyCODONE (Roxicodone) 5 mg tablet, Take 1 tablet by mouth every 6 hours as needed for Pain., Disp:30 tablet, Rfl: 0 aspirin EC 81 mg EC (DR) tablet, Take 1 tablet by mouth 2 times daily., Disp: 84 tablet, Rfl: 0 ARIPiprazole (Abilify) 20 mg tablet, Take 1 tablet by mouth Daily at Noon., Disp: , Rfl: lamoTRIgine (LaMICtal) 100 mg tablet, Take 1 tablet by mouth 2 times daily., Disp: , Rfl: estradioL (Estrace) 1 mg tablet, Take 1 tablet by mouth daily., Disp: 90 tablet, Rfl: 1 methIMAzole (Tapazole) 5 mg tablet, Take 1 tablet by mouth daily., Disp: 90 tablet, Rfl: 1 lamoTRIgine (LaMICtal) 200 mg tablet, Take 100 [...] mouth 2 times daily., Disp: , Rfl: Magnesium Oxide 500 mg tablet, Take 500 [...] Not on file Tobacco Use Smoking status: Former Current packs/day: 1.00 Average packs/day: 1 pack/day for 20.1 years (20.1 ttl pk-yrs) Types: Cigarettes Start date: 09/28/2004 Smokeless tobacco: Never Vaping Use Vaping status: Never Used Substance and Sexual Activity Alcohol use: Not on file Drug use: Not on file Sexual activity: Not on file Other Topics Concern Not on file Social History Narrative Not on file Social Determinants of Health Financial Resource Strain: Not on file Food Insecurity: Not on file Transportation Needs: Not on file Physical Activity: Not on file Intimate Partner Violence: Not At Risk (10/06/2024) IPV Inpatient Questions Prevent Contact with Others: no Feels Threatened by Someone: no Feels Unsafe at Home: no Physical Signs of Abuse Present: no Housing Stability: Not on file Physical Examination: There were no vitals taken for this visit. General: NAD, awake, alert and oriented x 3 Neurologic: no focal deficit Psych: normal mood, appropriate affect, good eye contact, answers questions appropriately Review of Data: Component Latest Ref Rng 12/24/2023 07/12/2024 Thyroid Stimulating Hormone 0.27 - 4.20 mcIU/mL 2.52 (E) 3.59 (E) Free T4 0.93 - 1.70 ng/dL 0.90 (E) 1.40 (E) T3 Total 147 (E) Impressions & Recommendations: Problem List Items Addressed This Visit Graves disease Temi is a 44 yo lady with [...] Relevant Orders TSH T3 Total T4, free Lipid Panel (Reflex Direct LDL) Comprehensive metabolic panel Fasting required Premature surgical menopause She does have significant [...] to start progesterone given history of hysterectomy.. RTC 6 months. More than 50% of this 30 minute visit was coordinating the patient's care, reviewing complex records, obtaining history, documenting the patients medical record, reviewing labs and radiology studies,education of the significance of current condition and therapy, scheduling and interpreting diagnostic tests. Ana Figueroa MD documented in this encounter Miscellaneous Notes * Assessment & Plan Note - Ana Galo MD - 11/14/2024 2:56 PM EST Associated Problem(s): Premature surgical menopause Images from [...] Plan Note - Ana Galo MD - 11/14/2024 2:56 PM EST Associated Problem(s): Graves disease Temi is a 44 yo lady with [...] 7:30 AM EDT Appointment XRay at [address] [place] [phone] Mally Knight APRN [facility]TH[facility] [place] [address] 02/06/2025 8:00 AM EDT Office Visit Orthopaedics at [facility] [place] [address] Mally Knight APRN [facility] [place] [address] 05/01/2025 9:30 AM EDT TH Visit (TeleHealth) Endocrinology at [address] [phone] Ana Galo MD [address] [place] [phone] documented as of this encounter Results * (ABNORMAL) Comprehensive metabolic panel Fasting required (11/16/2024 4:48 PM EST) [facility] Glucose 88 65 - 99 mg/dL 11/16/2024 5:33 PM [facility] Comment: Fasting Glucose Interpretive Criteria: Normal: 65-99 mg/dL ?? Prediabetes: 100-125 mg/dL ?? Consistent with Diabetes Mellitus: > or = 126 mg/dL ?? Classification and Diagnosis of Diabetes: Standards of Care in Diabetes - 2022. Diabetes Care 202; 46:S19. Fasting is defined as no caloric intake for at least 8 hours. Blood Urea Nitrogen 12 8 - 18 mg/dL 11/16/2024 5:33 PM [facility] Creatinine 0.90 0.70 - 1.20 mg/dL 11/16/2024 5:33 PM [facility] Sodium 138 135 - 145 mMol/L 11/16/2024 5:33 PM [facility] Potassium 4.0 3.5 - 5.0 mMol/L 11/16/2024 5:33 PM [facility] Chloride 101 98 - 107 mMol/L 11/16/2024 5:33 PM [facility] Carbon Dioxide 24 22 - 31 mMol/L 11/16/2024 5:33 PM [facility] Anion Gap 13 5 - 15 mMol/L 11/16/2024 5:33 PM [facility] Calcium 10.2 8.5 - 10.5 mg/dL 11/16/2024 5:33 PM [facility] Protein, Total 8.3(H) 6.1 - 8.0 g/dL 11/16/2024 5:33 PM [facility] Albumin 4.5 3.2 - 5.2 g/dL 11/16/2024 5:33 PM [facility] Aspartate Aminotransferase 25 <=30 unit/L 11/16/2024 5:33 PM [facility] Alanine Aminotransferase 33(H) 0 - 30 unit/L 11/16/2024 5:33 PM [facility] Alkaline Phosphatase 90 35 - 105 unit/L 11/16/2024 5:33 PM [facility] Bilirubin, Total 0.4 <=1.3 mg/dL 11/16/2024 5:33 PM [facility] Est Glomerular Filtration Rate - Female 82 mL/min/1. 73 m?? 11/16/2024 5:33 PM [facility] Comment: This patient's estimated GFR was [...] Foundation Fasting Status Yes 11/16/2024 5:33 PM [facility] Blood VENOUS BLOOD SPECIMEN / Unknown Venipuncture / Unknown 11/16/2024 4:48 PM EST 11/16/2024 4:51 PM EST Ana Figueroa MD CHEMISTRY ORDERAB LES [facility] [place] [address] * Lipid Panel (Reflex Direct LDL) (11/16/2024 4:48 PM EST) [facility] Signature Cholesterol, Total 207 mg/dL 11/16/2024 5:[address] [facility] Comment: Desirable: < 200 mg/dL Borderline High: 200 - 239 mg/dL High: > or = 240 mg/dL Triglyceride 139 mg/dL 11/16/2024 5:[address] [facility] Comment: Normal: <150 mg/dL Borderline High: 150-199 mg/dL High: 200-499 mg/dL Very High: > or =500 mg/dL HDL Cholesterol 59 mg/dL 4 5:[address] [facility] Comment:Female: High Risk: < 50 mg/dL LDL Cholesterol 124 mg/dL 4 5:[address] [facility] Comment: Desirable: <100 mg/dL Above Desirable: 100-129 mg/dL Borderline High: 130-159 mg/dL High: 160-189 mg/dL Very High: > or =190 mg/dL Note: LDL calculation updated to the NIH LDL formula as of 07/02/2024 Non-HDL Cholesterol 148 mg/dL 11/16/2024 5:[address] [facility] Comment: Desirable: <130 mg/dL Above Desirable: 130-159 mg/dL Borderline High: 160-189 mg/dL High: 190-219 mg/dL Very High: > or = 220 mg/dL Blood VENOUS BLOOD SPECIMEN / Unknown Venipuncture / Unknown 11/16/2024 4:48 PM EST 11/16/2024 4:51 PM EST [facility] - 11/16/2024 5:33 PM [...] ACC/AHA Guidelines (most recently Ana et al. [facility] 09/01/22): * For individuals with atherosclerotic [...] disease) Ana Figueroa MD CHEMISTRY ORDERAB LES [facility] [place] [address] * T4, free (11/16/2024 4:48 PM EST) Free T4 1.34 0.93 - 1.70 ng/dL 11/16/2024 5:[address] [facility] Comment: Reference Interval (ng/dL): ?? Females: ? First Trimester: 0.97-1.68 ? Second Trimester: 0.77-1.51 ? Third Trimester: 0.77-1.49 Blood VENOUS BLOOD SPECIMEN / Unknown Venipuncture / Unknown 11/16/2024 4:48 PM EST 11/16/2024 4:51 PM EST Ana Figueroa MD CHEMISTRY ORDERAB LES Performing Organization Address [facility] Co de Phone Number [facility] [place] [address] * T3 Total (11/16/2024 4:48 PM EST) T3 Total 120 80 - 200 ng/dL 11/16/2024 5:[address] [facility] Blood VENOUS BLOOD SPECIMEN / Unknown Venipuncture / Unknown 11/16/2024 4:48 PM EST 11/16/2024 4:51 PM EST Ana Figueroa MD CHEMISTRY ORDERAB LES Performing Organization Address City/[facility] Co de Phone Number [facility] [place] [address] * (ABNORMAL) TSH (11/16/2024 4:48 PM EST) Thyroid Stimulating Hormone 6.61(H) 0.27 - 4.20 mcIU/mL 11/16/2024 5:[address] [facility] Comment: Reference Interval (mcIU/mL): ?? Females: ? First Trimester: 0.23-3.88 ? Second Trimester: 0.22-3.90 ? Third Trimester: 0.44-4.66 Blood VENOUS BLOOD SPECIMEN / Unknown Venipuncture / Unknown 11/16/2024 4:48 PM EST 11/16/2024 4:51 PM EST Ana Figueroa MD CHEMISTRY ORDERAB LES Performing Organization Address City/State/[facility] Co de Phone Number [facility] [place] [address] documented in this encounter Visit Diagnoses Diagnosis Graves disease Toxic diffuse goiter without mention of thyrotoxic crisis or storm Premature surgical menopause Postablative ovarian failure documented in this encounter Care Teams Pipe Out Worker Relationship Specialty Start Date End Date Claudia Morley MD [address] [place] [address] PCP - General Family Medicine 10/25/23 documented as of this encounter
--- OUTSIDE RECORDS SUMMARY | 2024-12-29 01:25 | XMS_ITS | Encounter Summary ---
Author Organization [facility] Address [place] [id number] Care Team Providers Care Linking Machine Operator Name Role Phone Claudia Morley MD Primary Care Provider [phone] Reason for Visit * Auth/Cert (Routine) Specialty Diagnoses / Procedures Referred By Trevor t Referred To Contact Diagnoses Closed displaced trimalleolar fracture of left ankle Left trimalleolar ankle fracture dislocation Procedures PRO OPEN TX TRIMALLEOLAR ANKLE FX W FIX PST LIP ORIF TRIMALLEOLAR ANKLE FX. W/POST. LIP FIXATION (WRVU 13.16) Carroll Patel MD [facility] [place] [address] [facility] Referral ID Status Reason Start Date Expiration Date Visits Re quested Visits Authorized [id number] 1 1 Encounter Details Date Type Department Care Team (Late st Contact Info) Description 10/06/2024 8:30 AM EST - 10/06/2024 10:20 AM EST Surgery [place] [address] Carroll Patel MD [facility] [place] [address] ORIF TRIMALLEOLAR ANKLE FX. W/POST. LIP FIXATION (WRVU 13.16) Social History Tobacco Use Types Packs/Day Years Used Date Smoking Tobacco: Former Cigarettes 1 20.3 S tarted: 09/28/2004 Smokeless Tobacco: Never DH IPV Inpatient Questions Answer Date Recorded Does Anyone Try to Keep You From Having Contact with Others or Doing Things Outside Your Home? no 10/06/2024 Feels Threatened by Someone no 110 06/2024 Feels Unsafe at Home or Work/School no 10/06/2024 Physical Signs of Abuse Present no 10/06/2024 Sex and Gender Information Value Date Recorded Sex Assigned at Female 12/07/2023 9:13 AM EST Gender Identity Female 12/07/2023 9:13 AM EST Sexual Orientation Straight 12/07/2023 9: 13 AM EST documented as of this encounter Last Filed Vital Signs Vital Sign Reading Time Taken Comments Blood Pressure 134/82 10/06/2024 9:05 AM EST Pulse 65 10/06/2024 9:05 AM EST Temperature 36.2 ??C (97.2 ??F) 10/06/2024 8:02 AM ES T Respiratory Rate 14 10/06/2024 9:05 AM EST Oxygen Saturation 100% 10/06/2024 9:05 AM EST Inhaled Oxygen Concentration - - Weight [...] bowel movement. You can also take an ccsl-qih-zklkyry medication, Miralax if needed to combat constipation. [...] skin and wound problems. Call your doctor ([phone]) if you develop: Fever greater than 100.5 [...] 1. You will have follow-up appointments at [facility] as indicated in Future Appointment and Orders. [...] Time Provider Department Center 10/20/2024 12:30 PM [facility] DX ROOM 2 Xray [facility] Rad 10/20/2024 1:30 PM Mally Knight APRN [facility] ORTH 3A [facility] 11/07/2024 10:00 AM Ana Galo MD [facility] If you have Orthopaedic questions or concerns: Wednesday through Wednesday, 8 AM - 5 PM, please call Carroll Patel MD, MD's office at . If it is after 5 PM or on the weekend, please call and ask to speak with the Orthopedic resident on-call. documented in this encounter Medications at Time of Discharge Medication Sig Dispensed Refills Start Date End Date aspirin EC 81 mg EC () tablet Take 1 tablet by mouth 2 [...] of this encounter Progress Notes * Francis Condon, RN - 10/06/2024 1:19 PM EST Patient [...] Patel MD - 10/06/2024 9:29 AM EST [facility] Operative Note Patient Name: Temi Kraft : [id number] MR#: [id number] Case Date: 10/06/2024 Surgeon: Surgeons and Role: [...] Implant Name Type Inv. Item Serial No. Gwot Ia/Ilo Intelligence Support Lot No. LRB No. Used Action K WIRE FIX [id number] TROCAR POINT SGL END SS VARIAX [id number] - [id number] IMPLANTS K WIRE FIX [id number] TROCAR POINT SGL END SS VARIAX ([id number]) ExecNote - CHRIS Left 2 Implanted and Explanted SCREW 2.7X44MM NLCK FT TI T8 VARIAX ([id number]) (AutoReq) - [id number] IMPLANTS SCREW 2.7X44MM NLCK FT TI T8 VARIAX ([id number]) (AutoReq) ExecNote - CHRIS Left 1 Implanted and Explanted SCREW 2.7X40MM NLCK FT TI VARIAX ([id number]) (AutoReq) - [id number] IMPLANTS SCREW 2.7X40MM NLCK FT TI VARIAX ([id number]) (AutoReq) ExecNote - CHRIS Left 1 Implanted PLATE 2.7X92MM TRIANGLE 10 HOLE NARROW LCK VARIAX ([id number]) (AutoReq) - [id number] IMPLANTS PLATE 2.7X92MM TRIANGLE 10 HOLE NARROW LCK VARIAX ([id number]) (AutoReq) ExecNote - CHRIS Left 1 Implanted SCREW 2.7X30MM NLCK FT TI VARIAX (9551472) (AutoReq) - [id number] IMPLANTS SCREW 2.7X30MM NLCK FT TI VARIAX (1689799) (AutoReq) ExecNote - CHRIS Left 1 Implanted SCREW 2.7X28MM NLCK FT TI VARIAX ([id number]) (AutoReq) - [id number] IMPLANTS SCREW 2.7X28MM NLCK FT TI VARIAX (1126321) (AutoReq) ExecNote CHRIS Left 1 Implanted SCREW 2.7X38MM NLCK FT TI VARIAX ([id number]) (AutoReq) - [id number] IMPLANTS SCREW 2.7X38MM NLCK FT TI VARIAX (7062501) (AutoReq) ExecNote - CHRIS Left 1 Implanted SCREW 2.7X42MM NLCK FT TI T8 VARIAX (6054886) (AutoReq) - [id number] IMPLANTS SCREW 2.7X42MM NLCK FT TI T8 VARIAX ([id number]) (AutoReq) ExecNote - CHRIS Left 1 Implanted SCREW 2.7X40MM NLCK FT TI VARIAX (3346279) (AutoReq) - [id number] IMPLANTS SCREW 2.7X40MM NLCK FT TI VARIAX (7644329) (AutoReq) ExecNote - Impeva Left 1 Implanted and Explanted SCREW 2.7X34MM LCK FT TI VARIAX ([id number]) (AutoReq) - [id number] IMPLANTS SCREW 2.7X34MM LCK FT TI VARIAX (6252399) (AutoReq) ExecNote - Impeva Left 1 Implanted PLATE 2.4X56MM 8 HOLE NARROW LCK VARIAX ([id number]) (AutoReq) - [id number] IMPLANTS PLATE 2.4X56MM 8 HOLE NARROW LCK VARIAX ([id number]) (AutoReq) ExecNote - Impeva Left 1 Implanted SCREW 2.4X3.02MM CHAYA NLCK FT TI VARIAX ([id number]) (AutoReq) - [id number] IMPLANTS SCREW 2.4X3.02MM CHAYA NLCK FT TI VARIAX (1142676) (AutoReq) ExecNote - Impeva Left 1 Implanted SCREW 2.4X40MM NLCK FT TI T8 VARIAX ([id number]) (AutoReq) - [id number] IMPLANTS SCREW 2.4X40MM NLCK FT TI T8 VARIAX (9117553) (AutoReq) ExecNote - Impeva Left 1 Implanted SCREW 2.4X9MM LCK FT TI T8 VARIAX ([id number]) (AutoReq) - [id number] IMPLANTS SCREW 2.4X9MM LCK FT TIT8 VARIAX ([id number]) (AutoReq) ExecNote - CHRIS Left 1 Implanted SUTURE ANCHOR 2.8MM 5-0 SUTURE SDRILL SYNDESMOSIS ([id number]) (AutoReq) - [id number] IMPLANTS SUTURE ANCHOR 2.8MM 5-0 SUTURE SDRILL SYNDESMOSIS ([id number]) (AutoReq) [facility] [id number] Left 1 Implanted SCREW 2.4X14MM HCAYA LCK FT TI VARIAX ([id number]) (AutoReq) - [id number] IMPLANTS SCREW 2.4X14MM CHAYA LCK FT TI VARIAX (0548491) (AutoReq) ExecNote - CHRIS Left 1 Implanted PLATE 23MM 2 HOLE VARIAX 2 ([id number]) (AutoReq) - [id number] IMPLANTS PLATE 23MM 2 HOLE VARIAX 2 ([id number]) (AutoReq) ExecNote - CHRIS Left 1 Implanted Surgical Infection [...] 7:30 AM EDT Appointment XRay at [address] [place] [address] Mally Knight, [facility] [place] [address] 02/06/2025 8:00 AM EDT Office Visit Orthopaedics at [facility] [place] [address] Mally Knight, [facility] [place] [address] 05/01/2025 9:30 AM EDT TH Visit (TeleHealth) Endocrinology at [address] [phone] Ana Galo MD [address] [place] [address] documented as of this encounter Procedures Procedure Name Priority Date/Time Associated Diagnosis Comments XR ANKLE MIN 3 VIEWS LEFT Routine 10/06/2024 12:32 PM EST XR FLUORO NO RAD <1HR - OR USE Routine 10/06/2024 12:02 PM EST ORIF SYNDESMOSIS, ANKLE Routine 10/06/2024 11:18 AM EST Open Tx Distal Tibiofibular Joint Disruption (69170) Yes 10/06/2024 9:08 AM EST Left trimalleolar ankle fracture dislocation Open Tx Trimalleolar Ankle Fx W Fix Pst Lip ([id number]) Yes 10/06/2024 9:08 AM EST Left trimalleolar ankle fracture dislocation ORIF TRIMALLEOLAR ANKLE FX. W/POST. LIP FIXATION Routine 10/06/2024 7:34 AM EST documented in this encounter Results * XR Ankle Min 3 views Left (Generic) (10/06/2024 12:32 PM EST) GOGETMi / ?.?? Signature WORKSTATION ID [id number] RAD Anatomical Region Laterality Modality Ankle Left Digital Radiogra phy Impressions 10/06/2024 1:36 PM EST 1. ??Medial malleolar fracture status post ORIF with no hardware complication 2. ??Congruent ankle mortise. 3. ??The mid fibular diaphyseal fracture is outside [id number]. Thank you for letting us participate in the care of this patient. ??If you are a health care provider and have any questions regarding this report, please contact the number below. ??For patients who have questions please contact the health lawn care technician that requested your imaging first. ? Narrative [...] The mid fibular diaphyseal fracture is outside [id number]. No new osseous injury. Procedure Note Dg [...] The mid fibular diaphyseal fracture is outside [id number]. No new osseous injury. IMPRESSION 1. Medial malleolar fracture status post ORIF with no hardwarecomplication 2. Congruent ankle mortise. 3. The mid fibular diaphyseal fracture is outside wzzww-oh-gqst. Thank you for letting us participate in the care of this patient. If youare a health care provider and have any questions regarding this report,please contact the number below. For patients who have questions please contactthe health lawn care technician that requested your imaging first. Carroll MORALESG DX ORDERABLES * XR Fluoro No Rad [...] Given 10/06/2024 12:31 PM EST 1 mg midazolam (pf) (Versed) (1 mg/mL) injection 1 mg 1 mg, Intravenous, EVERY 5 MIN PRN, Starting on Wed10/06/24 at 0736, Until Wed10/06/24 at 1322, Sleep, or prior to injection of local anesthetic, Hold for delirium/agitation. (Maximum dose 5 mg)., Intra-Operative (Intra-Procedure), Routine Given 10/06/2024 8:22 AM EST 1 mg Right Arm Given 10/06/2024 8:20 AM EST 1 mg Ri ght Arm midazolam (pf) (Versed) (1 mg/mL) injection 1-4 mg 1-4 mg, Intravenous, EVERY 5 MIN PRN, Starting on Wed10/06/24 at 0736, Until Wed10/06/24 at 1322, Other, sedation or prior to injection of local anesthetic, Hold for delirium/agitation. (Maximum dose 5 mg)., Day of Surgery (Day of Procedure), Routine Given 10/06/2024 8:54 AM EST 0.5 m g Given 10/06/2024 8:50 AM EST 0.5 mg Given 10/06/2024 8:45 AM EST 1 mg oxyCODONE (Roxicodone) tablet 5 mg 5 mg, Oral, EVERY 4 HOURS PRN, Starting on Wed10/06/24 at 1214, Until Wed10/06/24 at 1522, Pain, Routine Given 10/06/2024 12:25 PM EST 5 mg vancomycin (Vancocin) injection PRN, Starting on Wed10/06/24 at 1117, Until Wed10/06/24 at 1522, Intra-Operative (Intra-Procedure), Routine Given 10/06/2024 11:17 AM EST 1 g 19- Surgical Site documented in this encounter Active and Recently [...] MD) documented in this encounter Care Teams Linking Machine Operator Relationship Specialty Start Date End Date Claudia Morley MD [address] [place] [address] PCP - General Family Medicine 10/25/23 documented as of this encounter
--- OUTSIDE RECORDS SUMMARY | 2024-12-29 01:25 | XMS_ITS | Encounter Summary ---
Author Organization [facility] [place] [address] Care Team Providers Care Retail Coverage Merchandiser Lead Name Role Phone Claudia Morley MD Primary Care Provider [phone] Reason for Referral * Physical Therapy (Routine) - Authorized Specialty Diagnoses / Procedures Referred By Trevor lang Referred To Contact Physical Therapy Diagnoses Closed displaced trimalleolar fracture of left ankle, initial encounter Mally Knight APRN [facility] [place] [address] Physical Therapy, [address] [place] [address] Referral ID Status Reason Start Date Expiration Date Visits Requested Visits Authorized [id number] Authorized Evaluate and Treat 11/16/2024 05/15/2025 12 12 Reason for Visit * Reason Comments Follow Up Surgery 10/06/24 -??ORIF TRIM ALLEOLAR ANKLE FX. W/POST. LIP FIXATION Encounter Details Date Type Department Care Team (Late st Contact Info) Description 11/16/2024 3:30 PM EST Office [place] [address] Mally Knight APRN [facility] [place] [address] Closed displaced trimalleolar fracture of left ankle, initial encounter (Primary Dx) Social History Tobacco Use [...] AM EST documented as of this encounter Patient Instructions * Patient Instructions* Mally Knight APRN - 11/16/2024 3:30 PM EST Ok boot off for showering, sitting and sleeping. Boot on for any mobility, walking, weight bearing.PT will review a progressive weight bearing program with you today. Ok to shower with padding dry the incision Ok to start some PT closer to home. PT orders faxed today to [facility]. They will call you for the appointment. Ok to call PT if you have not heard from them in 5 business days. Ok to use Cool packs and acetomenophen prn for pain no greater than 3 grams per day alternating with NSAIDs for pain. Elevation Try to work on Desensitization exercises by touching the ankle with a face cloth this will help with pain. Dr. Guy's team in 6 weeks with updated xrays of the LEFT ankle out of boot and weight bearing ok. documented in this encounter Progress Notes * Mally Knight APRN - 11/16/2024 3:30 PM EST PERTINENT SURGICAL HISTORY: Surgical Date: 10/06/2024 Surgeon: * Carroll Guy MD - Procedure(s) : ORIF TRIMALLEOLAR ANKLE FX. W/POST. LIP FIXATION (Left) ORIF SYNDESMOSIS, ANKLE (Left) CHIEF COMPLAINT: ~ 6 weeks S/P above procedure HISTORY OF PRESENT ILLNESS: Ms. Swapnil jacobson 44 y.o. year old female comes into clinic today for appointment 6 weeks s/p the above procedures. She is doing reasonably well at this time. Ms. Kraft deniesany fever/chills or other constitutional signs of infection. She denies any numbness or tingling distal to the surgical procedure. The patient has not noticed any abnormal drainage from her incision or increased redness or discomfort. VTE prophylaxis. Completed. NO other pertinent medical issues toreport at this time. Patient's medications, allergies, past medical, surgical, social and family histories were reviewedand updated as appropriate. ROS: Denies fever, chills, nausea, vomiting, vision change, shortness of breath, chest pain, visionchanges, headaches, bowel or bladder problem, ear, nose, sinus problem, neuro or psychiatric, or endocrine disorder not addressed above. PHYSICAL EXAMINATION: Vitals: Ms. Swapnil jacobson 44 y.o. female is alert and oriented.She appears in no acute discomfort and is restingcomfortably in a chair in the exam room. Arrives: Fiberglass cast is removed for exam. Reported some skin hypersensitivity after cast removed by cast technologist Here with her . Sitting in a wheelchair Wound Inspection: Medial, lateral and heel surgical incisions are well approximated with no edelmira-incisional erythema or evidence of infection. Mild dried eschar noted medial incision. Mild hypersensitivity about the skin to light touch sensation. No skin discoloration or diaphoresis Foot is grossly SILT and well perfused, DP and PT 2+ to palpation. Sensation intact to 1st webspace, medial and lateral sole and dorsum. ROM: She is able to wiggle her toes. EHL/FHL 5/5. The calf is soft and non-tender. Imaging: UPDATED: LEFT ankle x-ray reviewed image by image in the office today reveals no hardware complications or new fractures noted. ASSESSMENT: 44 year old Female who is about 6 weeks status post op above surgical procedure. She isdoing reasonably well post op at 6 weeks. Plain radiographs with no obvious complications. PLAN: I reviewed my findings in the office today with both x-rays and clinical exam. At this time, ok to slowly progress to a progressive weight bearing slowly over the next 2 weeks letting pain be her guide. Any pain while weight bearing ok to go back to the amount of weight that does not produce pain. Ok to transition to a tall rebound boot WBAT as above. Tolerated well. Showering ok with padding dry the incision. Encouraged desensitization exercises reviewed today. Weight bearing: as above Assistive Devices: walker at home. Reviewed with PT today. Tolerate well with Nelly Sarah DPT Physical therapy: as above. Orders for today in place. Outside orders for PT closer to home. Pain management: OTC analgesics VTE prophylaxis: completed Follow up plan: 6 weeks with LEFT ankle x-ray out of boot in weight bearing ok. I have already ordered this as a future order in the computer. PT orders faxed to [facility]. I have already ordered this as a future order inthe computer. documented in this encounter Plan of Treatment Upcoming Encounters Date Type Department Care Team (Late st Contact Info) Description 02/06/2025 7:30 AM EDT Appointment XRay at [address] [place] [address] Mally Knight APRN [facility] [place] [address] 02/06/2025 8:00 AM EDT Office [place] [address] Mally Knight APRN [facility] [place] [address] 05/01/2025 9:30 AM EDT TH Visit (TeleHealth) Endocrinology at [address] [phone] Ana Galo MD [address] [place] [address] Scheduled Referrals Name Type Priority Associated Diagnoses Orde r Schedule Referral to Physical Therapy Outpatient Referral Routine Closed displaced trimalleolar fracture of left ankle, initial encounter Ordered: 11/16/2024 documented as of this encounter Results * XR Ankle Min 3 views Left (Generic) (12/27/2024 2:54 PM EST) WORKSTATION ID [id number] RAD Anatomical Region Laterality Modality Ankle Left [...] who have questions please contact the health life care planner that requested your imaging first. ? Narrative [...] patients who have questions please contactthe health life care planner that requested your imaging first. Electronically signed by: Pat Grace MD, [facility]([phone]), at 12/28/2024 10:53 AM Mally Knight APRN IMG DX ORDERABLES documented in this encounter Visit Diagnoses Diagnosis Closed displaced trimalleolar fracture of left ankle, initial encounter- Primary Closed displaced trimalleolar fracture of left ankle, initial encounter documented in this encounter Care Teams Retail Coverage Merchandiser Lead Relationship Specialty Start Date End Date Claudia Morley MD [address] [place] [address] PCP - General Family Medicine 10/25/23 documented as of this encounter
--- OUTSIDE RECORDS SUMMARY | 2024-12-29 01:25 | XMS_ITS | Encounter Summary ---
Author Organization [facility] Address [facility] [place] [address] Care Team Providers Care Threading Machine Setter Name Role Phone Claudia Morley MD Primary Care Provider [phone] Reason for Referral * Consultation (Urgent) - Closed Specialty Diagnoses / Procedures Referred By Trevor lang Referred To Contact Orthopaedics Diagnoses Closed left ankle fracture Toney Dacosta MD [facility] [address] Carroll Guy MD [facility] [place] [address] Referral ID Status Reason Start Date Expiration Date V isits Requested Visits Authorized [id number] Closed Consult, Test & Treat 09/25/2024 09/25/2025 1 1 Encounter Details Date Type Department Care Team (Late st Contact Info) Description 09/25/2024 Orders Only Orthopaedics at [place] [phone] Toney Dacosta MD [facility] [place] [address] Closed fracture of right ankle, initial encounter Social History Tobacco Use Types Packs/Day Years Used Date Smoking Tobacco: Never Assessed [facility] Inpatient Questions Answer Date Recorded Does Anyone [...] 7:30 AM EDT Appointment XRay at [address] [place] [address] Mally Knight, [facility] [place] [address] 02/06/2025 8:00 AM EDT Office Visit Orthopaedics at [facility] [place] [address] Mally Knight, [facility] [place] [address] 05/01/2025 9:30 AM EDT TH Visit (TeleHealth) Endocrinology at [address] [address] Ana Galo MD [address] [place] [address] Scheduled Referrals Name Type Priority Associated Diagnoses Order Schedule Referral to Orthopaedics Outpatient Referral Urgent Closed fracture of right ankle, initial encounter Ordered: 09/25/2024 documented as of this encounter Visit Diagnoses Diagnosis Closed fracture of right ankle, initial encounter documented in this encounter Care Teams Threading Machine Setter Relationship Specialty Start Date End Date Claudia Morley MD [address] [place] [address] PCP - General Family Medicine 10/25/23 documented as of this encounter
--- OUTSIDE RECORDS SUMMARY | 2024-12-29 01:25 | XMS_ITS | Encounter Summary ---
Author Organization [facility] Address [facility] [place] [address] Care Team Providers Care Manufacturing Assembler Name Role Phone Claudia Morley MD Primary Care Provider [phone] Encounter Details Date Type Department Care Team (Latest Contact Info) Description 09/28/2024 2:49 PM EDT - 09/28/2024 11:59 PM EDT Hospital Encounter XRay at [address] [place] [address] Carroll Guy MD [facility] [place] [address] Pain of left lower extremity Discharge Disposition: [...] daily. 10/06/2024 10/20/2024 oxyCODONE (Roxicodone) 5 mg tablet Take 1 tablet by mouth every 4 hours as needed for Pain. 30 tablet 09/28/2024 10/02/2024 estradioL (Estrace) 1 mg tabletIndications:Premat ure surgical menopause Take 1 tablet by mouth [...] 7:30 AM EDT Appointment XRay at [address] [place] [address] Mally Knight [facility] [place] [address] 02/06/2025 8:00 AM EDT Office Visit Orthopaedics at [facility] [place] [address] Mally Knight, [facility] [place] [address] 05/01/2025 9:30 AM EDT TH Visit (TeleHealth) Endocrinology at [facility] [address] [place] [phone] Ana Galo MD [address] [place] [address] documented as of this encounter Procedures Procedure Name Priority Date/Time Associated Diagnosis Comments XR KNEE AP & LAT RIGHT Routine 09/28/2024 3:32 PM EDT Pain of left lower extremity XR ANKLE MIN 3 VIEWS LEFT Routine 09/28/2024 3:32 PM EDT Pain of left lower extremity documented in this encounter Results * XR Ankle Min 3 views Left (Generic) (09/28/2024 3:32 PM EDT) ClickEquations Signature WORKSTATION ID [id number] RAD Anatomical Region Laterality Modality Ankle Left [...] who have questions please contact the health progressive care nurse that requested your imaging first. ? Electronically signed by: Richa Koch MD, [facility] ([phone]), at 09/29/2024 10:29 AM Narrative 09/29/2024 10:29 [...] patients who have questions please contactthe health progressive care nurse that requested your imaging first. Electronically signed by: Richa Koch MD, [facility]([phone]), at 09/29/2024 10:29 AM Carroll Guy MD IMG DX ORDERABLES * XR Knee 1-2 Views Right (Generic) (09/28/2024 3:32 PM EDT) valuklik WORKSTATION ID [id number] RAD Anatomical Region Laterality Modality Knee Right Digital Radiogra phy Impressions 09/29/2024 10:21 AM EDT No acute fracture. 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 Thank you for letting us participate in the care of this patient. ??If you are a health care provider and have any questions regarding this report, please contact the number below. ??For patients who have questions please contact the health progressive care nurse that requested your imaging first. ? Electronically signed by: Richa Koch MD, [facility] ([phone]), at 09/29/2024 10:21 AM Narrative 09/29/2024 10:21 [...] patients who have questions please contactthe health progressive care nurse that requested your imaging first. Electronically signed by: Richa Koch MD, [facility]([phone]), at 09/29/2024 10:21 AM Carroll Guy MD IMG DX ORDERABLES documented in this encounter Visit Diagnoses Diagnosis Pain of left lower extremity documented in this encounter Care Teams Manufacturing Assembler Relationship Specialty Start Date End Date Claudia Morley MD [address] [place] [address] PCP - General Family Medicine 10/25/23 documented as of this encounter
--- OUTSIDE RECORDS SUMMARY | 2024-12-29 01:25 | XMS_ITS | Encounter Summary ---
Author Organization [facility] Address [facility] [place] [address] Care Team Providers Care Uniform Maker Name Role Phone Claudia Morley MD Primary Care Provider [phone] Encounter Details Date Type Department Care Team (Latest Contact Info) Description 11/16/2024 2:37 PM EST - 11/16/2024 11:59 PM EST Hospital Encounter XRay at [address] [place] [address] Mally Knight, PUTTY REMOVER [facility] [place] [address] Closed displaced trimalleolar fracture of left ankle, [...] times daily. 09/05/2024 methIMAzole (Tapazole) 5 mg tabletIndications:Grav es disease Take 1 tablet by mouth daily. 90 tablet 1 07/25/2024 losartan (Cozaar) 25 mg tablet Take 25 mg by mouth daily. 12/06/2023 omeprazole (PriLOSEC) [address] capsule Take 20 mg by mouth daily. 12/06/2023 propranoloL (Inderal) 20 mg tablet Take 20 mg by mouth 2 times daily. 12/06/2023 Magnesium Oxide 500 mg tablet Take 500 mg by mouth daily. 12/06/2023 estradioL (Estrace) 1 mg tabletIndications:Jean ature surgical menopause Take 1 tablet by mouth daily. 90 tablet 1 09/20/2024 11/24/2024 documented as of this encounter Plan of Treatment Upcoming Encounters Date Type Department Care Team (Late st Contact Info) Description 02/06/2025 7:30 AM EDT Appointment XRay at [address] [place] [address] Mally Knight, [facility] [place] [address] 02/06/2025 8:00 AM EDT Office Visit Orthopaedics at [facility] [place] [address] Mally Knight, [facility] [place] [address] 05/01/2025 9:30 AM EDT TH Visit (TeleHealth) Endocrinology at [address] [phone] Ana Galo MD [address] [place] [address] documented as of this encounter Procedures Procedure Name Priority Date/Time Associated Diagnosis Comments XR ANKLE MIN 3 VIEWS LEFT Routine 11/16/2024 3:08 PM EST Closed displaced trimalleolar fracture of left ankle, initial encounter documented in this encounter Results * XR Ankle Min 3 views Left (Generic) (11/16/2024 3:08 PM EST) WORKSTATION ID [id number] RAD Anatomical Region Laterality Modality Ankle Left [...] have questions please contact the health career orientation teacher that requested your imaging first. ? Narrative 11/17/2024 3:16 AM EST EXAMINATION: XR [...] who have questions please contactthe health career orientation teacher that requested your imaging first. Mally Knight PUTTY REMOVER IMG DX ORDERABLES documented in this encounter Visit Diagnoses Diagnosis Closed displaced trimalleolar fracture of left ankle, initial encounter documented in this encounter Care Teams Uniform Maker Relationship Specialty Start Date End Date Claudia Morley MD [address] [place] [address] PCP - General Family Medicine 10/25/23 documented as of this encounter
--- OUTSIDE RECORDS SUMMARY | 2024-12-29 01:25 | XMS_ITS | Encounter Summary ---
Author Organization [facility] Address [facility] [place] [address] Care Team Providers Care Casing Finisher And Stuffer Name Role Phone Claudia Morley MD Primary Care Provider [phone] Reason for Referral * Diagnostic Test (Routine) - Closed Specialty Diagnoses / Procedures Referred By Trevor lang Referred To Contact Radiology Diagnoses Pain of left lower extremity Procedures CT 3D Reconstructed Images for Surgical Planning Carroll Guy MD [facility] [place] [address] [facility] [address] Referral ID Status Reason Start Date Expiration Date V isits Requested Visits Authorized [id number] Closed Specialty Service Requested 10/05/2024 04/04/2026 1 1 Encounter Details Date Type Department Care Team (Late st Contact Info) Description 10/05/2024 Orders [place] [address] Carroll Guy MD [facility] [place] [address] Pain of left lower extremity Social History Tobacco Use Types Packs/Day Years Used Date Smoking Tobacco: Former Cigarettes 1 20.3 S tarted: 09/28/2004 Smokeless Tobacco: Never [facility] Inpatient Questions Answer Date [...] 7:30 AM EDT Appointment XRay at [address] [place] [address] Mally Knight [facility] [place] [address] 02/06/2025 8:00 AM EDT Office Visit Orthopaedics at [facility] [place] [address] Mally Knight, [facility] [place] [address] 05/01/2025 9:30 AM EDT TH Visit (TeleHealth) Endocrinology at [address] [address] Ana Galo MD [address] [place] [address] documented as of this encounter Results * CT 3D Reconstructed Images for Surgical Planning (10/05/2024 4:02 PM EST) Narrative [facility] - 10/05/2024 4:02 PM EST This exam is auto-finalizing. No interpretation was done. Carroll Guy MD IMG CT ORDERABLES [place], [place] documented in this encounter Visit Diagnoses Diagnosis Pain of left lower extremity Pain of left lower extremity documented in this encounter Care Teams Casing Finisher And Stuffer Relationship Specialty Start Date End Date Claudia Morley MD [address] [place] [address] PCP - General Family Medicine 10/25/23 documented as of this encounter
--- OUTSIDE RECORDS SUMMARY | 2024-12-29 01:25 | XMS_ITS | Encounter Summary ---
Author Organization [facility] Address [facility] [place] [address] Care Team Providers Care Reservoir Engineering Consultant Name Role Phone Claudia Morley MD Primary Care Provider [phone] Encounter Details Date Type Department Care Team [...] 02/06/2025 7:30 AM EDT Appointment XRay at [address] [place] [address] Mally Knight [employer] [facility] [place] [address] 02/06/2025 8:00 AM EDT Office Visit Orthopaedics at [facility] [place] [address] Mally Knight [facility] [place] [address] 05/01/2025 9:30 AM EDT TH Visit (TeleHealth) Endocrinology at [address] [phone] Ana Galo MD [address] [place] [address] documented as of this encounter Visit Diagnoses Not on filedocumented in this encounter Care Teams Reservoir Engineering Consultant Relationship Specialty Start Date End Date Claudia Morley MD [address] [place] [address] PCP - General Family Medicine 10/25/23 documented as of this encounter
--- OUTSIDE RECORDS SUMMARY | 2024-12-29 01:25 | XMS_ITS | Encounter Summary ---
Author Organization [facility] [place] [address] Care Team Providers Care General Accountant Name Role Phone Claudia Morley MD Primary Care Provider [phone] Encounter Details Date Type Department Care Team (Latest Contact Info) Description 10/20/2024 Travel Social History Tobacco Use Types Packs/Day [...] 7:30 AM EDT Appointment XRay at [address] [place] [phone] [facility] [place]THOPAEDIC [place] [address] 02/06/2025 8:00 AM EDT Office Visit Orthopaedics at [facility] [place] [address] [facility] [address] [place] [address] 05/01/2025 9:30 AM EDT TH Visit (TeleHealth) Endocrinology at [address] [phone] Ana Galo MD [address] [place] [address] documented as of this encounter Visit Diagnoses Not on filedocumented in this encounter Care Teams General Accountant Relationship Specialty Start Date End Date Claudia Morley MD [address] [place] [address] PCP - General Family Medicine 10/25/23 documented as of this encounter
--- OUTSIDE RECORDS SUMMARY | 2024-12-29 01:26 | XMS_ITS | Encounter Summary ---
Author Organization [facility] Address [address] [place] [address] Care Team Providers Care Machine Design Teacher Name Role Phone Ashley Valente DERIK Primary Care Provider [phone] Encounter Details Date Type Department Care Team (Late st Contact Info) Description 10/17/2021 Lab Requisition [facility] Pathology & Laboratory Medicine - [facility] [address] [place], [place] [address] Outr Resulting Lab, Provider Social History Tobacco Use Types Packs/Day Years Used Date Smoking Tobacco: Never Assessed Comments Unknown Sex and Gender Information Value Date Recorded Sex Assigned at Not on file Legal Sex Female 9:21 EST Gender Identity Not on file Sexual Orientation Not on file documented as of this encounter Plan of Treatment Not on file documented as of this encounter Procedures Procedure Name Priority Date/Time Associated Diagnosis Comments T3 FREE Routine 10/16/2021 16:45 EST documented in this encounter Results * T3 FREE (10/16/2021 16:45 EST) T3, Free 3.5 2.8 - 5.3 pg/mL 10/17/2021 17:46 EST [facility] Blood VENOUS BLOOD / Unknown 10/16/2021 16:45 EST 10/17/2021 17:03 EST us Provider Outr Resulting Lab CHEMISTRY & BLOOD GA S ORDERABLES Final Result [facility] [address] [place] [address] documented in this encounter Visit Diagnoses Not on filedocumented in this encounter Care Teams Machine Design Teacher Relationship Specialty Start Date End Date Ashley Valente FNP [address] [facility] [address] [place] [phone] PCP - General 11/03/21 documented as of this encounter
--- OUTSIDE RECORDS SUMMARY | 2024-12-29 01:26 | XMS_ITS | Clinical Summary ---
Author Organization [facility] Address [address] [place] [address] Care Team Providers Care Associate Counsel Name Role Phone Ashley Valente INSURANCE BILLING SPECIALIST Primary Care Provider [phone] Social History Tobacco Use Types Packs/Day Years [...] - 19+ 3-dose series) 09/01 COVID-19 Vaccine (2023- season) 2024 Insurance MEDICAID [place] Care Teams Associate Counsel Relationship Specialty Start Date End Date Ashley Valente FNP [address] [place] [address] [address] [place] [address] PCP - General 11/03/21
--- OUTSIDE RECORDS SUMMARY | 2024-12-29 01:26 | XMS_ITS | Encounter Summary ---
[place] [address] Care Team Providers Care Wire Straightener Name Role Phone Claudia Morley MD Primary Care Provider [phone] Encounter Details Date Type Department Care Team ([facility] Contact Info) Description 12/16/2023 Telephone Endocrinology at [address] [address] Ana Galo MD [address] [place] [address] Social History Tobacco Use Types Packs/Day Years [...] Lab orders have been mailed out to [facility]. * Telephone Encounter - Irena Esteves - 12/16/2023 10:55 AM EST Patient calling states she would like to have labs mailed to her home address, which I verified. documented in this encounter Plan of Treatment Upcoming Encounters Date Type Department Care Team (Late st Contact Info) Description 02/06/2025 7:30 AM EDT Appointment XRay at [address] [place] [address] Mally Knight, [facility] [place] [address] 02/06/2025 8:00 AM EDT Office Visit Orthopaedics at [facility] [place] [address] Mally Knight, [facility] [place] [address] 05/01/2025 9:30 AM EDT TH Visit (TeleHealth) Endocrinology at [address] [phone] Ana Galo MD [address] [place] [address] documented as of this encounter Visit Diagnoses Not on filedocumented in this encounter Care Teams Wire Straightener Relationship Specialty Start Date End Date Claudia Morley MD [address] [place] [address] PCP - General Family Medicine 10/25/23 documented as of this encounter
--- OUTSIDE RECORDS SUMMARY | 2024-12-29 01:26 | XMS_ITS | Encounter Summary ---
Author Organization [facility] Address [address] [place] [address] Care Team Providers Care Instructional Support Services Director Name Role Phone Ashley Valente DERIK Primary Care Provider [phone] Encounter Details Date Type Department Care Team (Late st Contact Info) Description 12/17/2022 Lab Requisition [facility] Pathology & Laboratory Medicine - [facility] [address] [place], [place] [phone] Outr Resulting Lab, Provider Social History Tobacco [...] 2.8 - 5.3 pg/mL 12/17/2022 18:[address] [facility] Blood VENOUS BLOOD / Unknown 12/16/2022 12:35 EST 12/17/2022 17:30 EST us Provider Outr Resulting Lab CHEMISTRY & BLOOD GA S ORDERABLES Final Result [facility] [address] [place] [address] * T3, TOTAL (12/16/2022 12:35 EST) T3, Total 133 97 - 169 ng/dL 12/17/2022 18:[address] [facility] Blood VENOUS BLOOD / Unknown 12/16/2022 12:35 EST 12/17/2022 17:30 EST us Provider Outr Resulting Lab CHEMISTRY & BLOOD GA S ORDERABLES Final Result Performing Organization Address [facility] Co de Phone Number [facility] [address] [place] [address] * (ABNORMAL) THYROID ANTIBODIES (12/16/2022 12:35 EST) Anti-Thyroglobulin 120(H) <=60 U/mL 2022 19:[address] [facility] Thyroperoxidase Ab >1,300(H) <=60 U/mL 2022 19:[address] [facility] Blood VENOUS BLOOD / Unknown 12/16/2022 12:35 EST 12/17/2022 17:30 EST us Provider Outr Resulting Lab CHEMISTRY & BLOOD GA S ORDERABLES Final Result Performing Organization Address City/[facility]/ZIP Co de Phone Number [facility] [address] [place] [address] documented in this encounter Visit Diagnoses Not on filedocumented in this encounter Care Teams Instructional Support Services Director Relationship Specialty Start Date End Date Ashley Valente FNP [address] [place] [address] [address] [place] [phone] PCP - General 11/03/21 documented as of this encounter
--- OUTSIDE RECORDS SUMMARY | 2024-12-29 01:26 | XMS_ITS | Encounter Summary ---
Author Organization [facility] [place] [address] Care Team Providers Care Circuit Court Magistrate Name Role Phone Claudia Morley MD Primary Care Provider [phone] Reason for Referral * Consultation (Routine) - Closed Specialty Diagnoses / Procedures Referred By Contamie t Referred To Contact Endocrinology Diagnoses Graves' disease Claudia Morley MD [address] [place] [address] [facility] [address] [place] [phone] Referral ID Status Reason Start Date Expiration Date V isits Requested Visits Authorized [id number] Closed Consult, Test & Treat PCP Updated and/or Approved 10/14/2023 10/14/2024 6 6 Encounter Details Date Type Department Care Team (Late Contact Info) Description 10/25/2023 Transcribe Orders eDH Incoming Referrals [phone] Claudia Morley MD [address] [place], [place] [phone] Graves' disease Social History Tobacco Use Types [...] 02/06/2025 7:30 AM EDT Appointment XRay at [address] [place] [address] Mally Knight, [facility] [place] [address] 02/06/2025 8:00 AM EDT Office Visit Orthopaedics at [facility] [place] [address] Mally Knight, [facility] [place] [address] 05/01/2025 9:30 AM EDT TH Visit (TeleHealth) Endocrinology at [address] [phone] Ana Galo MD [address] [place] [address] Scheduled Referrals Name Type Priority Associated Diagnoses Order Schedule Referral to Endocrinology Outpatient Referral Routine Graves' disease Ordered: 10/25/2023 documented as of this encounter Visit Diagnoses Diagnosis Graves' disease Toxic diffuse goiter without mention of thyrotoxic crisis or storm documented in this encounter Care Teams Circuit Court Magistrate Relationship Specialty Start Date End Date Claudia Morley MD [address] [place] [address] PCP - General Family Medicine 10/25/23 documented as of this encounter
--- OUTSIDE RECORDS SUMMARY | 2024-12-29 01:26 | XMS_ITS | Encounter Summary ---
Author Organization [facility] Address [address] [place] [address] Care Team Providers Care Acidity Tester Name Role Phone Ashley Valente DERIK Primary Care Provider [phone] Encounter Details Date Type Department Care Team (Late st Contact Info) Description 10/15/2023 Lab Requisition [facility] Pathology & Laboratory Medicine - [facility] [address] [place], [place] [address] Outr Resulting Lab, Provider Social History Tobacco [...] 97 - 169 ng/dL 10/15/2023 19:06 EST [facility] Blood VENOUS BLOOD / Unknown 10/14/2023 16:25 EST 10/15/2023 17:23 EST us Provider Outr Resulting Lab CHEMISTRY & BLOOD GA S ORDERABLES Final Result [facility] [address] [place] [address] documented in this encounter Visit Diagnoses Not on filedocumented in this encounter Care Teams Acidity Tester Relationship Specialty Start Date End Date Ashley Valente FNP [address] [facility] [address] [place] [phone] PCP - General 11/03/21 documented as of this encounter
--- OUTSIDE RECORDS SUMMARY | 2024-12-29 01:26 | XMS_ITS | Encounter Summary ---
Author Organization [facility] Address [address] [place] [address] Care Team Providers Care Gender Studies Professor Name Role Phone Ashley Valente DERIK Primary Care Provider [phone] Encounter Details Date Type Department Care Team (Late st Contact Info) Description 11/12/2023 Lab Requisition [facility] Pathology & Laboratory Medicine - [facility] [address] [place], [place] [address] Outr Resulting Lab, Provider Social History Tobacco [...] 2.8 - 5.3 pg/mL 11/12/2023 18:02 EST [facility] Blood VENOUS BLOOD / Unknown 11/11/2023 16:15 EST 11/12/2023 17:30 EST us Provider Outr Resulting Lab CHEMISTRY & BLOOD GA S ORDERABLES Final Result [facility] [address] [place] [address] documented in this encounter Visit Diagnoses Not on filedocumented in this encounter Care Teams Gender Studies Professor Relationship Specialty Start Date End Date Ashley Valente FNP [address] [facility] [address] [place] [phone] PCP - General 11/03/21 documented as of this encounter
--- OUTSIDE RECORDS SUMMARY | 2024-12-29 01:26 | XMS_ITS | Encounter Summary ---
Author Organization [facility] Address [facility] [place] [address] Care Team Providers Care Respiratory Practitioner Name Role Phone Claudia Morley MD Primary Care Provider [phone] Reason for Visit * Consultation (Routine) - Closed Specialty Diagnoses / Procedures Referred By Trevor t Referred To Contact Endocrinology Diagnoses Graves' disease Claudia Morley MD [address] [place] [id number] [facility] [address] [place] [phone] Referral ID Status Reason Start Date Expiration Date V isits Requested Visits Authorized [id number] Closed Consult, Test & Treat PCP Updated and/or Approved 10/14/2023 10/14/2024 6 6 Encounter Details Date Type Department Care Team (Late st Contact Info) Description 12/09/2023 3:00 PM EST TH Visit (TeleHealth) Endocrinology at [address] [address] Ana Galo MD [address] [place] [address] Graves disease Social History Tobacco Use Types [...] in February 2019 when she live in [place] and startedon MMI. In early December she established care with a new Improvement Nurse in [place] which discontinue Methimazole due to [...] Methimazole5 mg and referred to a new Improvement Nurse. She denies history of head/neck radiation, family [...] trimester of given risk of congenital anomalies. Ihtuan asked her to call clinic if she [...] 02/06/2025 7:30 AM EDT Appointment XRay at [address] [place] [address] Mally Knight, [facility] [place] [address] 02/06/2025 8:00 AM EDT Office Visit Orth[facility] [place] [address] Mally Knight, [facility] [address] 05/01/2025 9:30 AM EDT TH Visit (TeleHealth) Endocrinology at [address] [address] Ana Galo MD [address] [place] [address] documented as of this encounter Results * T4, free (12/24/2023 4:20 PM EST) Free T4 0.90 [facility] Blood 12/24/2023 4:20 PM EST Ana Figueroa MD CHEMISTRY ORDERAB LES EXTERNAL FACILITY * T3 Total (12/24/2023 4:20 [...] storm documented in this encounter Care Teams Respiratory Practitioner Relationship Specialty Start Date End Date Claudia Morley MD [address] [place] [address] PCP - General Family Medicine 10/25/23 documented as of this encounter
--- OUTSIDE RECORDS SUMMARY | 2024-12-29 01:26 | XMS_ITS | Encounter Summary ---
Author Organization [facility] Address [address] [place] [address] Care Team Providers Care Rubber Grinder Name Role Phone Ashley Valente DERIK Primary Care Provider [phone] Encounter Details Date Type Department Care Team (Late st Contact Info) Description 08/19/2022 Lab Requisition [facility] Pathology & Laboratory Medicine - [facility] [address] [place], [place] [phone] Outr Resulting Lab, Provider Social History Tobacco [...] 97 - 169 ng/dL 08/19/2022 17:50 EDT [facility] Blood VENOUS BLOOD / Unknown 08/18/2022 14:45 EDT 08/19/2022 16:56 EDT us Provider Outr Resulting Lab CHEMISTRY & BLOOD GA S ORDERABLES Final Result [facility] [address] [place] [address] documented in this encounter Visit Diagnoses Not on filedocumented in this encounter Care Teams Rubber Grinder Relationship Specialty Start Date End Date Ashley Valente FNP [address] [facility] [address] [place] [phone] PCP - General 11/03/21 documented as of this encounter
--- OUTSIDE RECORDS SUMMARY | 2024-12-29 01:26 | XMS_ITS | Encounter Summary ---
Author Organization [facility] Address [facility] [place] [address] Care Team Providers Care Footwear Sales Coordinator Name Role Phone Claudia Morley MD Primary Care Provider [phone] Encounter Details Date Type Department Care Team ([facility] st Contact Info) Description 12/03/2023 Telephone Endocrinology at [address] [address] Justina Womack Social History Tobacco [...] 7:30 AM EDT Appointment XRay at [address] [place] [address] Mally Knight, [facility] [place] [address] 02/06/2025 8:00 AM EDT Office Visit Orthopaedics at [facility] [place] [address] Mally Knight, [facility] [place] [address] 05/01/2025 9:30 AM EDT TH Visit (TeleHealth) Endocrinology at [address] [phone] Ana Galo MD [address] [place] [address] documented as of this encounter Visit Diagnoses Not on filedocumented in this encounter Care Teams Footwear Sales Coordinator Relationship Specialty Start Date End Date Claudia Morley MD [address] [place] [address] PCP - General Family Medicine 10/25/23 documented as of this encounter
--- OUTSIDE RECORDS SUMMARY | 2024-12-29 01:26 | XMS_ITS | Encounter Summary ---
Author Organization [facility] Address [address] [place] [address] Care Team Providers Care Consultant [employer]. Vice President [employer] (Ex ) Name Role Phone Ashley Valente DERIK Primary Care Provider [phone] Encounter Details Date Type Department Care Team (Late st Contact Info) Description 05/21/2022 Lab Requisition [facility] Pathology & Laboratory Medicine - [facility] [address] [place], [place] [address] Outr Resulting Lab, Provider Social History Tobacco [...] 2.8 - 5.3 pg/mL 05/21/2022 18:36 EDT [facility] Blood VENOUS BLOOD / Unknown 05/20/2022 16:30 EDT 05/21/2022 18:00 EDT us Provider Outr Resulting Lab CHEMISTRY & BLOOD GA S ORDERABLES Final Result [facility] [address] [place] [address] documented in this encounter Visit Diagnoses Not on filedocumented in this encounter Care Teams Consultant [employer]. Vice President [employer] (Ex ) Relationship Specialty Start Date End Date Ashley Valente FNP [address] [facility] [address] [place] [phone] PCP - General 11/03/21 documented as of this encounter
--- OUTSIDE RECORDS SUMMARY | 2024-12-29 01:26 | XMS_ITS | Referral Summary ---
Author Organization [facility] Address [address] [place] [address] Care Team Providers Care Dental Specialist Name Role Phone Ashley Valente LIME KILN TENDER Primary Care Provider [phone] Social History Tobacco Use Types Packs/Day Years Used Date Smoking Tobacco: Never Assessed Comments Unknown Sex and Gender Information Value Date Recorded Sex Assigned at Not on file Legal Sex Female 9:21 EST Gender Identity Not on file Sexual Orientation Not on file Plan of Treatment Not on file Insurance MEDICAID [place] Care Teams Dental Specialist Relationship Specialty Start Date End Date Ashley Valente FNP [address] [place] [address] [address] [place] [phone] PCP - General 11/03/21
--- OUTSIDE RECORDS SUMMARY | 2024-12-29 01:26 | XMS_ITS | Encounter Summary ---
Author Organization [facility] Address [address] [place] [address] Care Team Providers Care Remote Sensing Research Scientist Name Role Phone Ashley Valente DERIK Primary Care Provider [phone] Encounter Details Date Type Department Care Team (Late st Contact Info) Description 09/20/2023 Lab Requisition [facility] Pathology & Laboratory Medicine - [facility] [address] [place], [place] [id number] Outr Resulting Lab, Provider Social History Tobacco [...] 97 - 169 ng/dL 09/20/2023 17:24 EDT [facility] Blood VENOUS BLOOD / Unknown 09/20/2023 7:26 EDT 09/20/2023 16:40 EDT us Provider Outr Resulting Lab CHEMISTRY & BLOOD GA S ORDERABLES Final Result [facility] [address] [place] [address] * CORTISOL (09/20/2023 7:26 EDT) Cortisol 17 See Note ug/dL 09/20/2023 17:24 EDT [facility] Comment: NOTE: Reference Ranges (from [facility] IF[facility]): Collected Before 10:00 AM: ??4 - 23 ug/dL Collected After 5:00 PM: ?2 - 14 ug/dL The results of this assay can be falsely elevated due to the consumption of Biotin. Blood VENOUS BLOOD / Unknown 09/20/2023 7:26 EDT 09/20/2023 16:40 EDT us Provider Outr Resulting Lab CHEMISTRY & BLOOD GA S ORDERABLES Final Result Performing Organization Address [facility] Co de Phone Number [facility] [address] [place] [address] documented in this encounter Visit Diagnoses Not on filedocumented in this encounter Care Teams Remote Sensing Research Scientist Relationship Specialty Start Date End Date Ashley Valente FNP [address] [facility] [address] [place] [phone] PCP - General 11/03/21 documented as of this encounter
--- OUTSIDE RECORDS SUMMARY | 2024-12-29 01:26 | XMS_ITS | Encounter Summary ---
Author Organization [facility] Address [address] [place] [address] Care Team Providers Care Boring Machine Operator Helper Name Role Phone Ashley Valente DERIK Primary Care Provider Encounter Details Date Type Department Care Team (Late st Contact Info) Description 01/29/2022 Lab Requisition [facility] Pathology & Laboratory Medicine - [address] [phone] Outr Resulting Lab, Provider Social History Tobacco [...] 75 - 410 ug/dL 01/30/2022 9:30 EST [facility] Blood VENOUS BLOOD / Unknown 01/28/2022 14:40 EST 01/29/2022 17:18 EST us Provider Outr Resulting Lab CHEMISTRY & BLOOD GA S ORDERABLES Final Result [facility] [address] [place] [address] documented in this encounter Visit Diagnoses Not on filedocumented in this encounter Care Teams Boring Machine Operator Helper Relationship Specialty Start Date End Date Ashley Valente FNP [address] [facility] [address] [place] [phone] PCP - General 11/03/21 documented as of this encounter
--- OUTSIDE RECORDS SUMMARY | 2024-12-29 01:26 | XMS_ITS | Encounter Summary ---
Author Organization [facility] Address [address] [place] [address] Care Team Providers Care Dye Operator Name Role Phone Ashley Valente DERIK Primary Care Provider [phone] Encounter Details Date Type Department Care Team (Late st Contact Info) Description 03/03/2023 Lab Requisition [facility] Pathology & Laboratory Medicine - [facility] [address] [place], [place] [address] Outr Resulting Lab, Provider Social History Tobacco [...] 2.8 - 5.3 pg/mL 03/03/2023 20:15 EDT [facility] Blood VENOUS BLOOD / Unknown 03/02/2023 11:10 EDT 03/03/2023 19:38 EDT us Provider Outr Resulting Lab CHEMISTRY & BLOOD GA S ORDERABLES Final Result [facility] [address] [place] [address] documented in this encounter Visit Diagnoses Not on filedocumented in this encounter Care Teams Dye Operator Relationship Specialty Start Date End Date Ashley Valente FNP [address] [facility] [address] [place] [phone] PCP - General 11/03/21 documented as of this encounter
--- OUTSIDE RECORDS SUMMARY | 2024-12-29 01:26 | XMS_ITS | Encounter Summary ---
Author Organization [facility] Address [address] [place] [address] Care Team Providers Care Sap Business Objects Developer Name Role Phone Ashley Valente DERIK Primary Care Provider Encounter Details Date Type Department Care Team (Late st Contact Info) Description 03/30/2024 Lab Requisition [facility] Pathology & Laboratory Medicine - [facility] [address] [place], [place] [phone] Outr Resulting Lab, Provider Social History Tobacco [...] 97 - 169 ng/dL 03/30/2024 18:32 EDT [facility] Blood VENOUS BLOOD / Unknown 03/29/2024 8:50 EDT 03/30/2024 17:31 EDT us Provider Outr Resulting Lab CHEMISTRY & BLOOD GA S ORDERABLES Final Result [facility] [address] [place], [place] [phone] documented in this encounter Visit Diagnoses Not on filedocumented in this encounter Care Teams Sap Business Objects Developer Relationship Specialty Start Date End Date Ashley Valente FNP [address] [phone] PCP - General 11/03/21 documented as of this encounter
--- OUTSIDE RECORDS SUMMARY | 2024-12-29 01:26 | XMS_ITS | Encounter Summary ---
Author Organization [facility] Address [address] [place] [address] Care Team Providers Care Bobbin Loose End Finder Name Role Phone Ashley Valente DERIK Primary Care Provider [phone] Encounter Details Date Type Department Care Team (Late st Contact Info) Description 12/25/2023 Lab Requisition [facility] Pathology & Laboratory Medicine - [facility] [address] [place], [place] [address] Outr Resulting Lab, Provider Social History Tobacco [...] 97 - 169 ng/dL 12/25/2023 22:30 EST [facility] Blood VENOUS BLOOD / Unknown 12/24/2023 16:20 EST 12/25/2023 21:48 EST us Provider Outr Resulting Lab CHEMISTRY & BLOOD GA S ORDERABLES Final Result [facility] [address] [place] [address] documented in this encounter Visit Diagnoses Not on filedocumented in this encounter Care Teams Bobbin Loose End Finder Relationship Specialty Start Date End Date Ashley Valente FNP [address] [facility] [address] [place] [phone] PCP - General 11/03/21 documented as of this encounter
[2024-12-29 15:55] LABS: Abs Immature Grans 0.02 10^3/uL (0.0-0.06); Absolute Basophil Count 0.03 10^3/uL (0.0-0.2); Absolute Eosinophil Count 0.18 10^3/uL (0.0-0.7); Absolute Lymphocyte Count 2.72 10^3/uL (1.2-3.4); Absolute Monocyte Count 0.51 10^3/uL (0.1-0.8); Absolute Neutrophil Count 3.79 10^3/uL (1.2-6.7); Basophils % 0.4 %; Eosinophils % 2.5 %; HCT 44.6 % (36.0-46.0); HGB 15.2 g/dL (11.2-15.7); Immature Grans % 0.3 %; Lymphocytes % 37.5 %; MCHC 34.1 % (32.0-36.0); MCV 91 fL (80-95); MPV 8.9 fL (8.0-11.0); Neutrophils % 52.3 %; Platelet Count 260 10^3/uL (130-400); RDW 12.5 % (11.7-14.6); RDW-SD 41.5 fL; WBC 7.25 10^3/uL (4.4-10.8)
[2024-12-29 16:37] LABS: ALT 60 U/L (14-59); AST 32 U/L (15-37); Albumin 4.1 g/dL (3.4-5.0); Alkaline Phosphatase 92 U/L (46-116); Anion Gap 9.5 mmol/L (3-11); BUN 14 mg/dL (7-18); Bilirubin, Total 0.44 mg/dL (0.2-1.0); CO2 27.5 mmol/L (21.0-32.0); CREATININE 1.3 mg/dL (0.55-1.02); Calcium 9.8 mg/dL (8.5-10.1); Calculated LDL 140 mg/dL (<100); Chloride 104 mmol/L (98-107); Cholesterol 245 mg/dL (<200); Estimated GFR 52.65 (mL/min/1.73m2); Glucose 92 mg/dL (74-106); HDL Cholesterol 67 mg/dL (40-60); Potassium 4.1 mmol/L (3.5-5.1); Sodium 141 mmol/L (136-145); TSH 3.22 uIU/mL (0.36-3.74); Total Protein 8.4 g/dL (6.4-8.2); Triglyceride 193 mg/dL (<150)
[2024-12-29 16:42] LABS: Hemoglobin A1C 5.1 % (<5.7)
[2024-12-29 16:49] LABS: Vitamin D 25 Total 18.6 ng/mL (30-100)
[2024-12-30 22:17] LABS: T3, Total 133 ng/dL (97-169)
[2025-01-01 17:36] LABS: Lamotrigine 3.7 mcg/mL (3.0-15.0)
== END 2024-12-29 01:03 | disposition home or self-care (01) ==
PROVIDERS: Registered Nurse; PCP Nurse Practitioner Family; Visit Provider Internal Medicine Endocrinology, Diabetes & Metabolism
DX: E89.40 Asymptomatic postprocedural ovarian failure (principal); E05.00 Thyrotoxicosis with diffuse goiter without thyrotoxic crisis or storm; F31.32 Bipolar disorder, current episode depressed, moderate; F43.12 Post-traumatic stress disorder, chronic; F60.3 Borderline personality disorder; F41.1 Generalized anxiety disorder; Z51.81 Encounter for therapeutic drug level monitoring
CPT/HCPCS: 36415; 80053; 80061; 80175; 82306; 83036; 84439; 84443; 84480; 85025

== ENCOUNTER 2025-07-24 17:27 | Outpatient (REF) | payer MEDICAID, SELFPAY ==
[2025-07-24 18:31] LABS: ALT 54 U/L (14-59); AST 29 U/L (15-37); Albumin 4.3 g/dL (3.4-5.0); Alkaline Phosphatase 68 U/L (46-116); Anion Gap 9.7 mmol/L (3-11); BUN 14 mg/dL (7-18); Bilirubin, Total 0.4 mg/dL (0.2-1.0); CO2 27.3 mmol/L (21.0-32.0); Calcium 9.7 mg/dL (8.5-10.1); Chloride 102 mmol/L (98-107); Estimated GFR 94.28 (mL/min/1.73m2); Glucose 104 mg/dL (74-106); Potassium 4.3 mmol/L (3.5-5.1); Sodium 139 mmol/L (136-145); Total Protein 7.8 g/dL (6.4-8.2); Vitamin D 25 Total 20 ng/mL (30-100)
== END 2025-07-24 17:28 | disposition home or self-care (01) ==
LOC: NCHCN 17:27
PROVIDERS: PCP Nurse Practitioner Family; Visit Provider Nurse Practitioner Family
DX: Z00.00 Encounter for general adult medical examination without abnormal findings (principal); E55.9 Vitamin D deficiency, unspecified
CPT/HCPCS: 80053; 82306

== ENCOUNTER 2025-11-28 02:32 | Outpatient (CLI) | payer MEDICAID, SELFPAY ==
[2025-11-28 07:45] LABS: HCT 44.1 % (36.0-46.0); HGB 14.9 g/dL (11.2-15.7); MCH 30.8 pg (27.0-33.0); MCHC 33.8 % (32.0-36.0); MCV 91 fL (80-95); MPV 9.3 fL (8.0-11.0); Platelet Count 236 10^3/uL (130-400); RBC 4.84 10^6/uL (3.93-5.22); RDW 12.7 % (11.7-14.6); RDW-SD 42.0 fL; WBC 6.52 10^3/uL (4.4-10.8)
[2025-11-28 08:04] LABS: Hemoglobin A1C 5.0 % (<5.7)
[2025-11-28 09:21] LABS: ALT 42 U/L (10-49); AST 33 U/L (<34); Albumin 4.1 g/dL (3.2-5.0); Alkaline Phosphatase 60 U/L (46-116); Anion Gap 8.1 mmol/L (3-11); BUN 16 mg/dL (9-23); Bilirubin, Total 0.4 mg/dL (0.2-1.2); CO2 24.9 mmol/L (20.0-31.0); Calcium 9.0 mg/dL (8.3-10.6); Chloride 107 mmol/L (98-107); Cholesterol 180 mg/dL (<200); Ferritin 84 ng/mL (7-271); Glucose 89 mg/dL (74-106); HDL Cholesterol 53 mg/dL (>or=50); Potassium 4.3 mmol/L (3.5-5.1); Sodium 140 mmol/L (136-145); TSH 1.40 uIU/mL (0.55-4.78); Total Protein 7.5 g/dL (5.7-8.2); Vitamin B12 635 pg/mL (211-911); Vitamin D 25 Total 29 ng/mL (30-100)
[2025-11-28 17:11] LABS: CRP, High Sensitivity 3.51 mg/L (See Note)
== END 2025-11-28 02:33 | disposition home or self-care (01) ==
PROVIDERS: PCP Nurse Practitioner Family; Visit Provider Registered Nurse
DX: F31.32 Bipolar disorder, current episode depressed, moderate (principal); F43.12 Post-traumatic stress disorder, chronic; F60.3 Borderline personality disorder; F41.1 Generalized anxiety disorder; E66.9 Obesity, unspecified; Z51.81 Encounter for therapeutic drug level monitoring
CPT/HCPCS: 36415; 80053; 80061; 82306; 85027; 86141; 82607; 82728; 83036; 84443